=== PATIENT | male | born 1940 | race Caucasian/White ===

== ENCOUNTER 2017-08-26 15:59 | Emergency (ER) | payer MEDICARE, SELFPAY ==
[2017-08-26 16:00] VITALS: BP 156/88; PULSE 92; RESP 20; TEMP 36.9; O2SAT 96; BMI 33.7
--- NOTE | 2017-08-26 16:12 | EKG12_ITS ---
Test Reason : SOB Blood Pressure : / mmHG Vent. Rate : 085 BPM Atrial Rate : 085 BPM P-R Int : 190 ms QRS Dur : 148 ms QT Int : 416 ms P-R-T Axes : 033 -45 034 degrees QTc Int : 495 ms Normal sinus rhythm Right bundle branch block Left anterior fascicular block Bifascicular block Abnormal ECG Confirmed by KAILEY LUCERO, MICHELET ([id number]), copy editor JAYDEN EVERETT ([id number]) on 08/29/2017 1:16:16 PM Referred By: UNRULY Confirmed By:MICHELET BONNER MD
--- NOTE | 2017-08-26 16:16 | ED.DCSUM_ITS ---
- ER Visit Summary Date of Service: 08/26/17 Chief Complaint: Cough History of Present Illness: The patient is a [address] Rosenthal. He reports that he has a cough that began 2 weeks ago. It is productive of very little sputum that is yellow. No blood. States he went to [facility] clinic approximate 5 days ago and was placed on Augmentin and ProAir air and has not had any relief. He did not have a chest x-ray at that time. Reports that he has a mild constant chest pain that he describes as dull. It is 1 out of 10 severity. It is increased with coughing. This is been present for a week. Patient reports he has mild shortness of breath that is unrelieved with his MDI. He denies any other complaints. Physical Examination: Vitals: Stable. Afebrile. General: Well-nourished and well-developed. Head: Normocephalic atraumatic. Neck: Supple, no lymphadenopathy. No JVD. Nontender. Cardiovascular: Regular rate and rhythm. No murmurs. Respiratory: No respiratory distress. Minimal and expiratory wheezing with good air movement. Abdominal: Soft, nontender, nondistended, normal bowel sounds. No guarding, rebound, or peritoneal signs. Back: Nontender. Extremities: Nontender, no edema. Skin: Normal color, no rash. Neurologic: Alert and oriented ?3. Cranial nerves II through XII are intact. Normal strength and sensation. Psych: Normal affect. Test Results: EKG is sinus at 85 with a bifascicular block that is new since October 082016. Troponin was negative. Chem-7 more for creatinine 1.36 and glucose 132. CBC is marked for eosinophils of 8. Chest x-ray shows chronic changes. Emergency Department Course and Treatment: Patient had an IV placed. He was given albuterol Atrovent aerosols. He feels much improved. Treatment Plan: She will be placed on steroids as I suspect this will help the inhaler work at home. He is given a 5 day burst of prednisone. Given his age and the new bifascicular block he was discussed with Dr. Davila instructed to follow-up with him in the office for further evaluation and treatment. Follow-up his primary care physician if his cough is not improving within 3-5 days. Return to the emergency department for any worsening symptoms. Disposition: To home in improved and stable condition. Impression:. URI. 2. New bifascicular block. This note was generated with Lookmash dictation software. It may contain incorrect words, spelling, and punctuation that were not noted in review of the chart prior to signing ED Disposition - Plan for ED Patient: Disposition: Home or Assisted Living Chief Complaint: Cold Sx Instructions: ED Upper Resp Infec No Abx Tx Prescriptions: Prednisone [Deltasone] 60 mg PO DAILY #15 tablet Referrals: Sergio Monroy DO [Primary Care Provider] - 1 Week if not improving Macho Davila MD [STAFF PHYSICIAN] - 1-2 Weeks
[2017-08-26 16:25] VITALS: PULSE 87; RESP 18
[2017-08-26] MEDS: Ipratropium/Albuterol Sulfate 3 ML AMPUL.NEB INHALATION (16:30)
[2017-08-26] MEDS: 0.9% Normal Saline 1,000 ML 150 ML IV (16:31)
--- NOTE | 2017-08-26 16:35 | RAD_ITS ---
STUDY: X-RAY CHEST REASON FOR EXAM: Male, 77 years old. Cough TECHNIQUE: Frontal view of the chest COMPARISON: 09/19/2016 FINDINGS: The lungs are clear. There are no pleural effusions. There is no pneumothorax. The heart is normal in size. Again noted are old left-sided rib fractures. RAD/Chest PA and Lateral IMPRESSION: No acute thoracic pathology. Electronically Signed: Giorgi Draper, at 20:38 EST Tel , Service support ,
[2017-08-26 16:45] LABS: Absolute Lymphocyte Count 1.15 X10^3/ul (0.83-4.51); Absolute Neutrophil Count 3.3 X10^3/uL (2.0-7.7); Basophil# 0.05 X10^3/uL; Basophil% 0.9 % (0-1); Eosinophil# 0.42 X10^3/uL; Eosinophils% 7.8 % (0-5); Hematocrit 43.8 % (40-54); Hemoglobin 13.7 g/dl (13.0-16.5); Lymphocyte # 1.15 X10^3/ul (4.0); Lymphocyte % 21.3 % (19-41); Mean Corp Hgb Conc 31.3 g/gl (32-36); Mean Corpuscular Hgb 29.6 pg (27.0-32.0); Mean Corpuscular Volume 94.6 fL (80-94); Mean Platelet Vol. 9.9 fl (6.2-12.0); Monocyte# 0.49 X10^3/uL; Monocyte% 9.1 % (0-10); Neutrophil # 3.29 X10^3/uL (2.7-7.7); Neutrophil % 60.9 % (47-70); POSITIVE COUNT NO; POSITIVE DIFFERENTIAL NO; POSITIVE MORPHOLOGY NO; Platelet Count 254 K/mm3 (150-450); RBC Distribution Width SD 44.6 fl (35.1-43.9); Red Blood Count 4.63 M/mm3 (4.6-6.2); White Blood Count 5.4 K/mm3 (4.4-11.0)
[2017-08-26 16:54] LABS: Anion Gap 7 (5-15); BUN 12 mg/dL (7-18); BUN/Creat Ratio 8.8 RATIO (10-20); Chloride 107 mmol/L (98-107); Creatinine, Serum 1.36 mg/dL (0.70-1.30); EST Glomerular Filtration Rate 54 mL/min (>60); Est Glom Filt Rate - Afr Amer 66 mL/min (>60); Estimated Creatinine Clearance 52.22 ml/min; Glucose 132 mg/dL (74-106); Potassium 4.5 mmol/L (3.5-5.1); Sodium Level 141 mmol/L (136-145)
[2017-08-26 17:27] VITALS: BP 124/69; PULSE 78; RESP 18; O2SAT 96
[2017-08-26 18:32] VITALS: BP 142/75; PULSE 84; RESP 21; O2SAT 94
== END 2017-08-26 18:32 | disposition home or self-care (01) ==
LOC: ED 16:47
PROVIDERS: Emergency Provider Emergency Medicine; Family Provider Preventive Medicine Occupational Medicine; PCP Preventive Medicine Occupational Medicine
DX: J06.9 Acute upper respiratory infection, unspecified (principal); I45.2 Bifascicular block; R07.9 Chest pain, unspecified; F31.9 Bipolar disorder, unspecified; Z90.89 Acquired absence of other organs; Z90.49 Acquired absence of other specified parts of digestive tract; Z79.899 Other long term (current) drug therapy
CPT/HCPCS: 71046; 80048; 84484; 85025; 93005; 94640; 96360; 96361; 99285; J7030; A4216

== ENCOUNTER → 2017-10-24 09:17 | Outpatient (CLI) | payer MEDICARE, SELFPAY ==
[2017-10-24 11:17] LABS: ALB/GLOB Ratio 0.9 RATIO (0.9-2.4); AST(SGOT) 16 U/L (15-37); Alanine Aminotransfer ALT/SGPT 21 U/L (16-61); Albumin, Serum 3.4 g/dL (3.2-5.0); Alkaline Phosphatase 68 U/L (45-117); Anion Gap 6 (5-15); BUN 13 mg/dL (7-18); BUN/Creat Ratio 10.9 RATIO (10-20); Calcium,Total 8.5 mg/dL (8.5-10.1); Chloride 111 mmol/L (98-107); Creatinine, Serum 1.19 mg/dL (0.70-1.30); EST Glomerular Filtration Rate 63 mL/min (>60); Est Glom Filt Rate - Afr Amer 76 mL/min (>60); Globulin 3.9 g/dL (2.2-4.2); Glucose 115 mg/dL (74-106); Potassium 4.4 mmol/L (3.5-5.1); Protein, Total 7.3 g/dL (6.4-8.2); Sodium Level 144 mmol/L (136-145); Thyroid Stim Hormone (TSH) 3.37 uIU/mL (0.358-3.74)
== END ==
PROVIDERS: Family Provider Preventive Medicine Occupational Medicine; PCP Preventive Medicine Occupational Medicine; Visit Provider Psychiatry & Neurology Psychiatry
DX: Z79.899 Other long term (current) drug therapy (principal)
CPT/HCPCS: 36415; 80053; 80178; 84443

== ENCOUNTER 2018-07-12 07:17 | Emergency (ER) | payer MEDICARE, SELFPAY ==
[2018-07-12 07:17] VITALS: BP 156/90; PULSE 71; RESP 18; TEMP 36.1; O2SAT 97; BMI 33.0
[2018-07-12 07:26] VITALS: BP 156/90; PULSE 71; RESP 18; TEMP 36.1; O2SAT 97
--- NOTE | 2018-07-12 07:36 | ED.VISSUMM ---
- ER Visit Summary Date of Service: 07/12/18 Chief Complaint: Pain and increased salivation status post dental extraction approximately 4 months ago History of Present Illness: The patient is a 77 M who presents because of pain and increased salivation for 4 months. He was referred to Dr. Kareem Anders an pathology secretary who told the patient that his symptoms are related to the dental extraction. He states he followed up with a dentist with no answer resolution. He was prescribed a liquid suspension by Dr. Anders. He denies fever, chills night sweats. He denies URI symptoms. He reported 15 seconds of chest discomfort last evening with no associated symptoms or radiation. He has no risk factors for coronary disease. Patient was asked what his purpose and goal was by coming to the emergency room. He stated he wanted the secretions to decrease. Physical Examination: Vital signs noted blood pressure is elevated 157/91. Head is atraumatic normocephalic. Pupils are equal round reactive. Extraocular muscles are intact. TMs are pearly white with landmarks noted. Nares patent with no drainage. Posterior pharynx without erythema or exudate. Uvula is midline. Examination of the gums reveals no erythema, soft tissue swelling. There is no obvious increased salivation noted. There is no abnormality [place]'s or Stensen's duct. There is no evidence of malocclusion and there is no pain over the TMJ joint. There is no dysphonia or dysphasia. Trachea is midline. There is no submental, submandibular or cervical lymphadenopathy. There is no stridor with auscultation of the neck. Test Results: None Emergency Department Course and Treatment: Patient was informed that as an emergency physician I see no abnormality and recommend he follow-up with his dentist or Dr. Adners. Treatment Plan: Follow-up with dentist who extracted teeth or Dr. Anders who he has seen and reportedly told patient that the problem was related to the extraction. Disposition: Discharge to home in stable condition Impression: Pain and increase elevation status post dental extraction This note was generated with Zuppler dictation software. It may contain incorrect words, spelling, and punctuation that were not noted in review of the chart prior to signing ED Disposition - Plan for ED Patient: Disposition: Home or Assisted Living Chief Complaint: Other, Pain/Inj Instructions: ED Screening Exam Medical Nonurgent Referrals: Sergio Monroy DO [Primary Care Provider] - As Needed Additional Instructions: Recommend contacting the dentist to extract the teeth and making dentures for Dr. Kareem Anders for any further concerns or questions or treatment.
--- NOTE | 2018-07-12 07:40 | ED.DCSUM_ITS ---
- ER Visit Summary Date of Service: 07/12/18 Chief Complaint: Pain and increased salivation status post dental extraction approximately 4 months ago History of Present Illness: The patient is a 77 M who presents because of pain and increased salivation for 4 months. He was referred to Dr. Kareem Anders an o tolaryngologist who told the patient that his symptoms are related to the dental extraction. He states he followed up with a dentist with no answer resolution. He was prescribed a liquid suspension by Dr. Anders. He denies fever, chills night sweats. He denies URI symptoms. He reported 15 seconds of chest discomfort last evening with no associated symptoms or radiation. He has no risk factors for coronary disease. Patient was asked what his purpose and goal was by coming to the emergency room. He stated he wanted the secretions to decrease. Physical Examination: Vital signs noted blood pressure is elevated 157/91. Head is atraumatic normocephalic. Pupils are equal round reactive. Extraocular muscles are intact. TMs are pearly white with landmarks noted. Nares patent with no drainage. Posterior pharynx without erythema or exudate. Uvula is midline. Examination of the gums reveals no erythema, soft tissue swelling. There is no obvious increased salivation noted. There is no abnormality [place]'s or Stensen's duct. There is no evidence of malocclusion and there is no pain over the TMJ joint. There is no dysphonia or dysphasia. Trachea is mid line. There is no submental, submandibular or cervical lymphadenopathy. There is no stridor with auscultation of the neck. Test Results: None Emergency Department Course and Treatment: Patient was informed that as an emergency physician I see no abnormality and recommend he follow-up with his dentist or Dr. Anders. Treatment Plan: Follow-up with dentist who extracted teeth or Dr. Anders who he has seen and reportedly told patient that the problem was related to the extraction. Disposition: Discharge to home in stable condition Impression: Pain and increase elevation status post dental extraction This note was generated with Move[employer] dictation software. It may contain incorrect words, spelling, and punctuation that were not noted in review of the chart prior to signing ED Disposition - Plan for ED Patient: Disposition: Home or Assisted Living Chief Complaint: Other, Pain/Inj Instructions: ED Screening Exam Medical Nonurgent Referrals: Sergio Monroy DO [Primary Care Provider] - As Needed Additional Instructions: Recommend contacting the dentist to extract the teeth and making dentures for Dr. Kareem Anders for any further concerns or questions or treatment.
== END 2018-07-12 07:49 | disposition home or self-care (01) ==
LOC: ED 07:47
PROVIDERS: Emergency Provider Emergency Medicine; Family Provider Preventive Medicine Occupational Medicine; PCP Preventive Medicine Occupational Medicine
DX: K08.89 Other specified disorders of teeth and supporting structures (principal); K11.7 Disturbances of salivary secretion; R07.89 Other chest pain; R03.0 Elevated blood-pressure reading, without diagnosis of hypertension; F31.9 Bipolar disorder, unspecified; Z79.899 Other long term (current) drug therapy
CPT/HCPCS: 99282

== ENCOUNTER → 2019-01-12 13:26 | Outpatient (CLI) | payer MEDICARE, SELFPAY ==
[2019-01-12 16:03] LABS: ALB/GLOB Ratio 1.1 RATIO (0.9-2.4); AST(SGOT) 13 U/L (15-37); Alanine Aminotransfer ALT/SGPT 20 U/L (16-61); Albumin, Serum 3.7 g/dL (3.2-5.0); Alkaline Phosphatase 70 U/L (45-117); Anion Gap 8 (5-15); BUN 15 mg/dL (7-18); BUN/Creat Ratio 11.2 RATIO (10-20); Chloride 109 mmol/L (98-107); Creatinine, Serum 1.34 mg/dL (0.70-1.30); EST Glomerular Filtration Rate 55 mL/min (>60); Est Glom Filt Rate - Afr Amer 66 mL/min (>60); Globulin 3.5 g/dL (2.2-4.2); Glucose 110 mg/dL (74-106); Protein, Total 7.2 g/dL (6.4-8.2); Sodium Level 142 mmol/L (136-145)
== END ==
PROVIDERS: Family Provider Preventive Medicine Occupational Medicine; PCP Preventive Medicine Occupational Medicine; Referring Provider Registered Nurse; Visit Provider Registered Nurse
DX: F31.9 Bipolar disorder, unspecified (principal); Z79.899 Other long term (current) drug therapy
CPT/HCPCS: 36415; 80053; 80178; 84443

== ENCOUNTER → 2020-08-12 09:06 | Outpatient (CLI) | payer MEDICARE, SELFPAY ==
[2020-08-12 11:03] LABS: ALB/GLOB Ratio 0.9 RATIO (0.9-2.4); AST(SGOT) 13 U/L (15-37); Alanine Aminotransfer ALT/SGPT 21 U/L (16-61); Albumin, Serum 3.6 g/dL (3.2-5.0); Alkaline Phosphatase 76 U/L (45-117); Anion Gap 4 (5-15); BUN 16 mg/dL (7-18); BUN/Creat Ratio 12.9 RATIO (10-20); Calcium,Total 9.1 mg/dL (8.5-10.1); Chloride 106 mmol/L (98-107); Creatinine, Serum 1.24 mg/dL (0.70-1.30); EST Glomerular Filtration Rate 60 mL/min (>60); Est Glom Filt Rate - Afr Amer 72 mL/min (>60); Globulin 3.9 g/dL (2.2-4.2); Glucose 109 mg/dL (74-106); Potassium 4.1 mmol/L (3.5-5.1); Protein, Total 7.5 g/dL (6.4-8.2); Sodium Level 139 mmol/L (136-145); Thyroid Stim Hormone (TSH) 3.52 uIU/mL (0.358-3.74)
== END ==
PROVIDERS: PCP Preventive Medicine Occupational Medicine; Referring Provider Registered Nurse; Visit Provider Registered Nurse
DX: F31.9 Bipolar disorder, unspecified (principal); Z79.899 Other long term (current) drug therapy
CPT/HCPCS: 36415; 80053; 80178; 84443

== ENCOUNTER 2021-04-24 09:00 | Outpatient (RCR) | payer MEDICARE, SELFPAY ==
--- NOTE | 2021-04-10 11:13 | HP.PTEVAL_ITS ---
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 Date of Evaluation: 04/10/21 Physical Therapist: Juan Samayoa, DPT, OCS, CSCS - Visit Plan Frequency: 1x/Week Duration: 4-6 Weeks Plan: Requested HEP vs frequent therapy due to wifes schedule, this thera[ist agreeable as he is doing well with pain and funciton. weekly x 4-6 as needed for HEP progression: Given this week AP, QS, HS seated and supine, PKF, and SLR x 3 and heel raises 2-3x/day. next session: WB ex and ensure ROM coming along, HS, quad stretch. - Subjective R TKA Dr Alejo on 03/26/21. L knee has OA also. Been home since with . Uses wh walker to get around at times but not as much lately. Pain level is good. Pain meds until 3 days ago now cut down to one dose per day now. 0-2/10. A little discomfort with bending. HEP : HS, AP, QS.SLR. Had pain for 16 years prior to surgery. Sleeping is 2.5 hours at a time which is normal lately due to bathroom. 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 Goals are to get caught up on paperwork. Two steps to get into house with railing using L leg. Hobbies: none lately. Basic ADLs are getting done, needs some help with R shoe and sock. Doing shower adn bathroom, has handles. Has shower seat. - Pain R knee Pain Intensity (Out of 10): 0 Pain Intensity Range: 0, 2 - Objective Walks with wh walker mod I with good trasnfers utilizing UE and steps reciprocal up with two rails and down with discomfort in R but reciprocal with much UE WB. Bed trasnfer I. - homand. patellas moving les son R than L but fair movoement. R girth 18 adn 21.5 6 sp. R knee -5 to 85 AROM and 95 PROM. R 48# HSC and 32# ext. TUG 11 sec. Incision is clean and dry with some steristrips still in place, no signs of redness, heat or excessive swelling. CBD study dec lined. - Balance/Special Test Scores Functional Gait Assessment Score: 25 % Disability: 16.6700 Lower Extremity Functional Score: 58 TUG Test Time Seconds: 11 WOMAC Total Score: 17 WOMAC Percentatge: 82.3000 - Goals Goal 1:: 0-110 AROM without pain to facilitate steps Goal Time Frame: 4-6 Weeks Goal 2:: Walk without gait deviations and good knee flexiona dn ext community based distances Goal Time Frame: 4-6 Weeks Goal 3:: Steps reciprocal without rail Goal Time Frame: 4-6 Weeks Goal 4:: Pt feel 100% back to activities Goal Time Frame: 4-6 Weeks - Rehabilitation Potential Physical Therapy Diagnosis: R knee pain, stiffness after recent TKA Rehabilitation Potential: Good - Anticipated Interventions Patient/Client Instruction: Educate patient on: Condition, Plan of Care For the Purpose of:: To decrease pain, To increase ROM, To improve muscle performance and motor function, To improve ability of physical actions for home/community/work/leisure, To improve gait and locomotor functions Therapeutic Exercise to Include: Strength training, Flexibilty training, Gait and locomotor training, Passive ROM, Active ROM For the Purpose of:: To decrease pain, To increase ROM, To improve muscle performance and motor function, To increase tolerance to activity/condition/position, To improve ability of physical actions for home/community/work/leisure, To improve gait and locomotor functions Thank you for the opportunity to evaluate your patient. For Medicare and Medicare HMO plans, please review the plan of care and approve it. It will need to be FAXED BACK to us at [phone] for Medicare purposes. For Medicare only, by signing this I certify the plan of care. Please let me know if there are questions or concerns regarding this plan of care. Physician Signature: Date:
--- NOTE | 2021-06-26 11:59 | HP.PT.NRP ---
LACI ROMERO was seen in my office for initial evaluation on 04/10/21. The following Plan of Care was established for this patient: Initial Frequency: 1x/Week Initial Duration: 4-6 Weeks Patient/Client Instruction: Educate patient on: Condition, Plan of Care For the Purpose of:: To decrease pain, To increase ROM, To improve muscle performance and motor function, To improve ability of physical actions for home/community/work/leisure, To improve gait and locomotor functions Therapeutic Exercise to Include: Strength training, Flexibilty training, Gait and locomotor training, Passive ROM, Active ROM For the Purpose of:: To decrease pain, To increase ROM, To improve muscle performance and motor function, To increase tolerance to activity/condition/position, To improve ability of physical actions for home/community/work/leisure, To improve gait and locomotor functions This patient was last seen in our office 04/24/21. Pertinent comments regarding their Physical therapy will appear below: Pt seen two visits of POC and was doing very well. He did not attend his last f/u two weeks later. at this point, it has been over two months and I will disocntinue due to nonattendance. At this point I will be discontinuing this patient from physical therapy. I would be happy to see this patient again in the future if found appropriate by the physician. Thank you! Juan Samayoa, DPT, OCS, CSCS Balance/Gait/Functional tests - Balance/Special Test Scores Functional Gait Assessment Score: 25 % Disability: 16.6700 Lower Extremity Functional Score: 58 TUG Test Time Seconds: 11 WOMAC Total Score: 17 WOMAC Percentage: 82.3000
== END 2021-04-24 19:00 | disposition home or self-care (01) ==
LOC: PT 09:00
PROVIDERS: PCP Preventive Medicine Occupational Medicine
DX: M17.11 Unilateral primary osteoarthritis, right knee (principal); M25.561 Pain in right knee; G89.18 Other acute postprocedural pain; Z47.1 Aftercare following joint replacement surgery; Z96.651 Presence of right artificial knee joint
CPT/HCPCS: 97110; 97161

== ENCOUNTER 2021-06-09 19:37 | Emergency (ER) | payer MEDICARE, SELFPAY ==
[2021-06-09 19:38] VITALS: BP 123/77; PULSE 91; RESP 20; TEMP 35.8; O2SAT 98; BMI 37.3
[2021-06-09] MEDS: Tetracaine 0.5% Ophthalmic Bottle 1 DRP LEFT EYE (21:52)
--- NOTE | 2021-06-09 22:15 | EDS_ITS ---
HPI History of Present Illness Chief Complaint: Eye Problem Detail of Chief Complaint: Left eye irritation Informant: patient Onset/Context/Timing Location: Left Eye Onset: Yesterday Current Severity: Mild Maximum Severity: Moderate Narrative Narrative: Patient presents with left eye irritation that started last evening. He was using a assembly cleaner last night and thinks he may have had some on his hands when he wiped his eye. He noted burning sensation the left eye, especially when he first opens his eyes. He had some mild watering. He denies vision change. [facility] Medical History Bipolar disorder Chest pain Home Medications lithium carbonate 450 mg PO BID 08/01/15 [History Last Taken 09/18/16] Allergy/AdvReac Type Severity Reaction Status Date / Time No Known Allergies Allergy Verified 06/09/21 19:38 Surgical History History of cholecystectomy History of hernia repair Hx of appendectomy Social History Smoking Status: Unknown if ever smoked ROS ROS ED Constitutional Constitutional ED: Denies chills or fever(s) Eyes Eyes: Denies blurry vision or change in vision ENT ENT ED: Denies rhinorrhea or sore throat Cardiovascular Cardiovascular: Denies chest pain Respiratory/Chest Respiratory/Chest: Denies cough or dyspnea Gastrointestinal Gastrointestinal: Denies abdominal pain Integumentary Denies rash Neurologic Neurologic: Denies headache(s) or weakness Hematologic/Lymphatic Hematologic/Lymphatic: Denies easy bleeding or easy bruising Allergic/Immunologic Allergic/Immunologic ED: Denies urticaria EXAM Physical Exam Const Vital Signs: 06/09/21 19:38 Temperature 96.5 F L Temperature Source Temporal Pulse Rate 91 Respiratory Rate 20 H Blood Pressure 123/77 H Blood Pressure Mean 92 Pulse Ox 98 Oxygen Delivery Method Room Air Positive well nourished and well developed General Appearance ED: well developed Eyes General Eye ED: Yes normal light reflex Periorbital: periorbital findings normal Eyelid: eyelids normal Conjunctiva: conjunctiva abnormal left (Left conjunctival injection.) Pupil: PERRL Resp normal respiratory effort and clear to auscultation bilaterally Cardio regular rate and regular rhythm GI non-tender Palpation: soft Neuro oriented x3 Sensorium / Orientation: alert Skin Lesions: no lesions Rashes: no rashes MDM MDM MDM Narrative Medical decision making narrative: Tetracaine drops instilled into the left eye. Eye is irrigated with eyewash. He does note the burning sensation was significantly improved following instillation of tetracaine. Following this fluorescein is applied. No dye uptake noted. Discussed with patient I believe he has chemical conjunctivitis. He will be treated with gentamicin eyedrops. He is referred to [facility] if not improving. Discharge Plan Triage Chief Complaint: Eye Problem ED Provider: Iliana Justin Dx/Rx/DC Orders Clinical Impression: Chemical conjunctivitis Instructions: Conjunctivitis Caused by Irritation, ED Eye Exposure, Chemical Prescriptions: No Action lithium carbonate 450 MG Tablet.Er 450 mg PO BID RF: 0 Primary Care Provider: Sergio Monroy Referrals: Isrrael Trivedi MD [STAFF PHYSICIAN] - 3-5 Days if not improving Sergio Monroy DO [Primary Care Provider] - Activity Restrictions/Additional Instructions: Gentamicin eyedrops: 1 drop to left eye every 4-6 hours while awake. Continue drops until symptoms resolved for 24 hours Disposition Disposition: Home, Self Care Discharge Date/Time: 06/09/21 22:24
[2021-06-09] MEDS: Gentamicin Sulfate 1 OPTH.BTL 2 DRP LEFT EYE (22:23)
[2021-06-09] MEDS: Fluorescein 1 MG STRIP 1 STRIP LEFT EYE (22:23)
== END 2021-06-09 22:24 | disposition home or self-care (01) ==
PROVIDERS: Emergency Provider Emergency Medicine; PCP Preventive Medicine Occupational Medicine
DX: H10.212 Acute toxic conjunctivitis, left eye (principal); T50.995A Adverse effect of other drugs, medicaments and biological substances, initial encounter; Y92.9 Unspecified place or not applicable; F31.9 Bipolar disorder, unspecified; Z79.899 Other long term (current) drug therapy
CPT/HCPCS: 99283

== ENCOUNTER 2021-06-29 16:31 | Emergency (ER) | payer MEDICARE, SELFPAY ==
[2021-06-29 16:34] VITALS: BP 171/142; PULSE 93; RESP 18; TEMP 37.1; O2SAT 94; BMI 31.8
== END 2021-06-29 18:40 | disposition left against medical advice (07) ==
LOC: ED 19:44
PROVIDERS: PCP Preventive Medicine Occupational Medicine
DX: R07.89 Other chest pain (principal); Z53.21 Procedure and treatment not carried out due to patient leaving prior to being seen by health care provider

== ENCOUNTER 2021-08-13 07:15 | Outpatient (CLI) | payer MEDICARE, SELFPAY ==
--- NOTE | 2021-08-13 07:28 | CT_ITS ---
STUDY: CTA CHEST REASON FOR EXAM: Male, 81 years old. POST COVID. Shortness of breath. RADIATION DOSAGE (If Supplied By Facility): CTDIvol = ( 11.17 ) mGy, DLP = ( 492.90 ) mGycm TECHNIQUE: The examination was performed with the intravenous administration of IV 100mL Isovue-370. Post-processing of the angiographic images was performed, with multiplanar reformation and 3D reconstruction. Individualized dose optimization techniques were used for this CT. COMPARISON: Comparison is made with prior study dated 10/08/2016. FINDINGS: Normal enhancement of the main pulmonary artery and right and left pulmonary arteries. Normal enhancement of the bilateral peripheral pulmonary arteries. There is no demonstrated pulmonary embolism. There is atherosclerotic calcification of the aortic arch with tortuosity. There is no demonstrated aortic dissection. Normal heart and pericardium. Stable mildly enlarged mediastinal lymph nodes. The largest lymph node measures 2.2 cm and is in the pretracheal space. Mildly enlarged bilateral hilar lymph nodes. Normal hilar regions. Normal visualized trachea and bronchi. The lungs are well expanded. There now is evidence of diffuse bilateral airspace disease involving both upper and lower lobes and interferential peripheral distribution suggestive of pneumonitis associated with covert. Normal pleura. Normal chest wall structures. There are degenerative changes of thoracic spine. Normal visualized upper abdomen. CT/CTA Chest W/WO Contrast IMPRESSION: Bilateral alveolar infiltrates in the preferential peripheral distribution involving both upper and lower lobes bilaterally. This is suggestive of a pneumonitis associated with Covid. Electronically Signed: Qasim Henderson MD at 9:37 EST ,
--- NOTE | 2021-08-13 07:29 | ECHOD_ITS ---
Reason For Study: SOB Procedure This was a 2D Doppler, Color Flow transthoracic echocardiogram. Exam performed in department. Left Ventricle Normal LV size. The estimated ejection fraction is 60 %. No evidence for diastolic dysfunction. No regional wall motion abnormalities noted. Right Ventricle Normal RV size. Normal systolic function. Atria Normal left atrium. Normal right atrium. No doppler evidence for ASD. Mitral Valve There is no mitral valve stenosis. Trivial mitral valve insufficiency. Tricuspid Valve There is no tricuspid stenosis. Trivial tricuspid valve insufficiency. Unable to estimate RV systolic pressure due to insufficient tricuspid regurgitant envelope. Aortic Valve Trisinus/trileaflet aortic valve. Aortic sclerosis, no stenosis. There is no aortic stenosis. Mild (1+) aortic valve insufficiency. Pulmonic Valve There is no pulmonic valvular stenosis. Trivial pulmonic valve insufficiency. Great Vessels Mild to moderately dilated aortic root. Pericardium/Pleural No pericardial effusion. MMode/2D Measurements & Calculations LVIDd: 5.0 cm IVSd: 0.99 cm Ao root diam: 4.6 cm LVIDs: 3.4 cm LVPWd: 0.95 cm RVDd: 3.6 cm FS: 31.3 % LAV(MOD-bp): 52.6 ml LVAd ap4: 35.1 cm2 LVAd ap2: 30.4 cm2 LAV(MOD-bp) Indexed: 23.7 ml/m2 LVLd ap4: 8.7 cm LVLd ap2: 7.9 cm LAV(MOD-sp2): 54.2 ml EDV(MOD-sp4): 115.9 ml EDV(MOD-sp2): 96.3 ml LAV(MOD-sp4): 49.3 ml EDV(sp4-el): 119.6 ml EDV(sp2-el): 98.9 ml LVAs ap4: 18.0 cm2 LVAs ap2: 17.6 cm2 LVLs ap4: 7.0 cm LVLs ap2: 7.2 cm ESV(MOD-sp4): 38.9 ml ESV(MOD-sp2): 36.3 ml ESV(sp4-el): 39.6 ml ESV(sp2-el): 36.4 ml EF(MOD-sp4): 66.5 % EF(MOD-sp2): 62.3 % EF(sp4-el): 66.9 % SV(MOD-sp4): 77.1 ml SV(MOD-sp2): 60.0 ml SV(sp4-el): 80.1 ml LA dimension(2D): 4.2 cm LA A4 area: 17.9 cm2 RA A4 area: 11.4 cm2 Doppler Measurements & Calculations MV E max anant: 62.7 cm/sec Lat Peak E' Anant: 8.4 cm/sec Med Peak E' Anant: 3.7 cm/sec MV A max anant: 58.2 cm/sec E/E' lat: 7.5 E/E' med: 16.8 MV E/A: 1.1 Ao V2 max: 136.2 cm/sec AI max anant: 355.8 cm/sec LV V1 max: 100.6 cm/sec Ao max P.4 mmHg AI max P.8 mmHg LV V1 max P.1 mmHg AI dec slope: 144.5 cm/sec2 AI P1/2t: 721.2 msec PA V2 max: 86.5 cm/sec PI end-d anant: 123.5 cm/sec TR max anant: 260.4 cm/sec TR max P.1 mmHg ECHO/Echo Complete Interpretation Summary The estimated ejection fraction is 60 %. No evidence for diastolic dysfunction. Trivial mitral valve insufficiency. Mild (1+) aortic valve insufficiency. Mild to moderately dilated aortic root. Ordering Physician: Hank Bryan Referring Physician: LUKE CORBETT Performed By: Denisse Hartman, GRECIA, RVT
[2021-08-13 07:40] LABS: CREATININE FINGERSTICK 1.2 mg/dL (0.70-1.30); EGFR FINGERSTICK > 60.0000 mL/min (>60)
== END 2021-08-13 23:59 | disposition short-term general hospital (02) ==
PROVIDERS: PCP Preventive Medicine Occupational Medicine; Referring Provider Nurse Practitioner Family; Visit Provider Nurse Practitioner Family
DX: R06.09 Other forms of dyspnea (principal); U07.1 COVID-19; R05.3 Chronic cough; R79.89 Other specified abnormal findings of blood chemistry; R79.82 Elevated C-reactive protein (CRP)
CPT/HCPCS: 71275; 93306; Q9967

== ENCOUNTER → 2021-11-06 | Outpatient (CLI) | payer MEDICARE, SELFPAY ==
[2021-11-06 11:04] LABS: ALB/GLOB Ratio 0.9 RATIO (0.9-2.4); AST(SGOT) 16 U/L (15-37); Alanine Aminotransfer ALT/SGPT 17 U/L (16-61); Albumin, Serum 3.6 g/dL (3.2-5.0); Alkaline Phosphatase 69 U/L (45-117); Anion Gap 4 (5-15); BUN 18 mg/dL (7-18); BUN/Creat Ratio 13.1 RATIO (10-20); Calcium,Total 9.3 mg/dL (8.5-10.1); Chloride 108 mmol/L (98-107); Creatinine, Serum 1.37 mg/dL (0.70-1.30); EST Glomerular Filtration Rate 53 mL/min (>60); Est Glom Filt Rate - Afr Amer 64 mL/min (>60); Globulin 3.8 g/dL (2.2-4.2); Glucose 117 mg/dL (74-106); Potassium 4.2 mmol/L (3.5-5.1); Protein, Total 7.4 g/dL (6.4-8.2); Sodium Level 138 mmol/L (136-145); Thyroid Stim Hormone (TSH) 4.01 uIU/mL (0.358-3.74)
== END | disposition home or self-care (01) ==
LOC: MTLAB 09:17
PROVIDERS: PCP Preventive Medicine Occupational Medicine; Referring Provider Registered Nurse; Visit Provider Registered Nurse
DX: F31.9 Bipolar disorder, unspecified (principal); Z79.899 Other long term (current) drug therapy
CPT/HCPCS: 36415; 80053; 80178; 84443

== ENCOUNTER → 2022-10-08 | Outpatient (CLI) | payer MEDICARE, SELFPAY ==
[2022-10-08 16:04] LABS: ALB/GLOB Ratio 1.1 RATIO (0.9-2.4); AST(SGOT) 17 U/L (15-37); Alanine Aminotransfer ALT/SGPT 22 U/L (16-61); Albumin, Serum 4.1 g/dL (3.2-5.0); Alkaline Phosphatase 72 U/L (45-117); Anion Gap 5 (5-15); BUN 21 mg/dL (7-18); BUN/Creat Ratio 16.5 RATIO (10-20); Calcium,Total 9.4 mg/dL (8.5-10.1); Chloride 105 mmol/L (98-107); Creatinine, Serum 1.27 mg/dL (0.70-1.30); EST Glomerular Filtration Rate 58 mL/min (>60); Est Glom Filt Rate - Afr Amer 70 mL/min (>60); Globulin 3.8 g/dL (2.2-4.2); Glucose 119 mg/dL (74-106); Potassium 4.4 mmol/L (3.5-5.1); Protein, Total 7.9 g/dL (6.4-8.2); Sodium Level 136 mmol/L (136-145); Thyroid Stim Hormone (TSH) 2.91 uIU/mL (0.358-3.74)
== END | disposition home or self-care (01) ==
PROVIDERS: PCP Preventive Medicine Occupational Medicine; Referring Provider Registered Nurse; Visit Provider Registered Nurse
DX: F31.9 Bipolar disorder, unspecified (principal); Z79.899 Other long term (current) drug therapy
CPT/HCPCS: 36415; 80053; 80178; 84443

== ENCOUNTER 2024-11-17 11:14 | Emergency (ER) | payer MEDICARE, SELFPAY ==
[2024-11-17 11:16] VITALS: BP 132/74; PULSE 68; RESP 16; TEMP 36.4; O2SAT 96; BMI 31.1
--- NOTE | 2024-11-17 11:32 | ED.VIS.GI ---
HPI <DANE Rodriguez - Last Filed: 11/17/24 13:27> HPI - GI History of Present Illness Chief Complaint: Constipation Narrative Narrative: Patient presenting today due to constipation that has been ongoing over the past 2 weeks. He last had a bowel movement this morning but reports that it was only small amounts of hard pebble-like stool. He has been passing gas. 7 days ago he used a suppository and had several large loose stools. He reports that over the past 2 weeks he has used about 5 suppositories and started taking a stool softener 2 days ago. He denies any abdominal pain, nausea, vomiting, history of bowel obstruction, fevers, or chills. He has concerns for a fecal impaction. He is not on any opioid pain medication. He has a PMH of bipolar disorder. PFSH <DANE Rodriguez - Last Filed: 11/17/24 13:27> PFSH Medical History Chest pain Bipolar disorder Home Medications ?Medication ?Instructions ?Recorded ?Last Taken ?Type lithium carbonate 450 mg 450 mg PO BID 08/01/15 09/18/16 History tablet,extended release psyllium husk 3.4 gram/5.4 gram 1 tbsp PO DAILY #660 grams 11/17/24 Unknown Rx oral powder (Metamucil) Allergy/AdvReac Type Severity Reaction Status Date / Time No Known Allergies Allergy Verified 06/29/21 16:34 Surgical History History of hernia repair Hx of appendectomy History of cholecystectomy Social History Smoking Status: Unknown if ever smoked ROS <DANE Rodriguez - Last Filed: 11/17/24 13:27> ROS ED Constitutional Constitutional ED: Denies chills or fever(s) Cardiovascular Cardiovascular: Denies chest pain Respiratory/Chest Respiratory/Chest: Denies dyspnea Gastrointestinal Gastrointestinal: Reports constipation; Denies abdominal pain, diarrhea, nausea or vomiting Genitourinary Genitourinary ED: Denies dysuria, hematuria or urinary urgency Musculoskeletal Musculoskeletal: Denies arthralgias or myalgias Neurologic Neurologic: Denies weakness EXAM <DANE Rodriguez - Last Filed: 11/17/24 13:27> Physical Exam Const Vital Signs: 11/17/24 11:16 11/17/24 12:26 Temperature 97.5 F L 97.6 F L Temperature Source Oral Pulse Rate 68 66 Respiratory Rate 16 19 H Blood Pressure 132/74 H 130/77 H Blood Pressure Mean 93 94 Pulse Ox 96 98 Oxygen Delivery Method Room Air Positive well nourished, well developed and no apparent distress General Appearance ED: well developed HEENT Reports normocephalic and head/scalp atraumatic Mouth ED: Yes moist mucous membranes normal Eyes PERRL and EOMs intact bilaterally Neck full ROM and supple Chest Wall inspection of chest normal Resp normal respiratory effort and clear to auscultation bilaterally Cardio regular rate and regular rhythm GI soft to palpation, non-tender, non-distended and no masses GI Narrative: Rectal exam: Performed with nurse present, normal sphincter tone, impacted stool in the rectum, I was only able to manually disimpact some of this due to the location of the stool. Back/Spine normal ROM and normal to inspection Extremity normal to inspection and full ROM Neuro oriented x3, CN's II-XII intact bilaterally, moves all extremities, no focal motor deficits and no sensory deficits noted Sensorium / Orientation: awake and alert Psych mental status grossly normal and thought process normal Skin no rashes or lesions noted and no wounds <Dr. Juan Tracy, - Last Filed: 11/17/24 12:31> Physical Exam Const Vital Signs: 11/17/24 11:16 11/17/24 12:26 Temperature 97.5 F L 97.6 F L Temperature Source Oral Pulse Rate 68 66 Respiratory Rate 16 19 H Blood Pressure 132/74 H 130/77 H Blood Pressure Mean 93 94 Pulse Ox 96 98 Oxygen Delivery Method Room Air MDM <DANE Rodriguez - Last Filed: 11/17/24 13:27> [facility] Narrative Medical decision making narrative: Patient presenting today with constipation he has had over the past 2 weeks. He does have a history of constipation but usually it is relieved with suppositories. He has tried about 5 suppositories over the past 2 weeks, he last had a bowel movement this morning but it was only small amounts of hard stool. 7 days ago he had a large amount of loose stool. He has been passing gas. He has no history of bowel obstruction. He denies abdominal pain, his abdomen is soft and nontender, lower suspicion for bowel obstruction. On exam he has a fecal impaction. I was only able to disimpact a small amount of this due to the location of the stool. He will be given a soapsuds enema. On reexamination he report significant improvement of his symptoms, he had a large bowel movement here. He does admit that he eats a low fiber diet at home, I will give him a prescription for Metamucil, recommended he stay well-hydrated and increase the fiber in his diet. He can take [id number] Dulcolax and MiraLAX as needed for constipation. Recommended he follow-up with his PCP and he will be discharged home in stable condition. <Dr. Juan Tracy, DO - Last Filed: 11/17/24 12:31> [facility] Treatment and Re-Evaluation :: I have personally performed a face to face assessment of the patient and have reviewed the [facility] Note. I performed a substantive portion of the visit including all aspects of the following. My [place]cada findings include: History: Patient presents with constipation for the past 2 weeks. Patient states he has not been able to move his bowels for the past 2 weeks. Patient denies any abdominal pain. Patient denies any nausea or vomiting. Patient states he has been able to pass gas. Patient admits to some pressure over his lower abdomen and pain over the rectal area. Patient denies any fevers or chills. Patient denies any urinary complaints. Exam: Vital signs are stable. Patient is afebrile. Patient is in no acute distress. Oral mucosa is pink and moist. Neck is supple. Trachea is midline. There is no JVD. Heart was regular rate and rhythm. Lungs are clear and equal bilaterally. Abdomen is soft. Bowel sounds are normal. There is no tenderness. Cranial nerves II through XII are intact. There are no focal motor or sensory deficits noted. Medical Decision Making: Patient has a fecal impaction. Manual disimpaction was attempted by the [facility] with minimal results. Patient was given soapsuds enema. Patient had good results with this. Patient was instructed to continue with stool softeners and fiber supplements. Patient was instructed to follow-up with his primary care physician in 5 to 7 days. Patient understood and was agreeable with the plan. All questions were answered. Discharge Plan Triage Chief Complaint: Constipation ED Midlevel Provider: Destiney Bright ED Provider: Juan Tracy Dx/Rx/DC Orders Clinical Impression: Constipation, Fecal impaction in rectum Instructions: ED Constipation (Adult) Prescriptions: New Metamucil 3.4 gram/5.4 gram powder 1 tbsp PO DAILY Qty: 660 0RF Rx Instructions: mix into at least 8 oz of water or juice before administering. Can take 1-2 times daily. No Action lithium carbonate 450 MG tablet extended release 450 mg PO BID Patient Comments: bipolar Primary Care Provider: Sergio Monroy Referrals: Sergio Monroy DO [Primary Care Provider] - 5-7 Days Activity Restrictions/Additional Instructions: You can use [id number] Dulcolax or MiraLAX as needed for constipation. Begin taking the Metamucil to add fiber to your diet. Return for any other concerns and follow-up with your PCP. Print Language: Armenian Disposition Disposition: Home, Self Care Discharge Date/Time: 11/17/24 12:30
[2024-11-17 12:26] VITALS: BP 130/77; PULSE 66; RESP 19; TEMP 36.4; O2SAT 98
== END 2024-11-17 12:30 | disposition home or self-care (01) ==
PROVIDERS: Emergency Provider Emergency Medicine; PCP Preventive Medicine Occupational Medicine; Visit Provider Emergency Medicine
DX: K56.41 Fecal impaction (principal)
CPT/HCPCS: 99283

== ENCOUNTER 2025-03-09 13:21 | Inpatient (IN) | payer MEDICARE, SELFPAY ==
[2025-03-09] VITALS (9 sets, daily range): BP systolic 100–131; BP diastolic 61–78; PULSE 42–124; RESP 14–18; TEMP 36.6–36.9; O2SAT 94–99; BMI 32.7; BMI 36.8
[2025-03-09 13:57] LABS: Hematocrit 42.9 % (40-54); Hemoglobin 13.8 g/dL (13.0-16.5); Immature Granulocytes Count 0.020 X10^3/uL (0.0-0.0); Mean Corp Hgb Conc 32.2 g/dL (32-36); Mean Corpuscular Volume 94.5 fL (80-94); Mean Platelet Vol. 9.5 fl (6.2-12.0); NRBC Flagged by Analyzer 0 % (0-5); Platelet Count 259 K/mm3 (150-450); RBC Distribution Width CV 13.2 % (11.6-14.6); RBC Distribution Width SD 45.5 fl (35.1-43.9); Red Blood Count 4.54 M/mm3 (4.6-6.2); White Blood Count 7.2 K/mm3 (4.4-11.0)
--- OUTSIDE RECORDS SUMMARY | 2025-03-09 14:41 | XMS RPT_ITS | CCD ---
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 Luke Sylvester Primary Care Provider Dr. Tonei Ozuna Attending Provider [phone] Irvin [employer], [employer] Dorian Alatorre Referring Provi romi LUKE SYLVESTER DO Consulting Unavailable KIAN PENN Attending Unavailable KIAN PENN Primary Care Unavailable KIAN PENN Admitting Unavailable LUKE SYLVESTER DO Referring Unavailable PROVIDER, UNKNOWN Consulting Unavailable SHANNON SPENCER Attending LUKE Herr DO Primary Care Unavailable SHANNON SPENCER Attending LUKE Herr DO Primary Care Unavailable LUKE SYLVESTER DO Primary Care Unavailable JULIEN TAP, DEONTE Funk Consulting Unavail able MARGARET MARROQUIN-JOHNNA, TARI M Admitting Unavaila prem VICTORIA MD FACP, DEONTE Funk Attending Unavail able Luke Sylvester DO Primary Care Provider Luke Sylvester DO Primary Care Provider SMITHA VILA Attending SMITHA Carney Primary Care LUKE Devine Primary Care Unavailable RENETTA SIBLEY Referring Unavailable LUKE SYLVESTER Primary Care Unavailable RENETTA SIBLEY Attending Unavailable LUKE SYLVESTER Primary Care Unavailable LUKE SYLVESTER Primary Care Unavailable LUKE SYLVESTER Primary Care Unavailable Luke Sylvester Primary Care Unavailable Juan Tracy Attending Unavailable Medications Current Medications Medication Drug Class(es) Dates Sig (Normalized) Sig (Original) albuterol MDI (90 mcg/inh) CFC free inhalation aerosol (1 source) Start: 08-11-2021 End: 09-10-2021 take 2 puff(s) by inhalation every six hours albuterol MDI (90 mcg/inh) CFC free inhalation aerosol 2 puff(s), Inhalation, q6h, # 18 gram(s), 0 Refill(s), Pharmacy: [facility], Pneumonia due to COVID-19 virus, 178, cm, 08/11/21 10:46:00 EST, Height, kg, 08/11/21 10:46:00 EST, Dosing Weight Start Date: 08/11/21 Stop Date: 09/10/21 Status: Ordered amoxicillin 500 mg oral tablet (1 source) Penicillin-class Antibacterial Start: 06-24-2021 End: 07-04-2021 amoxicillin 500 mg oral tablet Dose : 500 mg = 1 tab(s), Oral, TID, Take with a probiotic, X 10 day(s), # 30 tab(s), 0 Refill(s), 07/04/21 13:17:00 EST Start Date: 06/24/21 Stop Date: 07/04/21 Status: Ordered amoxicillin 875 mg / clavulanate 125 mg oral tablet (1 source) Penicillin-class Antibacterial Start: 07-20-2024 End: 07-27-2024 take 1 tablet by mouth twice daily amoxicillin-clavu lanate potassium (AUGMENTIN) 875-125 mg per tablet Take 1 tablet by mouth two times a day for 7 days. 14 tablet 07/20/2024 07/27/2024 Active cefdinir 300 mg oral capsule (1 source) Cephalosporin Antibacterial Start: 01-08-2023 End: 01-12-2023 cefdinir 300 mg oral capsule Dose : 300 mg = 1 cap(s), Oral, q12h, X 4 day(s), # 8 cap(s), 0 Refill(s), 01/12/23 9:00:00 EDT, Pharmacy: [facility], 185.4, cm, 01/05/23 1:03:00 EDT, Height, 109.1 Start Date: 01/08/23 Stop Date: 01/12/23 Status: Ordered doxycycline monohydrate 100 mg oral tablet (1 source) Tetracycline-class Drug Start: 07-20-2024 End: 07-27-2024 take 1 tablet by mouth twice daily doxycycline monohydrate 100 mg tablet Take 1 tablet by mouth two times a day for 7 days. 14 tablet 07/20/2024 07/27/2024 Active finasteride 5 mg oral tablet (2 sources) 5-alpha Reductase Inhibitor Start: 01-12-2021 Proscar 5 mg oral tablet Dose : 5 mg = 1 tab(s), Oral, qDay, # 90 tab(s), 3 Refill(s), Pharmacy: [facility], BPH with obstruction/lower urinary tract symptoms, 178.5, cm, 01/12/21 15:06:00 EDT, Height, kg, 01/12/21 15:06:00 EDT, Dosing Weight Start Date: 01/12/21 Status: Ordered [place] (2 sources) Start: 04-24-2018 take 1 tablet by mouth twice daily lithium 450 mg oral tablet, extended release TAKE 1 TABLET TWICE DAILY Start Date: 04/24/18 Status: Ordered lithium carbonate 450 mg extended release oral tablet (20 sources) Start: 08-01-2015 take 1 tablet by mouth twice daily lithium carbonate ER 450 mg CR tablet Take 1 tablet by mouth two times a day. 05/23/2017 Active Start: 07-14-2015 lithium carbon ate ER 450 mg CR tablet 2 tablets once daily. 07/14/2015 Active Comment on above: 2 tablets once daily . Take 1 tablet by kyle two times a day. nirmatrelvir tablet 150 mg and ritonavir tablet 100 mg in a dose pack (PAXLOVID) (1 source) Start: 07-04-20 End: 07-09-20 nirmatrelvir tablet 150 mg and ritonavir tablet 100 mg in a dose pack (PAXLOVID) Indications: Acute COVID-19 Administer ONE pink nirmatrelvir 150 mg tablet and ONE white ritonavir 100 mg tablet for a total of two tablets twice daily. 20 tablet 0 07/04/2023 07/09/2023 Active Comment on above: Administer ONE pink nirmatrelvir 150 mg tablet and ONE white ritonavir 100 mg tablet for a total of two tablets twice daily. nystatin 525211 unt/ml oral suspension (6 sources) Polyene Antifungal Start: 03-22-20 nystatin (MYCOSTATIN) 100,000 unit/mL suspension Take 5 mL by mouth four times daily. 1tsp swish in mouth for several minutes, then swallow (or expectorate) 4 times daily until gone. 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 11/02/2024 Active Start: 01-07-2023 Flomax 0.4 mg oral capsule Dose : 0.4 mg = 1 cap(s), Oral, qDayPC, # 30 cap(s), 0 Refill(s), Pharmacy: [facility], 185.4, cm, 01/05/23 1:03:00 EDT, Height Start Date: 01/07/23 Status: Ordered Completed/Discontinued Medications Medication Drug Class(es) Dates Sig (Normalized) Sig (Original) acetaminophen 325 mg / oxyCODONE hydrochloride 5 mg oral tablet (1 source) Opioid Agonist Start: 08-05-2015 End: 08-05-2015 take 1 tablet by mouth every four hours as needed Oxycodone-Acetamino phen Discontinued 1 TABLET PO EVERY 4 HOURS NEEDED August 05, 2015 7:08am August 05, 2015 3:08pm Arthro 7 (1 source) Start: 08-01-2015 End: 08-05-2015 Arthro 7 Discontinued PO TWICE A DAY August 01, 2015 9:36pm August 05, 2015 3:45pm Problems Active Problems Problem Classification Problem Date Documented Da te Episodic/Chronic Abdominal pain (2 sources) Abdominal pain; Translations: [Unspecified abdominal pain] Onset: 11-17-2024 11-17-2024 Episodic Acute and unspecified renal failure (1 source) Acute renal failure syndrome; Translations: [Acute kidney failure, unspecified] Onset: 01-05-2023 Episodic Aortic; peripheral; and visceral artery aneurysms (3 sources) Aortic root dilatation; Translations: [Thoracic aortic ectasia] Onset: 11-17-2024 08-17-2021 Chronic Comment on above: ECHOCARDIOGRAM: 07/19 Impression: 1. Estimated ejection fraction of 60% 2. No evidence of diastolic dysfunction. 3. Trivial mitral valve insufficiency. 4. Mild 1+ aortic valve insufficiency 5. Mild to moderate dilated aortic root. Chronic kidney disease (1 source) Chronic kidney disease stage 3A ; Translations: [Stage 3a chronic kidney disease] Onset: 11-17-2024 11-17-2024 Chronic Conduction disorders (4 sources) Right bundle branch block AND left anterior fascicular block; Translations: [Bifascicular block] Onset: 11-17-2024 01-12-2021 Chronic Crushing injury or internal injury (2 sources) Injury of kidney; Translations: [Unspecified injury of unspecified kidney, initial encounter] Onset: 11-17-2024 01-05-2023 Episodic Diseases of mouth; excluding dental (3 sources) Oral lesion; Translations: [Other lesions of oral mucosa] 03-18-2024 Episodic Heart valve disorders (5 sources) Aortic valve regurgitation; Translations: [Mitral valve regurgitation] Onset: 11-17-2024 08-17-2021 Chronic Comment on above: ECHOCARDIOGRAM: 07/19 Impression: 1. Estimated ejection fraction of 60% 2. No evidence of diastolic dysfunction. 3. Trivial mitral valve insufficiency. 4. Mild 1+ aortic valve insufficiency 5. Mild to moderate dilated aortic root. Hyperplasia of prostate (5 sources) Benign prostatic hypertrophy with outflow obstruction; Translations: [Benign prostatic hyperplasia with lower urinary tract symptoms] Onset: 01-05-2023 1 Chronic Inflammation; infection of eye (except that caused by tuberculosis or sexually transmitteddisease) (1 source) Toxic conjunctivitis; Translations: [Acute toxic conjunctivitis, unspecified eye] Episodic Mood disorders (7 sources) Depressive disorder; Translations: [Bipolar disorder] Onset: 01-05-2023 04-24-2018 Chronic Nonspecific chest pain (1 source) Chest pain; Translations: [Chest pain, unspecified] Episodic Osteoarthritis (4 sources) Osteoarthritis of knee; Translations: [Osteoarthritis of knee, unspecified] Onset: 11-17-2024 01-12-2021 Chronic Other gastrointestinal disorders (1 source) Acute constipation; Translations: [Constipation, unspecified] 11-17-2024 Episodic Other gastrointestinal disorders (2 sources) Constipation, unspecified; Translations: [Acute constipation] Onset: 11-17-2024 Episodic Other infections; including parasitic (1 source) Late effects of other and unspecified infectious and parasitic diseases; 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] Onset: 11-17-2024 11-17-2024 Chronic Other inflammatory condition of skin (1 source) Itching ; Translations: [Pruritus, unspecified] 07-20-2024 Episodic Other lower respiratory disease (2 sources) Cough; Translations: [Acute cough] 07-20-2024 Episodic Other screening for suspected conditions (not mental disorders or infectious disease) (6 sources) D-dimer above reference range; Translations: [Elevated C-reactive protein] Onset: 11-17-2024 08-11-2021 Episodic Other upper respiratory infections (1 source) Viral upper respiratory tract infection; Translations: [Acute upper respiratory infection, unspecified] 07-03-2023 Episodic Pneumonia (except that caused by tuberculosis or sexually transmitted disease) (1 source) Bilateral pneumonia; Translations: [Pneumonia, unspecified organism] 07-20-2024 Episodic Pneumonia (except that caused by tuberculosis or sexually transmitted disease) (2 sources) Pneumonia (except that caused by tuberculosis or sexually transmitted disease) 07-21-2021 Unclassified (1 source) Patient encounter status 03-13-2021 Unclassified (4 sources) Post-acute COVID-19 08-11-2021 Unclassified (1 source) Acute cough; Translations: [Acute cough] Onset: 07-20-2024 Urinary tract infections (2 sources) Urinary tract infectious disease; Translations: [Urinary tract infection, site not specified] Onset: 01-05-2023 Episodic Viral infection (1 source) COVID-19; Translations: [Pneumonia due to other virus not elsewhere classified] Onset: 11-17-2024 11-17-2024 Episodic Past or Other Problems Problem Classification Problem Date Documented Date Episodic/Chronic Abdominal hernia (18 sources) Bilateral inguinal hernia; Translations: [Bilateral inguinal hernia, without obstruction or gangrene, not specified as recurrent] Onset: 08-09-2015 08-09-2015 Episodic Biliary tract disease (9 sources) Acute and chronic cholecystitis; Translations: [Acute cholecystitis with chronic cholecystitis] Onset: 08-09-2015 08-09-2015 Episodic Results Test Name Value Interpretation Reference Range Facility OV 11-17-2024 CNOV Office Visit ([facility] ) LACI ANDERSEN ([id number]) 1940 M Date Time Provider Department 11/17/24 11:15 AM RENETTA SIBLEY [facility] During your visit today, we recorded the following information about you: Renetta Sibley PA 11/17/2024 11:12 AM Signed 84-year-old male presents for concern for bowel blockage. Patient states he has been constipated for about 2 weeks. He has tried suppositories and also an oral laxative that was given to him postsurgically in the past. He states that he has only been able to pass douglas of stool. He has abdominal tightness and discomfort. No vomiting. He does have history of appendectomy and cholecystectomy in the past. At this time, discussed limited diagnostic capability through express care, patient will need workup in the emergency room. Patient agreeable. He will go to [facility]. Allergies As of Date: 11/17/2024 (No Known Allergies) Date Reviewed: 07/20/2024 Reviewed by: Tricia Ryan MA - Fully Assessed Primary Visit Diagnosis:Acute constipation [K59.00] Other Visit Diagnosis:Abdominal pain, unspecified abdominal location [R10.9] Prescriptions as of 11/17/2024 - FLOMAX 0.4 mg Take 0.4 mg by mouth once daily. - nystatin (MYCOSTATIN) 100,000 unit/mL suspension Take 5 mL by mouth four times daily. 1tsp swish in mouth for several minutes, then swallow (or expectorate) 4 times daily until gone. - lithium carbonate ER 450 mg CR tablet Take 1 tablet by mouth two times a day. - lithium carbonate ER 450 mg CR tablet 2 tablets once daily. Problem List As Of Date 11/17/2024 Noted Resolved Bilateral inguinal hernia without obstruction o*08/09/2015 Acute cholecystitis with chronic cholecystitis *08/09/2015 Umbilical hernia without obstruction or gangren*08/11/2015 Aortic root dilatation [I77.810] 11/17/2024 Mitral valve insufficiency [I34.0] 11/17/2024 Bipolar disorder (HCC) [F31.9] 11/17/2024 BPH with obstruction/lower urinary tract sympto*11/17/2024 CRP elevated [R79.82] 11/17/2024 Depression [F32.A] 11/17/2024 D-dimer, elevated [R79.89] 11/17/2024 Injury of kidney [S37.009A] 11/17/2024 Osteoarthritis of knee [M17.9] 11/17/2024 Pneumonia due to COVID-19 virus [U07.1, J12.82] 11/17/2024 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 Luke Sylvester, DO Status:DEP ER Location: ED HPI HPI - GI History of Present Illness Chief Complaint: Constipation Narrative Narrative: Patient presenting today due to constipation that has been ongoing over the past 2 weeks. He last had a bowel movement this morning but reports that it was only small amounts of hard pebble-like stool. He has been passing gas. 7 days ago he used a suppository and had several large loose stools. He reports that over the past 2 weeks he has used about 5 suppositories and started taking a stool softener 2 days ago. He denies any abdominal pain, nausea, vomiting, history of bowel obstruction, fevers, or chills. He has concerns for a fecal impaction. He is not on any opioid pain medication. He has a PMH of bipolar disorder. PFSH PFSH Medical History Chest pain Bipolar disorder Home Medications ???Medication ???Instructions ???Recorded ???Last Taken ???Type lithium carbonate 450 mg 450 mg PO BID 08/01/15 09/18/16 Hi story tablet,extended release psyllium husk 3.4 gram/5.4 gram 1 tbsp PO DAILY #660 grams 5 Unknown Rx oral powder (Metamucil) Allergy/AdvReac Type Severity Reaction Status Date / Time No Known Allergies Allergy Verified 06/29/21 16:34 Surgical History History of hernia repair Hx of appendectomy History of cholecystectomy Social History Smoking Status: Unknown if ever smoked ROS ROS ED Constitutional Constitutional ED: Denies chills or fever(s) Cardiovascular Cardiovascular: Denies chest pain Respiratory/Chest Respiratory/Chest: Denies dyspnea Gastrointestinal Gastrointestinal: Reports constipation; Denies abdominal pain, diarrhea, nausea or vomiting Genitourinary Genitourinary ED: Denies dysuria, hematuria or urinary urgency Musculoskeletal Musculoskeletal: Denies arthralgias or myalgias Neurologic Neurologic: Denies weakness EXAM Physical Exam Const Vital Signs: 11/17/24 11:16 11/17/24 12:26 Temperature 97.5 F L 97.6 F L Temperature Source Oral Pulse Rate 68 66 Respiratory Rate 16 19 H Blood Pressure 132/74 H 130/77 H Blood Pressure Mean 93 94 Pulse Ox 96 98 Oxygen Delivery Method Room Air Positive well nourished, well developed and no apparent distress General Appearance ED: well developed HEENT Reports normocephalic and head/scalp atraumatic Mouth ED: Yes moist mucous membranes normal Eyes PERRL and EOMs intact bilaterally Neck full ROM and supple Chest Wall inspection of chest normal Resp normal respiratory effort and clear to auscultation bilaterally Cardio regular rate and regular rhythm GI soft to palpation, non-tender, non-distended and no masses GI Narrative: Rectal exam: Performed with nurse present, normal sphincter tone, impacted stool in the rectum, I was only able to manually disimpact some of this due to the location of the stool. Back/Spine normal ROM and normal to inspection Extremity normal to inspection and full ROM Neuro oriented x3, CN's II-XII intact bilaterally, moves all extremities, no focal motor deficits and no sensory deficits noted Sensorium / Orientation: awake and alert Psych mental status grossly normal and thought process normal Skin no rashes or lesions noted and no wounds Physical Exam Const Vital Signs: 11/17/24 11:16 11/17/24 12:26 Temperature 97.5 F L 97.6 F L Temperature Source Oral Pulse Rate 68 66 Respiratory Rate 16 19 H Blood Pressure 132/74 H 130/77 H Blood Pressure Mean 93 94 Pulse Ox 96 98 Oxygen Delivery Method Room Air MDM MDM MDM Narrative Medical decision making narrative: Patient presenting today with constipation he has had over the past 2 weeks. He does have a history of constipation but usually it is relieved with suppositories. He has tried about 5 suppositories over the past 2 weeks, he last had a bowel movement this morning but it was only small amounts of hard stool. 7 days ago he had a large amount of loose stool. He has been passing gas. He has no history of bowel obstruction. He denies abdominal pain, his abdomen is soft and nontender, lower suspicion for bowel obstruction. On exam he has a fecal impaction. I was only able to disimpact a small amount of this due to the location of the stool. He will be given a soapsuds enema. On reexamination he report signifi (more content not included)... Normal [facility] .GFRon 11-05-2024 Estimated Glomerular Filtration Rate 46 ml/min/1.73sqm Normal [facility] Comment on above: Result Comment: Stages of Chronic Kidney Disease (CKD) Stage Description eGFR(ml/min/1.73 sq.m.) CKD 1 Normal kidney function or >=90 normal kindney function with possible kidney damage (ex. Proteinuria) CKD 2 Kidney damage with mild loss 60-89 of kidney function CKD 3a Mild to moderate loss of kidney 45-59 function CKD 3b Moderate to severe loss of 30-44 of kindey function CKD 4 Severe loss of kidney function 15-29 CKD 5 Kidney failure <15 Note: (go live 2024) the eGFR calculation was updated to the 2020 CKD-EPI creatinine equation without a race factor to calculate the eGFR results. Performed By: #### C MP, GFR, LIPID, PSA #### [address] [address] CMPon 11-05-2024 Albumin Level 3.7 G/dL Normal 3.4-4.8 [facility] Comment on above: Performed By: #### C MP, GFR, LIPID, PSA #### [address] [address] Albumin/Globulin [Mass ratio] 0.9 {ratio} Low 1.1-2.5 [facility] Comment on above: Performed By: #### C MP, GFR, LIPID, PSA #### [address] [address] ALP [Catalytic activity/Vol] 93 U/L Normal 40-135 [facility] Comment on above: Performed By: #### C MP, GFR, LIPID, PSA #### [address] [address] ALT [Catalytic activity/Vol] 12 U/L Low 16-63 [facility] Comment on above: Performed By: #### C MP, GFR, LIPID, PSA #### [address] [address] AST [Catalytic activity/Vol] 12 U/L Normal 10-40 [facility] Comment on above: Performed By: #### C MP, GFR, LIPID, PSA #### [address] [address] Bili Total 0.8 mg/dL Normal 0.2-1.0 [facility] Comment on above: Result Comment: Use of this assay is not recommended for patients undergoing treatment with eltrombopag due to the potential for falsely elevated results. Performed By: #### C MP, GFR, LIPID, PSA #### [place] [address] BUN/Creatinine Ratio 15 ratio Normal 7-27 [facility] Comment on above: Performed By: #### C MP, GFR, LIPID, PSA #### [address] [address] Calcium [Mass/Vol] 9.8 mg/dL Normal 8.4-10.2 [facility] Comment on above: Performed By: #### C MP, GFR, LIPID, PSA #### [address] [address] Chloride [Moles/Vol] 104 mmol/L Normal 98-107 [facility] Comment on above: Performed By: #### C MP, GFR, LIPID, PSA #### [address] [address] CO2 [Moles/Vol] 31 mmol/L Normal 23-31 [facility] Comment on above: Performed By: #### C MP, GFR, LIPID, PSA #### [address] [address] Creatinine [Mass/Vol] 1.49 mg/dL High 0.70-1.30 [facility] Comment on above: Result Comment: Test ing performed on Siemens Dimension EXL analyzer using a modified kinetic Velia technique. Performed By: #### C MP, GFR, LIPID, PSA #### [place] [id number] Electrolyte Balance 6.0 mEq/L Normal 4.0-15.0 [facility] Comment on above: Performed By: #### C MP, GFR, LIPID, PSA #### [address] [address] Globulin 4.0 G/dL High 1.5-3.8 [facility] Comment on above: Performed By: #### C MP, GFR, LIPID, PSA #### [address] [address] Glucose [Mass/Vol] 181 mg/dL High 83-110 [facility] Comment on above: Performed By: #### C MP, GFR, LIPID, PSA #### [address] [address] Potassium [Moles/Vol] 4.6 mmol/L Normal 3.5-5.1 [facility] Comment on above: Performed By: #### C MP, GFR, LIPID, PSA #### [address] [address] Sodium [Moles/Vol] 141 mmol/L Normal 136-145 [facility] Comment on above: Performed By: #### C MP, GFR, LIPID, PSA #### [address] [address] Total Protein 7.7 G/dL Normal 6.4-8.2 [facility] Comment on above: Performed By: #### C MP, GFR, LIPID, PSA #### [address] [address] Urea nitrogen [Mass/Vol] 23 mg/dL High 7-18 [facility] Comment on above: Performed By: #### C MP, GFR, LIPID, PSA #### [address] [address] LIPIDon 11-05-2024 Cholesterol [Mass/Vol] 176 mg/dL Normal 0-200 [facility] Comment on above: Result Comment: Chol esterol Reference Interval: Less than 200 Desirable 200-239 Borderline high risk 240 and above High risk Performed By: #### C MP, GFR, LIPID, PSA #### [place] [id number] [place], [place] [address] Cholesterol in HDL [Mass/Vol] 43 mg/dL Normal 40-60 [facility] Comment on above: Performed By: #### C MP, GFR, LIPID, PSA #### [place] [id number] [place], [place] [address] Cholesterol in LDL [Mass/Vol] 110 mg/dL Normal 0-130 [facility] Comment on above: Performed By: #### C MP, GFR, LIPID, PSA #### [place] [id number] [place], [place] [address] Triglyceride [Mass/Vol] 115 mg/dL Normal 0-150 [facility] Comment on above: Result Comment: Trig lyceride Reference Interval: Less than 150 Normal 150-199 Borderline high risk 200-499 High risk 500 or higher Very high risk Performed By: #### C MP, GFR, LIPID, PSA #### [place] [id number] [place], [place] [address] PSAon 11-05-2024 Prostate Specific Antigen 3.13 ng/mL Normal 0.00-4.00 [facility] Comment on above: Performed By: #### C MP, GFR, LIPID, PSA #### [address] [address] CNOVon 07-20-2024 CNOV Office Visit (UCWSTR ) LACI ANDERSEN ([id number]) 1940 M Date Time Provider Department 07/20/24 2:30 PM RENETTA SIBLEY [facility] During your visit today, we recorded the following information about you: Temperature Pulse Respiration Blood pressure 98.7 degrees 74/minute 16/minute 110/56 Weight 105 kg Renetta Sibley, PA 07/20/2024 2:17 PM Signed This note was created using KuponGidriter. Subjective Laci Andersen is a 83 year old male. HPI 83-year-old male presents for multiple complaints. Patient states he has had a productive cough for the past few days. He states he coughs up phlegm at night for the past 2 days. He states it is a ball of phlegm. No hemoptysis. He denies any fevers. No nasal congestion. States his nose feels dry. Patient also has some mouth pain. He was seen here back in March for this and had a yeast screen which came back positive. He was prescribed nystatin mouthwash. Patient states that he used the first bottle of this back in March and symptoms resolved. He states that he has a second bottle and has been using that for the past week and his mouth soreness has improved. He does have dentures. States mouth is not sore currently, no sores in the mouth. He has not had any fevers. Still able to eat and drink. He is also complaining of itchiness of the chest area. He states that his chest itches on his skin. No skin discoloration or rash. No itchiness anywhere else. He states if he scratches it, the sensation goes away. He has not taken anything for the symptoms. No past medical history on file. PAST SURGICAL HISTORY Procedure Laterality Date LAPAROSCOPIC APPENDECTOMY 08/04/15 normal appendix in [facility] LAPS SURG CHOLECYSTECTOMY W/CHOLANGIOGRAPHY 08/04/15 normal IOC, Acute debbie ALLERGIES Patient has no known allergies. MEDICATIONS nystatin (MYCOSTATIN) 100,000 unit/mL suspension Take 5 mL by mouth four times daily. 1tsp swish in mouth for several minutes, then swallow (or expectorate) 4 times daily until gone. lithium carbonate ER 450 mg CR tablet Take 1 tablet by mouth two times a day. lithium carbonate ER 450 mg CR tablet 2 tablets once daily. (Patient not taking: Reported on 03/22/2024) No family history on file. Social History Tobacco Use Smoking status: Never Smokeless tobacco: Never Review of Systems Constitutional: Negative for chills and fever. HENT: Negative for congestion, mouth sores and sore throat. Respiratory: Positive for cough. Negative for shortness of breath. Gastrointestinal: Negative for diarrhea and vomiting. Skin: + Itching of the skin on the chest. Objective BP 110/56 Pulse 74 Temp 37.1 ?C (98.7 ?F) (Left Tympanic) Resp 16 Wt 105 kg (231 lb 7.7 oz) SpO2 96% Physical Exam Vitals and nursing note reviewed. Constitutional: General: He is not in acute distress. Appearance: Normal appearance. He is not toxic-appearing. HENT: Right Ear: Tympanic membrane and ear canal normal. Left Ear: Tympanic membrane and ear canal normal. Nose: Nose normal. Mouth/Throat: Mouth: Mucous membranes are moist. Pharynx: Oropharynx is clear. Comments: No mouth lesions. Throat clear. Eyes: Conjunctiva/sclera: Conjunctivae normal. Cardiovascular: Rate and Rhythm: Normal rate and regular rhythm. Pulmonary: Effort: Pulmonary effort is normal. Breath sounds: Normal breath sounds. No wheezing, rhonchi or rales. Skin: General: Skin is warm and dry. Neurological: Mental Status: He is alert. Assessment and Plan ASSESSMENT/PLAN: 1. Pneumonia of both lungs due to infectious organism, unspecified part of lung - ICD9: 483.8, ICD10: J18.9 (primary diagnosis) -CXR reveals patchy airspace opacities in infrahilar regions bilaterally and within the left midlung field. Follow-up recommended -Will treat for pneumonia, has had productive cough. -Rx doxycycline, Rx Augmentin -Calculated creatinine clearance from labs in 2022. Creatinine clearance 58. 2. Acute cough - ICD9: 786.2, ICD10: R05.1 -See above - XR CHEST 2V FRONTAL/LAT 3. Mouth pain - ICD9: 528.9, ICD10: K13.79 -Mouth pain improving with nystatin mouthwash. He still has half a bottle left. Advised to continue this for another week if it is improving. Follow-up with PCP if symptoms persist 4. Itching - ICD9: 698.9, ICD10: L29.9 -No rash on exam. Unsure of cause. Advise close follow-up with PCP if symptoms persist. Diagnosis and treatment plan were discussed and questions were answered to the patient's satisfaction. Pt acknowledged understanding of concepts and follow up plan. Specific signs and symptoms that would indicate the need for higher level of care were discussed in detail warranting prompt ER evaluation. DANE Olivo Krislyn P, PA 07/20/2024 2:13 PM Signed Take antibiotics as prescribed. Continue nystatin mouthwash Follow- (more content not included)... Normal [facility] XR CHEST 2V FRONTAL/LATon XR CHEST 2V FRONTAL/LAT * * *Final Report* * * DATE OF EXAM: Jul 20 2024 1:40PM WOX [id number] - XR CHEST 2V FRONTAL/LAT / PROCEDURE REASON: Acute cough * * * * Physician Interpretation * * * * EXAMINATION: CHEST RADIOGRAPH (2 VIEW FRONTAL and LATERAL) CLINICAL HISTORY: Acute cough MQ: XC2_6 EXAM DATE/TIME: 07/20/2024 1:40 PM COMPARISON: No relevant prior studies available. RESULT: Lines, tubes, and devices: None. Lungs and pleura: Patchy airspace opacities in the infrahilar regions and left midlung field. No significant collapse or consolidation. No pleural fluid or pneumothorax Cardiomediastinal silhouette: Normal cardiomediastinal silhouette. Bones and soft tissues: Multilevel degenerative change and osteophytosis throughout the spine. IMPRESSION: Patchy airspace opacities in the infrahilar regions bilaterally, and within the left midlung field. Follow-up recommended Airplane Electrician: BROOKE Transcribe Date/Time: Jul 20 2024 2:01P Dictated by : CRYS CANTU MD This examination was interpreted and the report reviewed and electronically signed by: CRYS CANTU MD on Jul 20 2024 2:09PM EST [id number] Normal [facility] XR Chest PA and Lateralon IMPRESSION: Patchy airspace opacities in the infrahilar regions bilaterally, and within the left midlung field. Follow-up recommended Airplane Electrician: PSCB Transcribe Date/Time: Jul 20 2024 2:01P Dictated by : CRYS CANTU MD This examination was interpreted and the report reviewed and electronically signed by: CRYS CANTU MD on Jul 20 2024 2:09PM EST DIVISION OF RADIOLOGY * * *Final Report* * * DATE OF EXAM: Jul 20 2024 1:40PM WOX 5291 - XR CHEST 2V FRONTAL/LAT / PROCEDURE REASON: Acute cough * * * * Physician Interpretation * * * * EXAMINATION: CHEST RADIOGRAPH (2 VIEW FRONTAL & LATERAL) CLINICAL HISTORY: Acute cough MQ: XC2_6 EXAM DATE/TIME: 07/20/2024 1:40 PM COMPARISON: No relevant prior studies available. RESULT: Lines, tubes, and devices: None. Lungs and pleura: Patchy airspace opacities in the infrahilar regions and left midlung field. No significant collapse or consolidation. No pleural fluid or pneumothorax Cardiomediastinal silhouette: Normal cardiomediastinal silhouette. Bones and soft tissues: Multilevel degenerative change and osteophytosis throughout the spine. DIVISION OF RADIOLOGY Provider, [facility] - 07/20/2024 * * *Final Report* * * DATE OF EXAM: Jul 20 2024 1:40PM WOX 5291 - XR CHEST 2V FRONTAL/LAT / PROCEDURE REASON: Acute cough * * * * Physician Interpretation * * * * EXAMINATION: CHEST RADIOGRAPH (2 VIEW FRONTAL & LATERAL) CLINICAL HISTORY: Acute cough MQ: XC2_6 EXAM DATE/TIME: 07/20/2024 1:40 PM COMPARISON: No relevant prior studies available. RESULT: Lines, tubes, and devices: None. Lungs and pleura: Patchy airspace opacities in the infrahilar regions and left midlung field. No significant collapse or consolidation. No pleural fluid or pneumothorax Cardiomediastinal silhouette: Normal cardiomediastinal silhouette. Bones and soft tissues: Multilevel degenerative change and osteophytosis throughout the spine. IMPRESSION IMPRESSION: Patchy airspace opacities in the infrahilar regions bilaterally, and within the left midlung field. Follow-up recommended Airplane Electrician: PSCB Transcribe Date/Time: Jul 20 2024 2:01P Dictated by : CRYS CANTU MD This examination was interpreted and the report reviewed and electronically signed by: CRYS CANTU MD on Jul 20 2024 2:09PM EST [facility] Radiology Study observation (narrative) [facility] XR Chest PA and LateralOrder ed By: Cc Provider on 07-20-2024 [facility] CNPNon 03-25-2024 CNPN Telephone ([facility]) LACI ANDERSEN ([id number]) 1940 M Date Time Provider Department 03/25/24 FIONA GE [facility] During your visit today, we recorded the following information about you: Fiona Ge APRN.AEROLOGIST 03/25/2024 11:18 AM Signed Yeast as grown on culture, would recommend patient start nystatin as ordered. Follow up with PCP as needed. Fiona Ge APRN.Roxanna Sharp MA 03/25/2024 11:40 AM Signed Patient notified of results, has been using Nystatin since with improvement in symptoms. Roxanna Salas MA Allergies As of Date: 03/25/2024 (No Known Allergies) Date Reviewed: 03/22/2024 Reviewed by: Roxanna Salas MA - Fully Assessed Reason for Visit: Results [95] Prescriptions as of 03/25/2024 - nystatin (MYCOSTATIN) 100,000 unit/mL suspension Take 5 mL by mouth four times daily. 1tsp swish in mouth for several minutes, then swallow (or expectorate) 4 times daily until gone. - lithium carbonate ER 450 mg CR tablet Take 1 tablet by mouth two times a day. - lithium carbonate ER 450 mg CR tablet 2 tablets once daily. Problem List As Of Date 03/25/2024 Noted Resolved Bilateral inguinal hernia without obstruction o*08/09/2015 Acute cholecystitis with chronic cholecystitis *08/09/2015 Umbilical hernia without obstruction or gangren*08/11/2015 Encounter Status:Closed by [facility] ([facility] LACI ANDERSEN ([id number]) 1940 M Date Time Provider Department 03/23/24 ALEXA SUÁREZ During your visit today, we recorded the following information about you: Sonia Parker MA 03/23/2024 7:25 PM Signed ----- Message from Alexa Suárez APRN.AEROLOGIST sent at 03/23/2024 7:17 PM EDT ----- Please advise patient the test for yeast is negative after one day. This test will continue to process and if there is any change, he will be contacted. Alexa Suárez APRN.Sonia Murguia MA 03/23/2024 7:29 PM Signed Pt was notified of the results. Pt verbalized understanding. Sonia Parker MA Allergies As of Date: 03/23/2024 (No Known Allergies) Date Reviewed: 03/22/2024 Reviewed by: Roxanna Salas MA - Fully Assessed Reason for Visit: Results [95] Prescriptions as of 03/23/2024 - nystatin (MYCOSTATIN) 100,000 unit/mL suspension Take 5 mL by mouth four times daily. 1tsp swish in mouth for several minutes, then swallow (or expectorate) 4 times daily until gone. - lithium carbonate ER 450 mg CR tablet Take 1 tablet by mouth two times a day. - lithium carbonate ER 450 mg CR tablet 2 tablets once daily. Problem List As Of Date 03/23/2024 Noted Resolved Bilateral inguinal hernia without obstruction o*08/09/2015 Acute cholecystitis with chronic cholecystitis *08/09/2015 Umbilical hernia without obstruction or gangren*08/11/2015 Encounter Status:Closed by SONIA PARKER on 03/23/24 [facility] CNOVon 03-22-2024 CNOV Office Visit ([facility]WSTR ) LACI ANDERSEN ([id number]) 1940 M Date Time Provider Department 03/22/24 11:00 AM CARINA IRBY [facility] During your visit today, we recorded the following information about you: Temperature Pulse Respiration Blood pressure 97.1 degrees 75/minute 18/minute 107/68 Weight 104.9 kg Carina Irby APRN.AEROLOGIST 03/22/2024 11:31 AM Signed This note was created using KuponGidriter. Subjective Laci Andersen is a 83 year old male. 83 year old male with no PMH presents for mouth complaints. Acute onset 03/16 He noticed redness and pain. At that time he attempted scope mouthwash, warm salt water gargles, and hydrogen peroxide with water today. He states he had burning sensation in his mouth after using the peroxide. He denies any fevers, cough, sore throat, nasal congestion. No vomiting or diarrhea. No sick contacts that he is aware of. No recent antibiotics. No new medication changes. No other complaint. Denies inhaler usage Denies tobacco usage He was seen here 03/18/24 Was recommended to use salt water gargles Wears dentures Goes to [facility] Last cleaning was a month ago. Presents today citing that the mouth pain is not improving. The history is provided by the patient. No furniture rental consultant was used. Mouth/Lip Problem This is a new problem. The current episode started 1 to 4 weeks ago. The problem occurs constantly. The problem has been gradually worsening. Pertinent negatives include no abdominal pain, anorexia, arthralgias, change in bowel habit, chest pain, chills, congestion, coughing, diaphoresis, fatigue, fever, headaches, joint swelling, myalgias, nausea, neck pain, numbness, rash, sore throat, swollen glands, urinary symptoms, vertigo, visual change, vomiting or weakness. Nothing aggravates the symptoms. Treatments tried: see HPI. The treatment provided no relief. No past medical history on file. PAST SURGICAL HISTORY 08/04/15: LAPAROSCOPIC APPENDECTOMY Comment: normal appendix in [facility] 08/04/15: LAPS SURG CHOLECYSTECTOMY W/CHOLANGIOGRAPHY Comment: normal IOC, Acute debbie ALLERGIES Patient has no known allergies. MEDICATIONS nystatin (MYCOSTATIN) 100,000 unit/mL suspension Take 5 mL by mouth four times daily. 1tsp swish in mouth for several minutes, then swallow (or expectorate) 4 times daily until gone. lithium carbonate ER 450 mg CR tablet Take 1 tablet by mouth two times a day. lithium carbonate ER 450 mg CR tablet 2 tablets once daily. (Patient not taking: Reported on 03/22/2024) No family history on file. Social History Tobacco Use Smoking status: Never Smokeless tobacco: Never Review of Systems Constitutional: Negative for chills, diaphoresis, fatigue and fever. HENT: Negative for congestion and sore throat. +mouth problem Eyes: Negative for pain, discharge and itching. Respiratory: Negative for apnea, cough, choking and chest tightness. Cardiovascular: Negative for chest pain. Gastrointestinal: Negative for abdominal pain, anorexia, change in bowel habit, nausea and vomiting. Musculoskeletal: Negative for arthralgias, joint swelling, myalgias and neck pain. Skin: Negative for color change, pallor and rash. Allergic/Immunologic: Negative for environmental allergies, food allergies and immunocompromised state. Neurological: Negative for vertigo, weakness, numbness and headaches. Hematological: Negative for adenopathy. Does not bruise/bleed easily. Psychiatric/Behaviora l: Negative for agitation and behavioral problems. Objective BP 107/68 Pulse 75 Temp 36.2 ?C (97.1 ?F) Resp 18 Wt 104.9 kg (231 lb 4.2 oz) SpO2 96% Physical Exam Vitals and nursing note reviewed. Constitutional: General: He is not in acute distress. Appearance: Normal appearance. He is not ill-appearing, toxic-appearing or diaphoretic. Comments: Elderly appearing. Non toxic HENT: Head: Normocephalic and atraumatic. Right Ear: External ear normal. Left Ear: External ear normal. Nose: Nose normal. No congestion or rhinorrhea. Mouth/Throat: Mouth: Mucous membranes are moist. Pharynx: Oropharynx is clear. No oropharyngeal exudate or posterior oropharyngeal erythema. Comments: Upper and lower dentures noted No rashes, lesions, or ulcers Uvula midline No white patches +moist mucosa Eyes: General: Right eye: No discharge. Left eye: No discharge. Extraocular Movements: Extraocular movements intact. Conjunctiva/sclera: Conjunctivae normal. Pupils: Pupils are equal, round, and reactive to light. Cardiovascular: Rate and Rhythm: Normal rate and regular rhythm. Pulses: Normal pulses. Heart sounds: Normal heart sounds. No murmur heard. No friction rub. No gallop. Pulmonary: Effort: Pulmonary effort is normal. No respiratory distress. Breath sounds: Normal breath sounds. No stridor. No wheezing, rhonchi or rales. (more content not included)... Normal [facility] Fungus Spec Culton 4 Fungus identified Cx Nom (Unsp spec) ORGANISM ID: 1 Few Roya albicans Normal [facility] Comment on above: Performed By: #### 5 80-1 #### [facility] CLIA [id number] [address] [place] [address] [facility] CNOVon 03-18-2024 CNOV Office Visit (UCWSTR ) LACI ANDERSEN ([id number]) 1940 M Date Time Provider Department 03/18/24 10:45 AM RENETTA SIBLEY [facility] During your visit today, we recorded the following information about you: Temperature Pulse Respiration Blood pressure 98.3 degrees 84/minute 16/minute 128/80 Weight 104.2 kg Renetta Sibley PA 03/18/2024 10:55 AM Signed This note was created using KuponGidriter. Subjective Laci Andersen is a 83 year old male. HPI 83-year-old male presents for concern for mouth sores. Patient states he noticed a few red spots in his mouth a few days ago. He has used scope mouthwash, warm salt water gargles, and hydrogen peroxide with water today. He states he has burning sensation in his mouth after using the peroxide. He denies any fevers, cough, sore throat, nasal congestion. He has had intermittent headaches for a few days. No vomiting or diarrhea. No sick contacts that he is aware of. No recent antibiotics. No new medication changes. No other complaint. No past medical history on file. PAST SURGICAL HISTORY 08/04/15: LAPAROSCOPIC APPENDECTOMY Comment: normal appendix in [facility] 08/04/15: LAPS SURG CHOLECYSTECTOMY W/CHOLANGIOGRAPHY Comment: normal IOC, Acute debbie ALLERGIES Patient has no known allergies. MEDICATIONS lithium carbonate ER 450 mg CR tablet Take 1 tablet by mouth two times a day. lithium carbonate ER 450 mg CR tablet 2 tablets once daily. No family history on file. Social History Tobacco Use Smoking status: Never Smokeless tobacco: Never Review of Systems Constitutional: Negative for chills and fever. HENT: Positive for mouth sores. Negative for congestion and sore throat. Respiratory: Negative for cough and shortness of breath. Gastrointestinal: Negative for diarrhea and vomiting. Neurological: Positive for headaches. Objective BP 128/80 Pulse 84 Temp 36.8 ?C (98.3 ?F) Resp 16 Wt 104.2 kg (229 lb 11.5 oz) SpO2 95% Physical Exam Vitals and nursing note reviewed. Constitutional: General: He is not in acute distress. Appearance: Normal appearance. He is not toxic-appearing. HENT: Right Ear: Tympanic membrane and ear canal normal. Left Ear: Tympanic membrane and ear canal normal. Nose: Nose normal. Mouth/Throat: Mouth: Mucous membranes are moist. Oral lesions present. Comments: Varicosities noted under tongue, no sores seen on or under the tongue. No tongue or floor of mouth swelling. Throat clear. No erythema or exudate. Patient has 2 small red spots on the inside of his left cheek. No ulcerations. No white plaques. No vesicular lesions. No lip lesions. Eyes: Conjunctiva/sclera: Conjunctivae normal. Cardiovascular: Rate and Rhythm: Normal rate and regular rhythm. Pulmonary: Effort: Pulmonary effort is normal. Breath sounds: Normal breath sounds. Skin: General: Skin is warm and dry. Neurological: Mental Status: He is alert. Assessment and Plan ASSESSMENT/PLAN: 1. Mouth sore - ICD9: 528.9, ICD10: K13.79 -2 small red spots on inside of left cheek, appear caused by possible trauma such as biting the cheek. No ulcerations. Does not appear consistent with herpetic stomatitis. No lesions anywhere else. No signs of thrush. -Advised not to use hydrogen peroxide, mouthwash. this may be irritating the area. -Recommend Tylenol/Motrin as needed for pain. -Follow-up with PCP this week if no improvement in symptoms. Diagnosis and treatment plan were discussed and questions were answered to the patient's satisfaction. Pt acknowledged understanding of concepts and follow up plan. Specific signs and symptoms that would indicate the need for higher level of care were discussed in detail warranting prompt ER evaluation. DANE Olivo Allergies As of Date: 03/18/2024 (No Known Allergies) Date Reviewed: 03/18/2024 Reviewed by: Valerie Nguyen MA - Fully Assessed Reason for Visit: Mouth Sores [839] Cmt: mouth burning with headache x 4-5 days Primary Visit Diagnosis:Mouth sore [K13.79] Prescriptions as of 03/18/2024 - lithium carbonate ER 450 mg CR tablet Take 1 tablet by mouth two times a day. - lithium carbonate ER 450 mg CR tablet 2 tablets once daily. Problem List As Of Date 03/18/2024 Noted Resolved Bilateral inguinal hernia without obstruction o*08/09/2015 Acute cholecystitis with chronic cholecystitis *08/09/2015 Umbilical hernia without obstruction or gangren*08/11/2015 Encounter Status:Closed by RENETTA SIBLEY on 03/18/24 Normal [facility] STREP A MOLECULAR (POC)on Procedural Control Valid [facility] Strep A (POCT) Negative Negative [facility] UAon 02-21-2023 Color (U) Yellow Normal [facility] ([place]) Comment on above: Performed By: #### U A #### [facility] [address] [place] [id number] Glucose (U) [Mass/Vol] Negative Normal Negative [facility] ([place]) Comment on above: Performed By: #### U A #### [facility] [address] [place] [id number] Ketones Ql (U) Negative Normal Neg-Trace [facility] ([place]) Comment on above: Performed By: #### U A #### [place] [address] UA Appear Clear Normal Clear [facility] ([place]) Comment on above: Performed By: #### U A #### [place] [address] UA Blood Trace Normal Neg-Trace [facility] ([place] Comment on above: Performed By: #### U A #### [place] [address] UA Leuk Est Trace Normal Negative [facility] ([place] Comment on above: Performed By: #### U A #### [place] [address] UA Nitrite Negative Normal Negative [facility] ([place] Comment on above: Performed By: #### U A #### [place] [address] UA pH 6.5 Normal 5.0 - 8.0 [facility] ([place] Comment on above: Performed By: #### U A #### [place] [address] UA Protein Negative Normal Negative [facility] ([place] Comment on above: Performed By: #### U A #### [place] [address] UA Spec Grav 1.010 Normal 1.006-1.029 [facility] ([place] Comment on above: Performed By: #### U A #### [place] [address] UA Specimen Type Clean Catch Normal [facility] ([place] Comment on above: Performed By: #### U A #### [place] [address] UA Urobilinogen 1.0 E.U./dL Normal 0.2-1.0 [facility] ([place] Comment on above: Performed By: #### U A #### [place] [address] Urobilinogen (U) [Mass/Vol] Negative Normal Neg-Trace [facility] ([place] Comment on above: Performed By: #### U A #### [facility] [address] [place], [place] [address] UAMICon 02-21-2023 UA RBC 0-2 Normal 0-2 [facility] ([place] Comment on above: Performed By: #### A ESVIN, GFR, CBC, ADIFF, CMP #### [place] [id number] [place], [place] [address] UA Squam Epithelial 0-2 Normal 0-20 [facility] ([place]) Comment on above: Performed By: #### A ESVIN, GFR, CBC, ADIFF, CMP #### [place] [id number] [place], [place] [address] UA WBC 0-2 Normal 0-5 [facility] ([place]) Comment on above: Performed By: #### A ESVIN, GFR, CBC, ADIFF, CMP #### [place] [id number] [place], [place] [address] EMERGENCY REPORTon 3 EMERGENCY REPORT [facility] EMERGENCY ROOM REPORT NAME ACCOUNT SEX AGE ADMIT DISCHARGE PT MED. RECORD# NUMBER DATE DATE TYPE NICK [id number] Rosenda 82 01/22/23 01/22/23 3 [facility] [id number] ROOM: ER DATE OF : 1940 DICTATING PHYSICIAN: Kian Penn CHIEF COMPLAINT: Urinary problems. HISTORY OF PRESENT ILLNESS: The patient states that several weeks ago, almost a month ago, he had an episode where he became weak and fell, was seen at [facility] and admitted there and treated for a urinary tract infection. He was on antibiotics IV for 3 to 4 days and then discharged to home, continued antibiotics for another four to five days. And he completed those about a week ago. He has been on Flomax but states over the past few days he has noticed that he is urinating more frequently. He has had pain going and only goes a small amount. He assumed that this was from the Flomax, so he stopped taking that. Since doing that, he has noticed he is not urinating quite as frequently, and it is not quite as painful, but he is still having to go a moderate amount of times with some persistent discomfort while urinating. No fever or chills, nausea or vomiting. PAST MEDICAL HISTORY: Significant for previous UTI as mentioned. He has a long history of bipolar disorder. PAST SURGICAL HISTORY: Previous appendectomy, cholecystectomy, orthopedic surgeries. MEDICATIONS: Per medication reconciliation list. ALLERGIES: No known allergies. SOCIAL HISTORY: He lives at home with his who accompanies him here. He does not smoke or drink alcohol. REVIEW OF SYSTEMS: No recent injury or trauma. No problems with bowel movements. He has not noticed any significant weight change, states that he has been drinking a lot of water, has not noticed significant abdominal distention. PHYSICAL EXAMINATION: An 82-year-old generally pleasant male, does not appear toxic. Skin: [place], warm, and dry. Vital signs: Show a temperature of 98.3, pulse 76, respirations 16, blood pressure 106/75, oxygen saturation 97%. DIAGNOSTIC DATA: The patient had a urinalysis done here, and that returned Page 1 of 2 [facility] AND[facility]EN Emergency Room Report LACI ANDERSEN : 1940 showing large amount of wbc's, greater than 50, 4+ bacteria. We did get a bladder scan, which was not postvoid. It did show about 300 mL. CBC and CMP were obtained, and CBC shows a white count of 7900, generally unremarkable differential, normal H&H. CMP: Sodium 132, potassium 4.2, BUN and creatinine 19 and 1.48. EMERGENCY DEPARTMENT COURSE AND TREATMENT: He states they told him at [facility] that he does have some underlying kidney disease. He is scheduled to see a urologist in February in about three to four weeks. DIAGNOSES: 1. Urinary tract infection. 2. Mild kidney injury, acute and/or chronic. PLAN/DISPOSITION: I did give him a gram of Rocephin IV, and then he will be discharged with Bactrim DS. I gave him enough for at least two weeks of this, if not longer. He it to follow up with his family physician, follow up with a urologist as planned, return here if any further problems. Dictated By: Kian Penn MD 01/22/23 15:22 JOB #: [id number] Transcribed By: mercedes 01/22/23 18:56 Electronically signed by: RODRIGUEZ Penn M.D. 02/17/23 07:25 Page 2 of 2 LACI ANDERSEN Emergency Room Report Normal [facility] URINE CULTURE [CCL]on 2022 Bacteria identified Cx Nom (U) URCUL See Results Below See Below CULTURE, URINE Mixed microbiota, including predominantly: CULTURE, URINE ESCHERICHIA COLI >=100,000 CFU/ml Escherichia coli CLSI breakpoints for therapy of uncomplicated UTIs due to E. coli, K. pneumoniae ORGANISM: ESCHERICHIA COLI ANTIBIOTIC JUVENTINO DILUTN JUVENTINO INTERP Ampicillin <=2 Susceptible Cefazolin <=4 Susceptible Ceftriaxone <=1 Susceptible Cefepime <=1 Susceptible Ertapenem <=0.5 Susceptible Meropenem <=0.25 Susceptible Ampicillin/Sulbact <=2 Susceptible Piperacillin/Tazobac <=4 Susceptible Gentamicin <=1 Susceptible Tobramycin <=1 Susceptible Trimeth sulfameth <=20 Susceptible Ciprofloxacin <=0.25 Susceptible Nitrofurantoin <=16 Susceptible This test was developed and its performance characteristics determined by the [facility] [place] ([facility] It has not been cleared or approved by the FDA. [facility] is regulated under CLIA as qualified to perform high-complexity testing. This test is used for clinical purposes. It should not be regarded as investigational or for research. SOURCE: URINE [facility] [address] [place] [address] Jude Epstein III, M.D. [id number] SEND TO IC YES Normal [facility] Comment on above: Performed By: #### 2 66893 #### [facility],[address] [place] [address] 28412 CBC + DIFFon 01-22-2023 Baso # 0.10 x10EE3/UL Normal 0.00 - 0.10 [facility] Comment on above: Performed By: #### 2 43540 #### [facility],[address] [place] [address] 04012 Basophils/100 WBC (Bld) 1.2 % Normal 0.0 - 2.0 [facility] Comment on above: Performed By: #### 2 00123 #### [facility],[address] [place] [address] 95908 CBC + DIFF Normal [facility] Comment on above: Result Comment: CBC- COMPLETE BLOOD COUNT Performed By: #### 2 75709 #### [place] [address] EO # 0.30 x10EE3/UL Normal 0.00 - 0.50 [facility] Comment on above: Performed By: #### 2 78391 #### [place] [address] Eosinophils/100 WBC (Bld) 3.2 % Normal 0.0 - 7.0 [facility] Comment on above: Performed By: #### 2 00453 #### [place] [address] Erythrocyte distribution width (RBC) [Ratio] 14.2 % Normal 12.0 - 15.6 [facility] Comment on above: Performed By: #### 2 52113 #### [place] [address] Hematocrit (Bld) [Volume fraction] 41.4 % Normal 40.0 - 52.0 [facility] Comment on above: Performed By: #### 2 66651 #### [place] [address] Hemoglobin (Bld) [Mass/Vol] 13.8 g/dL Normal 13.0 - 17.5 [facility] Comment on above: Performed By: #### 2 89903 #### [place] [id number] Lymph # 0.70 x10EE3/UL Low 0.80 - 2.80 [facility] Comment on above: Performed By: #### 2 66187 #### [place] [address] Lymphocytes/100 WBC (Bld) 9.4 % Low 20.0 - 45.0 [facility] Comment on above: Performed By: #### 2 79092 #### [address] [place] [address] MANUAL DIFF N/A Normal [facility] Comment on above: Performed By: #### 2 09759 #### [facility],[address] [place] [address] MCH (RBC) [Entitic mass] 30 pg Normal 27 - 33 [facility] Comment on above: Performed By: #### 2 51278 #### [place] [address] MCHC 33 X10 3 Normal 32 - 36 [facility] Comment on above: Performed By: #### 2 34222 #### [place] [address] MCV (RBC) [Entitic vol] 89 fL Normal 81 - 98 [facility] Comment on above: Performed By: #### 2 71350 #### [place] [address] [place] # 0.80 x10EE3/UL Normal 0.20 - 1.00 [facility] Comment on above: Performed By: #### 2 36606 #### [place] [address] MONOS % 10.6 % High 0.0 - 10.0 [facility] Comment on above: Performed By: #### 2 21106 #### [place] [address] Morphology Jim (Bld) [Interp] N/A Normal [facility] Comment on above: Performed By: #### 2 13651 #### [place] [address] Neut # 6.00 x10EE3/UL Normal 1.50 - 7.10 [facility] Comment on above: Performed By: #### 2 08794 #### [place] [address] Neutrophils/100 WBC (Bld) 75.6 % Normal 46.0 - 76.0 [facility] Comment on above: Performed By: #### 2 65890 #### [facility],[address] [place] [address]2764 PLATELET 295 x10EE3/UL Normal 150 - 450 [facility] Comment on above: Performed By: #### 2 30094 #### [facility],[address] [place] [address] 26158 Platelet mean volume (Bld) [Entitic vol] 7.7 fL Normal 6.4 - 10.5 [facility] Comment on above: Result Comment: AUTO MATED DIFFERENTIAL Performed By: #### 2 88540 #### [facility],[address] [place] [address] 19928 RBC 4.66 x 10EE6/UL Normal 4.50 - 6.00 [facility] Comment on above: Performed By: #### 2 93040 #### [facility],[address] [place] [address] 90927 WBC 7.9 x 10EE3/UL Normal 4.5 - 10.8 [facility] Comment on above: Performed By: #### 2 13569 #### [facility],[address] [place] [address]60 CMP with eGFRon 01-22-2023 AGE 82 years Normal [facility] Comment on above: Performed By: #### 2 51906 #### [facility],[address] [place] [address]443 Albumin [Mass/Vol] 3.6 g/dL Normal 3.4 - 5.0 [facility] Comment on above: Performed By: #### 2 06350 #### [facility],[address] [place] [address] 17845 Albumin/Globulin [Mass ratio] 0.8 {ratio} Low 0.9 - 1.6 [facility] Comment on above: Performed By: #### 2 43162 #### [facility],[address] [place] [address] 18075 ALK PHOS 86 U/L Normal 46 - 116 [facility] Comment on above: Performed By: #### 2 67064 #### [facility],[address] [place] [address] 98902 ALT [Catalytic activity/Vol] 18 U/L Normal 16 - 63 [facility] Comment on above: Performed By: #### 2 35905 #### [facility],[address] [place] [address] 69574 Anion gap [Moles/Vol] 9 mmol/L Low 10 - 20 [facility] Comment on above: Performed By: #### 2 56838 #### [facility],[address] [place] [address] 80532 AST [Catalytic activity/Vol] 16 U/L Normal 15 - 37 [facility] Comment on above: Performed By: #### 2 53348 #### [facility],[address] [place] [address] 72635 B/C RATIO 13 ratio Normal 0 - 30 [facility] Comment on above: Performed By: #### 2 87784 #### [facility],[address] [place] [address] 50137 Bilirubin [Mass/Vol] 1.8 mg/dL High 0.2 - 1.0 [facility] Comment on above: Performed By: #### 2 25551 #### [facility],[address] [place] [address] 62334 Calcium [Mass/Vol] 9.2 mg/dL Normal 8.5 - 10.1 [facility] Comment on above: Performed By: #### 2 08685 #### [facility],[address] [place] [address] 11474 Chloride [Moles/Vol] 100 mmol/L Normal 98 - 107 [facility] Comment on above: Performed By: #### 2 81933 #### [facility],[address] [place] [address] 44861 CMP with eGFR Normal [facility] Comment on above: Result Comment: COMP REHENSIVE METABOLIC PANEL Performed By: #### 2 58773 #### [facility],[address] [place] [address] 15054 CO2 [Moles/Vol] 27.5 mmol/L Normal 21.0 - 32.0 [facility] Comment on above: Performed By: #### 2 95974 #### [facility],[address] [place] [address] 46898 Creatinine [Mass/Vol] 1.48 mg/dL High 0.70 - 1.30 [facility] Comment on above: Performed By: #### 2 18822 #### [facility],[address] [place] [address] 09109 eGFR 46 ML/MINUTE Low 60 - 999 [facility] Comment on above: Performed By: #### 2 46142 #### [facility],[address] [place] [address] 71209 eGFR(AA) 55 ML/MINUTE Low 60 - 999 [facility] Comment on above: Result Comment: ACCO RDING TO THE NATIONAL KIDNEY DISEASE EDUCATION PROGRAM(NKDE), A NORMAL eGFR IS A VALUE GREATER THAN OR EQUAL TO 60 ML/MIN/1.73 SQ METERS. CHRONIC KIDNEY DISEASE: <60mL/MIN/1.73 SQ METERS KIDNEY FAILURE: <15mL/MIN/1.73 SQ METERS THIS TEST SHOULD ONLY BE USED FOR PATIENTS 18 YEARS OF AGE AND OLDER. Performed By: #### 2 98446 #### [facility],[address] [place] [address] 64473 Globulin (S) [Mass/Vol] 4.4 g/dL High 1.5 - 3.8 [facility] Comment on above: Performed By: #### 2 66516 #### [facility],[address] [place] [address] 07095 Glucose [Mass/Vol] 91 mg/dL Normal 74 - 106 [facility] Comment on above: Performed By: #### 2 27643 #### [facility],[address] [place] [address] 83907 Potassium [Moles/Vol] 4.2 mmol/L Normal 3.5 - 5.1 [facility] Comment on above: Performed By: #### 2 19919 #### [facility],[address] [place] [address] 38911 Protein [Mass/Vol] 8.0 g/dL Normal 6.4 - 8.2 [facility] Comment on above: Performed By: #### 2 45539 #### [facility],[address] [place] [address] Sodium [Moles/Vol] 132 mmol/L Low 136 - 145 [facility] Comment on above: Performed By: #### 2 49934 #### [facility],[address] [place] [address] Urea nitrogen [Mass/Vol] 19 mg/dL High 7 - 18 [facility] Comment on above: Performed By: #### 2 25518 #### [facility],[address] [place] [address] 85328 URINALYSIS WITH MICROSCOPYon 01-22-2023 Amorphous NONE Normal [facility] Comment on above: Performed By: #### 2 42891 #### [facility],[address] [place], [place] [address] Bacteria 4+ Normal [facility] Comment on above: Performed By: #### 2 17863 #### [facility],[address] [place] [address] 36615 Bilirubin Ql (U) Negative Normal NORMAL: NEGATIVE [facility] Comment on above: Performed By: #### 2 98293 #### [facility],[address] [place] [address] 67240 Casts NONE Normal [facility] Comment on above: Performed By: #### 2 26603 #### [facility],[address] [place] [address] 45315 Clarity (U) sl.cloudy Normal NORMAL: CLEAR [facility] Comment on above: Performed By: #### 2 98579 #### [facility],[address] [place] [address] 22783 Color (U) p.yel Normal NORMAL: YELLOW [facility] Comment on above: Performed By: #### 2 60149 #### [facility],[address] [place] [address] 49802 Crystals LM Nom (Urine sed) NONE Normal [facility] Comment on above: Performed By: #### 2 89938 #### [facility],[address] [place], [place] [address] Epi Cells NONE Normal [facility] Comment on above: Performed By: #### 2 11086 #### [facility],[address] [place], [place] [address] Glucose Ql (U) NORM Normal NORMAL: NORMAL [facility] Comment on above: Performed By: #### 2 00378 #### [facility],[address] [place] [address] 87603 Hemoglobin Ql (U) 50 Abnormal NORMAL: NEGATIVE [facility] Comment on above: Performed By: #### 2 55745 #### [facility],[address] [place] [address] 75738 Ketone Negative Normal NORMAL: NEGATIVE [facility] Comment on above: Performed By: #### 2 85008 #### [facility],[address] [place] [address] 99887 Leukocytes 500 Abnormal NORMAL: NEGATIVE [facility] Comment on above: Result Comment: URIN E MICROSCOPIC Performed By: #### 2 94214 #### [facility],[address] [place] [address] 79732 Mucous NONE Normal [facility] Comment on above: Performed By: #### 2 44934 #### [facility],[address] [place] [address] Nitrite Ql (U) Negative Normal NORMAL: NEGATIVE [facility] Comment on above: Performed By: #### 2 33247 #### [facility],[address] [place] [address] pH (U) 7 [pH] Normal NORMAL: 5.0-8.0 [facility] Comment on above: Performed By: #### 2 00370 #### [facility],[address] [place] [address] Protein Ql (U) 30 Abnormal NORMAL: NEGATIVE [facility] Comment on above: Performed By: #### 2 38626 #### [facility],[address] [place] [address] Rbc 0-5 Normal 0-3 / hpf [facility] Comment on above: Performed By: #### 2 60829 #### [facility],[address] [place] [address] Sp [place] 1.005 Low NORMAL: 1.010-1.030 [facility] Comment on above: Performed By: #### 2 95592 #### [facility],[address] [place] [address] Specimen Type UNSPECIFIED Normal [facility] Comment on above: Performed By: #### 2 04231 #### [facility],[address] [place] [address] URINALYSIS WITH MICROSCOPY Normal [facility] Comment on above: Result Comment: URIN ALYSIS Performed By: #### 2 14747 #### [facility],[address] [place] [address] Urobilinog NORM Normal NORMAL: NORMAL [facility] Comment on above: Performed By: #### 2 23275 #### [facility],[address] [place] [address] WBC (U) [#/Vol] /uL Normal 0-5 / hpf [facility] Comment on above: Performed By: #### 2 46084 #### [facility],[address] [place] [address] 54979 Yeast NONE Normal [facility] Comment on above: Performed By: #### 2 65539 #### [facility],[address] [place] [address] 91878 .Auto Diffon 01-07-2023 Basophil, Absolute 0.0 10 3/mcL Normal 0.0-0.2 [facility] ([place]) Comment on above: Performed By: #### A ESVIN, GFR, CBC, ADIFF, CMP #### [address] [address] Basophils/100 WBC (Bld) 0.7 % Normal 0.0-2.5 [facility] ([place]) Comment on above: Performed By: #### A ESVIN, GFR, CBC, ADIFF, CMP #### [address] [address] Eosinophil, Absolute 0.3 10 3/mcL Normal 0.0-0.4 [facility] ([place]) Comment on above: Performed By: #### A ESVIN, GFR, CBC, ADIFF, CMP #### [address] [address] Eosinophils/100 WBC (Bld) 6.1 % Normal 0.0-7.0 [facility] ([place] Comment on above: Performed By: #### A ESVIN, GFR, CBC, ADIFF, CMP #### [address] [address] Lymphocyte, Absolute 0.4 10 3/mcL Low 0.8-3.9 [facility] ([place] Comment on above: Performed By: #### A ESVIN, GFR, CBC, ADIFF, CMP #### [address] [address] Lymphocytes/100 WBC (Bld) 8.5 % Low 10.0-50.0 [facility] ([place] Comment on above: Performed By: #### A ESVIN, GFR, CBC, ADIFF, CMP #### [address] [address] Monocyte, Absolute 0.9 10 3/mcL Normal 0.2-1.0 [facility] ([place] Comment on above: Performed By: #### A ESVIN, GFR, CBC, ADIFF, CMP #### [address] [address] Monocytes/100 WBC (Bld) 17.4 % High 1.7-13.0 [facility] ([place] Comment on above: Performed By: #### A ESVIN, GFR, CBC, ADIFF, CMP #### [address] [address] Neutrophils/100 WBC (Bld) 67.3 % Normal 37.0-80.0 [facility] ([place] Comment on above: Performed By: #### A ESVIN, GFR, CBC, ADIFF, CMP #### [address] [address] .GFRon 01-07-2023 GFR 56 ml/min/1.73sqm Normal [facility] ([place]) Comment on above: Result Comment: GFR Population mean for , Non- Americans Ages 20-29 = 116 mL/min/1.73 sq.m. Ages 30-39 = 107 mL/min/1.73 sq.m. Ages 40-49 = 99 mL/min/1.73 sq.m. Ages 50-59 = 93 mL/min/1.73 sq.m. Ages 60-69 = 85 mL/min/1.73 sq.m. Ages 70+ = 75 mL/min/1.73 sq.m. Chronic Kidney Disease: Less than 60 mL/min/1.73 square meters End Stage Renal Disease: Less than 15 mL/min/1.73 square meters Performed By: #### A ESVIN, GFR, CBC, ADIFF, CMP #### [address] [address] GFR Non- 46 ml/min/1.73sqm Normal [facility] ([place]) Comment on above: Result Comment: GFR Population mean for , Non- Americans Ages 20-29 = 116 mL/min/1.73 sq.m. Ages 30-39 = 107 mL/min/1.73 sq.m. Ages 40-49 = 99 mL/min/1.73 sq.m. Ages 50-59 = 93 mL/min/1.73 sq.m. Ages 60-69 = 85 mL/min/1.73 sq.m. Ages 70+ = 75 mL/min/1.73 sq.m. Chronic Kidney Disease: Less than 60 mL/min/1.73 square meters End Stage Renal Disease: Less than 15 mL/min/1.73 square meters Performed By: #### A ESVIN, GFR, CBC, ADIFF, CMP #### [address] [address] .NEUABSon 01-07-2023 Neutrophil, Absolute 3.5 10 3/mcL Normal 2.9-6.2 [facility] ([place]) Comment on above: Performed By: #### A ESVIN, GFR, CBC, ADIFF, CMP #### [address] [address] CBCon 01-07-2023 Erythrocyte distribution width (RBC) [Ratio] 13.8 % Normal 11.5-14.5 [facility] ([place]) Comment on above: Performed By: #### A ESVIN, GFR, CBC, ADIFF, CMP #### [address] [address] Hematocrit (Bld) [Volume fraction] 37.9 % Low 42.0-52.0 [facility] ([place]) Comment on above: Performed By: #### A ESVIN, GFR, CBC, ADIFF, CMP #### [address] [address] Hgb 12.8 G/dL Low 14.0-18.0 [facility] ([place]) Comment on above: Performed By: #### A ESVIN, GFR, CBC, ADIFF, CMP #### [address] [address] MCH (RBC) [Entitic mass] 29.9 pg Normal 27.0-31.2 [facility] ([place]) Comment on above: Performed By: #### A ESVIN, GFR, CBC, ADIFF, CMP #### [address] [address] MCHC 33.8 G/dL Normal 31.8-35.4 [facility] ([place]) Comment on above: Performed By: #### A ESVIN, GFR, CBC, ADIFF, CMP #### [address] [address] MCV (RBC) [Entitic vol] 88.4 fL Normal 80.0-94.0 [facility] ([place]) Comment on above: Performed By: #### A ESVIN, GFR, CBC, ADIFF, CMP #### [address] [address] Platelet 163 10 3/mcL Normal 130-400 [facility] ([place]) Comment on above: Performed By: #### A ESVIN, GFR, CBC, ADIFF, CMP #### [address] [address] Platelet mean volume (Bld) [Entitic vol] 8.6 fL Normal 7.4-10.4 [facility] ([place]) Comment on above: Performed By: #### A ESVIN, GFR, CBC, ADIFF, CMP #### [address] [address] RBC 4.28 10 6/mcL Normal 4.04-6.13 [facility] ([place]) Comment on above: Performed By: #### A ESVIN, GFR, CBC, ADIFF, CMP #### [address] [address] WBC 5.2 10 3/mcL Normal 4.6-10.8 [facility] ([place]) Comment on above: Performed By: #### A ESVIN, GFR, CBC, ADIFF, CMP #### [address] [address] CMPon 01-07-2023 Albumin Level 2.9 G/dL Low 3.4-4.8 [facility] ([place]) Comment on above: Performed By: #### A ESVIN, GFR, CBC, ADIFF, CMP #### [address] [address] Albumin/Globulin [Mass ratio] 0.9 {ratio} Low 1.1-2.5 [facility] ([place]) Comment on above: Performed By: #### A ESVIN, GFR, CBC, ADIFF, CMP #### [address] [address] ALP [Catalytic activity/Vol] 68 U/L Normal 40-135 [facility] ([place]) Comment on above: Performed By: #### A ESVIN, GFR, CBC, ADIFF, CMP #### [address] [address] ALT [Catalytic activity/Vol] 18 U/L Normal 16-63 [facility] ([place]) Comment on above: Performed By: #### A ESVIN, GFR, CBC, ADIFF, CMP #### [address] [address] AST [Catalytic activity/Vol] 19 U/L Normal 10-40 [facility] ([place]) Comment on above: Performed By: #### A ESVIN, GFR, CBC, ADIFF, CMP #### [address] [address] Bili Total 0.7 mg/dL Normal 0.2-1.0 [facility] ([place]) Comment on above: Result Comment: Use of this assay is not recommended for patients undergoing treatment with eltrombopag due to the potential for falsely elevated results. Performed By: #### A ESVIN, GFR, CBC, ADIFF, CMP #### [address] [address] BUN/Creatinine Ratio 14 ratio Normal 7-27 [facility] ([place]) Comment on above: Performed By: #### A ESVIN, GFR, CBC, ADIFF, CMP #### [address] [address] Calcium [Mass/Vol] 8.7 mg/dL Normal 8.4-10.2 [facility] ([place]) Comment on above: Performed By: #### A ESVIN, GFR, CBC, ADIFF, CMP #### [address] [address] Chloride [Moles/Vol] 107 mmol/L Normal 98-107 [facility] ([place]) Comment on above: Performed By: #### A ESVIN, GFR, CBC, ADIFF, CMP #### [place] [address] CO2 [Moles/Vol] 25 mmol/L Normal 23-31 [facility] ([place]) Comment on above: Performed By: #### A ESVIN, GFR, CBC, ADIFF, CMP #### [place] [address] Creatinine [Mass/Vol] 1.46 mg/dL High 0.70-1.30 [facility] ([place]) Comment on above: Performed By: #### A ESVIN, GFR, CBC, ADIFF, CMP #### [place] [id number] Electrolyte Balance 8.0 mEq/L Normal 4.0-15.0 [facility] ([place]) Comment on above: Performed By: #### A ESVIN, GFR, CBC, ADIFF, CMP #### [address] [address] Globulin 3.2 G/dL Normal [facility] ([place]) Comment on above: Performed By: #### A ESVIN, GFR, CBC, ADIFF, CMP #### [address] [address] Glucose [Mass/Vol] 123 mg/dL High 83-110 [facility] ([place]) Comment on above: Performed By: #### A ESVIN, GFR, CBC, ADIFF, CMP #### [place] [address] Potassium [Moles/Vol] 4.1 mmol/L Normal 3.5-5.1 [facility] ([place]) Comment on above: Performed By: #### A ESVIN, GFR, CBC, ADIFF, CMP #### [facility] [place] [address] [place], [place] [address] Sodium [Moles/Vol] 140 mmol/L Normal 136-145 [facility] ([place]) Comment on above: Performed By: #### A ESVIN, GFR, CBC, ADIFF, CMP #### [address] [address] Total Protein 6.1 G/dL Low 6.4-8.2 [facility] ([place]) Comment on above: Performed By: #### A ESVIN, GFR, CBC, ADIFF, CMP #### [address] [address] Urea nitrogen [Mass/Vol] 20 mg/dL High 7-18 [facility] ([place]) Comment on above: Performed By: #### A ESVIN, GFR, CBC, ADIFF, CMP #### [address] [address] LABORATORYOrdered By: SYSTEM SYSTEM on 01-07-2023 Albumin BCP dye [Mass/Vol] 2.9 G/dL Invalid Interpretation Code 3.4 - 4.8 G/dL AO ADM SS Albumin/Globulin [Mass ratio] 0.9 {ratio} Invalid Interpretation Code 1.1 - 2.5 ratio AO ADM SS ALP [Catalytic activity/Vol] 68 U/L Invalid Interpretation Code 40 - 135 U/L AO ADM SS ALT With P-5'-P [Catalytic activity/Vol] 18 U/L Invalid Interpretation Code 16 - 63 U/L AO ADM SS AST With P-5'-P [Catalytic activity/Vol] 19 U/L Invalid Interpretation Code 10 - 40 U/L AO ADM SS Bilirubin [Mass/Vol] 0.7 mg/dL Invalid Interpretation Code 0.2 - 1.0 mg/dL AO ADM SS Calcium [Mass/Vol] 8.7 mg/dL Invalid Interpretation Code 8.4 - 10.2 mg/dL AO ADM SS Chloride [Moles/Vol] 107 mmol/L Invalid Interpretation Code 98 - 107 mmol/L AO ADM SS CO2 [Moles/Vol] 25 mmol/L Invalid Interpretation Code 23 - 31 mmol/L AO ADM SS Creatinine [Mass/Vol] 1.46 mg/dL Invalid Interpretation Code 0.70 - 1.30 mg/dL AO ADM SS Electrolyte Balance 8.0 mEq/L Invalid Interpretation Code 4.0 - 15.0 mEq/L AO ADM SS GFR/1.73 sq M.predicted among blacks MDRD (S/P/Bld) [Vol rate/Area] 56 ml/min/1.73sqm Invalid Interpretation Code AO Chemistry S GFR/1.73 sq M.predicted among non-blacks MDRD (S/P/Bld) [Vol rate/Area] 46 ml/min/1.73sqm Invalid Interpretation Code AO Chemistry S Globulin 3.2 G/dL Invalid Interpretation Code AO ADM SS Glucose [Mass/Vol] 123 mg/dL Invalid Interpretation Code 83 - 110 mg/dL AO ADM SS Magnesium [Mass/Vol] 2.2 mg/dL Invalid Interpretation Code 1.8 - 2.4 mg/dL AO ADM SS Potassium [Moles/Vol] 4.1 mmol/L Invalid Interpretation Code 3.5 - 5.1 mmol/L AO ADM SS Protein [Mass/Vol] 6.1 G/dL Invalid Interpretation Code 6.4 - 8.2 G/dL AO ADM SS Sodium [Moles/Vol] 140 mmol/L Invalid Interpretation Code 136 - 145 mmol/L AO ADM SS Urea nitrogen [Mass/Vol] 20 mg/dL Invalid Interpretation Code 7 - 18 mg/dL AO ADM SS Urea nitrogen/Creatinine [Mass ratio] 14 ratio Invalid Interpretation Code 7 - 27 ratio AO ADM SS LABORATORYOrdered By: Wicho Sims on 01-07-2023 Basophil, Absolute 0.0 103/mcL Invalid Interpretation Code 0.0 - 0.2 10^3/mcL AO Workflow SS Basophils/100 WBC (Bld) 0.7 % Invalid Interpretation Code 0.0 - 2.5 % AO Workflow SS Eosinophil, Absolute 0.3 103/mcL Invalid Interpretation Code 0.0 - 0.4 10^3/mcL AO Workflow SS Eosinophils/100 WBC (Bld) 6.1 % Invalid Interpretation Code 0.0 - 7.0 % AO Workflow SS Erythrocyte distribution width (RBC) [Ratio] 13.8 % Invalid Interpretation Code 11.5 - 14.5 % AO Workflow SS Hematocrit (Bld) [Volume fraction] 37.9 % Invalid Interpretation Code 42.0 - 52.0 % AO Workflow SS Hemoglobin (Bld) [Mass/Vol] 12.8 G/dL Invalid Interpretation Code 14.0 - 18.0 G/dL AO Workflow SS Lymphocyte, Absolute 0.4 103/mcL Invalid Interpretation Code 0.8 - 3.9 10^3/mcL AO Workflow SS Lymphocytes/100 WBC (Bld) 8.5 % Invalid Interpretation Code 10.0 - 50.0 % AO Workflow SS MCH (RBC) [Entitic mass] 29.9 pg Invalid Interpretation Code 27.0 - 31.2 pg AO Workflow SS MCHC 33.8 G/dL Invalid Interpretation Code 31.8 - 35.4 G/dL AO Workflow SS MCV (RBC) [Entitic vol] 88.4 fL Invalid Interpretation Code 80.0 - 94.0 fL AO Workflow SS Monocyte, Absolute 0.9 103/mcL Invalid Interpretation Code 0.2 - 1.0 10^3/mcL AO Workflow SS Monocytes/100 WBC (Bld) 17.4 % Invalid Interpretation Code 1.7 - 13.0 % AO Workflow SS Neutrophil, Absolute 3.5 103/mcL Invalid Interpretation Code 2.9 - 6.2 10^3/mcL AO Workflow SS Neutrophils/100 WBC (Bld) 67.3 % Invalid Interpretation Code 37.0 - 80.0 % AO Workflow SS Platelet mean volume (Bld) [Entitic vol] 8.6 fL Invalid Interpretation Code 7.4 - 10.4 fL AO Workflow SS Platelets (Bld) [#/Vol] 163 103/mcL Invalid Interpretation Code 130 - 400 10^3/mcL AO Workflow SS RBC (Bld) [#/Vol] 4.28 106/mcL Invalid Interpretation Code 4.04 - 6.13 10^6/mcL AO Workflow SS WBC (Bld) [#/Vol] 5.2 103/mcL Invalid Interpretation Code 4.6 - 10.8 10^3/mcL AO Workflow SS MGon 01-07-2023 Magnesium [Mass/Vol] 2.2 mg/dL Normal 1.8-2.4 [facility] ([place]) Comment on above: Performed By: #### M G #### Tao [address] [address] .Auto Diffon 01-06-2023 Basophil, Absolute 0.0 10 3/mcL Normal 0.0-0.2 [facility] ([place]) Comment on above: Performed By: #### A ESVIN, GFR, CBC, ADIFF, CMP #### [address] [address] Basophils/100 WBC (Bld) 0.4 % Normal 0.0-2.5 [facility] ([place]) Comment on above: Performed By: #### A ESVIN, GFR, CBC, ADIFF, CMP #### [address] [address] Eosinophil, Absolute 0.2 10 3/mcL Normal 0.0-0.4 [facility] ([place]) Comment on above: Performed By: #### A ESVIN, GFR, CBC, ADIFF, CMP #### [address] [address] Eosinophils/100 WBC (Bld) 3.4 % Normal 0.0-7.0 [facility] ([place]) Comment on above: Performed By: #### A ESVIN, GFR, CBC, ADIFF, CMP #### [address] [address] Lymphocyte, Absolute 0.3 10 3/mcL Low 0.8-3.9 [facility] ([place] Comment on above: Performed By: #### A ESVIN, GFR, CBC, ADIFF, CMP #### [address] [address] Lymphocytes/100 WBC (Bld) 5.0 % Low 10.0-50.0 [facility] ([place] Comment on above: Performed By: #### A ESVIN, GFR, CBC, ADIFF, CMP #### [address] [address] Monocyte, Absolute 0.6 10 3/mcL Normal 0.2-1.0 [facility] ([place] Comment on above: Performed By: #### A ESVIN, GFR, CBC, ADIFF, CMP #### [address] [address] Monocytes/100 WBC (Bld) 9.4 % Normal 1.7-13.0 [facility] ([place]) Comment on above: Performed By: #### A ESVIN, GFR, CBC, ADIFF, CMP #### [address] [address] Neutrophils/100 WBC (Bld) 81.8 % High 37.0-80.0 [facility] ([place]) Comment on above: Performed By: #### A ESVIN, GFR, CBC, ADIFF, CMP #### [address] [address] .GFRon 01-06-2023 GFR 51 ml/min/1.73sqm Normal [facility] ([place]) Comment on above: Result Comment: GFR Population mean for , Non- Americans Ages 20-29 = 116 mL/min/1.73 sq.m. Ages 30-39 = 107 mL/min/1.73 sq.m. Ages 40-49 = 99 mL/min/1.73 sq.m. Ages 50-59 = 93 mL/min/1.73 sq.m. Ages 60-69 = 85 mL/min/1.73 sq.m. Ages 70+ = 75 mL/min/1.73 sq.m. Chronic Kidney Disease: Less than 60 mL/min/1.73 square meters End Stage Renal Disease: Less than 15 mL/min/1.73 square meters Performed By: #### A ESVIN, GFR, CBC, ADIFF, CMP #### [address] [address] GFR Non- 42 ml/min/1.73sqm Normal [facility] ([place]) Comment on above: Result Comment: GFR Population mean for , Non- Americans Ages 20-29 = 116 mL/min/1.73 sq.m. Ages 30-39 = 107 mL/min/1.73 sq.m. Ages 40-49 = 99 mL/min/1.73 sq.m. Ages 50-59 = 93 mL/min/1.73 sq.m. Ages 60-69 = 85 mL/min/1.73 sq.m. Ages 70+ = 75 mL/min/1.73 sq.m. Chronic Kidney Disease: Less than 60 mL/min/1.73 square meters End Stage Renal Disease: Less than 15 mL/min/1.73 square meters Performed By: #### A ESVIN, GFR, CBC, ADIFF, CMP #### [address] [address] .NEUABSon 01-06-2023 Neutrophil, Absolute 5.2 10 3/mcL Normal 2.9-6.2 [facility] ([place] Comment on above: Performed By: #### A ESVIN, GFR, CBC, ADIFF, CMP #### [address] [address] CBCon 01-06-2023 Erythrocyte distribution width (RBC) [Ratio] 14.0 % Normal 11.5-14.5 [facility] ([place]) Comment on above: Performed By: #### A ESVIN, GFR, CBC, ADIFF, CMP #### [place] [address] Hematocrit (Bld) [Volume fraction] 38.9 % Low 42.0-52.0 [facility] ([place]) Comment on above: Performed By: #### A ESVIN, GFR, CBC, ADIFF, CMP #### [place] [address] Hgb 13.0 G/dL Low 14.0-18.0 [facility] ([place]) Comment on above: Performed By: #### A ESVIN, GFR, CBC, ADIFF, CMP #### [place] [id number] MCH (RBC) [Entitic mass] 29.8 pg Normal 27.0-31.2 [facility] ([place] Comment on above: Performed By: #### A ESVIN, GFR, CBC, ADIFF, CMP #### [place] [address] MCHC 33.3 G/dL Normal 31.8-35.4 [facility] ([place] Comment on above: Performed By: #### A ESVIN, GFR, CBC, ADIFF, CMP #### [place] [address] MCV (RBC) [Entitic vol] 89.4 fL Normal 80.0-94.0 [facility] ([place] Comment on above: Performed By: #### A ESVIN, GFR, CBC, ADIFF, CMP #### [address] [address] Platelet 134 10 3/mcL Normal 130-400 [facility] ([place] Comment on above: Performed By: #### A ESVIN, GFR, CBC, ADIFF, CMP #### [address] [address] Platelet mean volume (Bld) [Entitic vol] 8.6 fL Normal 7.4-10.4 [facility] ([place] Comment on above: Performed By: #### A ESVIN, GFR, CBC, ADIFF, CMP #### [address] [address] RBC 4.35 10 6/mcL Normal 4.04-6.13 [facility] ([place] Comment on above: Performed By: #### A ESVIN, GFR, CBC, ADIFF, CMP #### [address] [address] WBC 6.4 10 3/mcL Normal 4.6-10.8 [facility] ([place] Comment on above: Performed By: #### A ESVIN, GFR, CBC, ADIFF, CMP #### [address] [address] CMPon 01-06-2023 Albumin Level 3.0 G/dL Low 3.4-4.8 [facility] ([place] Comment on above: Performed By: #### A ESVIN, GFR, CBC, ADIFF, CMP #### [address] [address] Albumin/Globulin [Mass ratio] 1.0 {ratio} Low 1.1-2.5 [facility] ([place] Comment on above: Performed By: #### A ESVIN, GFR, CBC, ADIFF, CMP #### [address] [address] ALP [Catalytic activity/Vol] 68 U/L Normal 40-135 [facility] ([place] Comment on above: Performed By: #### A ESVIN, GFR, CBC, ADIFF, CMP #### [address] [address] ALT [Catalytic activity/Vol] 16 U/L Normal 16-63 [facility] ([place] Comment on above: Performed By: #### A ESVIN, GFR, CBC, ADIFF, CMP #### [address] [address] AST [Catalytic activity/Vol] 15 U/L Normal 10-40 [facility] ([place] Comment on above: Performed By: #### A ESVIN, GFR, CBC, ADIFF, CMP #### [address] [address] Bili Total 1.5 mg/dL High 0.2-1.0 [facility] ([place]) Comment on above: Result Comment: Use of this assay is not recommended for patients undergoing treatment with eltrombopag due to the potential for falsely elevated results. Performed By: #### A ESVIN, GFR, CBC, ADIFF, CMP #### [address] [address] BUN/Creatinine Ratio 14 ratio Normal 7-27 [facility] ([place]) Comment on above: Performed By: #### A ESVIN, GFR, CBC, ADIFF, CMP #### [address] [address] Calcium [Mass/Vol] 8.7 mg/dL Normal 8.4-10.2 [facility] ([place]) Comment on above: Performed By: #### A ESVIN, GFR, CBC, ADIFF, CMP #### [address] [address] Chloride [Moles/Vol] 107 mmol/L Normal 98-107 [facility] ([place] Comment on above: Performed By: #### A ESVIN, GFR, CBC, ADIFF, CMP #### [address] [address] CO2 [Moles/Vol] 24 mmol/L Normal 23-31 [facility] ([place] Comment on above: Performed By: #### A ESVIN, GFR, CBC, ADIFF, CMP #### [address] [address] Creatinine [Mass/Vol] 1.60 mg/dL High 0.70-1.30 [facility] ([place]) Comment on above: Performed By: #### A ESVIN, GFR, CBC, ADIFF, CMP #### [address] [address] Electrolyte Balance 7.0 mEq/L Normal 4.0-15.0 [facility] ([place] Comment on above: Performed By: #### A ESVIN, GFR, CBC, ADIFF, CMP #### [address] [address] Globulin 2.9 G/dL Normal [facility] ([place] Comment on above: Performed By: #### A ESVIN, GFR, CBC, ADIFF, CMP #### [address] [address] Glucose [Mass/Vol] 106 mg/dL Normal 83-110 [facility] ([place] Comment on above: Performed By: #### A ESVIN, GFR, CBC, ADIFF, CMP #### [address] [address] Potassium [Moles/Vol] 4.3 mmol/L Normal 3.5-5.1 [facility] ([place] Comment on above: Performed By: #### A ESVIN, GFR, CBC, ADIFF, CMP #### [address] [address] Sodium [Moles/Vol] 138 mmol/L Normal 136-145 [facility] ([place] Comment on above: Performed By: #### A ESVIN, GFR, CBC, ADIFF, CMP #### [address] [address] Total Protein 5.9 G/dL Low 6.4-8.2 [facility] ([place] Comment on above: Performed By: #### A ESVIN, GFR, CBC, ADIFF, CMP #### [address] [address] Urea nitrogen [Mass/Vol] 22 mg/dL High 7-18 [facility] ([place] Comment on above: Performed By: #### A ESVIN, GFR, CBC, ADIFF, CMP #### [place] [id number] [place], [place] [address] LABORATORYOrdered By: SYSTEM SYSTEM on 01-06-2023 Albumin BCP dye [Mass/Vol] 3.0 G/dL Invalid Interpretation Code 3.4 - 4.8 G/dL AO ADM SS Albumin/Globulin [Mass ratio] 1.0 {ratio} Invalid Interpretation Code 1.1 - 2.5 ratio AO ADM SS ALP [Catalytic activity/Vol] 68 U/L Invalid Interpretation Code 40 - 135 U/L AO ADM SS ALT With P-5'-P [Catalytic activity/Vol] 16 U/L Invalid Interpretation Code 16 - 63 U/L AO ADM SS AST With P-5'-P [Catalytic activity/Vol] 15 U/L Invalid Interpretation Code 10 - 40 U/L AO ADM SS Bilirubin [Mass/Vol] 1.5 mg/dL Invalid Interpretation Code 0.2 - 1.0 mg/dL AO ADM SS Calcium [Mass/Vol] 8.7 mg/dL Invalid Interpretation Code 8.4 - 10.2 mg/dL AO ADM SS Chloride [Moles/Vol] 107 mmol/L Invalid Interpretation Code 98 - 107 mmol/L AO ADM SS CO2 [Moles/Vol] 24 mmol/L Invalid Interpretation Code 23 - 31 mmol/L AO ADM SS Creatinine [Mass/Vol] 1.60 mg/dL Invalid Interpretation Code 0.70 - 1.30 mg/dL AO ADM SS Electrolyte Balance 7.0 mEq/L Invalid Interpretation Code 4.0 - 15.0 mEq/L AO ADM SS GFR/1.73 sq M.predicted among blacks MDRD (S/P/Bld) [Vol rate/Area] 51 ml/min/1.73sqm Invalid Interpretation Code AO Chemistry S GFR/1.73 sq M.predicted among non-blacks MDRD (S/P/Bld) [Vol rate/Area] 42 ml/min/1.73sqm Invalid Interpretation Code AO Chemistry S Globulin 2.9 G/dL Invalid Interpretation Code AO ADM SS Glucose [Mass/Vol] 106 mg/dL Invalid Interpretation Code 83 - 110 mg/dL AO ADM SS Magnesium [Mass/Vol] 2.2 mg/dL Invalid Interpretation Code 1.8 - 2.4 mg/dL AO ADM SS Potassium [Moles/Vol] 4.3 mmol/L Invalid Interpretation Code 3.5 - 5.1 mmol/L AO ADM SS Protein [Mass/Vol] 5.9 G/dL Invalid Interpretation Code 6.4 - 8.2 G/dL AO ADM SS Sodium [Moles/Vol] 138 mmol/L Invalid Interpretation Code 136 - 145 mmol/L AO ADM SS Urea nitrogen [Mass/Vol] 22 mg/dL Invalid Interpretation Code 7 - 18 mg/dL AO ADM SS Urea nitrogen/Creatinine [Mass ratio] 14 ratio Invalid Interpretation Code 7 - 27 ratio AO ADM SS LABORATORYOrdered By: Saray Sanchez on 01-06-2023 Basophil, Absolute 0.0 103/mcL Invalid Interpretation Code 0.0 - 0.2 10^3/mcL AO Workflow SS Basophils/100 WBC (Bld) 0.4 % Invalid Interpretation Code 0.0 - 2.5 % AO Workflow SS Eosinophil, Absolute 0.2 103/mcL Invalid Interpretation Code 0.0 - 0.4 10^3/mcL AO Workflow SS Eosinophils/100 WBC (Bld) 3.4 % Invalid Interpretation Code 0.0 - 7.0 % AO Workflow SS Erythrocyte distribution width (RBC) [Ratio] 14.0 % Invalid Interpretation Code 11.5 - 14.5 % AO Workflow SS Hematocrit (Bld) [Volume fraction] 38.9 % Invalid Interpretation Code 42.0 - 52.0 % AO Workflow SS Hemoglobin (Bld) [Mass/Vol] 13.0 G/dL Invalid Interpretation Code 14.0 - 18.0 G/dL AO Workflow SS Lymphocyte, Absolute 0.3 103/mcL Invalid Interpretation Code 0.8 - 3.9 10^3/mcL AO Workflow SS Lymphocytes/100 WBC (Bld) 5.0 % Invalid Interpretation Code 10.0 - 50.0 % AO Workflow SS MCH (RBC) [Entitic mass] 29.8 pg Invalid Interpretation Code 27.0 - 31.2 pg AO Workflow SS MCHC 33.3 G/dL Invalid Interpretation Code 31.8 - 35.4 G/dL AO Workflow SS MCV (RBC) [Entitic vol] 89.4 fL Invalid Interpretation Code 80.0 - 94.0 fL AO Workflow SS Monocyte, Absolute 0.6 103/mcL Invalid Interpretation Code 0.2 - 1.0 10^3/mcL AO Workflow SS Monocytes/100 WBC (Bld) 9.4 % Invalid Interpretation Code 1.7 - 13.0 % AO Workflow SS Neutrophil, Absolute 5.2 103/mcL Invalid Interpretation Code 2.9 - 6.2 10^3/mcL AO Workflow SS Neutrophils/100 WBC (Bld) 81.8 % Invalid Interpretation Code 37.0 - 80.0 % AO Workflow SS Platelet mean volume (Bld) [Entitic vol] 8.6 fL Invalid Interpretation Code 7.4 - 10.4 fL AO Workflow SS Platelets (Bld) [#/Vol] 134 103/mcL Invalid Interpretation Code 130 - 400 10^3/mcL AO Workflow SS RBC (Bld) [#/Vol] 4.35 106/mcL Invalid Interpretation Code 4.04 - 6.13 10^6/mcL AO Workflow SS WBC (Bld) [#/Vol] 6.4 103/mcL Invalid Interpretation Code 4.6 - 10.8 10^3/mcL AO Workflow SS LITHon 01-06-2023 [place] Level See comment Normal 0.40-1.30 [facility] ([place]) Comment on above: Order Comment: Vahid gayle called & faxed [place]=0.9 (kenna) Result called to MSurg by ESF Result Comment: Comp lete reference lab report scanned to EMR. Performed By: #### A ESVIN, GFR, CBC, ADIFF, CMP #### [address] [address] MGon 01-06-2023 Magnesium [Mass/Vol] 2.2 mg/dL Normal 1.8-2.4 [facility] ([place]) Comment on above: Performed By: #### A ESVIN, GFR, CBC, ADIFF, CMP #### [address] [address] MRI BRAIN W/O CONTRASTon MRI BRAIN W/O CONTRAST ORIGINAL EXAMINATION: MRI OF THE BRAIN WITHOUT CONTRAST 01/06/2023 12:37 pm TECHNIQUE: Multiplanar multisequence MRI of the brain was performed without the administration of intravenous contrast. COMPARISON: Head CT 01/04/2023 HISTORY: ORDERING SYSTEM PROVIDED HISTORY: Reason for Exam: confusion Dizziness. Unable to walk. FINDINGS: INTRACRANIAL STRUCTURES/VENTRICLES : There is no acute infarct. There is a small focus of T2 shine through in the right frontal lobe corresponding to a small remote infarct which demonstrates associated susceptibility artifact consistent with prior hemorrhage. 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 No mass effect or midline shift. No evidence of an acute intracranial hemorrhage. The ventricles are mildly enlarged with commensurate enlargement of the sulci most consistent with mild age-related volume loss. The sellar/suprasellar regions appear unremarkable. The normal signal voids within the major intracranial vessels appear maintained. ORBITS: The visualized portion of the orbits demonstrate no acute abnormality. SINUSES: Areas of mild mucosal thickening seen in the paranasal sinuses. Trace nonspecific right mastoid fluid. Left mastoids appear clear. BONES/SOFT TISSUES: The bone marrow signal intensity appears normal. The soft tissues demonstrate no acute abnormality. IMPRESSION: 1. No acute intracranial abnormality. 2. 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 3. 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 Interpreted by: Danuta Riddle MD Preliminary Report By: Danuta Riddle MD Electronically signed By Danuta Riddle MD Dictated Date: 01/06/2023 12:55:05 PM Prelim Date: 01/06/2023 1:01:07 PM Sign Date: 01/06/2023 1:01:07 PM Ordering Provider: TARI [facility] ([place]) No Panel Informationon 01-06 Culture Urine >100,000 cfu/ml Enterococcus faecalis JUVENTINO to follow [facility] Enterococcus faecalis Enterococcus faecalis [facility] XR CHEST 2 VIEWSon 3 XR CHEST 2 VIEWS ORIGINAL EXAMINATION: TWO XRAY VIEWS OF THE CHEST01/06/2023 12:02 pm COMPARISON: January 04, 2023 HISTORY: ORDERING SYSTEM PROVIDED HISTORY: Reason for Exam: low oxygen saturations, fever FINDINGS: Cardiac silhouette is unchanged. Coarse interstitial airspace opacities are similar. Bibasilar airspace opacities are more pronounced than prior study. No pleural effusion or pneumothorax. Vascular congestion. No acute osseous abnormality. IMPRESSION: Progression lower lobe airspace opacities, may reflect developing. Continued follow-up suggested. Interpreted by: Michele Weaver DO Preliminary Report By: Michele Weaver DO Electronically signed By Michele Weaver DO Dictated Date: 01/06/2023 12:58:05 PM Prelim Date: 01/06/2023 1:00:21 PM Sign Date: 01/06/2023 1:00:21 PM Ordering Provider: TARI [facility]) .Auto Diffon 01-05-2023 Basophil, Absolute 0.0 10 3/mcL Normal 0.0-0.2 [facility]) Comment on above: Performed By: #### A ESVIN, CMP, ADIFF, MG, LAC, CBC, GFR #### [address] [address] Basophils/100 WBC (Bld) 0.3 % Normal 0.0-2.5 [facility]) Comment on above: Performed By: #### A ESVIN, CMP, ADIFF, MG, LAC, CBC, GFR #### [address] [address] Eosinophil, Absolute 0.0 10 3/mcL Normal 0.0-0.4 [facility] ([place] Comment on above: Performed By: #### A ESVIN, CMP, ADIFF, MG, LAC, CBC, GFR #### [address] [address] Eosinophils/100 WBC (Bld) 0.1 % Normal 0.0-7.0 [facility] ([place]) Comment on above: Performed By: #### A ESVIN, CMP, ADIFF, MG, LAC, CBC, GFR #### [address] [address] Lymphocyte, Absolute 0.5 10 3/mcL Low 0.8-3.9 [facility]) Comment on above: Performed By: #### A ESVIN, CMP, ADIFF, MG, LAC, CBC, GFR #### [address] [address] Lymphocytes/100 WBC (Bld) 5.0 % Low 10.0-50.0 [facility] ([place] Comment on above: Performed By: #### A ESVIN, CMP, ADIFF, MG, LAC, CBC, GFR #### [address] [address] Monocyte, Absolute 1.0 10 3/mcL Normal 0.2-1.0 [facility] ([place]) Comment on above: Performed By: #### A ESVIN, CMP, ADIFF, MG, LAC, CBC, GFR #### [address] [address] Monocytes/100 WBC (Bld) 9.9 % Normal 1.7-13.0 [facility] ([place]) Comment on above: Performed By: #### A ESVIN, CMP, ADIFF, MG, LAC, CBC, GFR #### [address] [address] Neutrophils/100 WBC (Bld) 84.7 % High 37.0-80.0 [facility] ([place]) Comment on above: Performed By: #### A ESVIN, CMP, ADIFF, MG, LAC, CBC, GFR #### [address] [address] .GFRon 01-05-2023 GFR 44 ml/min/1.73sqm Normal [facility] ([place]) Comment on above: Result Comment: GFR Population mean for , Non- Americans Ages 20-29 = 116 mL/min/1.73 sq.m. Ages 30-39 = 107 mL/min/1.73 sq.m. Ages 40-49 = 99 mL/min/1.73 sq.m. Ages 50-59 = 93 mL/min/1.73 sq.m. Ages 60-69 = 85 mL/min/1.73 sq.m. Ages 70+ = 75 mL/min/1.73 sq.m. Chronic Kidney Disease: Less than 60 mL/min/1.73 square meters End Stage Renal Disease: Less than 15 mL/min/1.73 square meters Performed By: #### A ESVIN, GFR, CBC, ADIFF, CMP #### [address] [address] GFR Non- 36 ml/min/1.73sqm Normal [facility] ([place]) Comment on above: Result Comment: GFR Population mean for , Non- Americans Ages 20-29 = 116 mL/min/1.73 sq.m. Ages 30-39 = 107 mL/min/1.73 sq.m. Ages 40-49 = 99 mL/min/1.73 sq.m. Ages 50-59 = 93 mL/min/1.73 sq.m. Ages 60-69 = 85 mL/min/1.73 sq.m. Ages 70+ = 75 mL/min/1.73 sq.m. Chronic Kidney Disease: Less than 60 mL/min/1.73 square meters End Stage Renal Disease: Less than 15 mL/min/1.73 square meters Performed By: #### A ESVIN, GFR, CBC, ADIFF, CMP #### [address] [address] .NEUABSon 01-05-2023 Neutrophil, Absolute 8.8 10 3/mcL High 2.9-6.2 [facility] ([place]) Comment on above: Performed By: #### A ESVIN, CMP, ADIFF, MG, LAC, CBC, GFR #### [address] [address] CBCon 01-05-2023 Erythrocyte distribution width (RBC) [Ratio] 14.0 % Normal 11.5-14.5 [facility] ([place]) Comment on above: Performed By: #### A ESVIN, CMP, ADIFF, MG, LAC, CBC, GFR #### [address] [address] Hematocrit (Bld) [Volume fraction] 36.9 % Low 42.0-52.0 [facility] ([place]) Comment on above: Performed By: #### A ESVIN, CMP, ADIFF, MG, LAC, CBC, GFR #### [address] [address] Hgb 12.5 G/dL Low 14.0-18.0 [facility] ([place]) Comment on above: Performed By: #### A EVSIN, CMP, ADIFF, MG, LAC, CBC, GFR #### [address] [address] MCH (RBC) [Entitic mass] 30.2 pg Normal 27.0-31.2 [facility] ([place]) Comment on above: Performed By: #### A ESVIN, CMP, ADIFF, MG, LAC, CBC, GFR #### [place] [id number] MCHC 33.9 G/dL Normal 31.8-35.4 [facility] ([place]) Comment on above: Performed By: #### A ESVIN, CMP, ADIFF, MG, LAC, CBC, GFR #### [place] [id number] MCV (RBC) [Entitic vol] 89.0 fL Normal 80.0-94.0 [facility] ([place]) Comment on above: Performed By: #### A ESVIN, CMP, ADIFF, MG, LAC, CBC, GFR #### [place] [address] Platelet 174 10 3/mcL Normal 130-400 [facility] ([place]) Comment on above: Performed By: #### A ESVIN, CMP, ADIFF, MG, LAC, CBC, GFR #### [place] [address] Platelet mean volume (Bld) [Entitic vol] 7.8 fL Normal 7.4-10.4 [facility] ([place]) Comment on above: Performed By: #### A ESVIN, CMP, ADIFF, MG, LAC, CBC, GFR #### [place] [address] RBC 4.14 10 6/mcL Normal 4.04-6.13 [facility] ([place]) Comment on above: Performed By: #### A ESVIN, CMP, ADIFF, MG, LAC, CBC, GFR #### [place] [address] WBC 10.4 10 3/mcL Normal 4.6-10.8 [facility] ([place]) Comment on above: Performed By: #### A ESVIN, CMP, ADIFF, MG, LAC, CBC, GFR #### [place] [address] CMPon 01-05-2023 Albumin Level 3.2 G/dL Low 3.4-4.8 [facility] ([place]) Comment on above: Performed By: #### A ESVIN, GFR, CBC, ADIFF, CMP #### [address] [address] Albumin/Globulin [Mass ratio] 1.2 {ratio} Normal 1.1-2.5 [facility] ([place]) Comment on above: Performed By: #### A ESVIN, GFR, CBC, ADIFF, CMP #### [address] [address] ALP [Catalytic activity/Vol] 63 U/L Normal 40-135 [facility] ([place] Comment on above: Performed By: #### A ESVIN, GFR, CBC, ADIFF, CMP #### [address] [address] ALT [Catalytic activity/Vol] 17 U/L Normal 16-63 [facility] ([place] Comment on above: Performed By: #### A ESVIN, GFR, CBC, ADIFF, CMP #### [address] [address] AST [Catalytic activity/Vol] 16 U/L Normal 10-40 [facility] ([place] Comment on above: Performed By: #### A ESVIN, GFR, CBC, ADIFF, CMP #### [address] [address] Bili Total 2.5 mg/dL High 0.2-1.0 [facility] ([place]) Comment on above: Result Comment: Use of this assay is not recommended for patients undergoing treatment with eltrombopag due to the potential for falsely elevated results. Performed By: #### A ESVIN, GFR, CBC, ADIFF, CMP #### [address] [address] BUN/Creatinine Ratio 14 ratio Normal 7-27 [facility] ([place]) Comment on above: Performed By: #### A ESVIN, GFR, CBC, ADIFF, CMP #### [address] [address] Calcium [Mass/Vol] 8.6 mg/dL Normal 8.4-10.2 [facility] ([place]) Comment on above: Performed By: #### A ESVIN, GFR, CBC, ADIFF, CMP #### [address] [address] Chloride [Moles/Vol] 104 mmol/L Normal 98-107 [facility] ([place]) Comment on above: Performed By: #### A ESVIN, GFR, CBC, ADIFF, CMP #### [address] [address] CO2 [Moles/Vol] 25 mmol/L Normal 23-31 [facility] ([place]) Comment on above: Performed By: #### A ESVIN, GFR, CBC, ADIFF, CMP #### [address] [address] Creatinine [Mass/Vol] 1.80 mg/dL High 0.70-1.30 [facility] ([place]) Comment on above: Performed By: #### A ESVIN, GFR, CBC, ADIFF, CMP #### [address] [address] Electrolyte Balance 6.0 mEq/L Normal 4.0-15.0 [facility] ([place]) Comment on above: Performed By: #### A ESVIN, GFR, CBC, ADIFF, CMP #### [address] [address] Globulin 2.6 G/dL Normal [facility] ([place]) Comment on above: Performed By: #### A ESVIN, GFR, CBC, ADIFF, CMP #### [address] [address] Glucose [Mass/Vol] 131 mg/dL High 83-110 [facility] ([place] Comment on above: Performed By: #### A ESVIN, GFR, CBC, ADIFF, CMP #### [address] [address] Potassium [Moles/Vol] 3.9 mmol/L Normal 3.5-5.1 [facility] ([place] Comment on above: Performed By: #### A ESVIN, GFR, CBC, ADIFF, CMP #### [address] [address] Sodium [Moles/Vol] 135 mmol/L Low 136-145 [facility] ([place] Comment on above: Performed By: #### A ESVIN, GFR, CBC, ADIFF, CMP #### [address] [address] Total Protein 5.8 G/dL Low 6.4-8.2 [facility] ([place]) Comment on above: Performed By: #### A ESVIN, GFR, CBC, ADIFF, CMP #### [address] [address] Urea nitrogen [Mass/Vol] 26 mg/dL High 7-18 [facility] ([place] Comment on above: Performed By: #### A ESVIN, GFR, CBC, ADIFF, CMP #### [address] [address] LABORATORYOrdered By: SYSTEM SYSTEM on 01-05-2023 Albumin BCP dye [Mass/Vol] 3.2 G/dL Invalid Interpretation Code 3.4 - 4.8 G/dL AO ADM SS Albumin/Globulin [Mass ratio] 1.2 {ratio} Invalid Interpretation Code 1.1 - 2.5 ratio AO ADM SS ALP [Catalytic activity/Vol] 63 U/L Invalid Interpretation Code 40 - 135 U/L AO ADM SS ALT With P-5'-P [Catalytic activity/Vol] 17 U/L Invalid Interpretation Code 16 - 63 U/L AO ADM SS AST With P-5'-P [Catalytic activity/Vol] 16 U/L Invalid Interpretation Code 10 - 40 U/L AO ADM SS Bilirubin [Mass/Vol] 2.5 mg/dL Invalid Interpretation Code 0.2 - 1.0 mg/dL AO ADM SS Calcium [Mass/Vol] 8.6 mg/dL Invalid Interpretation Code 8.4 - 10.2 mg/dL AO ADM SS Chloride [Moles/Vol] 104 mmol/L Invalid Interpretation Code 98 - 107 mmol/L AO ADM SS CO2 [Moles/Vol] 25 mmol/L Invalid Interpretation Code 23 - 31 mmol/L AO ADM SS Creatinine [Mass/Vol] 1.80 mg/dL Invalid Interpretation Code 0.70 - 1.30 mg/dL AO ADM SS Electrolyte Balance 6.0 mEq/L Invalid Interpretation Code 4.0 - 15.0 mEq/L AO ADM SS GFR/1.73 sq M.predicted among blacks MDRD (S/P/Bld) [Vol rate/Area] 44 ml/min/1.73sqm Invalid Interpretation Code AO Chemistry S GFR/1.73 sq M.predicted among non-blacks MDRD (S/P/Bld) [Vol rate/Area] 36 ml/min/1.73sqm Invalid Interpretation Code AO Chemistry S Globulin 2.6 G/dL Invalid Interpretation Code AO ADM SS Glucose [Mass/Vol] 131 mg/dL Invalid Interpretation Code 83 - 110 mg/dL AO ADM SS Lactate [Moles/Vol] 1.4 mmol/L Invalid Interpretation Code 0.4 - 2.0 mmol/L AO ADM SS Magnesium [Mass/Vol] 1.6 mg/dL Invalid Interpretation Code 1.8 - 2.4 mg/dL AO ADM SS Potassium [Moles/Vol] 3.9 mmol/L Invalid Interpretation Code 3.5 - 5.1 mmol/L AO ADM SS Protein [Mass/Vol] 5.8 G/dL Invalid Interpretation Code 6.4 - 8.2 G/dL AO ADM SS Sodium [Moles/Vol] 135 mmol/L Invalid Interpretation Code 136 - 145 mmol/L AO ADM SS Urea nitrogen [Mass/Vol] 26 mg/dL Invalid Interpretation Code 7 - 18 mg/dL AO ADM SS Urea nitrogen/Creatinine [Mass ratio] 14 ratio Invalid Interpretation Code 7 - 27 ratio AO ADM SS LABORATORYOrdered By: Becki Hensley on 01-05-2023 Basophil, Absolute 0.0 103/mcL Invalid Interpretation Code 0.0 - 0.2 10^3/mcL AO Workflow SS Basophils/100 WBC (Bld) 0.3 % Invalid Interpretation Code 0.0 - 2.5 % AO Workflow SS Eosinophil, Absolute 0.0 103/mcL Invalid Interpretation Code 0.0 - 0.4 10^3/mcL AO Workflow SS Eosinophils/100 WBC (Bld) 0.1 % Invalid Interpretation Code 0.0 - 7.0 % AO Workflow SS Erythrocyte distribution width (RBC) [Ratio] 14.0 % Invalid Interpretation Code 11.5 - 14.5 % AO Workflow SS Hematocrit (Bld) [Volume fraction] 36.9 % Invalid Interpretation Code 42.0 - 52.0 % AO Workflow SS Hemoglobin (Bld) [Mass/Vol] 12.5 G/dL Invalid Interpretation Code 14.0 - 18.0 G/dL AO Workflow SS Lymphocyte, Absolute 0.5 103/mcL Invalid Interpretation Code 0.8 - 3.9 10^3/mcL AO Workflow SS Lymphocytes/100 WBC (Bld) 5.0 % Invalid Interpretation Code 10.0 - 50.0 % AO Workflow SS MCH (RBC) [Entitic mass] 30.2 pg Invalid Interpretation Code 27.0 - 31.2 pg AO Workflow SS MCHC 33.9 G/dL Invalid Interpretation Code 31.8 - 35.4 G/dL AO Workflow SS MCV (RBC) [Entitic vol] 89.0 fL Invalid Interpretation Code 80.0 - 94.0 fL AO Workflow SS Monocyte, Absolute 1.0 103/mcL Invalid Interpretation Code 0.2 - 1.0 10^3/mcL AO Workflow SS Monocytes/100 WBC (Bld) 9.9 % Invalid Interpretation Code 1.7 - 13.0 % AO Workflow SS Neutrophil, Absolute 8.8 103/mcL Invalid Interpretation Code 2.9 - 6.2 10^3/mcL AO Workflow SS Neutrophils/100 WBC (Bld) 84.7 % Invalid Interpretation Code 37.0 - 80.0 % AO Workflow SS Platelet mean volume (Bld) [Entitic vol] 7.8 fL Invalid Interpretation Code 7.4 - 10.4 fL AO Workflow SS Platelets (Bld) [#/Vol] 174 103/mcL Invalid Interpretation Code 130 - 400 10^3/mcL AO Workflow SS RBC (Bld) [#/Vol] 4.14 106/mcL Invalid Interpretation Code 4.04 - 6.13 10^6/mcL AO Workflow SS WBC (Bld) [#/Vol] 10.4 103/mcL Invalid Interpretation Code 4.6 - 10.8 10^3/mcL AO Workflow SS LACon 01-05-2023 Lactic Acid Lvl 1.4 mmol/L Normal 0.4-2.0 [facility] ([place]) Comment on above: Performed By: #### A ESVIN, GFR, CBC, ADIFF, CMP #### [address] [address] MGon 01-05-2023 Magnesium [Mass/Vol] 1.6 mg/dL Low 1.8-2.4 [facility] ([place]) Comment on above: Performed By: #### A ESVIN, GFR, CBC, ADIFF, CMP #### [address] [address] US RENALon 01-05-2023 US RENAL ORIGINAL HISTORY: Obstructive uropathy COMPARISON: No FINDINGS: The right kidney measures 12.4 cm in length. There is no hydronephrosis. There is a septated 19 mm right parapelvic cyst. The proximal ureter measures about 13 mm in diameter. Left kidney measures 12.1 cm in length. There is no hydronephrosis. The cortex is within normal limits for thickness and echogenicity. The there is significant postvoid residual in the bladder, about 300 mL. The prostate gland is enlarged at 5.1 cm in maximum diameter. IMPRESSION: Prominent proximal right ureter, but no definite right hydronephrosis. There is a right parapelvic cyst. Enlarged prostate gland. Postvoid residual. Interpreted by: Luz Nava MD Preliminary Report By: Luz Nava MD Electronically signed By Luz Nava MD Dictated Date: 01/05/2023 9:53:50 AM Prelim Date: 01/05/2023 9:56:16 AM Sign Date: 01/05/2023 9:56:16 AM Ordering Provider: TARI [facility] ([place]) .Auto Diffon 01-04-2023 Basophil, Absolute 0.1 10 3/mcL Normal 0.0-0.2 [facility] ([place]) Comment on above: Performed By: #### A ESVIN, GFR, CBC, ADIFF, CMP #### [address] [address] Basophils/100 WBC (Bld) 0.7 % Normal 0.0-2.5 [facility] ([place]) Comment on above: Performed By: #### A ESVIN, GFR, CBC, ADIFF, CMP #### [place] [id number] [place], [place] [address] Eosinophil, Absolute 0.1 10 3/mcL Normal 0.0-0.4 [facility] ([place]) Comment on above: Performed By: #### A ESVIN, GFR, CBC, ADIFF, CMP #### [address] [address] Eosinophils/100 WBC (Bld) 0.7 % Normal 0.0-7.0 [facility] ([place]) Comment on above: Performed By: #### A ESVIN, GFR, CBC, ADIFF, CMP #### [address] [address] Lymphocyte, Absolute 0.2 10 3/mcL Low 0.8-3.9 [facility] ([place]) Comment on above: Performed By: #### A ESVIN, GFR, CBC, ADIFF, CMP #### [address] [address] Lymphocytes/100 WBC (Bld) 2.1 % Low 10.0-50.0 [facility] ([place]) Comment on above: Performed By: #### A ESVIN, GFR, CBC, ADIFF, CMP #### [address] [address] Monocyte, Absolute 0.9 10 3/mcL Normal 0.2-1.0 [facility] ([place]) Comment on above: Performed By: #### A ESVIN, GFR, CBC, ADIFF, CMP #### [address] [address] Monocytes/100 WBC (Bld) 8.7 % Normal 1.7-13.0 [facility] ([place]) Comment on above: Performed By: #### A ESVIN, GFR, CBC, ADIFF, CMP #### [address] [address] Neutrophils/100 WBC (Bld) 87.8 % High 37.0-80.0 [facility] ([place]) Comment on above: Performed By: #### A ESVIN, GFR, CBC, ADIFF, CMP #### [address] [address] .GFRon 01-04-2023 GFR 47 ml/min/1.73sqm Normal [facility] ([place]) Comment on above: Result Comment: GFR Population mean for , Non- Americans Ages 20-29 = 116 mL/min/1.73 sq.m. Ages 30-39 = 107 mL/min/1.73 sq.m. Ages 40-49 = 99 mL/min/1.73 sq.m. Ages 50-59 = 93 mL/min/1.73 sq.m. Ages 60-69 = 85 mL/min/1.73 sq.m. Ages 70+ = 75 mL/min/1.73 sq.m. Chronic Kidney Disease: Less than 60 mL/min/1.73 square meters End Stage Renal Disease: Less than 15 mL/min/1.73 square meters Performed By: #### A ESVIN, GFR, CBC, ADIFF, CMP #### [address] [address] GFR Non- 39 ml/min/1.73sqm Normal [facility] ([place]) Comment on above: Result Comment: GFR Population mean for , Non- Americans Ages 20-29 = 116 mL/min/1.73 sq.m. Ages 30-39 = 107 mL/min/1.73 sq.m. Ages 40-49 = 99 mL/min/1.73 sq.m. Ages 50-59 = 93 mL/min/1.73 sq.m. Ages 60-69 = 85 mL/min/1.73 sq.m. Ages 70+ = 75 mL/min/1.73 sq.m. Chronic Kidney Disease: Less than 60 mL/min/1.73 square meters End Stage Renal Disease: Less than 15 mL/min/1.73 square meters Performed By: #### A ESVIN, GFR, CBC, ADIFF, CMP #### [address] [address] .MDWon 01-04-2023 Monocyte Distribution Width 26.97 High 0.00-20.00 [facility] ([place]) Comment on above: Result Comment: For adults in ED, MDW>20.0 may be associated with a higher risk of sepsis during the first 12hrs of hospital admission Performed By: #### A ESVIN, GFR, CBC, ADIFF, CMP #### [address] [address] .NEUABSon 01-04-2023 Neutrophil, Absolute 9.1 10 3/mcL High 2.9-6.2 [facility] ([place]) Comment on above: Performed By: #### A ESVIN, GFR, CBC, ADIFF, CMP #### [address] [address] .Urinalysis Microscopic (AO) on 01-04-2023 UA Bacteria 4+ /hpf Abnormal [facility] ([place]) Comment on above: Performed By: #### A ESVIN, GFR, CBC, ADIFF, CMP #### [place] [id number] UA RBC 5-10 Abnormal None Seen [facility] ([place]) Comment on above: Performed By: #### A ESVIN, GFR, CBC, ADIFF, CMP #### [address] [address] UA Squam Epithelial LOADED Abnormal None Seen [facility] ([place] Comment on above: Performed By: #### A ESVIN, GFR, CBC, ADIFF, CMP #### [address] [address] UA WBC LOADED Abnormal None Seen [facility] ([place] Comment on above: Performed By: #### A ESVIN, GFR, CBC, ADIFF, CMP #### [address] [address] BMPon 01-04-2023 BUN/Creatinine Ratio 15 ratio Normal 7-27 [facility] ([place]) Comment on above: Performed By: #### A ESVIN, GFR, CBC, ADIFF, CMP #### [address] [address] Calcium [Mass/Vol] 8.7 mg/dL Normal 8.4-10.2 [facility] ([place]) Comment on above: Performed By: #### A ESVIN, GFR, CBC, ADIFF, CMP #### [address] [address] Chloride [Moles/Vol] 102 mmol/L Normal 98-107 [facility] ([place] Comment on above: Performed By: #### A ESVIN, GFR, CBC, ADIFF, CMP #### [address] [address] CO2 [Moles/Vol] 26 mmol/L Normal 23-31 [facility] ([place]) Comment on above: Performed By: #### A ESVIN, GFR, CBC, ADIFF, CMP #### [address] [address] Creatinine [Mass/Vol] 1.69 mg/dL High 0.70-1.30 [facility] ([place]) Comment on above: Performed By: #### A ESVIN, GFR, CBC, ADIFF, CMP #### [address] [address] Electrolyte Balance 9.0 mEq/L Normal 4.0-15.0 [facility] ([place] Comment on above: Performed By: #### A ESVIN, GFR, CBC, ADIFF, CMP #### [address] [address] Glucose [Mass/Vol] 166 mg/dL High 83-110 [facility] ([place] Comment on above: Performed By: #### A ESVIN, GFR, CBC, ADIFF, CMP #### [address] [address] Potassium [Moles/Vol] 4.0 mmol/L Normal 3.5-5.1 [facility] ([place] Comment on above: Performed By: #### A ESVIN, GFR, CBC, ADIFF, CMP #### [address] [address] Sodium [Moles/Vol] 137 mmol/L Normal 136-145 [facility] ([place] Comment on above: Performed By: #### A ESVIN, GFR, CBC, ADIFF, CMP #### [address] [address] Urea nitrogen [Mass/Vol] 25 mg/dL High 7-18 [facility] ([place] Comment on above: Performed By: #### A ESVIN, GFR, CBC, ADIFF, CMP #### [address] [address] CBCon 01-04-2023 Erythrocyte distribution width (RBC) [Ratio] 14.1 % Normal 11.5-14.5 [facility] ([place]) Comment on above: Performed By: #### A ESVIN, GFR, CBC, ADIFF, CMP #### [place] [address] Hematocrit (Bld) [Volume fraction] 38.0 % Low 42.0-52.0 [facility] ([place] Comment on above: Performed By: #### A ESVIN, GFR, CBC, ADIFF, CMP #### [place] [address] Hgb 12.7 G/dL Low 14.0-18.0 [facility] ([place] Comment on above: Performed By: #### A ESVIN, GFR, CBC, ADIFF, CMP #### [address] [address] MCH (RBC) [Entitic mass] 29.4 pg Normal 27.0-31.2 [facility] ([place] Comment on above: Performed By: #### A ESVIN, GFR, CBC, ADIFF, CMP #### [address] [address] MCHC 33.3 G/dL Normal 31.8-35.4 [facility] ([place] Comment on above: Performed By: #### A ESVIN, GFR, CBC, ADIFF, CMP #### [address] [address] MCV (RBC) [Entitic vol] 88.2 fL Normal 80.0-94.0 [facility] ([place] Comment on above: Performed By: #### A ESVIN, GFR, CBC, ADIFF, CMP #### [address] [address] Platelet 182 10 3/mcL Normal 130-400 [facility] ([place]) Comment on above: Performed By: #### A ESVIN, GFR, CBC, ADIFF, CMP #### [address] [address] Platelet mean volume (Bld) [Entitic vol] 7.8 fL Normal 7.4-10.4 [facility] ([place]) Comment on above: Performed By: #### A ESVIN, GFR, CBC, ADIFF, CMP #### [address] [address] RBC 4.30 10 6/mcL Normal 4.04-6.13 [facility] ([place]) Comment on above: Performed By: #### A ESVIN, GFR, CBC, ADIFF, CMP #### [address] [address] WBC 10.4 10 3/mcL Normal 4.6-10.8 [facility] ([place] Comment on above: Performed By: #### A ESVIN, GFR, CBC, ADIFF, CMP #### [address] [address] [address] HEAD OR BRAIN W/O CONTRAS Ton 01-04-2023 CT HEAD OR BRAIN W/O CONTRAST ORIGINAL EXAMINATION: CT OF THE HEAD WITHOUT CONTRAST 01/04/2023 9:21 pm TECHNIQUE: CT of the head was performed without the administration of intravenous contrast. Automated exposure control, iterative reconstruction, and/or weight based adjustment of the mA/kV was utilized to reduce the radiation dose to as low as reasonably achievable. COMPARISON: CT head July 02, 2021. HISTORY: ORDERING SYSTEM PROVIDED HISTORY: Reason for Exam: AMS FINDINGS: BRAIN/VENTRICLES: There is no acute intracranial hemorrhage, mass effect or midline shift. No abnormal extra-axial fluid collection. Age indeterminate small hypodensity in the right frontal lobe superiorly, new from July 02, 2021.. There is no evidence of hydrocephalus. Global parenchymal volume loss. ORBITS: The visualized portion of the orbits demonstrate no acute abnormality. SINUSES: The visualized paranasal sinuses and mastoid air cells demonstrate no acute abnormality. SOFT TISSUES/SKULL: No acute abnormality of the visualized skull or soft tissues. IMPRESSION: Age indeterminate small hypodensity in the right frontal lobe superiorly, new from July 02, 2021. No acute intracranial hemorrhage. RECOMMENDATIONS: Unavailable Interpreted by: Titus Castro Preliminary Report By: Titus Castro Electronically signed By Titus Castro Dictated Date: 01/04/2023 9:24:03 PM Prelim Date: 01/04/2023 9:27:31 PM Sign Date: 01/04/2023 9:27:31 PM Ordering Provider: DOUGLAS St [facility] ([place]) LABORATORYOrdered By: Bernadette Ordonez on 01-04-2023 Appearance (U) Slightly Cloudy *ABN* (01/04/23 7:54 PM) Invalid Interpretation Code Clear AO Auto Urine SS Bacteria LM.HPF (Urine sed) [#/Area] 4 /[HPF] Invalid Interpretation Code AO Auto Urine SS Bilirubin Ql (U) Negative (01/04/23 7:54 PM) Invalid Interpretation Code Negative AO Auto Urine SS Color (U) Yellow (01/04/23 7:54 PM) Invalid Interpretation Code AO Auto Urine SS Glucose Test strip (U) [Mass/Vol] Negative Invalid Interpretation Code Negativemg/d L AO Auto Urine SS Hemoglobin Auto test strip (U) [Mass/Vol] Moderate *ABN* (01/04/23 7:54 PM) Invalid Interpretation Code Negative AO Auto Urine SS Ketones Ql (U) Negative Invalid Interpretation Code Negativemg/d L AO Auto Urine SS Monocyte distribution width Auto (Bld) [Entitic vol] 26.97 Invalid Interpretation Code 0.00 - 20.00 AO Workflow SS Comment on above: Result Comment: For adults in ED, MDW>20.0 may be associated with a higher risk of sepsis during the first 12hrs of hospital admission UA Leuk Est Large *ABN* (01/04/23 7:54 PM) Invalid Interpretation Code Negative AO Auto Urine SS UA Nitrite Positive *ABN* (01/04/23 7:54 PM) Invalid Interpretation Code Negative AO Auto Urine SS UA pH 6.0 (01/04/23 7:54 PM) Invalid Interpretation Code 5.0 - 8.0 AO Auto Urine SS UA Protein 100 mg/dL Invalid Interpretation Code Negativemg/d L AO Auto Urine SS UA RBC 5-10 /HPF Invalid Interpretation Code None Seen/HPF AO Auto Urine SS UA Spec Grav 1.020 (01/04/23 7:54 PM) Invalid Interpretation Code 1.015-1.025 AO Auto Urine SS UA Specimen Type Clean Catch (01/04/23 7:54 PM) Invalid Interpretation Code AO Auto Urine SS UA Squam Epithelial LOADED /HPF Invalid Interpretation Code None Seen/HPF AO Auto Urine SS UA Urobilinogen 1.0 E.U./dL Invalid Interpretation Code 0.2-1.0E.U./ dL AO Auto Urine SS WBC LM.HPF (Urine sed) [#/Area] LOADED /HPF Invalid Interpretation Code None Seen/HPF AO Auto Urine SS LABORATORYOrdered By: Bia Alejandro on 01-04-2023 [place] [Moles/Vol] See comment Invalid Interpretation Code 0.40 - 1.30 Chemistry S Comment on above: Result Comment: Comp lete reference lab report scanned to EMR. LABORATORYOrdered By: SYSTEM SYSTEM on 01-04-2023 Troponin I.cardiac DL <= 0.01 ng/mL [Mass/Vol] 12.1 ng/L Invalid Interpretation Code 0.0 - 76.2 ng/L AO ADM SS No Panel Informationon 01-04 Culture Urine >100,000 cfu/ml Multiple bacterial morphotypes present. Probable Contamination. Suggest recollection if clinically indicated. [facility] 01-04-2023 Troponin I High Sensitivity 12.1 ng/L Normal 0.0-76.2 [facility] ([place] Comment on above: Performed By: #### A ESVIN, GFR, CBC, ADIFF, CMP #### [address] [address] UAon 01-04-2023 Color (U) Yellow Normal [facility] ([place] Comment on above: Performed By: #### A ESVIN, GFR, CBC, ADIFF, CMP #### [address] [address] Glucose (U) [Mass/Vol] Negative Normal Negative [facility] ([place] Comment on above: Performed By: #### A ESVIN, GFR, CBC, ADIFF, CMP #### [address] [address] Ketones Ql (U) Negative Normal Negative [facility] ([place] Comment on above: Performed By: #### A ESVIN, GFR, CBC, ADIFF, CMP #### [address] [address] UA Appear Slightly Cloudy Abnormal Clear [facility] ([place] Comment on above: Performed By: #### A ESVIN, GFR, CBC, ADIFF, CMP #### [address] [address] UA Blood Moderate Abnormal Negative [facility] ([place] Comment on above: Performed By: #### A ESVIN, GFR, CBC, ADIFF, CMP #### [address] [address] UA Leuk Est Large Abnormal Negative [facility] ([place] Comment on above: Performed By: #### A ESVIN, GFR, CBC, ADIFF, CMP #### [address] [address] UA Nitrite Positive Abnormal Negative [facility] ([place] Comment on above: Performed By: #### A ESVIN, GFR, CBC, ADIFF, CMP #### [address] [address] UA pH 6.0 Normal 5.0 - 8.0 [facility] ([place] Comment on above: Performed By: #### A ESVIN, GFR, CBC, ADIFF, CMP #### [address] [address] UA Protein 100 mg/dL Abnormal Negative [facility] ([place] Comment on above: Performed By: #### A ESVIN, GFR, CBC, ADIFF, CMP #### [address] [address] UA Spec Grav 1.020 Normal 1.015-1.025 [facility] ([place] Comment on above: Performed By: #### A ESVIN, GFR, CBC, ADIFF, CMP #### [address] [address] UA Specimen Type Clean Catch Normal [facility] ([place] Comment on above: Performed By: #### A ESVIN, GFR, CBC, ADIFF, CMP #### [place] [address] UA Urobilinogen 1.0 E.U./dL Normal 0.2-1.0 [facility] ([place] Comment on above: Performed By: #### A ESVIN, GFR, CBC, ADIFF, CMP #### [id number] [place], [place] [address] Urobilinogen (U) [Mass/Vol] Negative Normal Negative [facility] ([place] Comment on above: Performed By: #### A ESVIN, GFR, CBC, ADIFF, CMP #### [id number] [place], [place] [address] XR CHEST 1 VIEWon 01-04-2023 XR CHEST 1 VIEW ORIGINAL EXAMINATION: ONE XRAY VIEW OF THE CHEST 01/04/2023 9:19 pm COMPARISON: Radiograph of the chest September 01, 2021 HISTORY: ORDERING SYSTEM PROVIDED HISTORY: Reason for Exam: AMS FINDINGS: Cardiomediastinal silhouette is likely unchanged in size given differences in inspiratory effort. Costophrenic angles are sharp. No pneumothorax. Low lung volumes. Diffuse reticular interstitial markings. No definite focal consolidation although a device overlies the left lung inferiorly. Degenerative changes of the spine. IMPRESSION: Low lung volumes. Diffuse reticular interstitial markings which appears similar to prior exam and may be accentuated by low lung volumes although difficult to exclude underlying infiltrate. Interpreted by: Titus Castro Preliminary Report By: Titus Castro Electronically signed By Titus Castro Dictated Date: 01/04/2023 9:22:10 PM Prelim Date: 01/04/2023 9:23:07 PM Sign Date: 01/04/2023 9:23:07 PM Ordering Provider: DOUGLAS BERMUDEZ Normal [facility] ([place]) Basophil percentageon 2021 Bilirubin [Mass/Vol] 1.10 mg/dL 0.20-1.00 [facility] Work Phone: Comment on above: For patients on eltr ombopag therapy, use of Dimension [place] TBIL is not recommended. Chloride [Moles/Vol] 108 mmol/L 98-107 [facility] Work Phone: Glucose [Mass/Vol] 117 mg/dL 74-[address] [facility] Work Phone: Comment on above: Fasting Glucose resu lt from 100 to 125 mg/dL suggests IMPAIRED HOMEOSTASIS per A.D.A. criteria. Potassium [Moles/Vol] 4.2 mmol/L 3.5-5.1 [facility] Work Phone: Protein [Mass/Vol] 7.4 g/dL 6.4-8.[address] [facility] Work Phone: Sodium [Moles/Vol] 138 mmol/L 136-[address] [facility] Work Phone: Laboratory - Chemistry and C hemistry - challengeon 11-06-2021 ALP [Catalytic activity/Vol] 69 U/L 45-[address] [facility] Work Phone: ALT [Catalytic activity/Vol] 17 U/L 16-[address] [facility] Work Phone: CO2 [Moles/Vol] 26.0 mmol/L 21.0-32.[address] [facility] Work Phone: Globulin (S) [Mass/Vol] 3.8 g/dL 2.2-4.[address] [facility] Work Phone: Urea nitrogen/Creatinine [Mass ratio] 13.1 mg/mg 10-[address] [facility] Work Phone: No Panel Informationon 11-06 Estimated GFR (MDRD) Amer 64 mL/min >[address] [facility] Work Phone: Comment on above: GFR Calc Estimated GFR (MDRD) Non-Af Amer 53 mL/min >[address] [facility] Work Phone: Comment on above: Non- GFR Calc [place] Level 0.80 mmol/L 0.60-1.[address] [facility] Work Phone: Thyroid Stimulating Hormone (TSH) 4.01 uIU/mL 0.358-3.[address] [facility] Work Phone: Serum or plasma albumin phillip urement (mass/volume)on 11-06-2021 Albumin [Mass/Vol] 3.6 g/dL 3.2-5.[address] [facility] Work Phone: Serum or plasma albumin/glob ulin mass ratioon 11-06-2021 Albumin/Globulin [Mass ratio] 0.9 {ratio} 0.9-2.[address] [facility] Work Phone: Serum or plasma calcium phillip urement (mass/volume)on 11-06-2021 Calcium [Mass/Vol] 9.3 mg/dL 8.5-10.[address] [facility] Work Phone: Serum or plasma creatinine m easurement (mass/volume)on 11-06-2021 Creatinine [Mass/Vol] 1.37 mg/dL 0.70-1.30 [facility] Work Phone: Comment on above: The validity of the calculated GFR & GFRAA in patients over 70 years has not been determined. Clinical correlation is essential. Serum or plasma urea nitroge n measurement (mass/volume)on 11-06-2021 Urea nitrogen [Mass/Vol] 18 mg/dL 7-[address] [facility] Work Phone: Thin prep Papanicolaou smear with manual screeningon 11-06-2021 Thin prep Papanicolaou smear with manual screening 16 U/L 15-[address] [facility] Work Phone: Thin prep Papanicolaou smear with manual screening 4 5-[address] [facility] Work Phone: Basophil percentageon 2021 Creatinine [Mass/Vol] 1.2 mg/dL 0.70-1.30 [facility] Work Phone: No Panel Informationon 08-13 Bedside Estimated GFR (eGFR) > 60.0000 mL/min >[address] [facility] Work Phone: BMPon 03-27-2021 Anion gap [Moles/Vol] 5 mmol/L Normal 5-16 [facility] Comment on above: Order Comment: Brittany s: M Minimal Draw: Y : Minimal draw Performed By: #### L 500.91007, L500.69266, L500.20411, L500.72190 #### [facility] [place] [address] Calcium [Mass/Vol] 8.9 mg/dL Normal 8.5-10.5 [facility] Comment on above: Order Comment: Brittany albrecht: M Minimal Draw: Y : Minimal draw Result Comment: NOTE NEW NORMAL RANGE DUE TO REAGENT CHANGE Performed By: #### L 500.24368, L500.96659, L500.60490, L500.44510 #### [facility] [address] [place] [address] Chloride [Moles/Vol] 106 mmol/L Normal 98-107 [facility] Comment on above: Order Comment: Brittany albrecht: Rosenda Minimal Draw: Y : Minimal draw Performed By: #### L 500.10630, L500.52743, L500.90061, L500.51623 #### [facility] [address] [place] [address] CO2 [Moles/Vol] 28.0 mmol/L Normal 21-32 [facility] Comment on above: Order Comment: Brittany albrecht: Rosenda Minimal Draw: Y : Minimal draw Performed By: #### L 500.46624, L500.78714, L500.97453, L500.30981 #### [facility] [address] [place] [address] Creatinine [Mass/Vol] 1.36 mg/dL Normal 0.5-1.4 [facility] Comment on above: Order Comment: Brittany albrecht: Rosenda Minimal Draw: Y : Minimal draw Result Comment: NOTE NEW NORMAL RANGE DUE TO REAGENT CHANGE Patients receiving either N-Acetylcysteine (NAC) or Metamizole prior to venipuncture, may have falsely depressed results. Performed By: #### L 500.22308, L500.60714, L500.77597, L500.70556 #### [facility] [address] [place] [address] Glucose [Mass/Vol] 122 mg/dL High 70-100 [facility] Comment on above: Order Comment: Brittany Herzog Minimal Draw: Y : Minimal draw Result Comment: 70-1 00- Normal Fasting; 100-125 Impaired Fasting; greater than 126 on more than one result- Diabetes. ADA guidelines. Results may be falsely elevated after the administration of Sulfapyridine. Results may be falsely depressed after the administration of Sulfasalazine. Performed By: #### L 500.67420, L500.57318, L500.99858, L500.45165 #### [facility] [address] [place] [address] Potassium [Moles/Vol] 4.4 mmol/L Normal 3.5-5.1 [facility] Comment on above: Order Comment: Brittany albrecht: Rosenda Minimal Draw: Y : Minimal draw Performed By: #### L 500.62073, L500.25759, L500.74372, L500.36275 #### [facility] [address] [place], [place] [address] Sodium [Moles/Vol] 139 mmol/L Normal 136-145 [facility] Comment on above: Order Comment: Brittany Herzog Minimal Draw: Y : Minimal draw Performed By: #### L 500.26853, L500.96015, L500.84925, L500.54555 #### [facility] [address] [place], [place] [address] Urea nitrogen [Mass/Vol] 25 mg/dL Normal 7-26 [facility] Comment on above: Order Comment: Brittany albrecht: Rosenda Minimal Draw: Y : Minimal draw Performed By: #### L 500.32780, L500.67747, L500.02790, L500.41796 #### [facility] [address] [place] [address] Urea nitrogen/Creatinine [Mass ratio] 18 mg/mg Normal 15-24 [facility] Comment on above: Order Comment: Campu s: M Minimal Draw: Y : Minimal draw Performed By: #### L 500.62479, L500.11957, L500.40666, L500.38454 #### [facility] [address] [place], [place] [address] CBCon 03-27-2021 Erythrocyte distribution width (RBC) [Ratio] 13.3 % Normal 11-14.5 [facility] Comment on above: Order Comment: Brittany s: M Minimal Draw: Y Performed By: #### L 200.73234 #### [facility] [address] [place] [address] Hematocrit (Bld) [Volume fraction] 34.5 % Low 41.0-53.0 [facility] Comment on above: Order Comment: Brittany s: M Minimal Draw: Y Performed By: #### L 200.83083 #### [facility] [address] [place] [address] Hemoglobin (Bld) [Mass/Vol] 11.2 g/dL Low 13.5-17.5 [facility] Comment on above: Order Comment: Brittany albrecht: M Minimal Draw: Y Performed By: #### L 200.06965 #### [facility] [address] [place] [address] MCHC (RBC) [Mass/Vol] 32.5 g/dL Normal 32.0-36.0 [facility] Comment on above: Order Comment: Brittany s: M Minimal Draw: Y Performed By: #### L 200.55698 #### [facility] [address] [place], [place] [address] MCV (RBC) [Entitic vol] 91.8 fL Normal 80.0-99.0 [facility] Comment on above: Order Comment: Brittany s: M Minimal Draw: Y Performed By: #### L 200.85376 #### [facility] [address] [place], [place] [address] Nucleated RBC/100 WBC (Bld) [Ratio] 0.0 % Normal Less than 1 [facility] Comment on above: Order Comment: Cristoferu s: M Minimal Draw: Y Performed By: #### L 200.95164 #### [facility] [place] [address] Platelet mean volume (Bld) [Entitic vol] 9.7 fL Normal 9.4-12.4 [facility] Comment on above: Order Comment: Campu s: M Minimal Draw: Y Performed By: #### L 200.07392 #### [facility] [address] [place] [address] PLT 203 K/CU MM Normal 150-450 [facility] Comment on above: Order Comment: Campu s: M Minimal Draw: Y Performed By: #### L 200.38588 #### [facility] [address] [place] [address] RBC 3.76 M/CU MM Low 4.50-6.00 [facility] Comment on above: Order Comment: Cristoferu s: M Minimal Draw: Y Performed By: #### L 200.76933 #### [facility] [address] [place], [place] [address] WBC 9.5 K/CUMM Normal 4.5-11.0 [facility] Comment on above: Order Comment: Cristoferu s: M Minimal Draw: Y Performed By: #### L 200.43416 #### [facility] [address] [place], [place] [address] Maricel 03-27-2021 FERR 112.1 NG/ML Normal 24.0-388.0 [facility] Comment on above: Order Comment: Cristoferu s: M Minimal Draw: Y Performed By: #### L 200.69658 #### [facility] [address] [place], [place] [address] GFR ESTon 03-27-2021 IF AMER Greater than 60 Normal [facility] Comment on above: Order Comment: Brittany Herzog Minimal Draw: Y : Minimal draw Performed By: #### L 500.79930, L500.90056, L500.94900, L500.72810 #### [facility] [place] [address] IF non-AFR AMER [address] [facility] Comment on above: Order Comment: Brittany Herzog Minimal Draw: Y : Minimal draw Performed By: #### L 500.94377, L500.86280, L500.86423, L500.95308 #### [facility] [address] [place] [address] IRON PANELon 03-27-2021 Iron [Mass/Vol] 40 ug/dL Low 65-[address] [facility] Comment on above: Order Comment: Brittany Herzog Minimal Draw: Y : Minimal draw Result Comment: Daly ents treated with metal-binding drugs (e.g.deferoxamine) may have depressed iron values, as chelated iron may not properly react in the Siemens iron assay. Performed By: #### L 500.72590, L500.51557, L500.54886, L500.82383 #### [facility] [address] [place] [address] IRON SAT 15 % Low 30-44 [facility] Comment on above: Order Comment: Brittany Herzog Minimal Draw: Y : Minimal draw Performed By: #### L 500.39611, L500.26379, L500.94239, L500.25305 #### [facility] [place] [address] TIBC 276 UG/DL Normal 221-481 [facility] Comment on above: Order Comment: Brittany Herzog Minimal Draw: Y : Minimal draw Performed By: #### L 500.76969, L500.89893, L500.26572, L500.36160 #### [facility] [address] [place], [place] [address] # [phone] OTARon 03-27-2021 OT Assessment Report Normal [facility] PROG IMSon 03-27-2021 PROG [facility] Date of : [address] [address] Unit Number: [id number] Progress Note-Hospitalist Patient Status: DEP [facility] Attending Doctor: Keron Alejo DO Service Date: 03/27/21 1214 Disclaimer This dictation was created using voice recognition software. Phonetic and/or minor grammatical errors may exist. eSign Date and Time Sharad Blackburn DO Normal [facility] Progress Note-Hospitalist Normal [facility] PROG.ORTHOon 03-27-2021 PROG.ORTHO [facility] Patient [facility]: [facility] Date of : [address] [address] Unit Number: [id number] Progress Note-Ortho Patient Status: REG [facility] Attending Doctor: Keron Alejo DO Service Date: 03/27/21 0717 Progress Note - Ortho Subjective S: (2 ROS minimum) Patient is postop day 1 status post removal internal fixation right proximal tibia and computer-assisted total knee arthroplasty, Right knee. Patient is doing very well at this time. Patient is sitting up resting comfortably in bed. Patient denies any chest pain or shortness of breath. patient denies any calf pain or tenderness. Patient denies any numbness or tingling. Patient denies nausea or vomiting Objective Nursing Vitals Vital Signs (Last) Result Date Time Pulse Ox 95 03/27 033 B/P 100/50 03/27 330 Temp 97.5 03/27 330 Pulse 62 03/27 0330 Resp 18 03/27 330 Physical Exam Focused physical exam of the right lower extremity reveals that the bandage is clean dry and intact with no excessive erythema edema or drainage noted. Calf is supple and nontender. Distal pulses are intact. Capillary refill is brisk and under 2 seconds. Dorsiflexion as well as plantar flexion are 5 out of 5 respectively Diagnostic Data Lab 24hr (CBC/BMP [place]) 03/27/21 0549: [Embedded Image Not Available] Anion Gap 5, Est GFR ( Amer) Greater than 60, Est GFR (Non-Af Amer) 51, BUN/ Creatinine Ratio 18, Glucose 122 H, Total Calcium 8.9, Iron 40 L, TIBC 276, Iron Saturation 15 L, Ferritin 112.1, RBC 3.76 L, MCV 91.8, MCHC 32.5, RDW 13.3, MPV 9.7, Nucleated RBCs 0.0 Assessment/Plan Conclusion 1. Osteoarthritis of right knee Postop day 1 status post removal of hardware right knee and subsequent right total knee arthroplasty. Plan will be to discharge home today pending the evaluation of occupational physical therapy. Weightbearing as tolerated. Pain control as needed. Patient will continue with aspirin 325 mg twice daily for DVT prophylaxis. Patient will continue with outpatient physical therapy upon discharge. Patient will follow up in the office in approximately 10 to 12 days for suture removal. Collaborating Physician Keron Alejo DO Disclaimer This dictation was created using voice recognition software. Phonetic and/or minor grammatical errors may exist. eSign Date and Time Benton Alvarez Verified/Reviewed by 03/27/21 0741 Keron Alejo DO Verified/Reviewed by 03/27/21 0741 [facility] Progress Note-Ortho [facility] PTDSon 03-27-2021 PTDS Physical Therapy Inpatient Last Visit Note The inpatient Physical Therapy services are discontinued at this time for the following reasons: Goals Met. GRIPS has assisted with documenting discharge plan and recommendations under the direction of supervising therapist. Therapist's co-signature denotes agreement with planned discharge from acute physical therapy. AM-PAC Basic Mobility: Turning Over in Bed: No difficulty Sitting/Standing Chair with Arms: A little difficulty Lying on Back to Sitting on Side of Bed: A little difficulty Moving To/From Bed to Chair: A little help needed Walking in Hospital Room: A little help needed Climbing 3-5 Steps with Railing: A little help needed Raw Score = 19 , AM-PAC t-Scale Score = 45.44 and G-Code Modifier = CK Interventions: Gait Training: Patient performed bed mobility supine to/from sit and scooting to edge of bed (EOB) following precautions w/ supervision, patient transferred x multiple trials throughout treatment session w/ supervision, patient amb 130 feet x 1 and 290 feet x 1 w/ WW and supervision, patient verbalized good understanding of provided HEP and parameters indep, patient negotiated up/down 5 steps w/ bilat HR and supervision, patient negotiated up/down curb step w/ WW and SBA for safety. Education: precautions, car transfer w/ patient simulation on mat table, safety awareness, home safety, WW use/safety, POC, d/c planning, supervision needs upon d/c, importance of mobility, pain management, ice usage. Education: Education Provided: Precautions. Pain management. Plan of care. Bed mobility. Functional transfers. Car transfers. Safety. Equipment. Gait. Home exercise/activity plan. Home management activities. Stair/curb/environmen hiren barrier negotiation. Audience: Patient. Mode: Explanation. Demonstration. Printed material provided. Response: Verbalized understanding. Demonstrated skill. Recommendations: Upon acute care discharge, the following is currently recommended: Outpatient Physical Therapy. Activity/Participatio n Problem List and Goals: No updates at this time. Treatment Goals: TREATMENT GOAL REVIEW: 1. Perform bed mobility with supervision - Met 2. Perform transfers with supervision - Met [facility] PATIENT NAME: LACI ANDERSEN[address] [facility] [address] MEDICAL REC #: [id number] [place] [address] ADMIT DATE: SERVICE DATE: 03/27/21 Physical Therapy Discharge Summary ATTENDING JONY: Keron Alejo DO 3. Ambulate 80ft with FWW and supervision - Met 4. Negotiate 2 steps with (B) rail and supervision - Met Time frame to achieve treatment goal(s): 2 weeks Discharge Plan: The patient's status and plan was discussed with patient and agreed upon. If there are any questions regarding this service, please contact the Acute Therapy Department at extension [phone] Services: Total Billed: 39 minutes (Timed: 39, Untimed: 0) 39.00 Timed: [99561] GAIT TRAIN EA 15 MIN 0.00 Untimed: [] PT Treatment- General ORDER Signed by: Anna San, GRIPS 03/27/2021 13:28:28 - CoSigned By: Luz Tavarez PT, DPT 03/27/2021 3:10:59 PM [facility] PATIENT NAME: LACI ANDERSEN [facility] MEDICAL REC #: [id number] [place] [address] ADMIT DATE: SERVICE DATE: 03/27/21 Physical Therapy Discharge Summary ATTENDING PHY: Keron Alejo DO [facility] ACP.NOTE.[facility] 03-26-2021 ACP.NOTE.U [facility] Patient Name: LACI ANDERSEN [place] Date of : [address] [address] Unit Number: [id number] Advance Care Planning Note Patient Status: [facility] Attending Doctor: Keron Alejo DO Service Date: 03/26/21 1200 Disclaimer This dictation was created using voice recognition software. Phonetic and/or minor grammatical errors may exist. eSign Date and Time Sharad Blackburn DO [facility] 03-26-2021 CONSULTATION-H&P [facility] Patient Name: LACI ANDERSEN [place] Date of : [address] [address] Unit Number: [id number] CONSULTATION-HandP Patient Status: [facility] Attending Doctor: Keron Alejo DO Service Date: 03/26/21 143 NETTA RIVAS 03/26/21 1436: History of Present Illness Referring Physician Keron Alejo DO Consulted Provider Sharad Blackburn DO Reason for Consult MED MGT. HX OF BIPOLAR History of Present Illness This is a pleasant 80-year-old male patient of Dr. Luke Rosenthal from [place], who presented to [facility] for right knee replacement Dr. Alejo. We have been asked to see postoperatively for medical management. Patient has history of bipolar, hepatitis as a child. He is seen postoperatively and states he feels great. He denies any shortness of breath, nausea, recent fever chills or cough. He denies any chest pain. Patient states he has had right knee pain not improved with conservative management. Past Medical/Surgical Hx Past Medical History Bipolar, hepatitis, inflammation of the lungs Past Surgical History He had cholecystectomy, appendectomy, back surgery, hernia Family/Social History Family Hx Other/Comment Mother at 56 of a stroke, father had heart disease and at 51 Social Hx Patient is , does not smoke, drink or use any illicit drugs. Advance Directives Advance Directives Full Code Allergies/Home Medications Allergies Coded Allergies: NO KNOWN DRUG ALLERGIES (03/25/21) Review of Systems ROS: Other Constitutional - Denies any fever, chills, fatigue. Eyes - Denies any blurred vision, double vision. HEENT -Denies any difficulty hearing, difficulty swallowing, headaches, or sore throat. Cardiovascular - Denies any chest pain, chest pressure, palpitations or dizziness. Respiratory - Denies any cough, hemoptysis, shortness of breath. Gastrointestinal - Denies any abdominal pain, diarrhea, nausea, or vomiting. Genitourinary - Denies any dysuria, hematuria. Skin -Denies any jaundice, rash. Neurologic - Denies any blurred vision, double vision, slurred speech, headaches, or numbness and tingling. Psychiatric - Denies any anxiety, depression. Physical Exam Vital Signs Vitals in PACU: 138/69, 61 heart rate, 16 respirations, 96% on room air Preop labs reviewed. HandP reviewed on chart. Constitutional - Patient appears appropriate, alert lying in bed in no distress Eyes - Anicteric, normal conjunctiva. ENT - Head normocephalic,atrauma tic. Oral mucosa pink and moist. Neck supple, trachea midline. Cardiovascular - Heart is regular rate and rhythm. No gallops, rubs, murmurs noted. No carotid bruit noted. Respiratory-nonlabore d, regular, even. Clear to auscultation. Skin - Appears warm, dry, intact. Gastrointestinal - Abdomen soft, bowel sounds present, nontender. No guarding or rebounding noted. Genitourinary - Not examined Lymph - No gross lymphadenopathy noted. Musculoskeletal - Grasps appear moderate in strength and equal. Pulses are +2. Right knee is Darshan wrapped, toes warm and mobile Neurologic - Patient is alert and oriented and appropriate 3. Speech is clear. No facial droop noted. Psychiatric - Patient appears calm, no anxiety or depression noted. Conclusion / Plan Conclusion 1. Bipolar 1 disorder [place] resume from home 2. Osteoarthritis of right knee Status post right knee replacement, surgery managing. DVT and GI prophylaxis per surgeon. Encourage incentive spirometry. Collaborating Physician Sharad Blackburn JONATHAN D 04/18/21 1237: Allergies/Home Medications Home Medications Acetaminophen* (Tylenol 500MG Tab*) 500 MG TABLET 1,000 MG PO Q6HPRN PRN POST OP PAIN 30 Days, Ref 0 (Reported) Entered as Reported by ZA KNOWLES on 03/27/21 1211 Last Action: No Recorded Action Aspirin EC* (Ecotrin 325MG Tab*) 325 MG TABLET.DR 325 MG PO BIDWM, Ref 0 (Reported) TAKE FOR THE NEXT 6 WEEKS Entered as Reported by ZA KNOWLES on 03/27/21 1212 Last Action: No Recorded Action Docusate Sodium* (Colace 100MG Cap*) 100 MG CAPSULE 100 MG PO BID 30 Days, Ref 0 ( Reported) Entered as Reported by ZA KNOWLES on 03/27/21 1212 Last Action: No Recorded Action [place] Carbonate* (Eskalith Cr 450MG Tab.sa*) 450 MG TABLET.ER 450 MG PO BIDWM, Ref 0 (Reported) Entered as Reported by BERTHA CACERES on 03/02/21 1351 Last Action: No Recorded Action OxyCODONE* (Oxyir 5MG Tab*) 5 MG TABLET 5 MG PO Q6HPRN PRN BREAKTHROUGH PAIN 7 Days #28, Ref 0 (Reported) Entered as Reported by ZA KNOWLES on 03/27/21 1213 Last Action: No Recorded Action Tramadol HCl* (Ultram 50MG Tab*) 50 MG TABLET 50 MG PO Q6HPRN PRN PAIN #28, Ref 0 ( Reported) Entered as Reported by ZA KNOWLES on 03/27/21 1213 Last Action: No Recorded Action Physician Attestation Statement of Attestation I confirm that I have evaluated (more content not included)... Normal [facility] HP.IMS.CON [facility] Patient Name: LACI ANDERSEN [address] Date of : [address] [address] Unit Number: [id number] CONSULTATION-HandP Patient Status: [facility] Attending Doctor: Keron Alejo DO Service Date: 03/26/21 1200 Allergies/Home Medications Allergies Coded Allergies: NO KNOWN DRUG ALLERGIES (03/25/21) Home Medications Acetaminophen* (Tylenol 500MG Tab*) 500 MG TABLET 1,000 MG PO Q6HPRN PRN POST OP PAIN 30 Days, Ref 0 (Reported) Entered as Reported by ZA KNOWLES on 03/27/21 1211 Last Action: No Recorded Action Aspirin EC* (Ecotrin 325MG Tab*) 325 MG TABLET.DR 325 MG PO BIDWM, Ref 0 (Reported) TAKE FOR THE NEXT 6 WEEKS Entered as Reported by ZA KNOWLES on 03/27/21 1212 Last Action: No Recorded Action Docusate Sodium* (Colace 100MG Cap*) 100 MG CAPSULE 100 MG PO BID 30 Days, Ref 0 ( Reported) Entered as Reported by ZA KNOWLES on 03/27/21 1212 Last Action: No Recorded Action [place] Carbonate* (Eskalith Cr 450MG Tab.sa*) 450 MG TABLET.ER 450 MG PO BIDWM, Ref 0 (Reported) Entered as Reported by BERTHA CACERES on 03/02/21 1351 Last Action: No Recorded Action OxyCODONE* (Oxyir 5MG Tab*) 5 MG TABLET 5 MG PO Q6HPRN PRN BREAKTHROUGH PAIN 7 Days #28, Ref 0 (Reported) Entered as Reported by ZA KNOWLES on 03/27/211212 Last Action: No Recorded Action Tramadol HCl* (Ultram 50MG Tab*) 50 MG TABLET 50 MG PO Q6HPRN PRN PAIN #28, Ref 0 ( Reported) Entered as Reported by ZA KNOWLES on 03/27/213 Last Action: No Recorded Action Disclaimer This dictation was created using voice recognition software. Phonetic and/or minor grammatical errors may exist. eSign Date and Time Sharad Blackburn DO Normal [facility] OR.OPRPTon 03-26-2021 Operative Report Normal [facility] OR.OPRPT [facility] Patient Name: LACI ANDERSEN [address] [employer] [address] Date of : [address] [place], [place] [address] Unit Number: [id number] Operative Report Patient Status: REG [facility] Attending Doctor: Keron Alejo DO Service Date: 03/26/21 111 Operative Report - ORTHO Procedure Date: 03/26/21 Procedure: PREOPERATIVE DIAGNOSES: 1. Severe posttraumatic osteoarthritis, Right knee. 2. Status post open reduction internal fixation right tibial plateau fracture many years ago. POSTOPERATIVE DIAGNOSES: Severe tricompartmental osteoarthritis right knee OPERATION: Removal internal fixation right proximal tibia Computer-assisted total knee arthroplasty, Right knee. SURGEON: Keron Alejo DO SALES RELATIONSHIP MANAGER: Sachin Acosta PGY 5, DANE Treviño ANESTHESIA: Spinal with preoperative adductor canal block done for anticipated postoperative pain. DRAINS: None. COMPLICATIONS: None. SPONGE AND NEEDLE COUNT: Correct on 2 occasions. ESTIMATED BLOOD LOSS: 100 mL. IMPLANTS: Cyril size 9 persona cruciate-retaining, standard width, left femoral prosthesis. Size G persona natural tibia. A 38-mm Persona all-polyethylene patella with methylmethacrylate bonding, all components. An 10-mm medial congruent Persona Vivacit-E highly crosslinked polyethylene articular insert. Removed internal fixation: 3 proximal screws from the previous plate for open reduction internal fixation right proximal tibia HISTORY: Mr. Rob beavers is a 80 -year-old Male seen in outpatient consultation and diagnosed with severe posttraumatic osteoarthritis of the right knee. He had previously undergone open reduction internal fixation of a right tibial plateau fracture many years ago. Over time he developed tricompartmental osteoarthritis of the right knee. This patient has undergone a trial of conservative management which has failed. Conservative management included anti-inflammatories as tolerated, pain medicine, activity modification , injections, assistive devices, all without result. Having failed all conservative measures, I offered surgical intervention in the form of total knee replacement arthroplasty. I explained to him that I would need to remove at least several of the screws in the proximal tibia to place the tibial component. Her goal was not to do violate the entire anterior compartment of his tibia if not needed. I have reviewed with this patient the risks, benefits, complications and rehab associated with total knee replacement arthroplasty, his risk include but are not limited to bleeding infection nerve, (specifically foot drop with internal fixation removal), vessel damage, loosening, instability, stiffness of knee, continued pain, need for revision surgery, DVT, pulmonary embolism, Covid infection, . Subsequent informed consent has been obtained. We had a long discussion because of removal of the plate we have to go into the anterior compartment and puts him at risk for foot drop. If he develops a foot drop just secondary to retraction I can take 6 months to a year to resolve. He may need to wear an AFO postop. PROCEDURE: This patient was identified and the surgical site was verified by my initials with an indelible marker. A preoperative dose of antibiotic was given. A preoperative adductor canal block was provided by the anesthesia department for anticipated postoperative pain. The patient was taken to the operating suite, and spinal anesthesia was performed in the operating room. One gram of tranexamic acid was given IV to help decrease perioperative blood loss. A pretested well-padded pneumatic tourniquet was placed high on the operative thigh, and the operative leg was prepped with ChloraPrep and draped in a sterile fashion. All other bony prominences were well padded. A timeout was performed; and we verified the patient, the planned procedure and the operative limb. An Esmarch bandage was utilized to exsanguinate the limb, and the tourniquet was elevated to 280 mmHg pressure. A longitudinal incision was then planned and carried out, centering over the operative knee. Skin margins were incised, and hemostasis was perfected with electrocautery. Sharp dissection was taken down to the extensor mechanism, and full-thickness medial and lateral subcutaneous flaps were obtained. I extended the approach distally and developed the subcutaneous layer laterally. The plate was palpable underneath the anterior compartment. I incised the fascia and bluntly dissected down to the tissue anteriorly and retracted the muscle flap posteriorly. I was able to remove the 2 proximal screws in their entirety. I bluntly dissected further down remove the next proximal screw. I felt that this would be enough to placement of the tibial component. We then proceeded with preparation of the knee. A standard medial parapatellar approach was provided and the patella was everted. The knee (more content not included)... [facility] PTARon 03-26-2021 PT Assessment Report [facility] SURGon 03-26-2021 SURG - -------- Patient: NICKLACI LOVELL -------- SPECIMEN: [id number] Collection Date: 03/26/21 Received: 03/26/21 Status: MUNIRA Quintero Dr.: Keron Alejo DO Ph# Othr. : Luke Sylvester DO Material for Examination: A RETAINED HARDWARE, RIGHT KNEE PRE-OP DIAGNOSIS: PAIN IN RIGHT KNEE, UNILATERAL PRIMARY OSTEOARTHRITIS, RIGHT KNEE POST-OP DIAGNOSIS: SAME SURGICAL PROCEDURE: RIGHT TOTAL KNEE ARTHROPLASTY DIAGNOSIS A. Retained hardware: - Medical hardware, Gross examination only. GROSS DESCRIPTION The specimen is received fresh, and labeled with the patient's name, ID and designated retained hardware right knee, are 3 shiny silver colored metal like screws ranging from 5.2 x 0.7 cm to 8.3 x 0.7 cm. No tissue is identified and no sections are submitted. Gross examination only. BA/pm 03/26/21 MICROSCOPIC DESCRIPTION Gross examination only. COPIES TO: Keron Alejo Robert F DO Signed Verified/Reviewed by MORE SMITH M.D. 03/26/21 This dictation was created using voice recognition software. Phonetic and/or minor grammatical errors may exist. -------- [facility] NAME: NICKLACI Rosenda Pathology [facility] UNIT#: [id number] LOC: [facility] Coder: More Smith M.D. ROOM/BED: [employer] : 42 AGE/SEX: 80/M ORD.Keron Erazo DO END OF REPORT [facility] [id number] 03-24-2021 SARS-CoV-2 (COVID-19) RNA TRUPTI+probe Ql (Unsp spec) Negative Invalid Interpretation Code Negative [facility] Comment on above: Result Comment: Nega tive results do not preclude SARS-CoV-2 infection and should not be used as the sole basis for treatment or other patient management decisions. Negative results must be combined with clinical observation, patient history, and epidemiological information. This test was performed by PCR. Performed By: #### L [id number] #### [facility] [address] [place] [address] URINE CULTUREon 03-05-2021 Bacteria identified Cx Nom (U) URINE RESULT 40-50,000 COL/ML MIXED ALIRIO-PLEASE REPEAT-POSSIBLE CONTAMIN Normal [facility] Comment on above: Order Comment: Brittany s: Rosenda Minimal Draw: Y Performed By: #### L [id number] #### [facility] [address] [place] [address] BMPon 03-04-2021 Anion gap [Moles/Vol] 7 mmol/L Normal 5-16 [facility] Comment on above: Order Comment: Campu s: M Minimal Draw: Y Performed By: #### L [id number] #### [facility] [address] [place] [address] Calcium [Mass/Vol] 9.7 mg/dL Normal 8.5-10.5 [facility] Comment on above: Order Comment: Campu s: M Minimal Draw: Y Result Comment: NOTE NEW NORMAL RANGE DUE TO REAGENT CHANGE Performed By: #### L [id number] #### [facility] [place] [address] Chloride [Moles/Vol] 108 mmol/L High 98-107 [facility] Comment on above: Order Comment: Campu s: M Minimal Draw: Y Performed By: #### L [id number] #### [facility] [address] [place] [address] CO2 [Moles/Vol] 25.0 mmol/L Normal 21-32 [facility] Comment on above: Order Comment: Campu s: M Minimal Draw: Y Performed By: #### L [id number] #### [facility] [address] [place], [place] [id number] Creatinine [Mass/Vol] 1.20 mg/dL Normal 0.5-1.4 [facility] Comment on above: Order Comment: Campu s: M Minimal Draw: Y Result Comment: NOTE NEW NORMAL RANGE DUE TO REAGENT CHANGE Patients receiving either N-Acetylcysteine (NAC) or Metamizole prior to venipuncture, may have falsely depressed results. Performed By: #### L [id number] #### [facility] [address] [place] [address] Glucose [Mass/Vol] 206 mg/dL High 70-100 [facility] Comment on above: Order Comment: Campu s: M Minimal Draw: Y Result Comment: 70-1 00- Normal Fasting; 100-125 Impaired Fasting; greater than 126 on more than one result- Diabetes. ADA guidelines. Results may be falsely elevated after the administration of Sulfapyridine. Results may be falsely depressed after the administration of Sulfasalazine. Performed By: #### L [id number] #### [facility] [address] [place] [address] Potassium [Moles/Vol] 4.3 mmol/L Normal 3.5-5.1 [facility] Comment on above: Order Comment: Campu s: M Minimal Draw: Y Result Comment: Slig ht Hemolysis, Result may be affected. Performed By: #### L 200.16917 #### [facility] [address] [place] [address] Sodium [Moles/Vol] 140 mmol/L Normal 136-145 [facility] Comment on above: Order Comment: Campu s: M Minimal Draw: Y Performed By: #### L 200.12120 #### [facility] [address] [place] [address] Urea nitrogen [Mass/Vol] 22 mg/dL Normal 7-26 [facility] Comment on above: Order Comment: Campu s: M Minimal Draw: Y Performed By: #### L 200.49123 #### [facility] [address] [place] [address] Urea nitrogen/Creatinine [Mass ratio] 18 mg/mg Normal 15-24 [facility] Comment on above: Order Comment: Campu s: M Minimal Draw: Y Performed By: #### L 200.60577 #### [facility] [address] [place] [address] CBC W/DIFFon 03-04-2021 BASO ABS 0.10 K/CU MM Normal 0-0.2 [facility] Comment on above: Order Comment: Campu s: M Performed By: #### L [id number] #### [facility] [address] [place] [address] Basophils/100 WBC (Bld) 1.6 % Normal 0-2 [facility] Comment on above: Order Comment: Campu s: M Performed By: #### L [id number] #### [facility] [address] [place] [address] EOS ABS 0.40 K/CU MM Normal 0-0.5 [facility] Comment on above: Order Comment: Campu s: M Performed By: #### L 200.73657 #### [facility] [address] [place] [address] Eosinophils/100 WBC (Bld) 8.3 % High 0-5 [facility] Comment on above: Order Comment: Campu s: M Performed By: #### L 200.82587 #### [facility] [address] [place] [address] Erythrocyte distribution width (RBC) [Ratio] 13.3 % Normal 11-14.5 [facility] Comment on above: Order Comment: Campu s: M Performed By: #### L 200.46417 #### [facility] [address] [place] [address] Hematocrit (Bld) [Volume fraction] 44.3 % Normal 41.0-53.0 [facility] Comment on above: Order Comment: Campu s: M Performed By: #### L 200.72803 #### [facility] [address] [place] [address] Hemoglobin (Bld) [Mass/Vol] 14.3 g/dL Normal 13.5-17.5 [facility] Comment on above: Order Comment: Campu s: M Performed By: #### L 200.33205 #### [facility] [address] [place] [address] IMMATR GRAN ABS 0.00 K/CU MM Normal Less than 2 [facility] Comment on above: Order Comment: Campu s: M Performed By: #### L 200.55611 #### [facility] [address] [place] [address] IMMATURE GRAN % 0.2 % Normal Less than 2 [facility] Comment on above: Order Comment: Campu s: M Performed By: #### L 200.79977 #### [facility] [address] [place] [address] LYMPH ABS 0.90 K/CU MM Normal 0.9-4.4 [facility] Comment on above: Order Comment: Campu s: M Performed By: #### L 200.56765 #### [facility] [address] [place] [address] Lymphocytes/100 WBC (Bld) 17.4 % Low 20-40 [facility] Comment on above: Order Comment: Campu s: M Performed By: #### L 200.07121 #### [facility] [address] [place] [address] MCHC (RBC) [Mass/Vol] 32.3 g/dL Normal 32.0-36.0 [facility] Comment on above: Order Comment: Campu s: M Performed By: #### L 200.40800 #### [facility] [address] [place] [address] MCV (RBC) [Entitic vol] 93.3 fL Normal 80.0-99.0 [facility] Comment on above: Order Comment: Campu s: M Performed By: #### L 200.71049 #### [facility] [address] [place] [address] MONO ABS 0.50 K/CU MM Normal 0.1-1.1 [facility] Comment on above: Order Comment: Campu s: M Performed By: #### L 200.84575 #### [facility] [address] [place] [address] Monocytes/100 WBC (Bld) 9.7 % Normal 2-10 [facility] Comment on above: Order Comment: Campu s: M Performed By: #### L 200.85555 #### [facility] [address] [place] [address] NEUTROPHIL ABS 3.20 K/CU MM Normal 2.0-8.3 [facility] Comment on above: Order Comment: Campu s: M Performed By: #### L [id number] #### [facility] [address] [place] [address] Neutrophils/100 WBC (Bld) 62.8 % Normal 45-75 [facility] Comment on above: Order Comment: Campu s: M Performed By: #### L 200.83116 #### [facility] [address] [place] [address] Nucleated RBC/100 WBC (Bld) [Ratio] 0.0 % Normal Less than 1 [facility] Comment on above: Order Comment: Campu s: M Performed By: #### L 200.55104 #### [facility] [address] [place] [address] Platelet mean volume (Bld) [Entitic vol] 10.0 fL Normal 9.4-12.4 [facility] Comment on above: Order Comment: Campu s: M Performed By: #### L 200.35261 #### [facility] [address] [place], [place] [id number] PLT 212 K/CU MM Normal 150-450 [facility] Comment on above: Order Comment: Campu s: M Performed By: #### L 200.74614 #### [facility] [address] [place] [address] RBC 4.75 M/CU MM Normal 4.50-6.00 [facility] Comment on above: Order Comment: Campu s: M Performed By: #### L 200.54957 #### [facility] [address] [place] [address] WBC 5.1 K/CUMM Normal 4.5-11.0 [facility] Comment on above: Order Comment: Campu s: M Performed By: #### L 200.57901 #### [facility] [address] [place] [address] GFR ESTon 03-04-2021 IF AMER Greater than 60 Normal [facility] Comment on above: Order Comment: Campu s: M Minimal Draw: Y Performed By: #### L 200.37181 #### [facility] [address] [place] [address] IF non-AFR AMER [address] [facility] Comment on above: Order Comment: Campu s: M Minimal Draw: Y Performed By: #### L [id number] #### [facility] [address] [place] [address] HGB A1C GLYCOHBon 03-04-2021 HbA1c (Bld) [Mass fraction] 6.0 % Normal 4.3-6.0 [facility] Comment on above: Order Comment: Campu s: M Performed By: #### L 550.98995 #### [facility] [address] [place] [address] MRSA PCRon 03-04-2021 MRSA PCR Negative Normal NEGATIVE [facility] Comment on above: Order Comment: Campu s: M Minimal Draw: Y Result Comment: PRADEEP GANDARA NOTE: TESTING DONE BY PCR TECHNOLOGY. Performed By: #### L [id number] #### [facility] [address] [place] [address] SA PCR Positive High NEGATIVE [facility] Comment on above: Order Comment: Brittany albrecht: Rosenda Minimal Draw: Y Result Comment: PRADEEP GANDARA NOTE: TESTING DONE BY PCR TECHNOLOGY. Performed By: #### L [id number] #### [facility] [address] [place] [address] PTon 03-04-2021 INR Coag (PPP) [Relative time] 0.96 {INR} Normal 0.9-1.1 [facility] Comment on above: Order Comment: Brittany albrecht: Rosenda Result Comment: Emigdio mmended PT INR therapeutic range for termite treater and prophylactic therapy is 2.0 - 3.0. For heart valve and shunt patients the range is 2.5 - 3.5. Performed By: #### L 300.56370, L300.20546 #### [facility] [address] [place] [address] PTS 10.3 SECONDS Normal 9.5-12.0 [facility] Comment on above: Order Comment: Brittany Herzog Performed By: #### L 300.64905, L300.61198 #### [facility] [address] [place] [address] PTTon 03-04-2021 aPTT Coag (Bld) [Time] 24.9 s Normal 22.0-31.5 [facility] Comment on above: Order Comment: Brittany albrecht: Rosenda Result Comment: Ther apeutic Heparin Reference Range: High Dose: 46-75 seconds (DVT/PE) Low Dose: 39-60 seconds (Acute Coronary Syndrome) For low molecular weight heparin or danaparoid, monitoring is often NOT necessary, but the heparin assay, Xa inhibition assay (send-out) may be used in certain circumstances, as the PTT is generally insensitive to the effect of these agents. Direct thrombin inhibitors are becoming more widely utilized and these drugs are often monitored using the PTT. Performed By: #### L 300.26012, L300.18284 #### [facility] [address] [place], [place] [id number] Vital Signs Date Time Vital Sign Value Performing Clinician Facility 07-20-2024 13:24-0500 Body temperature 98.71 [degF] Krislyn Aberegg PA Work Phone: [facility] 07-20-2024 13:24-0500 Body weight 105 kg Krislyn Aberegg PA Work Phone: [facility] 07-20-2024 13:24-0500 Diastolic blood pressure 56 mm[Hg] Krislyn Aberegg PA Work Phone: [facility] 07-20-2024 13:24-0500 Heart rate 74 /min Krislyn Aberegg PA Work Phone: [facility] 07-20-2024 13:24-0500 Respiratory rate 16 /min Krislyn Aberegg PA Work Phone: [facility] 07-20-2024 13:24-0500 SaO2% (BldA) [Mass fraction] 96 % Krislyn Aberegg PA Work Phone: [facility] 07-20-2024 13:24-0500 Systolic blood pressure 110 mm[Hg] Krislyn Aberegg PA Work Phone: [facility] 03-22-2024 10:21-0400 Body temperature 97.11 [degF] Carina Irby [employer] WORKER.AEROLOGIST Work Phone: [facility] 03-22-2024 10:21-0400 Body weight 104.9 kg Carina Irby [employer] WORKER.AEROLOGIST Work Phone: [facility] 03-22-2024 10:21-0400 Diastolic blood pressure 68 mm[Hg] Carina Irby [employer] WORKER.AEROLOGIST Work Phone: [facility] 03-22-2024 10:21-0400 Heart rate 75 /min Carina Irby [employer] WORKER.AEROLOGIST Work Phone: [facility] 03-22-2024 10:21-0400 Respiratory rate 18 /min Carina Irby [employer] WORKER.AEROLOGIST Work Phone: [facility] 03-22-2024 10:21-0400 SaO2% (BldA) [Mass fraction] 96 % Carina Irby [employer] WORKER.AEROLOGIST Work Phone: [facility] 03-22-2024 10:21-0400 Systolic blood pressure 107 mm[Hg] Carina Irby [employer] WORKER.AEROLOGIST Work Phone: [facility] 03-18-2024 10:39-0400 Body temperature 98.29 [degF] Krislyn Aberegg PA Work Phone: [facility] 03-18-2024 10:39-0400 Body weight 104.2 kg Krislyn Aberegg PA Work Phone: [facility] 03-18-2024 10:39-0400 Diastolic blood pressure 80 mm[Hg] Krislyn Aberegg PA Work Phone: [facility] 03-18-2024 10:39-0400 Heart rate 84 /min Krislyn Aberegg PA Work Phone: [facility] 03-18-2024 10:39-0400 Respiratory rate 16 /min Krislyn Aberegg PA Work Phone: [facility] 03-18-2024 10:39-0400 SaO2% (BldA) [Mass fraction] 95 % Krislyn Aberegg PA Work Phone: [facility] 03-18-2024 10:39-0400 Systolic blood pressure 128 mm[Hg] Krislyn Aberegg PA Work Phone: [facility] 07-03-2023 14:44-0500 Body temperature 99.9 [degF] Josefina Athy PA-C Work Phone: [facility] 07-03-2023 14:44-0500 Body weight 107.5 kg Josefina Athy PA-C Work Phone: [facility] 07-03-2023 14:44-0500 Diastolic blood pressure 73 mm[Hg] Josefina Athy PA-C Work Phone: [facility] 07-03-2023 14:44-0500 Heart rate 79 /min Josefina Watersy PA-C Work Phone: [facility] 07-03-2023 14:44-0500 Respiratory rate 22 /min Josefina Watersy PA-C Work Phone: [facility] 07-03-2023 14:44-0500 SaO2% (BldA) [Mass fraction] 95 % Josefina Watersy PA-C Work Phone: [facility] 07-03-2023 14:44-0500 Systolic blood pressure 108 mm[Hg] Josefina Watersy PA-C Work Phone: [facility] 01-07-2023 11:56-0400 Body temperature 98.06 [degF] TARI KAPPER [employer] WORKER-AEROLOGIST [facility] 01-07-2023 11:56-0400 Diastolic Blood Pressure Non-Invasive 72 1 TARI AMANER [employer] WORKER-AEROLOGIST [facility] 01-07-2023 11:56-0400 Heart rate 70 /min TARI AMANER [employer] WORKER-AEROLOGIST [facility] 01-07-2023 11:56-0400 Reason For Taking VItal Signs TARI ROBLES [employer] WORKER-AEROLOGIST [facility] 01-07-2023 11:56-0400 Respiratory rate 18 /min TARI NEWTONER [employer] WORKER-AEROLOGIST [facility] 01-07-2023 11:56-0400 Systolic Blood Pressure Non-Invasive 101 1 TARI AMANER [employer] WORKER-AEROLOGIST [facility] 01-07-2023 03:20-0400 Body temperature 98.24 [degF] TARI AMANER [employer] WORKER-AEROLOGIST [facility] 01-07-2023 03:20-0400 Diastolic Blood Pressure Non-Invasive 70 1 TARI AMANER [employer] WORKER-AEROLOGIST [facility] 01-07-2023 03:20-0400 Heart rate 64 /min TARI AMANER [employer] WORKER-AEROLOGIST [facility] 01-07-2023 03:20-0400 Reason For Taking VItal Signs TARI AMANER [employer] WORKER-AEROLOGIST [facility] 01-07-2023 03:20-0400 Respiratory rate 18 /min TARI AMANER [employer] WORKER-AEROLOGIST [facility] 01-07-2023 03:20-0400 Systolic Blood Pressure Non-Invasive 112 1 TARI AMANER [employer] WORKER-AEROLOGIST [facility] 01-07-2023 00:00-0400 Body temperature 98.6 [degF] TARI NEWTONER [employer] WORKER-AEROLOGIST [facility] 01-07-2023 00:00-0400 Diastolic Blood Pressure Non-Invasive 53 1 TARI AMANER [employer] WORKER-AEROLOGIST [facility] 01-07-2023 00:00-0400 Heart rate 70 /min TARI AMANER [employer] WORKER-AEROLOGIST [facility] 01-07-2023 00:00-0400 Reason For Taking VItal Signs TARI AMANER [employer] F[employer] WORKER-AEROLOGIST [facility] 01-07-2023 00:00-0400 Respiratory rate 20 /min TARI AMANER [employer] WORKER-AEROLOGIST [facility] 01-07-2023 00:00-0400 Systolic Blood Pressure Non-Invasive 92 1 TARI AMANER [employer] F[employer] WORKER-AEROLOGIST [facility] 01-06-2023 15:50-0400 Heart rate 75 /min TARI KAPPER [employer] WORKER-AEROLOGIST [facility] 01-06-2023 11:25-0400 Heart rate 74 /min TARI KAPPER [employer] FARM WORKER-AEROLOGIST [facility] 01-06-2023 10:58-0400 Heart rate 86 /min TARI KAPPER [employer] F[employer] WORKER-AEROLOGIST [facility] 01-06-2023 06:10-0400 Heart rate 73 /min TARI KAPPER [employer] FARM WORKER-AEROLOGIST [facility] 01-05-2023 10:43-0400 Heart rate 73 /min TARI KAPPER [employer] FARM WORKER-AEROLOGIST [facility] 01-05-2023 07:29-0400 Heart rate 77 /min TARI KAPPER [employer] F[employer] WORKER-AEROLOGIST [facility] 01-05-2023 01:03-0400 Body height 185.4 cm TARI KAPPER [employer] WORKER-AEROLOGIST [facility] 01-05-2023 01:03-0400 Body weight 109.1 kg TARI KAPPER [employer] FARM WORKER-AEROLOGIST [facility] 01-05-2023 01:03-0400 Body weight 31.74 kg/m2 TARI KAPPER [employer] FARM WORKER-AEROLOGIST [facility] 01-04-2023 19:10-0400 Blood Pressure Cuff Size TARI KAPPER [employer] WORKER-AEROLOGIST [facility] 01-04-2023 19:10-0400 Blood Pressure Location TARI KAPPER [employer] WORKER-AEROLOGIST [facility] 06-20-2023 19:10-0400 Blood Pressure Method TARI ROBLES [employer] F[employer] WORKER-AEROLOGIST [facility] 01-04-2023 19:10-0400 Body height 185.4 cm TARI ROBLES [employer] F[employer] WORKER-AEROLOGIST [facility] 01-04-2023 19:10-0400 Body weight 109.1 kg TARI ROBLES [employer] FARM WORKER-AEROLOGIST [facility] 06-24-2021 13:07-0500 Body temperature 98.24 [degF] DR FERN GREEN DO [facility] 06-24-2021 13:07-0500 Body weight [address] FERN GREEN DO [facility] 06-24-2021 13:07-0500 Diastolic blood pressure 68 mm[Hg] DR FERN GREEN DO [facility] 06-24-2021 13:07-0500 Heart rate 83 /min DR FERN GREEN DO [facility] 06-24-2021 13:07-0500 Respiratory rate 16 /min DR FERN GREEN DO [facility] 06-24-2021 13:07-0500 Systolic blood pressure 135 mm[Hg] DR FERN GREEN DO [facility] Encounters Encounter Date Encounter Type Care Provider Facility Start: 11-17-2024 End: 11-17-2024 Patient encounter procedure Renetta VELA Work Phone: [facility] Comment on above: Acute constipation ( Primary Dx); Abdominal pain, unspecified abdominal location Start: 11-17-2024 End: 11-17-2024 Emergency department patient visit [facility] Facility:[facility] Start: 11-17-2024 End: 11-17-2024 ambulatory RENETTA SIBLEY Facility:[facility] Start: 11-05-2024 End: 11-05-2024 ambulatory SMITHA BURRELL APRN-JOHNNA Facility:[facility] Start: 07-20-2024 End: 07-20-2024 Patient encounter procedure Renetta VELA Work Phone: [facility] Comment on above: Pneumonia of both billy ngs due to infectious organism, unspecified part of lung (Primary Dx); Acute cough; Mouth pain; Itching Start: 07-20-2024 End: 07-20-2024 ambulatory [facility] Facility:[facility] Start: 07-20-2024 End: 07-20-2024 Subsequent hospital visit by physician Xr [facility] Work Phone: Radiology Comment on above: Acute cough [R05.1] Start: 03-25-2024 End: 03-25-2024 Telephone encounter Fiona Ge APRN.CNP Work Phone: [facility] Comment on above: Results Start: 03-23-2024 End: 03-23-2024 Telephone encounter Alexa Suárez APRN.CNP Work Phone: [facility] Comment on above: Results Start: 03-22-2024 End: 03-22-2024 ambulatory [facility] Facility:[facility] Start: 03-22-2024 End: 03-22-2024 Patient encounter procedure Carina Irby APRN.AEROLOGIST Work Phone: [facility] Comment on above: Mouth pain (Primary Dx) Start: 03-18-2024 End: 03-18-2024 ambulatory [facility] Facility:[facility] Start: 03-18-2024 End: 03-18-2024 Patient encounter procedure Renetta VELA Work Phone: [facility] Comment on above: Mouth sore (Primary Dx) Start: 07-04-2023 Telephone encounter Merlin Watt MD Work Phone: [facility] Comment on above: Results Start: 07-03-2023 End: 07-03-2023 Patient encounter procedure Josefina Page PA-C Work Phone: [facility] Comment on above: Viral URI (Primary D x) Start: 02-21-2023 End: 02-22-2023 ambulatory [facility] [employer] F[employer] WORKER-AEROLOGIST Facility:A Start: 01-22-2023 End: 01-22-2023 Emergency department patient visit LUKE GUERIN [place] Start: 01-04-2023 End: 01-07-2023 Evaluation and management of inpatient LUKE SYLVESTER DO Facility:B Start: 01-04-2023 End: 01-07-2023 Evaluation and management of inpatient TARI Rosenda ROBLES [employer] F[employer] WORKER-AEROLOGIST [facility] Start: 11-06-2021 End: 11-06-[address] Luke Sylvester Work Phone: [facility] Start: 09-01-2021 End: 09-01-2021 Patient encounter procedure DORIAN AQUINO [employer] FARM WORKER - AEROLOGIST [facility] Start: 2021 End: [address] Luke Sylvester Work Phone: [facility] Start: 2021 Non-patient / Non-visit Dr. Shonna Sylvester Work Phone: [facility] Start: 06-24-2021 End: 06-24-2021 Emergency department patient visit DR FERN GREEN DO [facility] Procedures Date Procedure Procedure Detail Performing Clinician Start: 07-20-2024 Radiologic exam ches t 2 views Renetta VELA Work Phone: Start: 07-03-2023 STREP A MOLECULAR (POC) Josefina Page PA-C Work Phone: Start: 2021 CT angiography of ch est with contrast Dr. Luke Sylvester Work Phone: Start: 03-18-2021 Arthroplasty of knee RI JENIFER AQUINO [employer] FARM WORKER - AEROLOGIST Appendectomy DR FERN Lanier O Cholecystectomy DR FERN Fitzpatrick DO Extraction of wisdom tooth Yannick GREEN DO Tonsillectomy DR FERN GREEN DO Plan of Treatment Date Care Activity Detail Author Start: 07-04-2026 Diabetes Screening Diabetes Screenin [facility] Start: 03-18-2025 Influenza vaccination Influenz a Vaccine (Season Ended) [facility] Start: 07-18-2024 Advance Directive Discussion Advance Directive Discussion [facility] Start: 03-27-2024 Diabetes Screening Diabetes Screenfay [facility] Start: 03-22-2024 End: 06-21-2024 Fungus identified in Unspecified specimen by Culture [facility] Work Phone: Comment on above: Expected: 03/22/2024 , Expires: 06/21/2024 Start: 03-18-2024 Covid-19 Vaccine ( season) Covid-19 Vaccine ( season) [facility] Start: 03-18-2024 Covid-19 Vaccine ( season) Covid-19 Vaccine ( season) [facility] Start: 03-18-2024 Influenza vaccination Influenza Vacc ine (#1) [facility] Start: 07-18-2023 Advance Directive Discussion Advance Directive Discussion [facility] Start: 03-18-2023 Covid-19 Vaccine ( season) Covid-19 Vaccine ( season) [facility] Start: 03-18-2023 Influenza vaccination Influenza Vacc ine (#1) [facility] Start: 07-18-2022 Advance Directive Discussion Advance Directive Discussion [facility] Start: 07-18-2022 Depression Assessment Depression Ass essment [facility] Start: 2016 RSV Vaccine (1 - 1-d ose 75+ series) RSV Vaccine (1 - 1-dose 75+ series) [facility] Start: 10-19-2011 Urine microalbumin profile DTaP,Tdap,Td Vaccine (1 - Tdap) [facility] Start: 2006 Pneumococcal Vaccine : 65+ (1 of 1 - PCV) Pneumococcal Vaccine: 65+ (1 of 1 - PCV) [facility] Start: 2001 RSV Vaccine (1 - 1-d ose 60+ series) RSV Vaccine (1 - 1-dose 60+ series) [facility] Start: 1991 Pneumococcal Vaccine : 50+ (1 of 1 - PCV) Pneumococcal Vaccine: 50+ (1 of 1 - PCV) [facility] Start: 1991 Shingrix Vaccine (1 of 2) Shingrix Vaccine (1 of 2) [facility] Start: 1959 Anxiety Screening Anxiety Screening [facility] Start: 1959 Depression Screening Depression Scre ening [facility] COVID & INFLUENZA A/ B & RSV NAAT, ROUTINE COVID & INFLUENZA A/B & RSV NAAT, ROUTINE Microbiology Routine Viral URI 07/03/2023 3:38 PM EST [facility] Work Phone: Immunizations Immunization Date Immunization Notes Care Provider García orlando 02-22-2021 SARS-CoV-2 mRNA (tozinameran) vaccine DORIAN AQUINO [employer] F[employer] WORKER - AEROLOGIST [facility] Comment on above: Result Comment: 2020: [id number] 10-18-2011 TD(adult) unspecifie d formulation Renetta VELA Work Phone: [facility] Payers Date Payer Category Payer Self-pay [id number] 2023 Medicare [id number] 2022 Medicare [employer] [place] [id number] 2022-Present [phone] [address] [place] [address] [facility] [place] [id number] 2022 Medicare (Managed Care) [place] [id number] 2016 Medicare [id number] 1941 Unknown [id number] 1941 Unknown [id number] 1941 Unknown [id number] 1941 Unknown [id number] 1941 Unknown [id number] Unknown [id number] Social History Date Type Detail Facility Start: 01-12-2021 End: 06-14-2023 Never smoked tobacco (finding) [facility] Start: 1940 Sex Assigned At Male A [facility] Start: 06-09-2021 Tobacco smoking stat [facility] Unknown [facility] Work Phone: Start: 08-17-2015 None [facility] Work Phone: Start: 08-17-2015 [facility] Work Phone: Start: 06-14-2023 Tobacco use and exposure Smokeless tobacco non-user [facility] Start: 07-03-2023 End: 07-20-2024 History of Social function [facility] Start: 07-03-2023 End: 07-20-2024 Tobacco use panel [facility] Start: 1940 Sex Assigned At Not on file [facility] Functional Status Date Assessment Result Facility 01-07-2023 Functional Status Room check performed [facility] 01-07-2023 Functional Status [facility] 01-07-2023 Functional Status bilateral knee high [facility] 01-07-2023 Functional Status Independent [facility] 01-07-2023 Functional Status [facility] 01-06-2023 Functional Status [facility] 01-06-2023 Functional Status [facility] 01-06-2023 Functional Status Supervised [facility] 01-05-2023 Functional Status Dinner Percent 10 [facility] 01-05-2023 Functional Status Lunch Percent 50 [facility] 01-05-2023 Functional Status [facility] 01-05-2023 Functional Status Single level home [facility] 01-05-2023 Functional Status [facility] 01-05-2023 Functional Status Sensory Defici ts Hearing deficit, left ear, Hearing deficit, right ear [facility] 01-04-2023 Functional Status Assistive Device None [facility] Mental Status Date Assessment Result Facility 01-07-2023 Mental Status Oriented x 4 [facility] 01-07-2023 Mental Status [facility] 01-06-2023 Mental Status [facility] Clinical Notes 03-26-2021 to 11-17-2024 Renetta Sibley PA - 11/17/2024 11:09 AM EDTPatient InstructionsDaMarina emery, RT(R) - 07/20/2024 1:40 PM Renetta Ramirez PA - 07/20/2024 1:32 PM EST Note Date & Type Note Facility 11-17-2024 Note HNO ID: [id number] Author: RENETTA SIBLEY PA Service: ? Author Type: Physician Electrician [employer] Type: Progress Notes Filed: 11/17/2024 11:12 Note Text: 84-year-old male presents for concern for bowel blockage. Patient states he has been constipated for about 2 weeks. He has tried suppositories and also an oral laxative that was given to him postsurgically in the past. He states that he has only been able to pass douglas of stool. He has abdominal tightness and discomfort. No vomiting. He does have history of appendectomy and cholecystectomy in the past. At this time, discussed limited diagnostic capability through [facility], patient will need workup in the emergency room. Patient agreeable. He will go to [facility] 11-17-2024 History of Present illness Narrative 84-year-old male presents for concern for bowel blockage. Patient states he has been constipated for about 2 weeks. He has tried suppositories and also an oral laxative that was given to him postsurgically in the past. He states that he has only been able to pass douglas of stool. He has abdominal tightness and discomfort. No vomiting. He does have history of appendectomy and cholecystectomy in the past. At this time, discussed limited diagnostic capability [facility], patient will need workup in the emergency room. Patient agreeable. He will go to [facility]. documented in this encounter [facility] 07-20-2024 Instructions Renetta Sibley PA - 07/20/2024 2:13 PM EST Take antibiotics as prescribed. Continue nystatin mouthwash Follow-up closely with PCP in 4 weeks to ensure resolution of pneumonia. documented in this encounter [facility] 07-20-2024 History of Present illness Narrative Radiology Service Progress Note PATIENT NAME: Laci Andersen DATE OF SERVICE: July 20, 2024 TIME: 1:33 PM PATIENT IDENTITY VERIFICATION COMPLETED USING TWO (2) IDENTIFIERS: Name and Date of confirmed by patient verbally. FALL SCREENING: Has the patient had 2 falls in the last year or 1 fall with injury or currently using an Ambulatory Assistive Device (Walker, Cane, Wheelchair, Crutches, etc.)? No PATIENT GENDER DATA: Male PATIENT RELEVANT IMPLANT DATA REVIEWED: Not Applicable PATIENT PRESENTS WITH AN IMPLANTABLE OR ATTACHED CATTLE BROKER: No RADIOLOGY DEPARTMENT: General X-ray: Exam(s) Completed: Chest X-Ray PERIPHERAL IV DATA: Not applicable SIGNED BY: RT Estevan(R) July 20, 2024 1:33 PM documented in this encounter [facility] 07-20-2024 Note HNO ID: [id number] Author: MARINA YOUNG RT(Amari) Service: Radiology Author Type: Technologist Type: Progress Notes Filed: 07/20/2024 13:40 Note Text: Radiology Service Progress Note PATIENT NAME: Laci Andersen DATE OF SERVICE: July 20, 2024 TIME: 1:33 PM PATIENT IDENTITY VERIFICATION COMPLETED USING TWO (2) IDENTIFIERS: Name and Date of confirmed by patient verbally. FALL SCREENING: Has the patient had 2 falls in the last year or 1 fall with injury or currently using an Ambulatory Assistive Device (Walker, Cane, Wheelchair, Crutches, etc.)? No PATIENT GENDER DATA: Male PATIENT RELEVANT IMPLANT DATA REVIEWED: Not Applicable PATIENT PRESENTS WITH AN IMPLANTABLE OR ATTACHED CATTLE BROKER: No RADIOLOGY DEPARTMENT: General X-ray: Exam(s) Completed: Chest X-Ray PERIPHERAL IV DATA: Not applicable SIGNED BY: Marina Young, RT(R) July 20, 2024 1:33 PM [facility] 07-20-2024 Note HNO ID: [id number] Author: RENETTA SIBLEY PA Service: ? 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 Subjective Laci Andersen is a 83 year old male. HPI 83-year-old male presents for multiple complaints. Patient states he has had a productive cough for the past few days. He states he coughs up phlegm at night for the past 2 days. He states it is a ball of phlegm. No hemoptysis. He denies any fevers. No nasal congestion. States his nose feels dry. Patient also has some mouth pain. He was seen here back in March for this and had a yeast screen which came back positive. He was prescribed nystatin mouthwash. Patient states that he used the first bottle of this back in March and symptoms resolved. He states that he has a second bottle and has been using that for the past week and his mouth soreness has improved. He does have dentures. States mouth is not sore currently, no sores in the mouth. He has not had any fevers. Still able to eat and drink. He is also complaining of itchiness of the chest area. He states that his chest itches on his skin. No skin discoloration or rash. No itchiness anywhere else. He states if he scratches it, the sensation goes away. He has not taken anything for the symptoms. No past medical history on file. PAST SURGICAL HISTORY Procedure Laterality Date LAPAROSCOPIC APPENDECTOMY 08/04/15 normal appendix in [facility] LAPS SURG CHOLECYSTECTOMY W/CHOLANGIOGRAPHY 08/04/15 normal IOC, Acute debbie ALLERGIES Patient has no known allergies. MEDICATIONS nystatin (MYCOSTATIN) 100,000 unit/mL suspension Take 5 mL by mouth four times daily. 1tsp swish in mouth for several minutes, then swallow (or expectorate) 4 times daily until gone. lithium carbonate ER 450 mg CR tablet Take 1 tablet by mouth two times a day. lithium carbonate ER 450 mg CR tablet 2 tablets once daily. (Patient not taking: Reported on 03/22/2024) No family history on file. Social History Tobacco Use Smoking status: Never Smokeless tobacco: Never Review of Systems Constitutional: Negative for chills and fever. HENT: Negative for congestion, mouth sores and sore throat. Respiratory: Positive for cough. Negative for shortness of breath. Gastrointestinal: Negative for diarrhea and vomiting. Skin: + Itching of the skin on the chest. Objective BP 110/56 Pulse 74 Temp 37.1 ?C (98.7 ?F) (Left Tympanic) Resp 16 Wt 105 kg (231 lb 7.7 oz) SpO2 96% Physical Exam Vitals and nursing note reviewed. Constitutional: General: He is not in acute distress. Appearance: Normal appearance. He is not toxic-appearing. HENT: Right Ear: Tympanic membrane and ear canal normal. Left Ear: Tympanic membrane and ear canal normal. Nose: Nose normal. Mouth/Throat: Mouth: Mucous membranes are moist. Pharynx: Oropharynx is clear. Comments: No mouth lesions. Throat clear. Eyes: Conjunctiva/sclera: Conjunctivae normal. Cardiovascular: Rate and Rhythm: Normal rate and regular rhythm. Pulmonary: Effort: Pulmonary effort is normal. Breath sounds: Normal breath sounds. No wheezing, rhonchi or rales. Skin: General: Skin is warm and dry. Neurological: Mental Status: He is alert. Assessment and Plan ASSESSMENT/PLAN: 1. Pneumonia of both lungs due to infectious organism, unspecified part of lung - ICD9: 483.8, ICD10: J18.9 (primary diagnosis) -CXR reveals patchy airspace opacities in infrahilar regions bilaterally and within the left midlung field. Follow-up recommended -Will treat for pneumonia, has had productive cough. -Rx doxycycline, Rx Augmentin -Calculated creatinine clearance from labs in 2022. Creatinine clearance 58. 2. Acute cough - ICD9: 786.2, ICD10: R05.1 -See above - XR CHEST 2V FRONTAL/LAT 3. Mouth pain - ICD9: 528.9, ICD10: K13.79 -Mouth pain improving with nystatin mouthwash. He still has half a bottle left. Advised to continue this for another week if it is improving. Follow-up with PCP if symptoms persist 4. Itching - ICD9: 698.9, ICD10: L29.9 -No rash on exam. Unsure of cause. Advise close follow-up with PCP if symptoms persist. Diagnosis and treatment plan were discussed and questions were answered to the patient's satisfaction. Pt acknowledged understanding of concepts and follow up plan. Specific signs and symptoms that would indicate the need for higher level of care were discussed in detail warranting prompt ER evaluation. DANE Olivo [facility] 07-20-2024 History of Present illness Narrative This note was created using KuponGidriter. Subjective Laci Andersen is a 83 year old male. HPI 83-year-old male presents for multiple complaints. Patient states he has had a productive cough for the past few days. He states he coughs up phlegm at night for the past 2 days. He states it is a ball of phlegm. No hemoptysis. He denies any fevers. No nasal congestion. States his nose feels dry. Patient also has some mouth pain. He was seen here back in March for this and had a yeast screen which came back positive. He was prescribed nystatin mouthwash. Patient states that he used the first bottle of this back in March and symptoms resolved. He states that he has a second bottle and has been using that for the past week and his mouth soreness has improved. He does have dentures. States mouth is not sore currently, no sores in the mouth. He has not had any fevers. Still able to eat and drink. He is also complaining of itchiness of the chest area. He states that his chest itches on his skin. No skin discoloration or rash. No itchiness anywhere else. He states if he scratches it, the sensation goes away. He has not taken anything for the symptoms. No past medical history on file. PAST SURGICAL HISTORY Procedure Laterality Date LAPAROSCOPIC APPENDECTOMY 08/04/15 normal appendix in [facility] LAPS SURG CHOLECYSTECTOMY W/CHOLANGIOGRAPHY 08/04/15 normal IOC, Acute debbie ALLERGIES Patient has no known allergies. MEDICATIONS nystatin (MYCOSTATIN) 100,000 unit/mL suspension Take 5 mL by mouth four times daily. 1tsp swish in mouth for several minutes, then swallow (or expectorate) 4 times daily until gone. lithium carbonate ER 450 mg CR tablet Take 1 tablet by mouth two times a day. lithium carbonate ER 450 mg CR tablet 2 tablets once daily. (Patient not taking: Reported on 03/22/2024) No family history on file. Social History Tobacco Use Smoking status: Never Smokeless tobacco: Never Review of Systems Constitutional: Negative for chills and fever. HENT: Negative for congestion, mouth sores and sore throat. Respiratory: Positive for cough. Negative for shortness of breath. Gastrointestinal: Negative for diarrhea and vomiting. Skin: + Itching of the skin on the chest. Objective BP 110/56 Pulse 74 Temp 37.1 C (98.7 F) (Left Tympanic) Resp 16 Wt 105 kg (231 lb 7.7 oz) SpO2 96% Physical Exam Vitals and nursing note reviewed. Constitutional: General: He is not in acute distress. Appearance: Normal appearance. He is not toxic-appearing. HENT: Right Ear: Tympanic membrane and ear canal normal. Left Ear: Tympanic membrane and ear canal normal. Nose: Nose normal. Mouth/Throat: Mouth: Mucous membranes are moist. Pharynx: Oropharynx is clear. Comments: No mouth lesions. Throat clear. Eyes: Conjunctiva/sclera: Conjunctivae normal. Cardiovascular: Rate and Rhythm: Normal rate and regular rhythm. Pulmonary: Effort: Pulmonary effort is normal. Breath sounds: Normal breath sounds. No wheezing, rhonchi or rales. Skin: General: Skin is warm and dry. Neurological: Mental Status: He is alert. Assessment and Plan ASSESSMENT/PLAN: 1. Pneumonia of both lungs due to infectious organism, unspecified part of lung - ICD9: 483.8, ICD10: J18.9 (primary diagnosis) -CXR reveals patchy airspace opacities in infrahilar regions bilaterally and within the left midlung field. Follow-up recommended -Will treat for pneumonia, has had productive cough. -Rx doxycycline, Rx Augmentin -Calculated creatinine clearance from labs in 2022. Creatinine clearance 58. 2. Acute cough - ICD9: 786.2, ICD10: R05.1 -See above - XR CHEST 2V FRONTAL/LAT 3. Mouth pain - ICD9: 528.9, ICD10: K13.79 -Mouth pain improving with nystatin mouthwash. He still has half a bottle left. Advised to continue this for another week if it is improving. Follow-up with PCP if symptoms persist 4. Itching - ICD9: 698.9, ICD10: L29.9 -No rash on exam. Unsure of cause. Advise close follow-up with PCP if symptoms persist. Diagnosis and treatment plan were discussed and questions were answered to the patient's satisfaction. Pt acknowledged understanding of concepts and follow up plan. Specific signs and symptoms that would indicate the need for higher level of care were discussed in detail warranting prompt ER evaluation. DANE Olivo documented in this encounter [facility] 03-25-2024 Telephone encounter Note Patient notified of results, has been using Nystatin since with improvement in symptoms. Roxanna Salas MA [facility] 03-25-2024 Miscellaneous Notes Patient notified of results, has been using Nystatin since with improvement in symptoms. Roxanna Salas MA Yeast as grown on culture, would recommend patient start nystatin as ordered. Follow up with PCP as needed. Fiona Ge APRN.JOHNNA documented in this encounter [facility] 03-25-2024 Telephone encounter Note Yeast as grown on culture, would recommend patient start nystatin as ordered. Follow up with PCP as needed. Fiona Ge APRN.JOHNNA [facility] Work Phone: 03-23-2024 Telephone encounter Note Pt was notified of the results. Pt verbalized understanding. Sonia Parker MA [facility] 03-23-2024 Miscellaneous Notes Pt was notified of the results. Pt verbalized understanding. Sonia Parker MA ----- Message from Alexa Suárez APRN.CNP sent at 03/23/2024 7:17 PM EDT ----- Please advise patient the test for yeast is negative after one day. This test will continue to process and if there is any change, he will be contacted. Alexa Suárez APRN.CNP documented in this encounter [facility] 03-23-2024 Telephone encounter Note ----- Message from Alexa Sáurez APRN.CNP sent at 03/23/2024 7:17 PM EDT ----- Please advise patient the test for yeast is negative after one day. This test will continue to process and if there is any change, he will be contacted. Alexa Suárez APRN.CNP [facility] 03-22-2024 Note HNO ID: [id number] Author: CARINA IRBY APRN.[facility] Service: ? Author Type: Nurse Practitioner Type: Progress Notes Filed: 03/22/2024 11:31 Note Text: This note was created using NoteWriter. Subjective Laci Andersen is a 83 year old male. 83 year old male with no PMH presents for mouth complaints. Acute onset 03/16 He noticed redness and pain. At that time he attempted scope mouthwash, warm salt water gargles, and hydrogen peroxide with water today. He states he had burning sensation in his mouth after using the peroxide. He denies any fevers, cough, sore throat, nasal congestion. No vomiting or diarrhea. No sick contacts that he is aware of. No recent antibiotics. No new medication changes. No other complaint. Denies inhaler usage Denies tobacco usage He was seen here 03/18/24 Was recommended to use salt water gargles Wears dentures Goes to [facility] Last cleaning was a month ago. Presents today citing that the mouth pain is not improving. The history is provided by the patient. No furniture rental consultant was used. Mouth/Lip Problem This is a new problem. The current episode started 1 to 4 weeks ago. The problem occurs constantly. The problem has been gradually worsening. Pertinent negatives include no abdominal pain, anorexia, arthralgias, change in bowel habit, chest pain, chills, congestion, coughing, diaphoresis, fatigue, fever, headaches, joint swelling, myalgias, nausea, neck pain, numbness, rash, sore throat, swollen glands, urinary symptoms, vertigo, visual change, vomiting or weakness. Nothing aggravates the symptoms. Treatments tried: see HPI. The treatment provided no relief. No past medical history on file. PAST SURGICAL HISTORY 08/04/15: LAPAROSCOPIC APPENDECTOMY Comment: normal appendix in [facility] 08/04/15: LAPS SURG CHOLECYSTECTOMY W/CHOLANGIOGRAPHY Comment: normal IOC, Acute debbie ALLERGIES Patient has no known allergies. MEDICATIONS nystatin (MYCOSTATIN) 100,000 unit/mL suspension Take 5 mL by mouth four times daily. 1tsp swish in mouth for several minutes, then swallow (or expectorate) 4 times daily until gone. lithium carbonate ER 450 mg CR tablet Take 1 tablet by mouth two times a day. lithium carbonate ER 450 mg CR tablet 2 tablets once daily. (Patient not taking: Reported on 03/22/2024) No family history on file. Social History Tobacco Use Smoking status: Never Smokeless tobacco: Never Review of Systems Constitutional: Negative for chills, diaphoresis, fatigue and fever. HENT: Negative for congestion and sore throat. +mouth problem Eyes: Negative for pain, discharge and itching. Respiratory: Negative for apnea, cough, choking and chest tightness. Cardiovascular: Negative for chest pain. Gastrointestinal: Negative for abdominal pain, anorexia, change in bowel habit, nausea and vomiting. Musculoskeletal: Negative for arthralgias, joint swelling, myalgias and neck pain. Skin: Negative for color change, pallor and rash. Allergic/Immunologic: Negative for environmental allergies, food allergies and immunocompromised state. Neurological: Negative for vertigo, weakness, numbness and headaches. Hematological: Negative for adenopathy. Does not bruise/bleed easily. Psychiatric/Behavioral: Negative for agitation and behavioral problems. Objective BP 107/68 Pulse 75 Temp 36.2 ?C (97.1 ?F) Resp 18 Wt 104.9 kg (231 lb 4.2 oz) SpO2 96% Physical Exam Vitals and nursing note reviewed. Constitutional: General: He is not in acute distress. Appearance: Normal appearance. He is not ill-appearing, toxic-appearing or diaphoretic. Comments: Elderly appearing. Non toxic HENT: Head: Normocephalic and atraumatic. Right Ear: External ear normal. Left Ear: External ear normal. Nose: Nose normal. No congestion or rhinorrhea. Mouth/Throat: Mouth: Mucous membranes are moist. Pharynx: Oropharynx is clear. No oropharyngeal exudate or posterior oropharyngeal erythema. Comments: Upper and lower dentures noted No rashes, lesions, or ulcers Uvula midline No white patches +moist mucosa Eyes: General: Right eye: No discharge. Left eye: No discharge. Extraocular Movements: Extraocular movements intact. Conjunctiva/sclera: Conjunctivae normal. Pupils: Pupils are equal, round, and reactive to light. Cardiovascular: Rate and Rhythm: Normal rate and regular rhythm. Pulses: Normal pulses. Heart sounds: Normal heart sounds. No murmur heard. No friction rub. No gallop. Pulmonary: Effort: Pulmonary effort is normal. No respiratory distress. Breath sounds: Normal breath sounds. No stridor. No wheezing, rhonchi or rales. Chest: Chest wall: No tenderness. Abdominal: General: Abdomen is flat. There is no distension. Palpations: Abdomen is soft. There is no mass. Tenderness: There is no abdominal tenderness. There is no guarding or rebound. Hernia: No hernia is present. Musculoskeletal: Gen (more content not included)... [facility] 03-22-2024 History of Present illness Narrative This note was created using KuponGidriter. Subjective Laci Andersen is a 83 year old male. 83 year old male with no PMH presents for mouth complaints. Acute onset 03/16 He noticed redness and pain. At that time he attempted scope mouthwash, warm salt water gargles, and hydrogen peroxide with water today. He states he had burning sensation in his mouth after using the peroxide. He denies any fevers, cough, sore throat, nasal congestion. No vomiting or diarrhea. No sick contacts that he is aware of. No recent antibiotics. No new medication changes. No other complaint. Denies inhaler usage Denies tobacco usage He was seen here 03/18/24 Was recommended to use salt water gargles Wears dentures Goes to [facility] Last cleaning was a month ago. Presents today citing that the mouth pain is not improving. The history is provided by the patient. No furniture rental consultant was used. Mouth/Lip Problem This is a new problem. The current episode started 1 to 4 weeks ago. The problem occurs constantly. The problem has been gradually worsening. Pertinent negatives include no abdominal pain, anorexia, arthralgias, change in bowel habit, chest pain, chills, congestion, coughing, diaphoresis, fatigue, fever, headaches, joint swelling, myalgias, nausea, neck pain, numbness, rash, sore throat, swollen glands, urinary symptoms, vertigo, visual change, vomiting or weakness. Nothing aggravates the symptoms. Treatments tried: see HPI. The treatment provided no relief. No past medical history on file. PAST SURGICAL HISTORY 08/04/15: LAPAROSCOPIC APPENDECTOMY Comment: normal appendix in [facility] 08/04/15: LAPS SURG CHOLECYSTECTOMY W/CHOLANGIOGRAPHY Comment: normal IOC, Acute debbie ALLERGIES Patient has no known allergies. MEDICATIONS nystatin (MYCOSTATIN) 100,000 unit/mL suspension Take 5 mL by mouth four times daily. 1tsp swish in mouth for several minutes, then swallow (or expectorate) 4 times daily until gone. lithium carbonate ER 450 mg CR tablet Take 1 tablet by mouth two times a day. lithium carbonate ER 450 mg CR tablet 2 tablets once daily. (Patient not taking: Reported on 03/22/2024) No family history on file. Social History Tobacco Use Smoking status: Never Smokeless tobacco: Never Review of Systems Constitutional: Negative for chills, diaphoresis, fatigue and fever. HENT: Negative for congestion and sore throat. +mouth problem Eyes: Negative for pain, discharge and itching. Respiratory: Negative for apnea, cough, choking and chest tightness. Cardiovascular: Negative for chest pain. Gastrointestinal: Negative for abdominal pain, anorexia, change in bowel habit, nausea and vomiting. Musculoskeletal: Negative for arthralgias, joint swelling, myalgias and neck pain. Skin: Negative for color change, pallor and rash. Allergic/Immunologic: Negative for environmental allergies, food allergies and immunocompromised state. Neurological: Negative for vertigo, weakness, numbness and headaches. Hematological: Negative for adenopathy. Does not bruise/bleed easily. Psychiatric/Behavioral: Negative for agitation and behavioral problems. Objective BP 107/68 Pulse 75 Temp 36.2 C (97.1 F) Resp 18 Wt 104.9 kg (231 lb 4.2 oz) SpO2 96% Physical Exam Vitals and nursing note reviewed. Constitutional: General: He is not in acute distress. Appearance: Normal appearance. He is not ill-appearing, toxic-appearing or diaphoretic. Comments: Elderly appearing. Non toxic HENT: Head: Normocephalic and atraumatic. Right Ear: External ear normal. Left Ear: External ear normal. Nose: Nose normal. No congestion or rhinorrhea. Mouth/Throat: Mouth: Mucous membranes are moist. Pharynx: Oropharynx is clear. No oropharyngeal exudate or posterior oropharyngeal erythema. Comments: Upper and lower dentures noted No rashes, lesions, or ulcers Uvula midline No white patches +moist mucosa Eyes: General: Right eye: No discharge. Left eye: No discharge. Extraocular Movements: Extraocular movements intact. Conjunctiva/sclera: Conjunctivae normal. Pupils: Pupils are equal, round, and reactive to light. Cardiovascular: Rate and Rhythm: Normal rate and regular rhythm. Pulses: Normal pulses. Heart sounds: Normal heart sounds. No murmur heard. No friction rub. No gallop. Pulmonary: Effort: Pulmonary effort is normal. No respiratory distress. Breath sounds: Normal breath sounds. No stridor. No wheezing, rhonchi or rales. Chest: Chest wall: No tenderness. Abdominal: General: Abdomen is flat. There is no distension. Palpations: Abdomen is soft. There is no mass. Tenderness: There is no abdominal tenderness. There is no guarding or rebound. Hernia: No hernia is present. Musculoskeletal: General: No swelling, tenderness, deformity or signs of injury. Normal range of motion. Cervical back: Normal range of motion and neck supple. No rigidity or tenderness. Right lower leg: No edema. Left lower leg: No edema. Lymphadenopathy: Cervical: Cervical adenopathy present. Skin: General: Skin is warm and dry. Capillary Refill: Capillary refill takes less than 2 seconds. Coloration: Skin is not jaundiced or pale. Findings: No bruising, lesion or rash. Neurological: General: No focal deficit present. Mental Status: He is alert and oriented to person, place, and time. Cranial Nerves: No cranial nerve deficit. Sensory: No sensory deficit. Motor: No weakness. Coordination: Coordination normal. Gait: Gait normal. Deep Tendon Reflexes: Reflexes normal. Psychiatric: Mood and Affect: Mood normal. Behavior: Behavior normal. Thought Content: Thought content normal. Assessment and Plan ASSESSMENT/PLAN: 1. Mouth pain - ICD9: 528.9, ICD10: K13.79 Acute onset 03/16/24 No trauma or injury Seen here 03/18/24 Recommended salt water gargles Denies relief Denies additional sx or URI ?? Roya with history of dentures - YEAST SCREEN-obtained Nystatin solution called in. Patient to start today If screening negative and sx persist patient instructed to follow up with dentist Carina Irby APRN.AEROLOGIST documented in this encounter [facility] 03-18-2024 Note HNO ID: [id number] Author: RENETTA SIBLEY PA Service: ? Author Type: Physician [employer] Type: Progress Notes Filed: 03/18/2024 10:55 Note Text: This note was created using NoteWriter. Subjective Laci Andersen is a 83 year old male. HPI 83-year-old male presents for concern for mouth sores. Patient states he noticed a few red spots in his mouth a few days ago. He has used scope mouthwash, warm salt water gargles, and hydrogen peroxide with water today. He states he has burning sensation in his mouth after using the peroxide. He denies any fevers, cough, sore throat, nasal congestion. He has had intermittent headaches for a few days. No vomiting or diarrhea. No sick contacts that he is aware of. No recent antibiotics. No new medication changes. No other complaint. No past medical history on file. PAST SURGICAL HISTORY 08/04/15: LAPAROSCOPIC APPENDECTOMY Comment: normal appendix in [facility] 08/04/15: LAPS SURG CHOLECYSTECTOMY W/CHOLANGIOGRAPHY Comment: normal IOC, Acute debbie ALLERGIES Patient has no known allergies. MEDICATIONS lithium carbonate ER 450 mg CR tablet Take 1 tablet by mouth two times a day. lithium carbonate ER 450 mg CR tablet 2 tablets once daily. No family history on file. Social History Tobacco Use Smoking status: Never Smokeless tobacco: Never Review of Systems Constitutional: Negative for chills and fever. HENT: Positive for mouth sores. Negative for congestion and sore throat. Respiratory: Negative for cough and shortness of breath. Gastrointestinal: Negative for diarrhea and vomiting. Neurological: Positive for headaches. Objective BP 128/80 Pulse 84 Temp 36.8 ?C (98.3 ?F) Resp 16 Wt 104.2 kg (229 lb 11.5 oz) SpO2 95% Physical Exam Vitals and nursing note reviewed. Constitutional: General: He is not in acute distress. Appearance: Normal appearance. He is not toxic-appearing. HENT: Right Ear: Tympanic membrane and ear canal normal. Left Ear: Tympanic membrane and ear canal normal. Nose: Nose normal. Mouth/Throat: Mouth: Mucous membranes are moist. Oral lesions present. Comments: Varicosities noted under tongue, no sores seen on or under the tongue. No tongue or floor of mouth swelling. Throat clear. No erythema or exudate. Patient has 2 small red spots on the inside of his left cheek. No ulcerations. No white plaques. No vesicular lesions. No lip lesions. Eyes: Conjunctiva/sclera: Conjunctivae normal. Cardiovascular: Rate and Rhythm: Normal rate and regular rhythm. Pulmonary: Effort: Pulmonary effort is normal. Breath sounds: Normal breath sounds. Skin: General: Skin is warm and dry. Neurological: Mental Status: He is alert. Assessment and Plan ASSESSMENT/PLAN: 1. Mouth sore - ICD9: 528.9, ICD10: K13.79 -2 small red spots on inside of left cheek, appear caused by possible trauma such as biting the cheek. No ulcerations. Does not appear consistent with herpetic stomatitis. No lesions anywhere else. No signs of thrush. -Advised not to use hydrogen peroxide, mouthwash. this may be irritating the area. -Recommend Tylenol/Motrin as needed for pain. -Follow-up with PCP this week if no improvement in symptoms. Diagnosis and treatment plan were discussed and questions were answered to the patient's satisfaction. Pt acknowledged understanding of concepts and follow up plan. Specific signs and symptoms that would indicate the need for higher level of care were discussed in detail warranting prompt ER evaluation. DANE Olivo [facility] 03-18-2024 History of Present illness Narrative This note was created using KuponGidriter. Subjective Laci Andersen is a 83 year old male. HPI 83-year-old male presents for concern for mouth sores. Patient states he noticed a few red spots in his mouth a few days ago. He has used scope mouthwash, warm salt water gargles, and hydrogen peroxide with water today. He states he has burning sensation in his mouth after using the peroxide. He denies any fevers, cough, sore throat, nasal congestion. He has had intermittent headaches for a few days. No vomiting or diarrhea. No sick contacts that he is aware of. No recent antibiotics. No new medication changes. No other complaint. No past medical history on file. PAST SURGICAL HISTORY 08/04/15: LAPAROSCOPIC APPENDECTOMY Comment: normal appendix in [facility] 08/04/15: LAPS SURG CHOLECYSTECTOMY W/CHOLANGIOGRAPHY Comment: normal IOC, Acute debbie ALLERGIES Patient has no known allergies. MEDICATIONS lithium carbonate ER 450 mg CR tablet Take 1 tablet by mouth two times a day. lithium carbonate ER 450 mg CR tablet 2 tablets once daily. No family history on file. Social History Tobacco Use Smoking status: Never Smokeless tobacco: Never Review of Systems Constitutional: Negative for chills and fever. HENT: Positive for mouth sores. Negative for congestion and sore throat. Respiratory: Negative for cough and shortness of breath. Gastrointestinal: Negative for diarrhea and vomiting. Neurological: Positive for headaches. Objective BP 128/80 Pulse 84 Temp 36.8 C (98.3 F) Resp 16 Wt 104.2 kg (229 lb 11.5 oz) SpO2 95% Physical Exam Vitals and nursing note reviewed. Constitutional: General: He is not in acute distress. Appearance: Normal appearance. He is not toxic-appearing. HENT: Right Ear: Tympanic membrane and ear canal normal. Left Ear: Tympanic membrane and ear canal normal. Nose: Nose normal. Mouth/Throat: Mouth: Mucous membranes are moist. Oral lesions present. Comments: Varicosities noted under tongue, no sores seen on or under the tongue. No tongue or floor of mouth swelling. Throat clear. No erythema or exudate. Patient has 2 small red spots on the inside of his left cheek. No ulcerations. No white plaques. No vesicular lesions. No lip lesions. Eyes: Conjunctiva/sclera: Conjunctivae normal. Cardiovascular: Rate and Rhythm: Normal rate and regular rhythm. Pulmonary: Effort: Pulmonary effort is normal. Breath sounds: Normal breath sounds. Skin: General: Skin is warm and dry. Neurological: Mental Status: He is alert. Assessment and Plan ASSESSMENT/PLAN: 1. Mouth sore - ICD9: 528.9, ICD10: K13.79 -2 small red spots on inside of left cheek, appear caused by possible trauma such as biting the cheek. No ulcerations. Does not appear consistent with herpetic stomatitis. No lesions anywhere else. No signs of thrush. -Advised not to use hydrogen peroxide, mouthwash. this may be irritating the area. -Recommend Tylenol/Motrin as needed for pain. -Follow-up with PCP this week if no improvement in symptoms. Diagnosis and treatment plan were discussed and questions were answered to the patient's satisfaction. Pt acknowledged understanding of concepts and follow up plan. Specific signs and symptoms that would indicate the need for higher level of care were discussed in detail warranting prompt ER evaluation. DANE Olivo documented in this encounter [facility] 07-04-2023 Miscellaneous Notes Patient calling to check on lab results, went over results, notes below from express care provider with understanding. ----- Message from Merlin Barbosa MD sent at 07/04/2023 10:30 AM EST ----- Kidney function is adequate to take Paxlovid as prescribed. documented in this encounter [facility] 07-03-2023 History of Present illness Narrative This note was created using KuponGidriter. Subjective Laci Andersen is a 82 year old male. HPI Presents with a chief complaint of cough, congestion, sore throat over the past 2 days. No fever at home, temp here 99.9. He denies vomiting or diarrhea. No chest pain or shortness of breath. Minimal cough. Feels like his throat is burning. He states he has been in and out of the hospital with his who was in a severe car accident a few months ago. No home COVID test done. Review of Systems Constitutional: Positive for fatigue and fever. HENT: Positive for congestion and sore throat. Negative for ear pain. Respiratory: Positive for cough. Negative for shortness of breath. Cardiovascular: Negative. Gastrointestinal: Negative. Genitourinary: Negative. Musculoskeletal: Negative. All other systems reviewed and are negative. No past medical history on file. Current Outpatient Medications Medication Sig Dispense Refill lithium carbonate ER 450 mg CR tablet Take 1 tablet by mouth two times a day. lithium carbonate ER 450 mg CR tablet 2 tablets once daily. No current facility-administered medications for this visit. PAST SURGICAL HISTORY Procedure Laterality Date LAPAROSCOPIC APPENDECTOMY 08/04/15 normal appendix in [facility] LAPS SURG CHOLECYSTECTOMY W/CHOLANGIOGRAPHY 08/04/15 normal IOC, Acute debbie No family history on file. Social History Tobacco Use Smoking status: Never Smokeless tobacco: Never Objective BP 108/73 Pulse 79 Temp 37.7 C (99.9 F) Resp 22 Wt 107.5 kg (237 lb) SpO2 95% Physical Exam Vitals reviewed. Constitutional: Appearance: Normal appearance. HENT: Head: Normocephalic and atraumatic. Right Ear: Tympanic membrane, ear canal and external ear normal. Left Ear: Tympanic membrane, ear canal and external ear normal. Nose: Congestion present. Mouth/Throat: Mouth: Mucous membranes are moist. Pharynx: Posterior oropharyngeal erythema present. Cardiovascular: Rate and Rhythm: Normal rate and regular rhythm. Heart sounds: Normal heart sounds. Pulmonary: Effort: Pulmonary effort is normal. Breath sounds: Normal breath sounds. Musculoskeletal: Cervical back: Neck supple. Skin: General: Skin is warm and dry. Findings: No rash. Neurological: Mental Status: He is alert. Assessment and Plan ASSESSMENT/PLAN: 1. Viral URI - ICD9: 465.9, ICD10: J06.9 - Discussed viral etiology and rationale for treatment. - Group A strep molecular testing negative - Symptomatic treatment with prn analgesia - Supportive care with fluids and rest - Follow up in 3-5 days if symptoms persist or sooner if worsening of symptoms -If Positive for COVID patient states he had severe COVID 2 years ago and was hospitalized for it. Would recommend oral antiviral treatment. - STREP A MOLECULAR (POC) Josefina Page PA-C documented in this encounter [facility] 02-22-2023 Note . MICRO - Microbiology PROCEDURE: Urine Culture [*1] SOURCE: Urine, Clean Catch BODY SITE: COLLECTED DATE/TIME: 02/21/2023 19:45 EDT RECEIVED DATE/TIME: 02/21/2023 19:46 EDT START DATE/TIME: 02/21/2023 19:46 EDT FREE TEXT SOURCE: FINAL REPORTS Final Report [] Verified Date/Time/Personnel: 02/22/2023 14:40 EDT 10,000 - 50,000 cfu/ml Multiple bacterial morphotypes present. Probable Contamination. Suggest recollection if clinically indicated. Performing Locations *1: This test was performed at: [facility], [address] [place] [address], [id number] , [facility]) 01-08-2023 Note . MICRO - Microbiology PROCEDURE: Urine Culture [*1] SOURCE: Urine, Clean Catch BODY SITE: COLLECTED DATE/TIME: 01/06/2023 12:34 EDT RECEIVED DATE/TIME: 01/06/2023 19:17 EDT START DATE/TIME: 01/06/2023 19:17 EDT FREE TEXT SOURCE: FINAL REPORTS Final Report [] Verified Date/Time/Personnel: 01/08/2023 07:31 EDT >100,000 cfu/ml Enterococcus faecalis PRELIMINARY REPORTS Preliminary Report [] Verified Date/Time/Personnel: 01/07/2023 11:50 EDT >100,000 cfu/ml Enterococcus faecalis JUVENTINO to follow SUSCEPTIBILITY RESULTS Enterococcus faecalis Antibiotic JUVENTINO Dilut JUVENTINO Inter Ampicillin <=2 Susceptible Ciprofloxacin <=1 Susceptible Gentamicin <=500 Susceptible synergy Levofloxacin <=1 Susceptible Nitrofurantoin <=32 Susceptible Vancomycin 2 Susceptible Performing Locations *1: This test was performed at: [facility], [address] [place] [address], [id number]- , [facility] ([place]) 01-07-2023 Hospital Discharge instructions Patient Education 01/07/2023 12:12:40 Acute Urinary Retention, Male, Khwm-ts-Kcjj Acute Urinary Retention, Male Acute urinary retention means that you cannot pee (urinate) at all, or that you pee too little and your bladder is not emptied completely. If it is not treated, it can lead to kidney damage or other serious problems. Follow these instructions at home: Take szbs-jms-jzsyzvm and prescription medicines only as told by your doctor. Ask your doctor what medicines you should stay away from. Do not take any medicine unless your doctor says it is okay to do so. If you were sent home with a tube that drains the bladder (catheter), take care of it as told by your doctor. Drink enough fluid to keep your pee clear or pale yellow. If you were given an antibiotic, take it as told by your doctor. Do not stop taking the antibiotic even if you start to feel better. Do not use any products that contain nicotine or tobacco, such as cigarettes and e-cigarettes. If you need help quitting, ask your doctor. Watch for changes in your symptoms. Tell your doctor about them. If told, track changes in your blood pressure at home. Tell your doctor about them. Keep all follow-up visits as told by your doctor. This is important. Contact a doctor if: You have spasms or you leak pee when you have spasms. Get help right away if: You have chills or a fever. You have a tube that drains the bladder and: ?The tube stops draining pee. ?The tube falls out. You have blood in your pee. Summary Acute urinary retention means that you have problems peeing. It may mean that you cannot pee at all, or that you pee too little. If this condition is not treated, it can lead to kidney damage or other serious problems. If you were sent home with a tube that drains the bladder, take care of it as told by your doctor. Monitor any changes in your symptoms. Tell your doctor about any changes. This information is not intended to replace advice given to you by your health care provider. Make sure you discuss any questions you have with your health care provider. Document Released: 12/20/2008 Document Revised: 09/20/2019 Document Reviewed: 08/05/2017 [email or web address] Patient Education 2020 [employer]. 01/07/2023 11:53:30 Acute Kidney Injury, Adult Acute Kidney Injury, Adult Acute kidney injury is a sudden worsening of kidney function. The kidneys are organs that have several jobs. They filter the blood to remove waste products and extra fluid. They also maintain a healthy balance of minerals and hormones in the body, which helps control blood pressure and keep bones strong. With this condition, your kidneys do not do their jobs as well as they should. This condition ranges from mild to severe. Over time it may develop into long-lasting (chronic) kidney disease. Early detection and treatment may prevent acute kidney injury from developing into a chronic condition. What are the causes? Common causes of this condition include: A problem with blood flow to the kidneys. This may be caused by: ?Low blood pressure (hypotension) or shock. ?Blood loss. ?Heart and blood vessel (cardiovascular) disease. ?Severe oreilly. ?Liver disease. Direct damage to the kidneys. This may be caused by: ?Certain medicines. ?A kidney infection. ?Poisoning. ?Being around or in contact with toxic substances. ?A surgical wound. ?A hard, direct hit to the kidney area. A sudden blockage of urine flow. This may be caused by: ?Cancer. ?Kidney stones. ?An enlarged prostate in males. What are the signs or symptoms? Symptoms of this condition may not be obvious until the condition becomes severe. Symptoms of this condition can include: Tiredness (lethargy), or difficulty staying awake. Nausea or vomiting. Swelling (edema) of the face, legs, ankles, or feet. Problems with urination, such as: ?Abdominal pain, or pain along the side of your stomach (flank). ?Decreased urine production. ?Decrease in the force of urine flow. Muscle twitches and cramps, especially in the legs. Confusion or trouble concentrating. Loss of appetite. Fever. How is this diagnosed? This condition may be diagnosed with tests, including: Blood tests. Urine tests. Imaging tests. A test in which a sample of tissue is removed from the kidneys to be examined under a microscope (kidney biopsy). How is this treated? Treatment for this condition depends on the cause and how severe the condition is. In mild cases, treatment may not be needed. The kidneys may heal on their own. In more severe cases, treatment will involve: Treating the cause of the kidney injury. This may involve changing any medicines you are taking or adjusting your dosage. Fluids. You may need specialized IV fluids to balance your body's needs. Having a catheter placed to drain urine and prevent blockages. Preventing problems from occurring. This may mean avoiding certain medicines or procedures that can cause further injury to the kidneys. In some cases treatment may also require: A procedure to remove toxic wastes from the body (dialysis or continuous renal replacement therapy - CRRT). Surgery. This may be done to repair a torn kidney, or to remove the blockage from the urinary system. Follow these instructions at home: Medicines Take udto-yxq-bptrnsp and prescription medicines only as told by your health care provider. Do not take any new medicines without your health care provider's approval. Many medicines can worsen your kidney damage. Do not take any vitamin and mineral supplements without your health care provider's approval. Many nutritional supplements can worsen your kidney damage. Lifestyle If your health care provider prescribed changes to your diet, follow them. You may need to decrease the amount of protein you eat. Achieve and maintain a healthy weight. If you need help with this, ask your health care provider. Start or continue an exercise plan. Try to exercise at least 30 minutes a day, 5 days a week. Do not use any tobacco products, such as cigarettes, chewing tobacco, and e-cigarettes. If you need help quitting, ask your health care provider. General instructions Keep track of your blood pressure. Report changes in your blood pressure as told by your health care provider. Stay up to date with immunizations. Ask your health care provider which immunizations you need. Keep all follow-up visits as told by your health care provider. This is important. Where to find more information [place] [employer]: www.aakp.org National Kidney Foundation: www.kidney.org [employer]: www.akfinc.org Life Options Rehabilitation Program: ?www.lifeoptions.org ?www.kidneyschool.org Contact a health care provider if: Your symptoms get worse. You develop new symptoms. Get help right away if: You develop symptoms of worsening kidney disease, which include: ?Headaches. ?Abnormally dark or light skin. ?Easy bruising. ?Frequent hiccups. ?Chest pain. ?Shortness of breath. ?End of menstruation in women. ?Seizures. ?Confusion or altered mental status. ?Abdominal or back pain. ?Itchiness. You have a fever. Your body is producing less urine. You have pain or bleeding when you urinate. Summary Acute kidney injury is a sudden worsening of kidney function. Acute kidney injury can be caused by problems with blood flow to the kidneys, direct damage to the kidneys, and sudden blockage of urine flow. Symptoms of this condition may not be obvious until it becomes severe. Symptoms may include edema, lethargy, confusion, nausea or vomiting, and problems passing urine. This condition can usually be diagnosed with blood tests, urine tests, and imaging tests. Sometimes a kidney biopsy is done to diagnose this condition. Treatment for this condition often involves treating the underlying cause. It is treated with fluids, medicines, dialysis, diet changes, or surgery. This information is not intended to replace advice given to you by your health care provider. Make sure you discuss any questions you have with your health care provider. Document Released: 01/17/2012 Document Revised: 06/16/2018 Document Reviewed: 06/24/2017 [email or web address] Patient Education 2020 [employer]. 01/07/2023 11:53:26 Urinary Tract Infection, Adult, Lexc-zc-Crzf Urinary Tract Infection, Adult A urinary tract infection (UTI) is an infection of any part of the urinary tract. The urinary tract includes: The kidneys. The ureters. The bladder. The urethra. These organs make, store, and get rid of pee (urine) in the body. What are the causes? This is caused by germs (bacteria) in your genital area. These germs grow and cause swelling (inflammation) of your urinary tract. What increases the risk? You are more likely to develop this condition if: You have a small, thin tube (catheter) to drain pee. You cannot control when you pee or poop (incontinence). You are female, and: ?You use these methods to prevent : ?A medicine that kills sperm (spermicide). ?A device that blocks sperm (diaphragm). ?You have low levels of a female hormone (estrogen). ?You are . You have genes that add to your risk. You are sexually active. You take antibiotic medicines. You have trouble peeing because of: ?A prostate that is bigger than normal, if you are male. ?A blockage in the part of your body that drains pee from the bladder (urethra). ?A kidney stone. ?A nerve condition that affects your bladder (neurogenic bladder). ?Not getting enough to drink. ?Not peeing often enough. You have other conditions, such as: ?Diabetes. ?A weak disease-fighting system (immune system). ?Sickle cell disease. ?Gout. ?Injury of the spine. What are the signs or symptoms? Symptoms of this condition include: Needing to pee right away (urgently). Peeing often. Peeing small amounts often. Pain or burning when peeing. Blood in the pee. Pee that smells bad or not like normal. Trouble peeing. Pee that is cloudy. Fluid coming from the vagina, if you are female. Pain in the belly or lower back. Other symptoms include: Throwing up (vomiting). No urge to eat. Feeling mixed up (confused). Being tired and grouchy (irritable). A fever. Watery poop (diarrhea). How is this treated? This condition may be treated with: Antibiotic medicine. Other medicines. Drinking enough water. Follow these instructions at home: Medicines Take phvy-ahx-ptrravi and prescription medicines only as told by your doctor. If you were prescribed an antibiotic medicine, take it as told by your doctor. Do not stop taking it even if you start to feel better. General instructions Make sure you: ?Pee until your bladder is empty. ?Do not hold pee for a long time. ?Empty your bladder after sex. ?Wipe from front to back after pooping if you are a female. Use each tissue one time when you wipe. Drink enough fluid to keep your pee pale yellow. Keep all follow-up visits as told by your doctor. This is important. Contact a doctor if: You do not get better after 1 2 days. Your symptoms go away and then come back. Get help right away if: You have very bad back pain. You have very bad pain in your lower belly. You have a fever. You are sick to your stomach (nauseous). You are throwing up. Summary A urinary tract infection (UTI) is an infection of any part of the urinary tract. This condition is caused by germs in your genital area. There are many risk factors for a UTI. These include having a small, thin tube to drain pee and not being able to control when you pee or poop. Treatment includes antibiotic medicines for germs. Drink enough fluid to keep your pee pale yellow. This information is not intended to replace advice given to you by your health care provider. Make sure you discuss any questions you have with your health care provider. Document Released: 12/20/2008 Document Revised: 06/21/2019 Document Reviewed: 01/11/2019 [email or web address] Patient Education 2020 [employer]. Follow Up Care 01/04/2023 19:05:48 With:LUKE SYLVESTER DO Address: [address] [place] [address] [place] [address]- [phone] When: Unknown [facility] 01-07-2023 Note Discharge Instructions Thank you for allowing [facility] to assist you with your healthcare needs. The following is important discharge information regarding your hospital visit. 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 We have been treating you with an antibiotic, Ceftriaxone IV, since you were admitted with improvement in your mental status. The first urine culture appeared to be contaminated so we were unable to identify a specific bacteria causing the infection. We sent another culture yesterday but the results will not be back until tomorrow afternoon. We will follow that culture and let you know if you need a different antibiotic than the one you will be discharged on. We will send in a prescription for Cefdinir 300 mg oral twice daily for 4 more days. You were also noted to have an elevation in your creatinine over baseline levels. We did a renal ultrasound to make sure you did not have a kidney stone obstructing urine flow. This was negative, however, did show that you have an enlarged prostate. While this is not new, it is possible that it is more enlarged now and that you are not emptying your bladder fully when you urinate. This is a problem because it can cause urinary tract infections as well as urine backing up in your urinary system. This can lead to harm to your kidneys. We recommend that you follow-up with urology for recommendation on a different medication or a procedure on your prostate so it is not obstructing urine flow. I sent in a prescription for Flomax 0.4 mg oral daily to help improve urine flow while you wait to see the urologist. We left the phone numbers on your table for Dr. Balaji Matthews in [place] and for [facility] in [place]. You have an appointment next week with your PCP so please keep that appointment for post-hospital follow-up. We checked an MRI yesterday to rule out stroke as a cause of your confusion and weakness. 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 We also repeated a chest x-ray which is showing lower lobe opacities which could reflect developing pneumonia. Your oxygen has been stable through your admission and you have had no increased white blood cell count. We are not convinced this is pneumonia but the antibiotic you are on for UTI should cover a pneumonia. Please return to the ED with any new or concerning symptoms. Scheduled Follow-Up Appointments Appointment Type When With Where Contact InformationPC ED Follow Up 01/13/2023 08:30 AM EDT REBECCA VERMA DO [facility] [address] [place] [address] Follow Up Appointments Follow Up with LUKE SYLVESTER DO When Where: [address] [place] [address]- [phone] The Following Activity and Diet Have Been Ordered for You Discharge Activity - Ordered -- Resume your pre-hospitalization activity, 01/07/23 12:09:00 EDT Discharge Diet - Ordered -- No changes were made to your diet during your hospital stay. Please resume your pre hospitalization diet on discharge., 01/07/23 12:09:00 EDT Medications Please ask your primary doctor or pharmacist before taking any other medication not listed, including over the counter drugs, herbal medications, vitamins and or supplements as they may interact with your home medications. What How Much When Instructions Last Dose New cefdinir (cefdinir 300 mg oral capsule) 1 cap by mouth Every 12 hours Duration: 4 Days Pickup at [facility] 01/07/23 @ 0845 New tamsulosin (Flomax 0.4 mg oral capsule) 1 cap by mouth Once a day after a meal Pickup at [facility] 01/07/23 @ 0845 Unchanged lithium (lithium 450 mg oral tablet, extended release) TAKE 1 TABLET TWICE DAILY 01/07/23 @0845 Pharmacy Information [facility]: [address] [place] [phone] What How Much When Why Comments Stop Taking albuterol (albuterol MDI (90 mcg/ inh) CFC free inhalation aerosol) 2 puff(s) by inhalation Every 6 hours Pneumonia due to COVID-19 virus Duration: 30 Days Stop Taking finasteride (Proscar 5 mg oral tablet) 1 tab(s) by mouth Once a day BPH with obstruction/lower urinary tract symptoms BPH with obstruction/lower urinary tract symptoms Stop Taking tiotropium (Spiriva Respimat 60 ACT 2.5 mcg/ inh inhalation aerosol) 2 puff(s) by inhalation Once a day 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 Bring all medications you take, including over the counter medications, herbals and other supplements with you to your doctor s visit. Patients and families are reminded to discard old lists and to update any records with all medication providers or retail pharmacies. Medication Leaflets cefdinir (SEChris stefan cardenas) Omnicef, Omnicef Omni-Pac What is the most important information I should know about cefdinir? Do not take this medicine if you are allergic to cefdinir, or to similar antibiotics, such as Ceftin, Cefzil, Keflex, and others. What is cefdinir? Cefdinir is a cephalosporin (SEF a low spor in) antibiotic that is used to treat many different types of infections caused by bacteria. Cefdinir may also be used for purposes not listed in this medication guide. What should I discuss with my healthcare provider before taking cefdinir? You should not take this medicine if you are allergic to cefdinir or any other cephalosporin antibiotic (cefadroxil, cefprozil, cefazolin, cefalexin, Keflex, and others). Tell your doctor if you have ever had: kidney disease (or if you are on dialysis); intestinal problems, such as colitis; or an allergy to any drugs (especially penicillins). Cefdinir liquid contains sucrose. Talk to your doctor before using this form of cefdinir if you have diabetes. Tell your doctor if you are or . How should I take cefdinir? Follow all directions on your prescription label and read all medicine guides or instruction sheets. Use the medicine exactly as directed. Shake the oral suspension (liquid) before you measure a dose. Use the dosing syringe provided, or use a medicine dose-measuring device (not a kitchen spoon). You may take cefdinir with or without food. Use this medicine for the full prescribed length of time, even if your symptoms quickly improve. Skipping doses can increase your risk of infection that is resistant to medication. Cefdinir will not treat a viral infection such as the flu or a common cold. Cefdinir can affect the results of certain medical tests. Tell any doctor who treats you that you are using cefdinir. Store at room temperature away from moisture and heat. Throw away any unused cefdinir liquid that is older than 10 days. What happens if I miss a dose? Take the medicine as soon as you can, but skip the missed dose if it is almost time for your next dose. Do not take two doses at one time. What happens if I overdose? Seek emergency medical attention or call the Poison Help line at . Overdose symptoms may include nausea, vomiting, stomach pain, diarrhea, or a seizure. What should I avoid while taking cefdinir? Avoid using antacids or mineral supplements that contain aluminum, magnesium, or iron within 2 hours before or after taking cefdinir. Antacids or iron can make it harder for your body to absorb cefdinir. This does not include baby formula fortified with iron. Antibiotic medicines can cause diarrhea, which may be a sign of a new infection. If you have diarrhea that is watery or bloody, call your doctor before using anti-diarrhea medicine. What are the possible side effects of cefdinir? Get emergency medical help if you have signs of an allergic reaction (hives, difficult breathing, swelling in your face or throat) or a severe skin reaction (fever, sore throat, burning eyes, skin pain, red or purple skin rash with blistering and peeling). Call your doctor at once if you have: severe stomach pain, diarrhea that is watery or bloody (even if it occurs months after your last dose); fever, chills, body aches, flu symptoms; pale skin, easy bruising, unusual bleeding; seizure (convulsions); fever, weakness, confusion; dark colored urine, jaundice (yellowing of the skin or eyes); or kidney problems--little or no urination, swelling in your feet or ankles, feeling tired or short of breath. Common side effects may include: nausea, vomiting, stomach pain, diarrhea; vaginal itching or discharge; headache; or rash (including diaper rash in an taking liquid cefdinir. This is not a complete list of side effects and others may occur. Call your doctor for medical advice about side effects. You may report side effects to FDA at 7-304-VRN-9597. What other drugs will affect cefdinir? Tell your doctor about all your other medicines, especially: probenecid; or vitamin or mineral supplements that contain iron. This list is not complete. Other drugs may affect cefdinir, including prescription and wwml-orm-mcvjjjw medicines, vitamins, and herbal products. Not all possible drug interactions are listed here. Where can I get more information? Your pharmacist can provide more information about cefdinir. Remember, keep this and all other medicines out of the reach of children, never share your medicines with others, and use this medication only for the indication prescribed. Every effort has been made to ensure that the information provided by [employer]. [employer]') is accurate, up-to-date, and complete, but no guarantee is made to that effect. Drug information contained herein may be time sensitive. [employer] information has been compiled for use by healthcare practitioners and consumers in the [place] and therefore [employer] does not warrant that uses outside of the [place] are appropriate, unless specifically indicated otherwise. [employer] drug information does not endorse drugs, diagnose patients or recommend therapy. [employer] drug information is an informational resource designed to assist licensed healthcare practitioners in caring for their patients and/or to serve consumers viewing this service as a supplement to, and not a substitute for, the expertise, skill, knowledge and judgment of healthcare practitioners. The absence of a warning for a given drug or drug combination in no way should be construed to indicate that the drug or drug combination is safe, effective or appropriate for any given patient. [employer] does not assume any responsibility for any aspect of healthcare administered with the aid of information [employer] provides. The information contained herein is not intended to cover all possible uses, directions, precautions, warnings, drug interactions, allergic reactions, or adverse effects. If you have questions about the drugs you are taking, check with your doctor, nurse or pharmacist. Copyright 6427-4761 [employer]. Version: 7.03. Revision Date: 07/21/2020. tamsulosin (rojas neo BRICE sin) Flomax What is the most important information I should know about tamsulosin? Use only as directed. Tell your doctor if you use other medicines or have other medical conditions or allergies. What is tamsulosin? Tamsulosin is used to treat symptoms of benign prostatic hyperplasia (enlarged prostate). Tamsulosin is not approved for use in women or children. Tamsulosin may also be used for purposes not listed in this medication guide. What should I discuss with my healthcare provider before taking tamsulosin? You should not use tamsulosin if you are allergic to it. Tell your doctor if you have ever had: prostate cancer; low blood pressure; an allergy to sulfa drugs; or liver or kidney disease. Tamsulosin can affect your pupils. If you have cataract surgery, tell the surgeon you use this medicine. Ask your doctor about prostate cancer screening before and while taking tamsulosin. Tamsulosin is not approved for use in women. How should I take tamsulosin? Follow all directions on your prescription label and read all medication guides or instruction sheets. Use the medicine exactly as directed. Tamsulosin is usually taken once a day, within 30 minutes after the same meal each day. Swallow the capsule whole and do not crush, chew, break, or open it. Your blood pressure will need to be checked often. If you stop using this medicine, do not start it again without your doctor's advice. Store tightly closed at room temperature, away from moisture and heat. What happens if I miss a dose? Take the medicine as soon as you can, but skip the missed dose if it is almost time for your next dose. Do not take two doses at one time. If you stop using this medicine for several days in a row, do not start it again without your doctor's advice. What happens if I overdose? Seek emergency medical attention or call the Poison Help line at . What should I avoid while taking tamsulosin? Avoid driving or hazardous activity until you know how this medicine will affect you. Your reactions could be impaired. Avoid getting up too fast from a sitting or lying position, or you may feel dizzy. What are the possible side effects of tamsulosin? Get emergency medical help if you have signs of an allergic reaction (hives, difficult breathing, swelling in your face or throat) or a severe skin reaction (fever, sore throat, burning eyes, skin pain, red or purple skin rash with blistering and peeling). Tamsulosin may lower your blood pressure and may cause dizziness or fainting, especially when you first start taking it or your dose changes. Stop using tamsulosin and call your doctor at once if you have: a light-headed feeling, like you might pass out; or a painful erection that lasts 4 hours or longer. Common side effects may include: abnormal ejaculation, decreased amount of semen; dizziness, drowsiness, weakness; runny or stuffy nose, sore throat, cough; back pain, chest pain, headache; nausea, diarrhea; tooth problems; blurred vision; sleep problems (insomnia); or decreased interest in sex. This is not a complete list of side effects and others may occur. Call your doctor for medical advice about side effects. You may report side effects to FDA at 3-773-AEG-6009. What other drugs will affect tamsulosin? Sometimes it is not safe to use certain medicines at the same time. Some drugs can affect your blood levels of other drugs you use, which may increase side effects or make the medicines less effective. Tell your doctor about all your current medicines. Many drugs can affect tamsulosin, especially: cimetidine; medicine to treat impotence or pulmonary arterial hypertension--avanafil (Stendra), sildenafil (Viagra, Revatio), tadalafil (Adcirca, Cialis), or vardenafil (Levitra, Staxyn); or drugs to treat high blood pressure or a prostate disorder--alfuzosin, doxazosin, prazosin, terazosin, silodosin. This list is not complete and many other drugs may affect tamsulosin. This includes prescription and qmmn-omv-yajcjju medicines, vitamins, and herbal products. Not all possible drug interactions are listed here. Where can I get more information? Your doctor or pharmacist can provide more information about tamsulosin. Remember, keep this and all other medicines out of the reach of children, never share your medicines with others, and use this medication only for the indication prescribed. Every effort has been made to ensure that the information provided by [employer]. ('[employer]') is accurate, up-to-date, and complete, but no guarantee is made to that effect. Drug information contained herein may be time sensitive. [employer] information has been compiled for use by healthcare practitioners and consumers in the [place] and therefore [employer] does not warrant that uses outside of the [place] are appropriate, unless specifically indicated otherwise. [employer]'s drug information does not endorse drugs, diagnose patients or recommend therapy. [employer] drug information is an informational resource designed to assist licensed healthcare practitioners in caring for their patients and/or to serve consumers viewing this service as a supplement to, and not a substitute for, the expertise, skill, knowledge and judgment of healthcare practitioners. The absence of a warning for a given drug or drug combination in no way should be construed to indicate that the drug or drug combination is safe, effective or appropriate for any given patient. [facility] does not assume any responsibility for any aspect of healthcare administered with the aid of information [facility] provides. The information contained herein is not intended to cover all possible uses, directions, precautions, warnings, drug interactions, allergic reactions, or adverse effects. If you have questions about the drugs you are taking, check with your doctor, nurse or pharmacist. Copyright [id number] [employer]. Version: 05.18. Revision Date: 10/08/2022. Education Materials Acute Urinary Retention, Male Acute urinary retention means that you cannot pee (urinate) at all, or that you pee too little and your bladder is not emptied completely. If it is not treated, it can lead to kidney damage or other serious problems. Follow these instructions at home: Take lziv-ghu-bvncmro and prescription medicines only as told by your doctor. Ask your doctor what medicines you should stay away from. Do not take any medicine unless your doctor says it is okay to do so. If you were sent home with a tube that drains the bladder (catheter), take care of it as told by your doctor. Drink enough fluid to keep your pee clear or pale yellow. If you were given an antibiotic, take it as told by your doctor. Do not stop taking the antibiotic even if you start to feel better. Do not use any products that contain nicotine or tobacco, such as cigarettes and e-cigarettes. If you need help quitting, ask your doctor. Watch for changes in your symptoms. Tell your doctor about them. If told, track changes in your blood pressure at home. Tell your doctor about them. Keep all follow-up visits as told by your doctor. This is important. Contact a doctor if: You have spasms or you leak pee when you have spasms. Get help right away if: You have chills or a fever. You have a tube that drains the bladder and: ? The tube stops draining pee. ? The tube falls out. You have blood in your pee. Summary Acute urinary retention means that you have problems peeing. It may mean that you cannot pee at all, or that you pee too little. If this condition is not treated, it can lead to kidney damage or other serious problems. If you were sent home with a tube that drains the bladder, take care of it as told by your doctor. Monitor any changes in your symptoms. Tell your doctor about any changes. This information is not intended to replace advice given to you by your health care provider. Make sure you discuss any questions you have with your health care provider. Document Released: 12/20/2008 Document Revised: 09/20/2019 Document Reviewed: 08/05/2017 [email or web address] Patient Education 2020 [employer]. Acute Kidney Injury, Adult Acute kidney injury is a sudden worsening of kidney function. The kidneys are organs that have several jobs. They filter the blood to remove waste products and extra fluid. They also maintain a healthy balance of minerals and hormones in the body, which helps control blood pressure and keep bones strong. With this condition, your kidneys do not do their jobs as well as they should. This condition ranges from mild to severe. Over time it may develop into long-lasting (chronic) kidney disease. Early detection and treatment may prevent acute kidney injury from developing into a chronic condition. What are the causes? Common causes of this condition include: A problem with blood flow to the kidneys. This may be caused by: ? Low blood pressure (hypotension) or shock. ? Blood loss. ? Heart and blood vessel (cardiovascular) disease. ? Severe oreilly. ? Liver disease. Direct damage to the kidneys. This may be caused by: ? Certain medicines. ? A kidney infection. ? Poisoning. ? Being around or in contact with toxic substances. ? A surgical wound. ? A hard, direct hit to the kidney area. A sudden blockage of urine flow. This may be caused by: ? Cancer. ? Kidney stones. ? An enlarged prostate in males. What are the signs or symptoms? Symptoms of this condition may not be obvious until the condition becomes severe. Symptoms of this condition can include: Tiredness (lethargy), or difficulty staying awake. Nausea or vomiting. Swelling (edema) of the face, legs, ankles, or feet. Problems with urination, such as: ? Abdominal pain, or pain along the side of your stomach (flank). ? Decreased urine production. ? Decrease in the force of urine flow. Muscle twitches and cramps, especially in the legs. Confusion or trouble concentrating. Loss of appetite. Fever. How is this diagnosed? This condition may be diagnosed with tests, including: Blood tests. Urine tests. Imaging tests. A test in which a sample of tissue is removed from the kidneys to be examined under a microscope (kidney biopsy). How is this treated? Treatment for this condition depends on the cause and how severe the condition is. In mild cases, treatment may not be needed. The kidneys may heal on their own. In more severe cases, treatment will involve: Treating the cause of the kidney injury. This may involve changing any medicines you are taking or adjusting your dosage. Fluids. You may need specialized IV fluids to balance your body's needs. Having a catheter placed to drain urine and prevent blockages. Preventing problems from occurring. This may mean avoiding certain medicines or procedures that can cause further injury to the kidneys. In some cases treatment may also require: A procedure to remove toxic wastes from the body (dialysis or continuous renal replacement therapy - CRRT). Surgery. This may be done to repair a torn kidney, or to remove the blockage from the urinary system. Follow these instructions at home: Medicines Take tqex-vvb-ahnweiz and prescription medicines only as told by your health care provider. Do not take any new medicines without your health care provider's approval. Many medicines can worsen your kidney damage. Do not take any vitamin and mineral supplements without your health care provider's approval. Many nutritional supplements can worsen your kidney damage. Lifestyle If your health care provider prescribed changes to your diet, follow them. You may need to decrease the amount of protein you eat. Achieve and maintain a healthy weight. If you need help with this, ask your health care provider. Start or continue an exercise plan. Try to exercise at least 30 minutes a day, 5 days a week. Do not use any tobacco products, such as cigarettes, chewing tobacco, and e-cigarettes. If you need help quitting, ask your health care provider. General instructions Keep track of your blood pressure. Report changes in your blood pressure as told by your health care provider. Stay up to date with immunizations. Ask your health care provider which immunizations you need. Keep all follow-up visits as told by your health care provider. This is important. Where to find more information [place] [employer]: www.aakp.org National Kidney Foundation: www.kidney.org [employer]: www.akfinc.org Life Options Rehabilitation Program: ? www.lifeoptions.org ? www.kidneyschool.org Contact a health care provider if: Your symptoms get worse. You develop new symptoms. Get help right away if: You develop symptoms of worsening kidney disease, which include: ? Headaches. ? Abnormally dark or light skin. ? Easy bruising. ? Frequent hiccups. ? Chest pain. ? Shortness of breath. ? End of menstruation in women. ? Seizures. ? Confusion or altered mental status. ? Abdominal or back pain. ? Itchiness. You have a fever. Your body is producing less urine. You have pain or bleeding when you urinate. Summary Acute kidney injury is a sudden worsening of kidney function. Acute kidney injury can be caused by problems with blood flow to the kidneys, direct damage to the kidneys, and sudden blockage of urine flow. Symptoms of this condition may not be obvious until it becomes severe. Symptoms may include edema, lethargy, confusion, nausea or vomiting, and problems passing urine. This condition can usually be diagnosed with blood tests, urine tests, and imaging tests. Sometimes a kidney biopsy is done to diagnose this condition. Treatment for this condition often involves treating the underlying cause. It is treated with fluids, medicines, dialysis, diet changes, or surgery. This information is not intended to replace advice given to you by your health care provider. Make sure you discuss any questions you have with your health care provider. Document Released: 01/17/2012 Document Revised: 06/16/2018 Document Reviewed: 06/24/2017 [email or web address] Patient Education 2020 [employer]. Urinary Tract Infection, Adult A urinary tract infection (UTI) is an infection of any part of the urinary tract. The urinary tract includes: The kidneys. The ureters. The bladder. The urethra. These organs make, store, and get rid of pee (urine) in the body. What are the causes? This is caused by germs (bacteria) in your genital area. These germs grow and cause swelling (inflammation) of your urinary tract. What increases the risk? You are more likely to develop this condition if: You have a small, thin tube (catheter) to drain pee. You cannot control when you pee or poop (incontinence). You are female, and: ? You use these methods to prevent : ? A medicine that kills sperm (spermicide). ? A device that blocks sperm (diaphragm). ? You have low levels of a female hormone (estrogen). ? You are . You have genes that add to your risk. You are sexually active. You take antibiotic medicines. You have trouble peeing because of: ? A prostate that is bigger than normal, if you are male. ? A blockage in the part of your body that drains pee from the bladder (urethra). ? A kidney stone. ? A nerve condition that affects your bladder (neurogenic bladder). ? Not getting enough to drink. ? Not peeing often enough. You have other conditions, such as: ? Diabetes. ? A weak disease-fighting system (immune system). ? Sickle cell disease. ? Gout. ? Injury of the spine. What are the signs or symptoms? Symptoms of this condition include: Needing to pee right away (urgently). Peeing often. Peeing small amounts often. Pain or burning when peeing. Blood in the pee. Pee that smells bad or not like normal. Trouble peeing. Pee that is cloudy. Fluid coming from the vagina, if you are female. Pain in the belly or lower back. Other symptoms include: Throwing up (vomiting). No urge to eat. Feeling mixed up (confused). Being tired and grouchy (irritable). A fever. Watery poop (diarrhea). How is this treated? This condition may be treated with: Antibiotic medicine. Other medicines. Drinking enough water. Follow these instructions at home: Medicines Take ncqr-qhu-ovlhtvj and prescription medicines only as told by your doctor. If you were prescribed an antibiotic medicine, take it as told by your doctor. Do not stop taking it even if you start to feel better. General instructions Make sure you: ? Pee until your bladder is empty. ? Do not hold pee for a long time. ? Empty your bladder after sex. ? Wipe from front to back after pooping if you are a female. Use each tissue one time when you wipe. Drink enough fluid to keep your pee pale yellow. Keep all follow-up visits as told by your doctor. This is important. Contact a doctor if: You do not get better after 1 2 days. Your symptoms go away and then come back. Get help right away if: You have very bad back pain. You have very bad pain in your lower belly. You have a fever. You are sick to your stomach (nauseous). You are throwing up. Summary A urinary tract infection (UTI) is an infection of any part of the urinary tract. This condition is caused by germs in your genital area. There are many risk factors for a UTI. These include having a small, thin tube to drain pee and not being able to control when you pee or poop. Treatment includes antibiotic medicines for germs. Drink enough fluid to keep your pee pale yellow. This information is not intended to replace advice given to you by your health care provider. Make sure you discuss any questions you have with your health care provider. Document Released: 12/20/2008 Document Revised: 06/21/2019 Document Reviewed: 01/11/2019 [email or web address] Patient Education 2020 [employer]. Additional Information VACCINATE! IT SAVES LIVES! Members of the community who have not yet received the COVID-19 vaccine and would like to receive it can visit one of [facility] vaccine clinics. There are many vaccine clinic locations within the [facility]. For locations and available times, please visit https://gettheshot.coronavirus.o nho.gov/. It is important to note that some COVID mobile vaccine clinics are held outdoors and may be canceled in rainy or stormy conditions. To learn more about pediatric vaccinations (ages 5-11), we invite you to visit the [facility] webpage. [email or web address] [email or web address]-Myydx-Odfdguommxi-[email or web address] To learn more about the COVID-19 vaccine, we invite you to visit the CDC website for a list of frequently asked questions.https://www.cdc.gov/co ronavirus/2019-ncov/vaccines/faq .html [employer] Patient Portal Access Instructions: Stay connected with your healthcare team and access your personal medical information anytime with the [employer] Patient Portal. Please follow the directions below to create your [employer] account: 1.Access the email account you provided upon registration to the hospital/physician office.2.Look for an invitation email from [facility].3.Open the email and access the invitation link: Accept Invitation to [employer].4.Fill in the required montalvo to create your account. To access your account, visit [email or web address]. Click the blue button labeled Access Patient Portal and then log in with the username and password that you created in the steps above. You will be able to view your test results, lab results, a summary of your visits, upcoming appointments and more. There is also a convenient messaging option where you can send secure messages to your provider. In addition, you will have the ability to download any documents or summaries to your computer and/or send the information securely to a physician. Remember that your healthcare information is confidential, so carefully consider who you will allow to register on the [facility] Patient Portal for access to your information. You can also access the [facility] Patient Portal on the [email or web address]. Simply click on Patient Portal and then log into your account. If you would like to receive a full copy of your medical records, please contact the [facility] Medical Records Department by calling [phone], Tuesday through Tuesday between 8 a.m. and 4:30 p.m. HOW TO SAFELY DISPOSE OF PRESCRIPTION MEDICATIONS Please use one of the following methods to safely dispose of your unused medications. 1.Use a drug disposal kit: the drug disposal pouch allows you to safely discard your old and unused drugs. Ask your nurse to give you one when you are discharged.2.Visit a local take-back location: Many local pharmacies and police departments have programs that collect old and unwanted prescription drugs. Call your local pharmacy or go to http://Uploadcare.eFans/7A4Kp8z to find one close to you.3.Make use of household items: Use cat litter or old coffee grounds to dispose medications if other options are not available. Mix your drugs with these household products, seal them in an airtight container and throw it into the garbage. Call [facility]: [phone] to be sure your drugs can be disposed of in this way. Some medicines may require a different approach.4.Never flush your medications down the toilet. IF YOU HAVE BEEN PRESCRIBED AN OPIOID FOR PAIN If you have been prescribed an opioid (such as hydrocodone, oxycodone or morphine), it is critical to understand the possible side effects and risks of opioid pain medications. Even when taken as directed, opioids can have several side effects including: Tolerance, meaning you might need to take more of a medication for the same pain relief. Nausea, vomiting and/or constipation. Sleepiness, dizziness, dry mouth, confusion, depression or itching. Physical dependence, meaning you have withdrawal symptoms when a medication is stopped, can develop within a few days. KNOW YOUR RESPONSIBILITIES It is important to know exactly how much and how often to take the opioid pain medications you are prescribed. Never take opioids in higher amounts or more often than prescribed. Do not combine opioids with alcohol or other drugs that cause drowsiness, such as benzodiazepines, also known as benzos, including diazepam and alprazolam, muscle relaxants or sleep aids. Never sell or share prescription opioids. This is illegal. Store opioids in a secure place and out of reach of others (including children, family, friends and visitors). The last page of this document has been signed and retained as a CHART COPY. Signatures Patient Education Materials Acute Urinary Retention, Male, Yxnt-vd-Twlj Acute Kidney Injury, Adult Urinary Tract Infection, Adult, Turq-eq-Qmnt Medication Leaflets cefdinir, tamsulosin My discharge plan and instructions have been reviewed and explained to me and I,LACI ANDERSEN M understand my current condition and have read and understand these discharge instructions. I have received a written copy of the plan/instructions. If I have questions, I am aware that I should contact my doctor. Patient/911 Telecommunicator Signature: Date/Time: Relationship to Patient: Witness Name/Signature: Date/Time: [facility] 01-06-2023 Note ORIGINAL EXAMINATION: MRI OF THE BRAIN WITHOUT CONTRAST 01/06/2023 12:37 pm TECHNIQUE: Multiplanar multisequence MRI of the brain was performed without the administration of intravenous contrast. COMPARISON: Head CT 01/04/2023 HISTORY: ORDERING SYSTEM PROVIDED HISTORY: Reason for Exam: confusion Dizziness. Unable to walk. FINDINGS: INTRACRANIAL STRUCTURES/VENTRICLES: There is no acute infarct. There is a small focus of T2 shine through in the right frontal lobe corresponding to a small remote infarct which demonstrates associated susceptibility artifact consistent with prior hemorrhage. 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 No mass effect or midline shift. No evidence of an acute intracranial hemorrhage. The ventricles are mildly enlarged with commensurate enlargement of the sulci most consistent with mild age-related volume loss. The sellar/suprasellar regions appear unremarkable. The normal signal voids within the major intracranial vessels appear maintained. ORBITS: The visualized portion of the orbits demonstrate no acute abnormality. SINUSES: Areas of mild mucosal thickening seen in the paranasal sinuses. Trace nonspecific right mastoid fluid. Left mastoids appear clear. BONES/SOFT TISSUES: The bone marrow signal intensity appears normal. The soft tissues demonstrate no acute abnormality. IMPRESSION: 1. No acute intracranial abnormality. 2. 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 3. 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 Interpreted by: Danuta Riddle MD Preliminary Report By: Danuta Riddle MD Electronically signed By Danuta Riddle MD Dictated Date: 01/06/2023 12:55:05 PM Prelim Date: 01/06/2023 1:01:07 PM Sign Date: 01/06/2023 1:01:07 PM Ordering Provider: TARI ROBLES [facility] 01-06-2023 Note ORIGINAL EXAMINATION: TWO XRAY VIEWS OF THE CHEST01/06/2023 12:02 pm COMPARISON: January 04, 2023 HISTORY: ORDERING SYSTEM PROVIDED HISTORY: Reason for Exam: low oxygen saturations, fever FINDINGS: Cardiac silhouette is unchanged. Coarse interstitial airspace opacities are similar. Bibasilar airspace opacities are more pronounced than prior study. No pleural effusion or pneumothorax. Vascular congestion. No acute osseous abnormality. IMPRESSION: Progression lower lobe airspace opacities, may reflect developing. Continued follow-up suggested. Interpreted by: Michele Weaver DO Preliminary Report By: Michele Weaver DO Electronically signed By Michele Weaver DO Dictated Date: 01/06/2023 12:58:05 PM Prelim Date: 01/06/2023 1:00:21 PM Sign Date: 01/06/2023 1:00:21 PM [facility]ing [facility] Note Date of Service 01/06/2023 Subjective Patient seen and evaluated this morning while resting in bed. He states he still had some mild dizziness when up yesterday but has not been up yet today. He adds that he feels better today. Patient is alert and oriented x 3 but remains slow to answer questions. His urine culture came back as possibly being contaminated. We will collect another and send again for culture. Patient reported to nursing that he felt like he was slurring words. His CT of the brain revealed an age-determinate small hypodensity in the right frontal lobe. We will send him for MRI of the brain today to rule out CVA. Therapy saw patient and stated he was doing better today but they recommend home with a walker and home health PT. Patient denies any fever, chills, cough, shortness of breath, chest pain, abdominal pain, nausea or dysuria. All questions answered. Daughter later updated at the bedside. Objective Vitals and Measurements T: 37.3 C (Oral) TMIN: 36.6 C (Oral) TMAX: 38.3 C (Oral) HR: 74(Apical) RR: 24 BP: 112/64 SpO2: 92% WT: 110.5 kg Intake and Output 7AM Yesterday to 7AM Today Intake and Output (Last 24 hours) Intake Oral Intake 1600.00 Output Urine Voided 1425.00 Diaper Count 4.00 Total Summary Total Intake 1600.00 Total Output 1425.00 Fluid Balance 175.00 Physical Exam General: No acute distress. Patient is alert and appropriate, remains slow to answer questions. Skin: No rash. Skin is warm, dry and intact. HEENT: Head is normocephalic, atraumatic. Pupils are equal, round and reactive. Neck: Supple. No lymphadenopathy, thyromegaly. Lungs: Bilaterally clear but diminished without crepitation or wheeze. Unlabored. Heart: Heart is regular rhythm, S1, S2. No murmurs, gallops or rubs. Abdomen: Abdomen is soft, nontender. Bowels sounds present in all quadrants. Extremities: No clubbing, cyanosis, or edema. Peripheral pulses palpable. No calf tenderness. Neurological: Patient is awake and alert to person, place and time. Following simple commands, moving all extremities. Weight Current Weight Dosing Weight: 109.1 kg (01/05/23) Current Weight: 110.5 kg (01/06/23) Dosing Weight: 109.1 kg (01/04/23) Medications Medications (11) Active Scheduled: (3) cefTRIAXone 1 gram(s), IV Piggyback, qDay lithium 450 mg ER tablet 450 mg 1 tab(s), Oral, BID pantoprazole 20 mg EC tablet 40 mg 2 tab(s), Oral, BIDAC Continuous: (0) PRN: (8) acetaminophen 325 mg Tablet 650 mg 2 tab(s), Oral, q4h acetaminophen 325 mg Tablet 650 mg 2 tab(s), Oral, q4h Al hydrox/Mg hydrox/simethicone 200-200-20 mg/5 mL Susp UD 15 mL, Oral, q4h albuterol - ipratropium 2.5 mg-0.5 mg/3 mL Inhal Josephine UD 3 mL, Inhalation, q4hRT calcium carbonate 500 mg Chewable 500 mg 1 tab(s), Chewed, TID docusate sodium 100 mg Capsule 100 mg 1 cap(s), Oral, BID melatonin 3 mg tablet 6 mg 2 tab(s), Oral, qHS ondansetron 2 mg/ 1 mL 2 mL INJ 4 mg 2 mL, IV Push, q4h Lab Results 01/06 05:04 WBC: 6.4 Hgb: 13.0 L Hct: 38.9 L Platelet: 134 Neutrophil %: 81.8 H Glucose Level: 106 Sodium Level: 138 Potassium Level: 4.3 BUN: 22 H Creatinine Lvl (s): 1.60 H 01/05 05:51 WBC: 10.4 Hgb: 12.5 L Hct: 36.9 L Platelet: 174 Neutrophil %: 84.7 H Glucose Level: 131 H Sodium Level: 135 L Potassium Level: 3.9 BUN: 26 H Creatinine Lvl (s): 1.80 H Imaging Results and Diagnostics US Renal Result Date: January 05, 2023 Verified By: LUZ NAVA MD CLINICAL STATEMENT: IMPRESSION: Prominent proximal right ureter, but no definite right hydronephrosis. There is a right parapelvic cyst. Enlarged prostate gland. Postvoid residual. CT Head or Brain w/o Contrast Result Date: January 04, 2023 Verified By: TITUS CASTRO MD CLINICAL STATEMENT: IMPRESSION: Age indeterminate small hypodensity in the right frontal lobe superiorly, new from July 02, 2021. No acute intracranial hemorrhage. RECOMMENDATIONS:Unavailable XR Chest 1 View Result Date: January 04, 2023 Verified By: TITUS CASTRO MD CLINICAL STATEMENT: IMPRESSION: Low lung volumes. Diffuse reticular interstitial markings which appears similar to prior exam and may be accentuated by low lung volumes although difficult to exclude underlying infiltrate. EKG EKG [AO] - Completed -- 01/05/23 1:44:00 EDT Assessment/Plan 1. Urinary tract infection Acute, new onset, accompanied by confusion and lightheadedness *Urinalysis positive for nitrites and large leukocyte esterace. *Continue Rocephin 1 gram IV daily. *Urine culture obtained but showing possible contamination. *Obtain clean catch urine for repeat culture. *Repeat CBC and BMP in the am. 2. Acute kidney injury Acute, new onset, unknown etiology *Baseline creatinine/GFR on 07/23/2021 was 1.21/58. *Creatinine/GFR today 1.60/42. *Stop IV fluids. *Renal ultrasound revealed an enlarged prostate, postvoid residual. *Monitor urine output. *Repeat BMP in the am. 3. Dizziness Resolved. 4. Fall Acute, new onset, likely secondary to UTI and/or dehydration, resolved *Consult placed to PT and OT to evaluate and treat - recommend home health PT and walker use at all times. 5. Depression Chronic *Continue [place] at current dose. 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 DVT prophylaxis with SCDs. Code status: Full Code. Labs, diagnostic test and progress notes reviewed as noted in HPI. Plan of care discussed with patient. All questions answered. Patient verbalizes understanding and is agreeable with plan of care. This case was discussed with collaborating physician, Dr. Deonte Victoria. Time Spent 35 minutes Digitally Signed by TARI ROBLES on 01/06/2023 12:54 PM [facility] 01-06-2023 Note ORIGINAL EXAMINATION: MRI OF THE BRAIN WITHOUT CONTRAST 01/06/2023 12:37 pm TECHNIQUE: Multiplanar multisequence MRI of the brain was performed without the administration of intravenous contrast. COMPARISON: Head CT 01/04/2023 HISTORY: ORDERING SYSTEM PROVIDED HISTORY: Reason for Exam: confusion Dizziness. Unable to walk. FINDINGS: INTRACRANIAL STRUCTURES/VENTRICLES: There is no acute infarct. There is a small focus of T2 shine through in the right frontal lobe corresponding to a small remote infarct which demonstrates associated susceptibility artifact consistent with prior hemorrhage. 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 No mass effect or midline shift. No evidence of an acute intracranial hemorrhage. The ventricles are mildly enlarged with commensurate enlargement of the sulci most consistent with mild age-related volume loss. The sellar/suprasellar regions appear unremarkable. The normal signal voids within the major intracranial vessels appear maintained. ORBITS: The visualized portion of the orbits demonstrate no acute abnormality. SINUSES: Areas of mild mucosal thickening seen in the paranasal sinuses. Trace nonspecific right mastoid fluid. Left mastoids appear clear. BONES/SOFT TISSUES: The bone marrow signal intensity appears normal. The soft tissues demonstrate no acute abnormality. IMPRESSION: 1. No acute intracranial abnormality. 2. 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 3. 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 Interpreted by: Danuta Riddle MD Preliminary Report By: Danuta Riddle MD Electronically signed By Danuta Riddle MD Dictated Date: 01/06/2023 12:55:05 PM Prelim Date: 01/06/2023 1:01:07 PM Sign Date: 01/06/2023 1:01:07 PM Ordering Provider: TARI ROBLES [facility] 01-06-2023 Note ORIGINAL EXAMINATION: TWO XRAY VIEWS OF THE CHEST01/06/2023 12:02 pm COMPARISON: January 04, 2023 HISTORY: ORDERING SYSTEM PROVIDED HISTORY: Reason for Exam: low oxygen saturations, fever FINDINGS: Cardiac silhouette is unchanged. Coarse interstitial airspace opacities are similar. Bibasilar airspace opacities are more pronounced than prior study. No pleural effusion or pneumothorax. Vascular congestion. No acute osseous abnormality. IMPRESSION: Progression lower lobe airspace opacities, may reflect developing. Continued follow-up suggested. Interpreted by: Michele Weaver DO Preliminary Report By: Michele Weaver DO Electronically signed By Michele Weaver DO Dictated Date: 01/06/2023 12:58:05 PM Prelim Date: 01/06/2023 1:00:21 PM Sign Date: 01/06/2023 1:00:21 PM Ordering Provider: TARI ROBLES [facility] 01-06-2023 Note . MICRO - Microbiology PROCEDURE: Urine Culture [*1] SOURCE: Urine BODY SITE: COLLECTED DATE/TIME: 01/04/2023 19:54 EDT RECEIVED DATE/TIME: 01/05/2023 15:02 EDT START DATE/TIME: 01/05/2023 15:02 EDT FREE TEXT SOURCE: FINAL REPORTS Final Report [] Verified Date/Time/Personnel: 01/06/2023 09:16 EDT >100,000 cfu/ml Multiple bacterial morphotypes present. Probable Contamination. Suggest recollection if clinically indicated. Performing Locations *1: This test was performed at: [facility], [address] [place] [address], [phone] , [facility] ([place]) 01-05-2023 Evaluation + Plan note Extrac bull from: Title:History and Physical Author:TARI ROBLES [employer]-AEROLOGIST Date:01/05/23 1. Urinary tract infection Acute, new onset, accompanied by confusion and lightheadedness *Urinalysis positive for nitrites and large leukocyte esterace. *Continue Rocephin 1 gram IV daily. *Urine culture obtained and pending. *Repeat CBC and BMP in the am. 2. Acute kidney injury Acute, new onset, unknown etiology *Baseline creatinine/GFR on 07/23/2021 was 1.21/58. *Creatinine/GFR today 1.80/36. *Start NS @ 75cc/hr x 1 liter. *Obtain renal ultrasound to rule out obstructive uropathy. *Monitor urine output. *Repeat BMP in the am. 3. Dizziness Acute, new onset, likely secondary to UTI and/or dehydration *Start NS @ 75cc/hr x 1 liter. *Monitor vital signs per protocol. 4. Fall Acute, new onset, likely secondary to UTI and/or dehydration *Consult placed to PT and OT to evaluate and treat. 5. Depression Chronic *Continue current home medication after lithium level back. 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 DVT prophylaxis with SCDs. Code status: Full Code. Labs, diagnostic test and progress notes reviewed as noted in HPI. Plan of care discussed with patient. All questions answered. Patient verbalizes understanding and is agreeable with plan of care. This case was discussed with collaborating physician, Dr. Deonte Victoria. Future Appointments Appointment Date:01/13/2023 08:30:00 AM Scheduled Provider:REBECCA VERMA DO Location:[facility] Appointment Type:PC OV ED Follow Up [facility] 06-21-2023 Note ORIGINAL HISTORY: Obstructive uropathy COMPARISON: No FINDINGS: The right kidney measures 12.4 cm in length. There is no hydronephrosis. There is a septated 19 mm right parapelvic cyst. The proximal ureter measures about 13 mm in diameter. Left kidney measures 12.1 cm in length. There is no hydronephrosis. The cortex is within normal limits for thickness and echogenicity. The there is significant postvoid residual in the bladder, about 300 mL. The prostate gland is enlarged at 5.1 cm in maximum diameter. IMPRESSION: Prominent proximal right ureter, but no definite right hydronephrosis. There is a right parapelvic cyst. Enlarged prostate gland. Postvoid residual. Interpreted by: Luz Nava MD Preliminary Report By: Luz Nava MD Electronically signed By Luz Nava MD Dictated Date: 01/05/2023 9:53:50 AM Prelim Date: 01/05/2023 9:56:16 AM Sign Date: 01/05/2023 9:56:16 AM Ordering Provider: TARI ROBLES [facility]06-21-2023 Note ORIGINAL HISTORY: Obstructive uropathy COMPARISON: No FINDINGS: The right kidney measures 12.4 cm in length. There is no hydronephrosis. There is a septated 19 mm right parapelvic cyst. The proximal ureter measures about 13 mm in diameter. Left kidney measures 12.1 cm in length. There is no hydronephrosis. The cortex is within normal limits for thickness and echogenicity. The there is significant postvoid residual in the bladder, about 300 mL. The prostate gland is enlarged at 5.1 cm in maximum diameter. IMPRESSION: Prominent proximal right ureter, but no definite right hydronephrosis. There is a right parapelvic cyst. Enlarged prostate gland. Postvoid residual. Interpreted by: Luz Nava MD Preliminary Report By: Luz Nava MD Electronically signed By Luz Nava MD Dictated Date: 01/05/2023 9:53:50 AM Prelim Date: 01/05/2023 9:56:16 AM Sign Date: 01/05/2023 9:56:16 AM Ordering Provider: [facility]06-21-2023 Note Date of Service 01/05/2023 Chief Complaint C/o dizziness/lightheadedness, fall today off commode and confusion at home. Family states he was working outside with spray paint today, when she got home he was dizzy/lightheaded and was slightly confused. Patient a&o x4 on arrival, acting appropriately History of Present Illness Patient is an 82-year-old male, who follows with Dr. Luke Sylvester with a past medical history significant for BPH, depression and COPD, presented to [facility] emergency department with the chief complaint of dizziness and confusion at home. Per the ED physician note, patient's stated that patient was outside working with spray paint on Tuesday afternoon. When she returned home, he was very confused and was not answering questions appropriately. states that patient attempted to sleep off his confusion and appeared to be at his baseline mental status yesterday morning, however, he was still slow to answer questions. Yesterday, he was using the bathroom and attempted to get off the toilet, became lightheaded and fell to the floor. He landed on his buttocks and did not hit his head or lose consciousness. Patient reports some urinary frequency. He denies any fever, chills, cough, shortness of breath, chest pain, abdominal pain, nausea or dysuria. In the emergency department, CT of the head revealed age indeterminate small hypodensity in the right frontal lobe superiorly, new from July 02, 2021. No acute intracranial hemorrhage. Chest x-ray Low lung volumes. Diffuse reticular interstitial markings which appears similar to prior exam and may be accentuated by low lung volumes although difficult to exclude underlying infiltrate. CBC remarkable for hemoglobin 12.7 and hematocrit 38.0. BMP significant for glucose 166, BUN 25 and creatinine 1.69. Troponin negative. Lactic acid 1.4. Urinalysis significant for moderate blood, 100 protein,positive nitrite, large leukocyte esterace, urine RBC 0-5, urine WBC loaded, and 4+ bacteria. Urineculture obtained and pending. Patient was administered 1 liter of NS and 1 gram Rocephin IV in the ED. Patient was transferred to medical surgical unit for observation. We will continue Rocephin 1 gram IV daily pending results of urine culture. We will start NS @ 75cc/hr x 1 liter today. We will consult PT and OT to evaluate and treat. Repeat CBC and BMP in the am. Review of Systems Review of Systems: Reviewed in detail, including general health, HEENT, cardiovascular, respiratory, gastrointestinal, genitourinary, endocrine, musculoskeletal, neurologic, vascular, skin, and psychiatric. All are negative except for those listed in the History of Present Illness. Physical Exam Vitals and Measurements T: 38.7 C (Oral) TMIN: 37.7 C (Oral) TMAX: 38.7 C (Oral) HR: 77(Apical) RR: 16 BP: 110/58 SpO2: 97%HT: 185.4 cm WT: 109.1 kg BMI: 31.74 Weight Dosing Weight: 109.1 kg (01/05/23) Dosing Weight: 109.1 kg (01/04/23) General: No acute distress. Patient is alert and appropriate. Skin: No rash. Skin is warm, dry and intact. HEENT: Head is normocephalic, atraumatic. Pupils are equal, round and reactive. Neck: Supple. No lymphadenopathy, thyromegaly. Lungs: Bilaterally clear but diminished without crepitation or wheeze. Unlabored. Heart: Heart is regular rhythm, S1, S2. No murmurs, gallops or rubs. Abdomen: Abdomen is soft, nontender. Bowels sounds present in all quadrants. Extremities: No clubbing, cyanosis, or edema. Peripheral pulses palpable. No calf tenderness. Neurological: Patient is awake and alert to person, place and time. Following simple commands, moving all extremities. Continues to be slow to answer questions. Lab Results 01/05 05:51 WBC: 10.4 Hgb: 12.5 L Hct: 36.9 L Platelet: 174 Neutrophil %: 84.7 H Glucose Level: 131 H Sodium Level: 135 L Potassium Level: 3.9 BUN: 26 H Creatinine Lvl (s): 1.80 H 01/04 19:54 WBC: 10.4 Hgb: 12.7 L Hct: 38.0 L Platelet: 182 Neutrophil %: 87.8 H Glucose Level: 166 H Sodium Level: 137 Potassium Level: 4.0 BUN: 25 H Creatinine Lvl (s): 1.69 H Imaging Results and Diagnostics CT Head or Brain w/o Contrast Result Date: January 04, 2023 Verified By: TITUS CASTRO MD CLINICAL STATEMENT: IMPRESSION: Age indeterminate small hypodensity in the right frontal lobe superiorly, new from July 02, 2021. No acute intracranial hemorrhage. RECOMMENDATIONS:Unavailable XR Chest 1 View Result Date: January 04, 2023 Verified By: TITUS CASTRO MD CLINICAL STATEMENT: IMPRESSION: Low lung volumes. Diffuse reticular interstitial markings which appears similar to prior exam and may be accentuated by low lung volumes although difficult to exclude underlying infiltrate. Assessment/Plan 1. Urinary tract infection Acute, new onset, accompanied by confusion and lightheadedness *Urinalysis positive for nitrites and large leukocyte esterace. *Continue Rocephin 1 gram IV daily. *Urine culture obtained and pending. *Repeat CBC and BMP in the am. 2. Acute kidney injury Acute, new onset, unknown etiology *Baseline creatinine/GFR on 07/23/2021 was 1.21/58. *Creatinine/GFR today 1.80/36. *Start NS @ 75cc/hr x 1 liter. *Obtain renal ultrasound to rule out obstructive uropathy. *Monitor urine output. *Repeat BMP in the am. 3. Dizziness Acute, new onset, likely secondary to UTI and/or dehydration *Start NS @ 75cc/hr x 1 liter. *Monitor vital signs per protocol. 4. Fall Acute, new onset, likely secondary to UTI and/or dehydration *Consult placed to PT and OT to evaluate and treat. 5. Depression Chronic *Continue current home medication after lithium level back. 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 DVT prophylaxis with SCDs. Code status: Full Code. Labs, diagnostic test and progress notes reviewed as noted in HPI. Plan of care discussed with patient. All questions answered. Patient verbalizes understanding and is agreeable with plan of care. This case was discussed with collaborating physician, Dr. Deonte Victoria. 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 Pre-op evaluation Procedure/Surgical History Right Knee replacement: 03/2021 Appendectomy Extraction of wisdom tooth Tonsillectomy Cholecystectomy Medications Home Medications (4) Active albuterol MDI (90 mcg/inh) CFC free inhalation aerosol 2 puff(s), Inhalation, q6h lithium 450 mg oral tablet, extended release Proscar 5 mg oral tablet 5 mg = 1 tab(s), Oral, qDay Spiriva Respimat 60 ACT 2.5 mcg/inh inhalation aerosol 2 puff(s), Inhalation, qDay Allergies NKA Social History Smoking Status - 04/24/2018 Never smoker Alcohol - No Risk, 04/24/2018 Use: Never., 12/09/2020 Employment/School Status: Retired., 12/09/2020 Home/Environment Domestic Concerns: None. Living situation: Home/Independent. 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 Appetite Good. Eating Difficulties None. Caffeine intake amount: coffee x 1 serving/day., 01/12/2021 Substance Abuse - No Risk, 04/24/2018 Use: Never., 12/09/2020 Tobacco Nicotine Use: Never (less than 100 in lifetime). Exposure to Tobacco Smoke Lives in non-smoking home., 01/12/2021 Family History Family history is unknown Immunizations SARS-CoV-2 mRNA (tozinameran) vaccine: 0.3 unknown unit (02/22/21) Code Status Code Status - Ordered -- 01/04/23 23:09:00 EDT, Full Code, Constant Order Digitally Signed by TARI ROBLES on 01/05/2023 11:39 AM [facility]06-20-2023 Note ORIGINAL EXAMINATION: CT OF THE HEAD WITHOUT CONTRAST 01/04/2023 9:21 pm TECHNIQUE: CT of the head was performed without the administration of intravenous contrast. Automated exposure control, iterative reconstruction, and/or weight based adjustment of the mA/kV was utilized to reduce the radiation dose to as low as reasonably achievable. COMPARISON: CT head July 02, 2021. HISTORY: ORDERING SYSTEM PROVIDED HISTORY: Reason for Exam: AMS FINDINGS: BRAIN/VENTRICLES: There is no acute intracranial hemorrhage, mass effect or midline shift. No abnormal extra-axial fluid collection. Age indeterminate small hypodensity in the right frontal lobe superiorly, new from July 02, 2021.. There is no evidence of hydrocephalus. Global parenchymal volume loss. ORBITS: The visualized portion of the orbits demonstrate no acute abnormality. SINUSES: The visualized paranasal sinuses and mastoid air cells demonstrate no acute abnormality. SOFT TISSUES/SKULL: No acute abnormality of the visualized skull or soft tissues. IMPRESSION: Age indeterminate small hypodensity in the right frontal lobe superiorly, new from July 02, 2021. No acute intracranial hemorrhage. RECOMMENDATIONS: Unavailable Interpreted by: Titus Castro Preliminary Report By: Titus Castro Electronically signed By Titus Castro Dictated Date: 01/04/2023 9:24:03 PM Prelim Date: 01/04/2023 9:27:31 PM Sign Date: 01/04/2023 9:27:31 PM Ordering Provider: [facility]06-20-2023 Note ORIGINAL EXAMINATION: ONE XRAY VIEW OF THE CHEST 01/04/2023 9:19 pm COMPARISON: Radiograph of the chest September 01, 2021 HISTORY: ORDERING SYSTEM PROVIDED HISTORY: Reason for Exam: AMS FINDINGS: Cardiomediastinal silhouette is likely unchanged in size given differences in inspiratory effort. Costophrenic angles are sharp. No pneumothorax. Low lung volumes. Diffuse reticular interstitial markings. No definite focal consolidation although a device overlies the left lung inferiorly. Degenerative changes of the spine. IMPRESSION: Low lung volumes. Diffuse reticular interstitial markings which appears similar to prior exam and may be accentuated by low lung volumes although difficult to exclude underlying infiltrate. Interpreted by: Titus Castro Preliminary Report By: Titus Castro Electronically signed By Titus Castro Dictated Date: 01/04/2023 9:22:10 PM Prelim Date: 01/04/2023 9:23:07 PM Sign Date: 01/04/2023 9:23:07 PM Ordering Provider: [facility]06-20-2023 Note ORIGINAL EXAMINATION: CT OF THE HEAD WITHOUT CONTRAST 01/04/2023 9:21 pm TECHNIQUE: CT of the head was performed without the administration of intravenous contrast. Automated exposure control, iterative reconstruction, and/or weight based adjustment of the mA/kV was utilized to reduce the radiation dose to as low as reasonably achievable. COMPARISON: CT head July 02, 2021. HISTORY: ORDERING SYSTEM PROVIDED HISTORY: Reason for Exam: AMS FINDINGS: BRAIN/VENTRICLES: There is no acute intracranial hemorrhage, mass effect or midline shift. No abnormal extra-axial fluid collection. Age indeterminate small hypodensity in the right frontal lobe superiorly, new from July 02, 2021.. There is no evidence of hydrocephalus. Global parenchymal volume loss. ORBITS: The visualized portion of the orbits demonstrate no acute abnormality. SINUSES: The visualized paranasal sinuses and mastoid air cells demonstrate no acute abnormality. SOFT TISSUES/SKULL: No acute abnormality of the visualized skull or soft tissues. IMPRESSION: Age indeterminate small hypodensity in the right frontal lobe superiorly, new from July 02, 2021. No acute intracranial hemorrhage. RECOMMENDATIONS: Unavailable Interpreted by: Titus Castro Preliminary Report By: Titus Castro Electronically signed By Titus Castro Dictated Date: 01/04/2023 9:24:03 PM Prelim Date: 01/04/2023 9:27:31 PM Sign Date: 01/04/2023 9:27:31 PM Ordering Provider: [facility]06-20-2023 Note ORIGINAL EXAMINATION: ONE XRAY VIEW OF THE CHEST 01/04/2023 9:19 pm COMPARISON: Radiograph of the chest September 01, 2021 HISTORY: ORDERING SYSTEM PROVIDED HISTORY: Reason for Exam: AMS FINDINGS: Cardiomediastinal silhouette is likely unchanged in size given differences in inspiratory effort. Costophrenic angles are sharp. No pneumothorax. Low lung volumes. Diffuse reticular interstitial markings. No definite focal consolidation although a device overlies the left lung inferiorly. Degenerative changes of the spine. IMPRESSION: Low lung volumes. Diffuse reticular interstitial markings which appears similar to prior exam and may be accentuated by low lung volumes although difficult to exclude underlying infiltrate. Interpreted by: Titus Castro Preliminary Report By: Titus Castro Electronically signed By Titus Castro Dictated Date: 01/04/2023 9:22:10 PM Prelim Date: 01/04/2023 9:23:07 PM Sign Date: 01/04/2023 9:23:07 PM Ordering Provider: [facility]12-08-2021 Hospital Discharge instructions Patient Education 06/24/2021 13:17:21 Acute Bronchitis Acute Bronchitis Your healthcare provider has told you that you have acute bronchitis. Bronchitis is infection or inflammation of the bronchial tubes (airways in the lungs). Normally, air moves easily in and out of the airways. Bronchitis narrows the airways, making it harder for air to flow in and out of the lungs. This causes symptoms such as shortness of breath, coughing up yellow or green mucus, and wheezing.Bronchitis can be acute or chronic. Acute means the condition comes on quickly and goes away in a short time, usually within 3 to 10 days. Chronic means a condition lasts a long time and often comes back. What causes acute bronchitis? Acute bronchitis almost always starts as a viral respiratory infection, such as a cold or the flu. Certain factors make it more likely for a cold or flu to turn into bronchitis. These include being very young, being elderly, having a heart or lung problem, or having a weak immune system. Cigarette smoking also makes bronchitis more likely. When bronchitis develops, the airways become swollen. The airways may also become infected with bacteria. This is known as a secondary infection. Diagnosing acute bronchitis Your healthcare provider will examine you and ask about your symptoms and health history. You may also have a sputum culture to test the fluid in your lungs. Chest X-rays may be done to look for infection in the lungs. Treating acute bronchitis Bronchitis usually clears up as the cold or flu goes away. You can help feel better faster by doingthe following: Take medicine as directed. You may be told to take ibuprofen or other [id number] medicines. These help relieve inflammation in your bronchial tubes. Your healthcare provider may prescribe an inhaler to help open up the bronchial tubes. Most of the time, acute bronchitis is caused by a viral in fection. Antibiotics are usually not prescribed for viral infections. Drink plenty of fluids, such as water, juice, or warm soup. Fluids loosen mucus so that you can cough it up. This helps you breathe more easily. Fluids also prevent dehydration. Make sure you get plenty of rest. Do not smoke. Do not allow anyone else to smoke in your home. Recovery and follow-up Follow up with your doctor as you are told. You will likely feel better in a week or two. But a drycough can linger beyond that time. Let your doctor know if you still have symptoms (other than a dry cough) after 2 weeks, or if you re prone to getting bronchial infections. Take steps to protect yourself from future infections. These steps include stopping smoking and avoiding tobacco smoke, washing your hands often, and getting a yearly flu shot. When to call your healthcare provider Call the healthcare provider if you have any of the following: Fever of 100.4 F (38.0 C) or higher, or as advised Symptoms that get worse, or new symptoms Trouble breathing Symptoms that don t start to improve within a week, or within 3 days of taking antibiotics 4470-1940 [employer]. [address] [place] [address]. All rights reserved. This information is not intended as a substitute for professional medical care. Always follow yourhealthcare professional's instructions. Follow Up Care 06/24/2021 12:55:16 With:LUKE SYLVESTER DO Address: [address] [place] [phone] When:2-4 days [facility] 09-10-2021 [facility]09-10-2021 NoteOccupational Therapy Inpatient Evaluation Medical Diagnosis: (R) knee OA s/p (R) TKA performed by Dr Alejo on 03/26/21 OCCUPATIONAL PROFILE AND HISTORY Therapy Diagnosis: Rank Code Description 1 Z74.1 Need for assistance with personal care Demographics: Age: 80Y Gender: Male Primary Language: Nauruan Preferred Language: Nauruan Referring Service/Team: Orthopedics Past Medical History: Bipolar, hepatitis, inflammation of the lungs Past Surgical History He had cholecystectomy, appendectomy, back surgery, hernia History of Present Illness: Date of Surgery: 03/26/2021 Additional Information: Elective surgery Date of Admission: 03/26/2021 6:54:00 AM Rehabilitation Precautions/Restrictions: knee precautions, WBAT (R) LE Imaging/Testing Results from Chart: NA Prior Level of Functioning: Self Care: Patient completed the activities by him/herself, with or without an assistive device, with no assistance from a helper. Functional Cognition: Patient completed the activities by him/herself, with or without an assistive device, with no assistance from a helper. Pt reports independence with all activity prior to admission. He reports ambulating wihtout an AD Patient/Caregiver Goals: Patient's functional goals: go home Pain: Patient currently has pain. Location: R knee Type: Acute Quality: Aching. Pain Scale: Visual Analog (VAS). Patient reports a pain level of 6 out of 10. Patient's acceptable level of pain 0 out of 10. Pain does not interfere with any activity at this time. Pain is alleviated by: pain meds Pain is exacerbated by: movement [facility] PATIENT NAME: LACI ANDERSEN [address] MEDICAL REC #: [id number] [place] [address] ADMIT DATE: SERVICE DATE: 03/27/21 Occupational Therapy Assessment ATTENDING JONY: Keron Alejo DO Interventions: Repositioned patient. Home Environment: Patient lives with , who is able to assist patient at discharge. Patient lives in a single family home. Home is single level. Patient is not required to manage stairs within the home. First floor full bathroom setup available. There are 2 steps to enter the home, with bilateral handrails. There is no ramp available to enter home. 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 Activities of Daily Living Current Status Previous Status ADLs Feeding Independent - Grooming Modified independent - Bathing-UE Independent - Bathing-LE Modified independent - Dressing-UE Independent - Dressing-LE Modified independent - Toileting Modified independent - AM-PAC Daily Activities: Putting On/Taking Off Lower Body Clothing: No help needed Bathing:: No help needed Toileting: No help needed Putting On/Taking Off Upper Body Clothing: No help needed Grooming: No help needed Eating a Meal: No help needed Raw Score = 24 , AM-PAC t-Scale Score = 57.54 and G-Code Modifier = CH Functional Mobility: Bed Mobility: NT pt in chair pre and post session Transfers: Patient transferred sit to/from stand requiring supervision. Patient used the following equipment: Arms of chair. multiple reps Patient transferred to/from the toilet requiring supervision. Patient used the following equipment: Grab bars. Raised toilet seat. Locomotion/Gait/Ambulation: Patient was supervision with gait/ambulation for 125 ft . Patient requires the following assistive device(s): Rolling walker. slowed pacing, no LOB, denied dizziness [facility] PATIENT NAME: LACI ANDERSEN [address] MEDICAL REC #: [id number] [place] [address] ADMIT DATE: SERVICE DATE: 03/27/21 Occupational Therapy Assessment ATTENDING JONY: Keron Alejo DO Range of Motion Upper Extremity: Grossly within functional limits Strength Upper Extremity: Grossly within functional limits Balance: Dynamic balance in a seated position is good. Dynamic balance in a standing position is good. w/FWW Tone/Spasticity: No relevant impairments. Sensation: pt denies numbness/tingling Fine Motor Coordination: Bilateral Hands: Fine motor coordination is not impaired. Gross Motor Coordination: Upper extremity gross motor coordination is intact. Edema: Edema is present. Location: Right lower extremity edema- Minimal. Location: Lower Extremity Function: R knee dressing dry and intact Vision: Within functional limits. Cognition: AandOx4, pt able to follow multistep commands Perceptual Skills: Within functional limits. Psychosocial: Within normal limits Interventions: Evaluation LOW Complexity (more content not included)...[facility]09-09-2021 NotePhysical Therapy Inpatient Evaluation Medical Diagnosis: (R) knee OA s/p (R) TKA performed by Dr Alejo on 03/26/21 Therapy Diagnosis: Rank Code Description 1 R26.2 Difficulty in walking, not elsewhere classified 2 R26.81 Unsteadiness on feet Demographics: Age: 80Y Gender: Male Primary Language: Nauruan Preferred Language: Nauruan Referring Service/Team: Orthopedics Past Medical History: Bipolar, hepatitis, inflammation of the lungs Past Surgical History He had cholecystectomy, appendectomy, back surgery, hernia History of Present Illness: Date of Surgery: 03/26/21 Additional Information: Elective surgery Date of Admission: 03/26/2021 6:54:00 AM Rehabilitation Precautions/Restrictions: knee precautions, WBAT (R) LE Imaging/Testing Results from Chart: NA SUBJECTIVE Prior Level of Functioning: Indoor Mobility: Patient completed the activities by him/herself, with or without an assistive device, with no assistance from a helper. Stairs: Patient completed the activities by him/herself, with or without an assistive device, with no assistance from a helper. Pt reports independence with all activity prior to admission. He reports ambulating wihtout an AD Prior Device Use: Performance GG110. Prior Device Walker Yes Patient/Caregiver Goals: Patient's functional goals: go home Pain: Patient currently without complaints of pain. Home Environment: Patient lives with , who is able to assist patient at discharge. Patient lives in a single family home. Home is single level. Patient is not required to manage stairs within the home. First floor full bathroom [facility] PATIENT NAME: LACI ANDERSEN [address] MEDICAL REC #: [id number] [place] [address] ADMIT DATE: SERVICE DATE: 03/26/21 Physical Therapy Assessment Report ATTENDING PHY: Keron Alejo DO setup available. There are 2 steps to enter the home, with bilateral handrails. There is no ramp available to enter home. Equipment Owned: Grab bars in tub/shower., Shower chair., Rolling walker. 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 Orientation: Oriented to person, place, time, and situation. Following Commands: Patient is able to follow 3-step commands. Range of Motion Upper Extremity: Grossly within functional limits Lower Extremity: Grossly within functional limits Strength Upper Extremity: Grossly within functional limits Lower Extremity: Grossly within functional limits Tone/Spasticity: No relevant impairments. Sensation: Grossly intact. Balance: Static balance in a seated position is good. Dynamic balance in a seated position is good. Static balance in a standing position is good. Dynamic balance in a standing position is fair. Therapeutic/Functional Activities: Bed Mobility: Patient moves from supine to/from sit requiring stand by assistance. Cuing for hand placement and safety Transfers: Patient transferred sit to/from stand requiring stand by assistance. Cuing for hand placement and safety Locomotion/Gait/Ambulation: Patient was stand by assist with gait/ambulation for 300ft . Patient requires the following assistive device(s): Rolling walker. Pt demonstrated slow but steady gait. He was able to maintain his balance. Gait qulaity increased as the session progressed Ambulation completed at:1455 Gait Deviations: No gait deviations. Stairs: Not assessed. AM-PAC Basic Mobility: Turning Over in Bed: A little difficulty [facility] PATIENT NAME: LACI ANDERSEN[address] MEDICAL REC #: [id number] [place] [address] ADMIT DATE: SERVICE DATE: 03/26/21 Physical Therapy Assessment Report ATTENDING PHY: Keron Alejo DO Sitting/Standing Chair with Arms: A little difficulty Lying on Back to Sitting on Side of Bed: A little difficulty Moving To/From Bed to Chair: A little help needed Walking in Hospital Room: A little help needed Climbing 3-5 Steps with Railing: A little help needed Raw Score = 18 , AM-PAC t-Scale Score = 43.63 and G-Code Modifier = CK Vital Signs: Vitals: SPO2 93% on room air Interventions: Evaluation MOD Complexity Therapeutic Activities: Pt was educated on knee precautions, weight bearing status, and knee HEP. Pt was also educated on proper pain management strategies including rest, ice, and elevation Pain Reassessment: No significant change in pain during session. Education: The patient's preferred learning method is: Explanation Barriers to Learning: No barriers Learning Needs: Plan of care. Education Provided: Precautions. Plan of care. Bed mo (more content not included)...[facility] Future Appointments Appointment Date:07/14/2021 09:00:00 AM Scheduled Provider:LUKE SYLVESTER DO Location:[facility] Appointment Type:PC OV Follow Up [facility] Evaluation + Plan note Future Appointments Appointment Date:09/15/2021 11:00:00 AM Scheduled Provider:LUKE SYLVESTER DO Location:[facility] Appointment Type:PC OV Future Scheduled Tests Laboratory* C-Reactive Protein 08/11/21 * D-Dimer 08/11/21 * Complete Blood Count 08/11/21 * Complete Metabolic Panel 08/11/21 Radiology* XR Chest 2 Views (PA & Lateral) 08/18/21 * XR Chest 2 Views (PA & Lateral) 09/01/21 [facility] Evaluation noteNo assessment information available [facility] Work Phone: Evaluation note* Diagnosis Viral URI- Primary Acute upper respiratory infections of unspecified site [facility] Mouth sore- Primary Other and unspecified diseases of the oral soft tissues [facility] Mouth pain- Primary Other and unspecified diseases of the oral soft tissues [facility] Diagnosis Pneumonia of both lungs due to infectious organism, unspecified part of lung- Primary Acute cough Mouth pain Other and unspecified diseases of the oral soft tissues Itching Unspecified pruritic disorder Acute cough [facility] Diagnosis Acute cough documented in this encounter [facility] note* Diagnosis Acute constipation- Primary Unspecified constipation Abdominal pain, unspecified abdominal location [facility] Narrative No data available for this section [facility] Hospital Discharge instructions No data available for this section [facility] Summary Purpose Family History No Family History Records Found Relationship Condition Age at Onset Recorded Date/T rebecca Unknown Family History?- Unknown July 10:30pm Family History?- Unknown July 10:30pm Advance Directives No Advanced Directives Records Found Advance Directive Response Recorded Date/ Time Advance Directives No August 02, 2015 1:34am Living Will No June 09 10:51pm Power of Personal Care Worker No June 09, 2021 10:51pm Chief Complaint and Reason for Visit Chief Complaint POST COVID POST COVID Health Concerns Infection Onset Date Last Indicated Resolved Time COVID-19 Confirmed 07/03/2023 07/03/2023 Additional Source Comments (unrecognized sect ion and content) No Status Records FoundNo Status Records FoundNo Status Records FoundNo Status Records FoundNo Status Records FoundNo Status Records Found INFORMATION SOURCE (unrecogn ized section and content) DATE CREATED AUTHOR 09/07/2021 [facility] Lashae bacon Bailey DATE CREATED AUTHOR AUTHOR'S ORGANIZ ATION 02/17/2023 [facility] DATE CREATED AUTHOR AUTHOR'S ORGANIZ ATION 02/23/2023 [facility] ([place]) DATE CREATED AUTHOR AUTHOR'S ORGANIZ ATION 11/06/2024 [facility] DATE CREATED AUTHOR AUTHOR'S ORGANIZ ATION 11/22/2024 [facility] DATE CREATED AUTHOR AUTHOR'S ORGANIZ ATION 11/22/2024 [facility] Goals (unrecognized section and content) Goals may be documented in a n alternate section Patient Care team informatio n (unrecognized section and content) Reciprocating Drill 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 Relationship Specialty Start Date End Date Luke Sylvester DO PCP - General Family Medicine 08/04/15 Reciprocating Drill Operator Relationship Specialty Start Date End Date Luke Sylvester DO PCP - General Family Medicine 08/04/15 Reciprocating Drill Operator Relationship Specialty Start Date End Date Luke Sylvester DO PCP - General Family Medicine 08/04/15 Reciprocating Drill Operator Relationship Specialty Start Date End Date Luke Sylvester DO PCP - General Family Medicine 08/04/15 Reciprocating Drill Operator Relationship Specialty Start Date End Date Luke Sylvester DO PCP - General Family Medicine 08/04/15 Reciprocating Drill Operator Relationship Specialty Start Date End Date Luke Sylvester DO PCP - General Family Medicine 08/04/15 Source Comments (unrecognize d section and content) In the event this informatio n is protected by the Federal Confidentiality of Alcohol and Drug Abuse Patient Records regulations: The Federal rules restrict any use of the information to criminally investigate or prosecute any alcohol or drug abuse patient.[facility] the event this information is protected by the Federal Confidentiality of Alcohol and Drug Abuse Patient Records regulations: The Federal rules restrict any use of the information to criminally investigate or prosecute any alcohol or drug abuse patient.[facility] the event this information is protected by the Federal Confidentiality of Alcohol and Drug Abuse Patient Records regulations: The Federal rules restrict any use of the information to criminally investigate or prosecute any alcohol or drug abuse patient.[facility] Center[facility] the event this information is protected by the Federal Confidentiality of Alcohol and Drug Abuse Patient Records regulations: The Federal rules restrict any use of the information to criminally investigate or prosecute any alcohol or drug abuse patient.[facility] Center[facility] the event this information is protected by the Federal Confidentiality of Alcohol and Drug Abuse Patient Records regulations: The Federal rules restrict any use of the information to criminally investigate or prosecute any alcohol or drug abuse patient.[facility] Center[facility] the event this information is protected by the Federal Confidentiality of Alcohol and Drug Abuse Patient Records regulations: The Federal rules restrict any use of the information to criminally investigate or prosecute any alcohol or drug abuse patient.[facility] Center[facility] the event this information is protected by the Federal Confidentiality of Alcohol and Drug Abuse Patient Records regulations: The Federal rules restrict any use of the information to criminally investigate or prosecute any alcohol or drug abuse patient.[facility] Center[facility] the event this information is protected by the Federal Confidentiality of Alcohol and Drug Abuse Patient Records regulations: The Federal rules restrict any use of the information to criminally investigate or prosecute any alcohol or drug abuse patient.[facility] Center[facility] the event this information is protected by the Federal Confidentiality of Alcohol and Drug Abuse Patient Records regulations: The Federal rules restrict any use of the information to criminally investigate or prosecute any alcohol or drug abuse patient.[facility] Reason for Visit (unrecogniz ed section and content) Reason Comments Fatigue Congestion, cough, s ore throat, x 3 days Reason Comments Mouth Sores mouth burning with h eadache x 4-5 days Reason Comments Mouth/Lip Problem Sores in mouth and t hroat x1 week, seen 03/18 for same Reason Comments Results Reason Comments Mouth pain Persistent with extr a phlegm x 3 months & itchiness in chest area externally FOR RECORDS PERTAINING TO PATIENTS WHO ARE OR HAVE BEEN ENROLLED IN A CHEMICAL DEPENDENCY/SUBSTANCEABUSE PROGRAM, SOME INFORMATION MAY BE OMITTED. This clinical summary was aggregated from multiple sources. Caution should be exercised in using it in the provision of clinical care. This summary normalizes information from multiple sources, and as a consequence, information in this document may materially change the coding, format and clinical context of patient data. In addition, data may be omitted in some cases. CLINICAL DECISIONS SHOULD BE BASED ON THE PRIMARY CLINICAL RECORDS. [facility] [employer] [facility]. provides no warranty or guarantee of the accuracy or completeness of information in this document.
[2025-03-09 14:45] LABS: Anion Gap 11 (5-15); BUN 22 mg/dL (4-19); BUN/Creat Ratio 15.7 RATIO (10-20); Calcium,Total 9.5 mg/dL (7.6-11.0); Carbon Dioxide 24.0 mmol/L (21.0-32.0); Chloride 104 mmol/L (98-108); Estimated Creatinine Clearance 52.17 ml/min (50-250); Glucose 100 mg/dL (70-99); Potassium 4.0 mmol/L (3.3-5.1)
--- NOTE | 2025-03-09 14:46 | RAD_ITS ---
PROCEDURE: CHEST 1 VIEW (PORTABLE) 03/09/2025 REASON FOR EXAM: Shortness of breath TECHNIQUE: Frontal view of the chest. COMPARISON: CT chest of August 13, 2021 FINDINGS: Hardware: EKG lead wires project over the chest Heart: Normal size Lungs: Patchy scattered airspace opacities are present suggesting pneumonia or chronic ground-glass process as shown on the prior CT exam from 2021 Bones: Old healed right rib fractures Other: RAD/Chest 1 View (Portable) IMPRESSION: Ground-glass airspace disease, scattered, also similar to prior CT exam of Natalio tompkins 02/10/2022 Reading [facility] [place]
--- NOTE | 2025-03-09 14:46 | ED.VIS.DYS ---
HPI History of Present Illness Chief Complaint: Shortness of Breath Informant: patient and family Narrative Narrative: 84-year-old presenting with 2 to 3 days of dyspnea on exertion, occasional chest tightness, minor nonproductive cough, generalized weakness, and today felt like when he would move his head he would have vertigo symptoms that felt like things were spinning or swooshing [id number] in his head, to the point of make him feel off balance and he almost fell. Denies any tinnitus, earache, acute hearing loss. No vision changes. No focal neurologic symptoms or weakness, but he feels weak all over. No fevers or chills that he knows of. No known sick contacts. Some of the symptoms remind him of episodes of COVID that he has had a couple times in the past. He denies any known history of heart or lung problems that he can think of. He states has had a 12 pound weight gain recently. He is not sure if he has had any swelling in his legs or not. [facility] Medical History Macular degeneration Chest pain Bipolar disorder Medical History no medical history Home Medications ?Medication ?Instructions ?Recorded ?Last Taken ?Type lithium carbonate 450 mg 450 mg PO BID 08/01/15 09/18/16 History tablet,extended release psyllium husk 3.4 gram/5.4 gram 1 tbsp PO DAILY #660 grams 11/17/24 Unknown Rx oral powder (Metamucil) Allergy/AdvReac Type Severity Reaction Status Date / Time No Known Allergies Allergy Verified 03/09/25 13:26 Family History no significant family his Surgical History History of hernia repair Hx of appendectomy History of cholecystectomy Surgical History no surgical history Social History Smoking Status: Unknown if ever smoked ROS ROS ED Constitutional Constitutional ED: Reports body ache(s), chills, fatigue, fever(s), malaise, weakness, weight gain and other Details: body aches are chronic, unchanged ; Denies headache(s) Eyes Eyes: Denies change in vision or diplopia ENT ENT ED: Reports vertigo; Denies rhinorrhea or sore throat Cardiovascular Cardiovascular: Reports chest pain; Denies orthopnea, palpitations or radiating jaw, neck or arm pain Respiratory/Chest Respiratory/Chest: Reports chest tightness, cough, dyspnea and dyspnea on exertion; Denies orthopnea or sputum Gastrointestinal Gastrointestinal: Denies abdominal pain, diarrhea, nausea or vomiting Genitourinary Genitourinary ED: Denies dysuria or hematuria Musculoskeletal Musculoskeletal: Denies back pain or neck pain Integumentary Denies abscess or rash Neurologic Neurologic: Denies headache(s), paresthesias or weakness Psychiatric Psychiatric: Denies anxiety or suicidal thoughts EXAM Physical Exam Const Vital Signs: 03/09/25 13:24 03/09/25 13:26 03/09/25 13:47 Temperature 97.8 F 97.8 F Temperature Source Oral Oral Pulse Rate 63 51 L Respiratory Rate 18 15 Respiratory Effort Respiratory Depth Respiratory Pattern Blood Pressure 131/71 H 114/75 Blood Pressure Mean 91 88 Pulse Ox 97 95 97 Oxygen Delivery Method Room Air Room Air Room Air 03/09/25 13:47 03/09/25 14:19 03/09/25 15:23 Temperature Temperature Source Pulse Rate 54 L Respiratory Rate 14 Respiratory Effort Normal Respiratory Depth Normal Respiratory Pattern Normal Blood Pressure 100/66 Blood Pressure Mean 77 Pulse Ox 97 94 Oxygen Delivery Method Room Air Room Air 03/09/25 16:04 Temperature Temperature Source Pulse Rate Respiratory Rate Respiratory Effort Respiratory Depth Respiratory Pattern Blood Pressure 113/66 Blood Pressure Mean 81 Pulse Ox Oxygen Delivery Method Positive well nourished and well developed Constitutional Narrative: well-appearing, no distress, lying recumbent and conversive in full sentences General Appearance ED: well developed and NAD HEENT Reports TM's clear and moist mucous membranes normocephalic and atraumatic Tympanic Membrane ED: Yes TM's clear right (Not able to see left TM due to cerumen) Eyes PERRL and EOMs intact bilaterally Neck full ROM, no lymphadenopathy and supple Resp normal respiratory effort Resp Narrative: Few high-pitched bibasilar rhonchi otherwise clear and equal Cardio regular rate and regular rhythm Rate: Negative for tachycardic GI non-tender and non-distended Auscultation: normoactive bowel sounds Palpation: soft Back/Spine no CVA tenderness General Back: other FROM Extremity normal to inspection and no calf tenderness General Extremety ED: Yes edema; Negative for pulses abnormal or tenderness General Extremity: edema bilateral lower extremity Details: mild; Negative for pulses abnormal Neuro oriented x3, CN's II-XII intact bilaterally and no sensory deficits noted Sensorium / Orientation: awake and alert Motor Exam: general weakness Psych mental status grossly normal Skin no rashes or lesions noted and no wounds MDM MDM MDM Narrative Medical decision making narrative: EKG shows A-fib actually with a slow conduction rate, he is in the high 50s. Looking back at his old EKGs this appears to be new for him. I discussed with him and family, and he has never been told he is in A-fib before. His 1 view chest x-ray on my interpretation appears to show some mild pulmonary edema. Clinically this is consistent, and his significantly elevated proBNP at 3000 is also consistent. Patient is stable his vital signs look good, he is able to stand, but given all of this I think he would benefit from inpatient workup and treatment I am giving him a dose of Lasix now and discussing with hospitalist. History & Record Review Additional record(s) reviewed:: Prior labs (Echo 2021 showing EF of 60%, mild aortic valve insufficiency and mild to moderately dilated aortic root no diastolic dysfunction) Lab Data Attestation: I reviewed the patient's lab results. Labs: Laboratory Results - last 24 hr 03/09/25 03/09/25 13:45 15:20 WBC 7.2 RBC 4.54 L Hgb 13.8 Hct 42.9 MCV 94.5 H MCH 30.4 MCHC 32.2 RDW Std Deviation 45.5 H RDW Coeff of Inder 13.2 Plt Count 259 MPV 9.5 Immature Gran % (Auto) 0.300 Neut % (Auto) 65.7 Lymph % (Auto) 17.2 L Whitley % (Auto) 10.2 H Eos % (Auto) 5.6 H Baso % (Auto) 1.0 Absolute Neuts (auto) 4.7 Absolute Lymphs (auto) 1.23 Nucleated RBC % 0 Sodium 138 Potassium 4.0 Chloride 104 Carbon Dioxide 24.0 Anion Gap 11 BUN 22 H Creatinine 1.41 H Estim Creat Clear Calc 52.17 Est GFR (MDRD) Non-Af 49 L BUN/Creatinine Ratio 15.7 Glucose 100 H Calcium 9.5 Troponin T High Sens 21 NT pro BNP II 3066 H [place] 1.16 Radiography Diagnostic Testing: Clinical Impression(s) from Imaging Studies Chest X-Ray 03/09/25 14:46 IMPRESSION: Ground-glass airspace disease, scattered, also similar to prior CT exam of 02/10/2022 Reading Location: [facility] Rhythm Strip Rhythm Strip: A-fib Rate: 57 Ectopy: None EKG Initial EKG: Attestation: I personally reviewed and interpreted this EKG as follows: Interpretation: No Acute Injury Pattern, Atrial Fibrillation, RBBB and LAFB Prior EKG tracings: available for review Prior: Changed (Sinus rhythm in the past, same morphology; none of prior EKGs show afib) Management Discussion w/another healthcare provider: Hospitalist Discharge Plan Triage Chief Complaint: Shortness of Breath ED Provider: Walter Darby Dx/Rx/DC Orders Clinical Impression: Acute CHF (congestive heart failure), New onset a-fib, Debility, Intermittent chest pain Prescriptions: No Action lithium carbonate 450 MG tablet extended release 450 mg PO BID Patient Comments: bipolar Metamucil 3.4 gram/5.4 gram powder 1 tbsp PO DAILY Qty: 660 0RF Rx Instructions: mix into at least 8 oz of water or juice before administering. Can take 1-2 times daily. Primary Care Provider: SMITHA BURRELL Referrals: SMITHA BURRELL NP-C [Primary Care Provider] - Print Language: Yakut Disposition Disposition: [facility]
[2025-03-09 15:01] LABS: Troponin T High Sensitivity 21 ng/L (<=22)
[2025-03-09 15:43] LABS: Pro- Brain NATRIURETIC PEPTIDE 3066 pg/mL (<=1800)
[2025-03-09 16:05] LABS: Lithium 1.16 mmol/L (0.60-1.20)
--- NOTE | 2025-03-09 16:17 | PCM.HP.STD ---
[facility] - General General Date of Admission: 03/09/25 Date of Service: 03/09/25 Chief Complaint: Shortness of breath, weight gain and lightheadedness/dizziness HPI Narrative LACI ROMERO, is a 84 M who presented to [facility] ED on 03/09/2025 with shortness of breath, weight gain and lightheadedness/dizziness. Medical history is significant for only bipolar disorder on lithium and mild chronic debility. Patient lives at home with his , daughter lives nearby. Patient reports an approximate 12 pound weight gain over the past week or so, and over the past 2 to 3 days especially he has had worsening dyspnea on exertion with occasional chest tightness and lightheadedness/dizziness with difficulty keeping his balance with walking. No prior history of these issues. In the ED he was found to be in new onset A-fib with slow ventricular response in the 50s. BP was low normal in the 100s over 60s. He otherwise was stable on room air at rest. CBC and BMP were benign. [place] level normal at 1.16. BNP elevated at 3066. Chest x-ray showed ground glass airspace disease, similar to prior chest imaging in 2021. Given his new onset A-fib with slow ventricular response and suspected new onset CHF, hospitalist was contacted for admission. I saw the patient at bedside in the ED, and daughter were present. Patient was sitting back comfortably in bed, conversing normally, in no acute distress. Patient was hard of hearing but otherwise was alert and oriented x 3 and answering questions appropriately for me. He was given 1 dose of IV Lasix 40 mg in the ED and had urinated twice since then. He denied any palpitations. Denied any acute pain or discomfort at this time. Will be admitted for further management. [facility] Medical History Macular degeneration Chest pain Bipolar disorder Medical History no medical history Home Medications ?Medication ?Instructions ?Recorded ?Last Taken ?Type lithium carbonate 450 mg 450 mg PO BID 08/01/15 09/18/16 History tablet,extended release psyllium husk 3.4 gram/5.4 gram 1 tbsp PO DAILY #660 grams 11/17/24 Unknown Rx oral powder (Metamucil) Allergy/AdvReac Type Severity Reaction Status Date / Time No Known Allergies Allergy Verified 03/09/25 13:26 Family History no significant family his Surgical History History of hernia repair Hx of appendectomy History of cholecystectomy Surgical History no surgical history Social History Smoking Status: Unknown if ever smoked ROS Constitutional Constitutional: Reports fatigue; Denies chills, fever(s) or weakness Eyes Eyes: Denies change in vision Cardiovascular Cardiovascular: Reports dyspnea on exertion, edema and lightheadedness; Denies chest pain or palpitations Respiratory/Chest Respiratory/Chest: Denies cough, shortness of breath at rest or wheezing Gastrointestinal Gastrointestinal: Denies abdominal pain Musculoskeletal Musculoskeletal: Denies arthralgias or myalgias Neurologic Neurologic: Reports dizziness; Denies focal weakness, headache(s), numbness or tingling Vital Signs Vital Signs Vital Signs: 03/09/25 13:24 03/09/25 13:26 03/09/25 13:47 Temperature 97.8 F 97.8 F Temperature Source Oral Oral Pulse Rate 63 51 L Respiratory Rate 18 15 Respiratory Effort Respiratory Depth Respiratory Pattern Blood Pressure 131/71 H 114/75 Blood Pressure Mean 91 88 Pulse Ox 97 95 97 Oxygen Delivery Method Room Air Room Air Room Air 03/09/25 13:47 03/09/25 14:19 03/09/25 15:23 Temperature Temperature Source Pulse Rate 54 L Respiratory Rate 14 Respiratory Effort Normal Respiratory Depth Normal Respiratory Pattern Normal Blood Pressure 100/66 Blood Pressure Mean 77 Pulse Ox 97 94 Oxygen Delivery Method Room Air Room Air 03/09/25 16:04 Temperature Temperature Source Pulse Rate Respiratory Rate Respiratory Effort Respiratory Depth Respiratory Pattern Blood Pressure 113/66 Blood Pressure Mean 81 Pulse Ox Oxygen Delivery Method Weight Weight: 112.446 kg Body Mass Index (BMI) 32.7 Physical Exam Const alert, oriented x3 and no apparent distress Constitutional Narrative: Elderly male, class II obesity, hard of hearing, mildly fatigued appearing but otherwise alert and oriented x 3, sitting back comfortably in bed, answering questions appropriately, in no acute distress. General Appearance: cooperative and comfortable HEENT normocephalic, head/scalp atraumatic, hearing grossly normal bilaterally, nasal mucous membranes and turbinates normal and moist oral mucous membranes Eyes PERRL, EOMs intact bilaterally and conjunctivae normal Neck full ROM Chest inspection of chest normal Resp normal respiratory effort, normal air movement, no use of accessory muscles and clear to auscultation bilaterally Cardio no murmurs and peripheral pulses 2+ throughout Cardio Narrative: Bradycardic, irregular rhythm. GI normal to inspection, nondistended, normoactive bowel sounds, soft to palpation, non-tender and non-distended Back/Spine normal ROM Extremity Extremity Narrative: +1-2 lower extremity pitting edema noted up to the knees. Skin no rashes or lesions noted Psych mental status grossly normal Results Lab / Micro Data 03/09/25 13:45 03/09/25 13:45 Labs: Laboratory Results - last 24 hr 03/09/25 13:45: WBC 7.2, RBC 4.54 L, Hgb 13.8, Hct 42.9, MCV 94.5 H, MCH 30.4, MCHC 32.2, RDW Std Deviation 45.5 H, RDW Coeff of Inder 13.2, Plt Count 259, MPV 9.5, Immature Gran % (Auto) 0.300, Neut % (Auto) 65.7, Lymph % (Auto) 17.2 L, Carter % (Auto) 10.2 H, Eos % (Auto) 5.6 H, Baso % (Auto) 1.0, Absolute Neuts (auto) 4.7, Absolute Lymphs (auto) 1.23, Nucleated RBC % 0, Sodium 138, Potassium 4.0, Chloride 104, Carbon Dioxide 24.0, Anion Gap 11, BUN 22 H, Creatinine 1.41 H, Estim Creat Clear Calc 52.17, Est GFR (MDRD) Non-Af 49 L, BUN/Creatinine Ratio 15.7, Glucose 100 H, Calcium 9.5, Troponin T High Sens 21, NT pro BNP II 3066 H 03/09/25 15:20: [place] 1.16 Rhythm Strip Rhythm Strip: A-fib Rate: 57 Ectopy: None Imaging Radiology Impression Chest X-Ray 03/09/25 14:46 IMPRESSION: Ground-glass airspace disease, scattered, also similar to prior CT exam of 02/10/2022 Reading Location: [facility] Assessment & Plan Assessment/Plan (1) New onset a-fib: (2) Acute CHF (congestive heart failure): PLAN: Plan Patient is an 84-year-old male who presented to [facility] ED on 03/09/2025 with worsening shortness of breath, lightheadedness/dizziness and weight gain. 1. New onset A-fib with slow ventricular response and new onset CHF exacerbation ? Admit under inpatient status to PCU. Cardiology consulted. Presented with shortness of breath, weight gain and lightheadedness/dizziness especially with exertion. EKG showed new onset A-fib with slow ventricular response with rate in the 50s. Patient reports roughly 12 pound weight gain over the past week. BNP elevated at 3066. Chest x-ray with ground glass airspace disease noted concerning for pulmonary edema. Highest concern is for A-fib with slow response leading to new onset CHF. [place] level on admit normal so unclear if possible mild lithium toxicity could be contributing to SA node dysfunction versus possible sick sinus syndrome with no underlying cause. Appreciate cardiology recommendations. Will initiate heparin drip at this time for anticoagulation. Will start IV Lasix 40 mg 3 times daily, monitor daily BMP and urine output. Echo ordered. 2. Bipolar disorder ? Per history. Has been on lithium for many years. [place] level 1.16 on admit, near upper limit of normal. As above, unclear if possible mild degree of lithium toxicity could be contributing to SA node dysfunction as above. Will hold home lithium until cardiology sees the patient but recommend restarting as soon as able. 3. CKD stage IIIa ? Creatinine 1.41 on admit, baseline appears to be around 1.2-1.4. Treating with IV Lasix as above, monitor daily BMP and urine output. 4. Class II obesity ? BMI 36 on admit. Complicates hospital course and care. 5. Acute on chronic debility ? PT/OT/case management consulted. Patient lives at home with . Daughter lives close by and is heavily involved in patient's care. Patient with lightheadedness/dizziness with exertion as above and some difficulty with ambulation due to balance issues. Appreciate therapy recommendations. DVT prophylaxis: Not indicated, on heparin drip CODE STATUS: Full code, verified Expected disposition: TBD *Of note, daughter is the primary point of contact and would like to be kept up-to-date to assist with medical decision making. Total clinical time spent by myself addressing the patient's medical issues, reviewing all the data, and collaborating with patient's care team: 75 minutes. Charges/Coding Visit Charges Inpatient E&M: 88200 Init Hosp L3
--- NOTE | 2025-03-09 16:21 | ECHOD_ITS ---
Reason For Study Reason For Study: CHF Procedure This was a 2D Doppler, Color Flow transthoracic echocardiogram. Exam performed portable in patient room. Left Ventricle Normal left ventricle. The estimated ejection fraction is 50-55 %. Right Ventricle Normal right ventricle. Normal systolic function. Atria The left atrium is mildly enlarged. Normal right atrium. Mitral Valve There is mild mitral annular calcification. Mild (1+) mitral valve insufficiency. Tricuspid Valve Normal tricuspid valve. Aortic Valve Aortic sclerosis, no stenosis. Mild (1+) aortic valve insufficiency. Pulmonic Valve The pulmonic valve is not well visualized. Pericardium/Pleural No pericardial effusion. MMode/2D Measurements & Calculations LVIDd: 5.0 cm IVSd: 1.4 cm Ao root diam: 4.6 cm LVIDs: 2.7 cm LVPWd: 1.0 cm FS: 46.3 % LAV(MOD-bp): 41.4 ml LVAd ap4: 28.6 cm2 SV(MOD-sp4): 47.3 ml LAV(MOD-bp) Indexed: 18.0 ml/m2 LVLd ap4: 7.8 cm SI(MOD-sp4): 20.6 ml/m2 LAV(MOD-sp2): 40.4 ml EDV(MOD-sp4): 89.5 ml LAV(MOD-sp4): 42.8 ml EDV(sp4-el): 89.5 ml LVAs ap4: 17.5 cm2 LVLs ap4: 6.4 cm ESV(MOD-sp4): 42.2 ml ESV(sp4-el): 40.7 ml EF(MOD-sp4): 52.9 % EF(sp4-el): 54.6 % SV(sp4-el): 48.9 ml LA dimension(2D): 3.8 cm LA A4 area: 16.7 cm2 RA A4 area: 11.9 cm2 Doppler Measurements & Calculations MV E max teresa: 69.7 cm/sec MV V2 max: 91.3 cm/sec Ao V2 max: 116.7 cm/sec MV max P.4 mmHg Ao max P.5 mmHg MV V2 mean: 45.1 cm/sec Ao V2 mean: 76.0 cm/sec MV mean P.1 mmHg Ao mean P.7 mmHg MV V2 VTI: 21.0 cm Ao V2 VTI: 19.6 cm AV (velocity ratio): 0.72 LV V1 max: 82.3 cm/sec LV V1 max P.8 mmHg LV V1 mean P.4 mmHg LV V1 mean: 55.8 cm/sec LV V1 VTI: 14.2 cm ECHO/Echo Complete Interpretation Summary The estimated ejection fraction is 50-55 %. Dilated aortic root measuring 4.6 cm. No significant difference noted from previous echocardiogram. Ordering Physician: Soren Vasquez Performed By: Min James RCS
[2025-03-09 16:28] LABS: Troponin T High Sens 2 HR 21 ng/L (<=22)
--- OUTSIDE RECORDS SUMMARY | 2025-03-09 16:47 | XMS RPT_ITS | CCD ---
Author Organization [facility] Inform ion [facility] Care Team Providers Care Imaging Manager Name Role Phone LUKE SYLVESTER DO Primary Care Physician [phone] Dr. Luke Sylvester Primary Care Provider Dr. Tonie Ozuna Attending Provider [phone] Irvin PROGRAM ANALYST, PROGRAM ANALYST-C Dorian Alatorre Referring Provi romi LUKE SYLVESTER [...] able Luke Sylvester DO Primary Care Provider [phone] Luke Sylvester DO Primary Care Provider SMITHA [...] q6h, # 18 gram(s), 0 Refill(s), Pharmacy: [facility], Pneumonia due to COVID-19 virus, 178, [...] cap(s), 0 Refill(s), 01/12/23 9:00:00 EDT, Pharmacy: [facility], 185.4, cm, 01/05/23 1:03:00 EDT, Height, [...] qDay, # 90 tab(s), 3 Refill(s), Pharmacy: [facility], BPH with obstruction/lower urinary tract symptoms, 178.5, cm, 01/12/21 15:06:00 EDT, Height, kg, 01/12/21 15:06:00 EDT, Dosing Weight Start Date: 01/12/21 Status: Ordered B[place]all (2 sources) Start: 04-24-2018 take 1 tablet [...] total of two tablets twice daily. 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 Patient agreeable. He will go to [facility]. Allergies As of Date: 11/17/2024 (No [...] Status:Closed by RENETTA SIBLEY on 11/17/24 Normal [facility] Emergency Department Summary on 11-17-2024 Emergency Department Summary [facility] Medical Records Department [address] [place] [address] Emergency Department Summary 11/17/24 MR#: [id number] Acct: [id number] Name: LACI ANDERSEN Rep #: [id number] : 1940 84 From: [place] VELA PCP: [...] report signifi (more content not included)... Normal [facility] .GFRon 11-05-2024 Estimated Glomerular Filtration Rate 46 ml/min/1.73sqm Normal [facility] Comment on above: Result Comment: Stages [...] #### C MP, GFR, LIPID, PSA #### [address] [address] CMPon 11-05-2024 Albumin Level 3.7 G/dL Normal 3.4-4.8 [facility] Comment on above: Performed By: #### C MP, GFR, LIPID, PSA #### [address] [address] Albumin/Globulin [Mass ratio] 0.9 {ratio} Low 1.1-2.5 [facility] Comment on above: Performed By: #### C MP, GFR, LIPID, PSA #### [address] [address] ALP [Catalytic activity/Vol] 93 U/L Normal 40-135 [facility] Comment on above: Performed By: #### C MP, GFR, LIPID, PSA #### [address] [address] ALT [Catalytic activity/Vol] 12 U/L Low 16-63 [facility] Comment on above: Performed By: #### C MP, GFR, LIPID, PSA #### [address] [address] AST [Catalytic activity/Vol] 12 U/L Normal 10-40 [facility] Comment on above: Performed By: #### C MP, GFR, LIPID, PSA #### [address] [address] Bili Total 0.8 mg/dL Normal 0.2-1.0 [facility] Comment on above: Result Comment: Use of this assay is not recommended for patients undergoing treatment with eltrombopag due to the potential for falsely elevated results. Performed By: #### C MP, GFR, LIPID, PSA #### [place] [address] BUN/Creatinine Ratio 15 ratio Normal 7-27 [facility] Comment on above: Performed By: #### C MP, GFR, LIPID, PSA #### [address] [address] Calcium [Mass/Vol] 9.8 mg/dL Normal 8.4-10.2 [facility] Comment on above: Performed By: #### C MP, GFR, LIPID, PSA #### [address] [address] Chloride [Moles/Vol] 104 mmol/L Normal 98-107 [facility] Comment on above: Performed By: #### C MP, GFR, LIPID, PSA #### [address] [address] CO2 [Moles/Vol] 31 mmol/L Normal 23-31 [facility] Comment on above: Performed By: #### C MP, GFR, LIPID, PSA #### [address] [address] Creatinine [Mass/Vol] 1.49 mg/dL High 0.70-1.30 [facility] Comment on above: Result Comment: Test ing performed on Siemens Dimension EXL analyzer using a modified kinetic Velia technique. Performed By: #### C MP, GFR, LIPID, PSA #### [place] [id number] Electrolyte Balance 6.0 mEq/L Normal 4.0-15.0 [facility] Comment on above: Performed By: #### C MP, GFR, LIPID, PSA #### [address] [address] Globulin 4.0 G/dL High 1.5-3.8 [facility] Comment on above: Performed By: #### C MP, GFR, LIPID, PSA #### [address] [address] Glucose [Mass/Vol] 181 mg/dL High 83-110 [facility] Comment on above: Performed By: #### C MP, GFR, LIPID, PSA #### [address] [address] Potassium [Moles/Vol] 4.6 mmol/L Normal 3.5-5.1 [facility] Comment on above: Performed By: #### C MP, GFR, LIPID, PSA #### [address] [address] Sodium [Moles/Vol] 141 mmol/L Normal 136-145 [facility] Comment on above: Performed By: #### C MP, GFR, LIPID, PSA #### [address] [address] Total Protein 7.7 G/dL Normal 6.4-8.2 [facility] Comment on above: Performed By: #### C MP, GFR, LIPID, PSA #### [address] [address] Urea nitrogen [Mass/Vol] 23 mg/dL High 7-18 [facility] Comment on above: Performed By: #### C MP, GFR, LIPID, PSA #### [address] [address] LIPIDon 11-05-2024 Cholesterol [Mass/Vol] 176 mg/dL Normal 0-200 [facility] Comment on above: Result Comment: Chol esterol Reference Interval: Less than 200 Desirable 200-239 Borderline high risk 240 and above High risk Performed By: #### C MP, GFR, LIPID, PSA #### [place] [address] [place], [place] [address] Cholesterol in HDL [Mass/Vol] 43 mg/dL Normal 40-60 [facility] Comment on above: Performed By: #### C MP, GFR, LIPID, PSA #### [place] [address] [place], [place] [address] Cholesterol in LDL [Mass/Vol] 110 mg/dL Normal 0-130 [facility] Comment on above: Performed By: #### C MP, GFR, LIPID, PSA #### [place] [address] [place], [place] [address] Triglyceride [Mass/Vol] 115 mg/dL Normal 0-150 [facility] Comment on above: Result Comment: Trig lyceride Reference Interval: Less than 150 Normal 150-199 Borderline high risk 200-499 High risk 500 or higher Very high risk Performed By: #### C MP, GFR, LIPID, PSA #### [place] [address] [place], [place] [address] PSAon 11-05-2024 Prostate Specific Antigen 3.13 ng/mL Normal 0.00-4.00 [facility] Comment on above: Performed By: #### C MP, GFR, LIPID, PSA #### [address] [address] CNOVon 07-20-2024 CNOV Office Visit (UCWSTR ) LACI ANDERSEN ([id number]) 1940 M Date Time Provider Department 07/20/24 2:30 PM RENETTA SIBLEY [facility] During your visit today, we recorded the following information about you: Temperature Pulse Respiration Blood pressure 98.7 degrees 74/minute 16/minute 110/56 Weight 105 kg Renetta Sibley, PA 07/20/2024 2:17 PM Signed This note was created using Friendseeriter. Subjective Laci Andersen is a 83 year [...] Date LAPAROSCOPIC APPENDECTOMY 08/04/15 normal appendix in [facility] LAPS SURG CHOLECYSTECTOMY W/CHOLANGIOGRAPHY 08/04/15 normal IOC, [...] mouthwash Follow- (more content not included)... Normal [facility] XR CHEST 2V FRONTAL/LATon XR CHEST 2V [...] within the left midlung field. Follow-up recommended Comb Fixer: BROOKE Transcribe Date/Time: Jul 20 2024 2:01P Dictated by : CRYS CANTU MD This examination was interpreted and the report reviewed and electronically signed by: CRYS CANTU MD on Jul 20 2024 2:09PM EST [id number] Normal [facility] XR Chest PA and Lateralon IMPRESSION: Patchy airspace opacities in the infrahilar regions bilaterally, and within the left midlung field. Follow-up recommended Comb Fixer: PSCB Transcribe Date/Time: Jul 20 2024 2:01P [...] throughout the spine. DIVISION OF RADIOLOGY Provider, [facility] - 07/20/2024 * * *Final Report* * [...] within the left midlung field. Follow-up recommended Comb Fixer: PSCB Transcribe Date/Time: Jul 20 2024 2:01P Dictated by : CRYS CANTU MD This examination was interpreted and the report reviewed and electronically signed by: CRYS CANTU MD on Jul 20 2024 2:09PM EST [facility] Radiology Study observation (narrative) [facility] XR Chest PA and LateralOrder ed By: Cc Provider on 07-20-2024 [facility] CNPNon 03-25-2024 CNPN Telephone (UCWSTR) LACI ANDERSEN ([id number]) 1940 M Date Time Provider Department 03/25/24 FIONA GE [facility] During your visit today, we recorded the following information about you: Fiona Ge APRN.ROCKET ENGINE MECHANIC 03/25/2024 11:18 AM Signed Yeast as grown [...] Encounter Status:Closed by [facility] LACI ANDERSEN ([id number]) 1940 M Date Time Provider Department 03/23/24 ALEXA SUÁREZ During your visit today, we recorded the following information about you: Sonia Parker MA 03/23/2024 7:25 PM Signed ----- Message from Alexa Suárez APRN.ROCKET ENGINE MECHANIC sent at 03/23/2024 7:17 PM EDT ----- [...] Encounter Status:Closed by SONIA PARKER on 03/23/24 [facility] CNOVon 03-22-2024 CNOV Office Visit (UCWSTR ) LACI ANDERSEN ([id number]) 1940 M Date Time Provider Department 03/22/24 11:00 AM CARINA IRBY [facility] During your visit today, we recorded the following information about you: Temperature Pulse Respiration Blood pressure 97.1 degrees 75/minute 18/minute 107/68 Weight 104.9 kg Carina Irby APRN.ROCKET ENGINE MECHANIC 03/22/2024 11:31 AM Signed This note was created using Friendseeriter. Subjective Laci Andersen is a 83 year [...] salt water gargles Wears dentures Goes to [facility] Last cleaning was a month ago. Presents today citing that the mouth pain is not improving. The history is provided by the patient. No high school foreign language tutor was used. Mouth/Lip Problem This is a [...] or rales. (more content not included)... Normal [facility] Fungus Spec Culton 4 Fungus identified Cx Nom (Unsp spec) ORGANISM ID: 1 Few Roya albicans Normal [facility] Comment on above: Performed By: #### 5 80-1 #### [facility] CLIA [id number] [address] [place] [address] [facility] CNOVon 03-18-2024 CNOV Office Visit (UCWSTR ) LACI ANDERSEN ([id number]) 1940 M Date Time Provider Department 03/18/24 10:45 AM RENETTA SIBLEY [facility] During your visit today, we recorded the following information about you: Temperature Pulse Respiration Blood pressure 98.3 degrees 84/minute 16/minute 128/80 Weight 104.2 kg Renetta Sibley PA 03/18/2024 10:55 AM Signed This note was created using Friendseeriter. Subjective Laci Andersen is a 83 year [...] 08/04/15: LAPAROSCOPIC APPENDECTOMY Comment: normal appendix in [facility] 08/04/15: LAPS SURG CHOLECYSTECTOMY W/CHOLANGIOGRAPHY Comment: normal [...] Status:Closed by RENETTA SIBLEY on 03/18/24 Normal [facility] STREP A MOLECULAR (POC)on Procedural Control Valid [facility] Strep A (POCT) Negative Negative [facility] UAon 02-21-2023 Color (U) Yellow Normal [facility] ([place] Comment on above: Performed By: #### U A #### [facility] [address] [place] [address] Glucose (U) [Mass/Vol] Negative Normal Negative [facility] Comment on above: Performed By: #### U A #### [facility] [address] [place] [address] Ketones Ql (U) Negative Normal Neg-Trace [facility] Comment on above: Performed By: #### U A #### [place] [address] UA Appear Clear Normal Clear [facility] ([place]) Comment on above: Performed By: #### U A #### [place] [address] UA Blood Trace Normal Neg-Trace [facility] [place] Comment on above: Performed By: #### U A #### [place] [address] UA Leuk Est Trace Normal Negative [facility] [place] Comment on above: Performed By: #### U A #### [place] [address] UA Nitrite Negative Normal Negative [facility] [place] Comment on above: Performed By: #### U A #### [place] [address] UA pH 6.5 Normal 5.0 - 8.0 [facility] [place] Comment on above: Performed By: #### U A #### [place] [address] UA Protein Negative Normal Negative [facility] [place] Comment on above: Performed By: #### U A #### [place] [address] UA Spec Grav 1.010 Normal 1.006-1.029 [facility] [place] Comment on above: Performed By: #### U A #### [place] [address] UA Specimen Type Clean Catch Normal [facility] [place] Comment on above: Performed By: #### U A #### [place] [address] UA Urobilinogen 1.0 E.U./dL Normal 0.2-1.0 [facility] [place] Comment on above: Performed By: #### U A #### [place] [address] Urobilinogen (U) [Mass/Vol] Negative Normal Neg-Trace [facility] [place] Comment on above: Performed By: #### U A #### [facility] [address] [place], [place] [address] UAMICon 02-21-2023 UA RBC 0-2 Normal 0-2 [facility] [place] Comment on above: Performed By: #### A ESVIN, GFR, CBC, ADIFF, CMP #### [place] [address] [place], [place] [address] UA Squam Epithelial 0-2 Normal 0-20 [facility] ([place] Comment on above: Performed By: #### A ESVIN, GFR, CBC, ADIFF, CMP #### [place] [address] [place], [place] [address] UA WBC 0-2 Normal 0-5 [facility] ([place] Comment on above: Performed By: #### A ESVIN, GFR, CBC, ADIFF, CMP #### [place] [address] [place], [place] [address] EMERGENCY REPORTon 3 EMERGENCY REPORT [facility] EMERGENCY ROOM REPORT NAME ACCOUNT SEX AGE ADMIT DISCHARGE PT MED. RECORD# NUMBER DATE DATE TYPE NICK [id number] Rosenda 82 01/22/23 01/22/23 3 [facility] [id number] ROOM: ER DATE OF : 1940 DICTATING PHYSICIAN: Kian Penn CHIEF COMPLAINT: Urinary problems. HISTORY OF PRESENT ILLNESS: The patient states that several weeks ago, almost a month ago, he had an episode where he became weak and fell, was seen at [place] [facility] and admitted there and treated for [...] pleasant male, does not appear toxic. Skin: [place], warm, and dry. Vital signs: Show a [...] TREATMENT: He states they told him at [place] that he does have some underlying kidney [...] Kian Penn MD 01/22/23 15:22 JOB #: [id number] Transcribed By: mercedes 01/22/23 18:56 Electronically signed by: RODRIGUEZ Penn M.D. 02/17/23 07:25 Page 2 of 2 LACI ANDERSEN Emergency Room Report Normal [facility] URINE CULTURE [CCL]on 2022 Bacteria identified [...] and its performance characteristics determined by the [facility]'s [facility] Path[facility] and Laboratory Medicine [place] ([facility]). It has not been cleared or approved by the FDA. [facility] is regulated under CLIA as qualified to perform high-complexity testing. This test is used for clinical purposes. It should not be regarded as investigational or for research. SOURCE: URINE [facility] [address] [place] [address] Jude Epstein III, M.D. [id number] SEND TO IC YES Normal [facility] Comment on above: Performed By: #### 2 03639 #### [facility],[address] [place] [address] CBC + DIFFon 01-22-2023 Baso # 0.10 x10EE3/UL Normal 0.00 - 0.10 [facility] Comment on above: Performed By: #### 2 76014 #### [facility],[address] [place] [address] Basophils/100 WBC (Bld) 1.2 % Normal 0.0 - 2.0 [facility] Comment on above: Performed By: #### 2 57950 #### [facility],[address] [place] [address] CBC + DIFF Normal [facility] Comment on above: Result Comment: CBC- COMPLETE BLOOD COUNT Performed By: #### 2 65373 #### [place] [address] EO # 0.30 x10EE3/UL Normal 0.00 - 0.50 [facility] Comment on above: Performed By: #### 2 60931 #### [place] [address] Eosinophils/100 WBC (Bld) 3.2 % Normal 0.0 - 7.0 [facility] Comment on above: Performed By: #### 2 70203 #### [place] [address] Erythrocyte distribution width (RBC) [Ratio] 14.2 % Normal 12.0 - 15.6 [facility] Comment on above: Performed By: #### 2 77759 #### [place] [address] Hematocrit (Bld) [Volume fraction] 41.4 % Normal 40.0 - 52.0 [facility] Comment on above: Performed By: #### 2 00022 #### [place] [address] Hemoglobin (Bld) [Mass/Vol] 13.8 g/dL Normal 13.0 - 17.5 [facility] Comment on above: Performed By: #### 2 [address]6070 #### [place] [id number] Lymph # 0.70 x10EE3/UL Low 0.80 - 2.80 [facility] Comment on above: Performed By: #### 2 81579 #### [place] [address] Lymphocytes/100 WBC (Bld) 9.4 % Low 20.0 - 45.0 [facility] Comment on above: Performed By: #### 2 13352 #### [address] [place] [address] MANUAL DIFF N/A Normal [facility] Comment on above: Performed By: #### 2 03255 #### [facility],[address] [place] [address] MCH (RBC) [Entitic mass] 30 pg Normal 27 - 33 [facility] Comment on above: Performed By: #### 2 63945 #### [place] [address] MCHC 33 X10 3 Normal 32 - 36 [facility] Comment on above: Performed By: #### 2 46323 #### [place] [address] MCV (RBC) [Entitic vol] 89 fL Normal 81 - 98 [facility] Comment on above: Performed By: #### 2 19561 #### [place] [address] [place] # 0.80 x10EE3/UL Normal 0.20 - 1.00 [facility] Comment on above: Performed By: #### 2 98521 #### [place] [address] MONOS % 10.6 % High 0.0 - 10.0 [facility] Comment on above: Performed By: #### 2 08878 #### [place] [address] Morphology Jim (Bld) [Interp] N/A Normal [facility] Comment on above: Performed By: #### 2 84454 #### [place] [address] Neut # 6.00 x10EE3/UL Normal 1.50 - 7.10 [facility] Comment on above: Performed By: #### 2 16003 #### [place] [address] Neutrophils/100 WBC (Bld) 75.6 % Normal 46.0 - 76.0 [facility] Comment on above: Performed By: #### 2 38854 #### [facility],[address] [place] [address] PLATELET 295 x10EE3/UL Normal 150 - 450 [facility] Comment on above: Performed By: #### 2 04571 #### [facility],[address] [place] [address] Platelet mean volume (Bld) [Entitic vol] 7.7 fL Normal 6.4 - 10.5 [facility] Comment on above: Result Comment: AUTO MATED DIFFERENTIAL Performed By: #### 2 55668 #### [facility],[address] [place] [address] RBC 4.66 x 10EE6/UL Normal 4.50 - 6.00 [facility] Comment on above: Performed By: #### 2 72024 #### [facility],[address] [place] [address] WBC 7.9 x 10EE3/UL Normal 4.5 - 10.8 [facility] Comment on above: Performed By: #### 2 70433 #### [facility],[address] [place] [address] CMP with eGFRon 01-22-2023 AGE 82 years Normal [facility] Comment on above: Performed By: #### 2 39067 #### [facility],[address] [place] [address] Albumin [Mass/Vol] 3.6 g/dL Normal 3.4 - 5.0 [facility] Comment on above: Performed By: #### 2 41564 #### [facility],[address] [place] [address] Albumin/Globulin [Mass ratio] 0.8 {ratio} Low 0.9 - 1.6 [facility] Comment on above: Performed By: #### 2 66025 #### [facility],[address] [place] [address] ALK PHOS 86 U/L Normal 46 - 116 [facility] Comment on above: Performed By: #### 2 58875 #### [facility],[address] [place] [address] ALT [Catalytic activity/Vol] 18 U/L Normal 16 - 63 [facility] Comment on above: Performed By: #### 2 32389 #### [facility],[address] [place] [address] Anion gap [Moles/Vol] 9 mmol/L Low 10 - 20 [facility] Comment on above: Performed By: #### 2 53429 #### [facility],[address] [place] [address] AST [Catalytic activity/Vol] 16 U/L Normal 15 - 37 [facility] Comment on above: Performed By: #### 2 60623 #### [facility],[address] [place] [address] B/C RATIO 13 ratio Normal 0 - 30 [facility] Comment on above: Performed By: #### 2 31389 #### [facility],[address] [place] [address] Bilirubin [Mass/Vol] 1.8 mg/dL High 0.2 - 1.0 [facility] Comment on above: Performed By: #### 2 66535 #### [facility],[address] [place] [address] Calcium [Mass/Vol] 9.2 mg/dL Normal 8.5 - 10.1 [facility] Comment on above: Performed By: #### 2 02043 #### [facility],[address] [place] [address] Chloride [Moles/Vol] 100 mmol/L Normal 98 - 107 [facility] Comment on above: Performed By: #### 2 59320 #### [facility],[address] [place] [address] CMP with eGFR Normal [facility] Comment on above: Result Comment: COMP REHENSIVE METABOLIC PANEL Performed By: #### 2 42552 #### [facility],[address] [place] [address] CO2 [Moles/Vol] 27.5 mmol/L Normal 21.0 - 32.0 [facility] Comment on above: Performed By: #### 2 68626 #### [facility],[address] [place] [address] Creatinine [Mass/Vol] 1.48 mg/dL High 0.70 - 1.30 [facility] Comment on above: Performed By: #### 2 60101 #### [facility],[address] [place] [address] eGFR 46 ML/MINUTE Low 60 - 999 [facility] Comment on above: Performed By: #### 2 33599 #### [facility],[address] [place] [address] eGFR(AA) 55 ML/MINUTE Low 60 - 999 [facility] Comment on above: Result Comment: ACCO RDING TO THE NATIONAL KIDNEY DISEASE EDUCATION PROGRAM(NKDE), A NORMAL eGFR IS A VALUE GREATER THAN OR EQUAL TO 60 ML/MIN/1.73 SQ METERS. CHRONIC KIDNEY DISEASE: <60mL/MIN/1.73 SQ METERS KIDNEY FAILURE: <15mL/MIN/1.73 SQ METERS THIS TEST SHOULD ONLY BE USED FOR PATIENTS 18 YEARS OF AGE AND OLDER. Performed By: #### 2 77468 #### [facility],[address] [place] [address] Globulin (S) [Mass/Vol] 4.4 g/dL High 1.5 - 3.8 [facility] Comment on above: Performed By: #### 2 33815 #### [facility],[address] [place] [address] Glucose [Mass/Vol] 91 mg/dL Normal 74 - 106 [facility] Comment on above: Performed By: #### 2 35713 #### [facility],[address] [place] [address] Potassium [Moles/Vol] 4.2 mmol/L Normal 3.5 - 5.1 [facility] Comment on above: Performed By: #### 2 96627 #### [facility],[address] [place] [address] Protein [Mass/Vol] 8.0 g/dL Normal 6.4 - 8.2 [facility] Comment on above: Performed By: #### 2 60425 #### [facility],[address] [place] [address] Sodium [Moles/Vol] 132 mmol/L Low 136 - 145 [facility] Comment on above: Performed By: #### 2 88810 #### [facility],[address] [place] [address] Urea nitrogen [Mass/Vol] 19 mg/dL High 7 - 18 [facility] Comment on above: Performed By: #### 2 02489 #### [facility],[address] [place] [address] URINALYSIS WITH MICROSCOPYon 01-22-2023 Amorphous NONE Normal [facility] Comment on above: Performed By: #### 2 29215 #### [facility],[address] [place], [place] [id number] Bacteria 4+ Normal [facility] Comment on above: Performed By: #### 2 78416 #### [facility],[address] [place] [address] 21048 Bilirubin Ql (U) Negative Normal NORMAL: NEGATIVE [facility] Comment on above: Performed By: #### 2 51389 #### [facility],[address] [place] [address]846 Casts NONE Normal [facility] Comment on above: Performed By: #### 2 67456 #### [facility],[address] [place] [address] 17539 Clarity (U) sl.cloudy Normal NORMAL: CLEAR [facility] Comment on above: Performed By: #### 2 14425 #### [facility],[address] [place] [address] 45503 Color (U) p.yel Normal NORMAL: YELLOW [facility] Comment on above: Performed By: #### 2 27890 #### [facility],[address] [place] [address] 14012 Crystals LM Nom (Urine sed) NONE Normal [facility] Comment on above: Performed By: #### 2 24508 #### [facility],[address] [place], [place] [id number] Epi Cells NONE Normal [facility] Comment on above: Performed By: #### 2 42188 #### [facility],[address] [place], [place] [id number] Glucose Ql (U) NORM Normal NORMAL: NORMAL [facility] Comment on above: Performed By: #### 2 34008 #### [facility],[address] [place] [address] 15777 Hemoglobin Ql (U) 50 Abnormal NORMAL: NEGATIVE [facility] Comment on above: Performed By: #### 2 94951 #### [facility],[address] [place] [address] 44175 Ketone Negative Normal NORMAL: NEGATIVE [facility] Comment on above: Performed By: #### 2 18347 #### [facility],[address] [place] [address]22 Leukocytes 500 Abnormal NORMAL: NEGATIVE [facility] Comment on above: Result Comment: URIN E MICROSCOPIC Performed By: #### 2 14389 #### [facility],[address] [place] [address] Mucous NONE Normal [facility] Comment on above: Performed By: #### 2 10155 #### [facility],[address] [place] [address] Nitrite Ql (U) Negative Normal NORMAL: NEGATIVE [facility] Comment on above: Performed By: #### 2 91383 #### [facility],[address] [place] [address] pH (U) 7 [pH] Normal NORMAL: 5.0-8.0 [facility] Comment on above: Performed By: #### 2 06884 #### [facility],[address] [place] [address] Protein Ql (U) 30 Abnormal NORMAL: NEGATIVE [facility] Comment on above: Performed By: #### 2 88844 #### [facility],[address] [place] [address] Rbc 0-5 Normal 0-3 / hpf [facility] Comment on above: Performed By: #### 2 94268 #### [facility],[address] [place] [address] Sp [place] 1.005 Low NORMAL: 1.010-1.030 [facility] Comment on above: Performed By: #### 2 95278 #### [facility],[address] [place] [address] Specimen Type UNSPECIFIED Normal [facility] Comment on above: Performed By: #### 2 86261 #### [facility],[address] [place] [address] URINALYSIS WITH MICROSCOPY Normal [facility] Comment on above: Result Comment: URIN ALYSIS Performed By: #### 2 35110 #### [facility],[address] [place] [address] Urobilinog NORM Normal NORMAL: NORMAL [facility] Comment on above: Performed By: #### 2 87050 #### [facility],[address] [place] [address] WBC (U) [#/Vol] /uL Normal 0-5 / hpf [facility] Comment on above: Performed By: #### 2 08339 #### [facility],[address] [place] [address]9097 Yeast NONE Normal [facility] Comment on above: Performed By: #### 2 02063 #### [facility],[address] [place] [address] .Auto Diffon 01-07-2023 Basophil, Absolute 0.0 10 3/mcL Normal 0.0-0.2 [facility] ([place] Comment on above: Performed By: #### A ESVIN, GFR, CBC, ADIFF, CMP #### [address] [address] Basophils/100 WBC (Bld) 0.7 % Normal 0.0-2.5 [facility] ([place]) Comment on above: Performed By: #### A ESVIN, GFR, CBC, ADIFF, CMP #### [address] [address] Eosinophil, Absolute 0.3 10 3/mcL Normal 0.0-0.4 [facility] ([place] Comment on above: Performed By: #### A ESVIN, GFR, CBC, ADIFF, CMP #### [address] [address] Eosinophils/100 WBC (Bld) 6.1 % Normal 0.0-7.0 [facility] ([place] Comment on above: Performed By: #### A ESVIN, GFR, CBC, ADIFF, CMP #### [address] [address] Lymphocyte, Absolute 0.4 10 3/mcL Low 0.8-3.9 [facility] ([place] Comment on above: Performed By: #### A ESVIN, GFR, CBC, ADIFF, CMP #### [address] [address] Lymphocytes/100 WBC (Bld) 8.5 % Low 10.0-50.0 [facility] ([place] Comment on above: Performed By: #### A ESVIN, GFR, CBC, ADIFF, CMP #### [address] [address] Monocyte, Absolute 0.9 10 3/mcL Normal 0.2-1.0 [facility] ([place] Comment on above: Performed By: #### A ESVIN, GFR, CBC, ADIFF, CMP #### [address] [address] Monocytes/100 WBC (Bld) 17.4 % High 1.7-13.0 [facility] ([place] Comment on above: Performed By: #### A ESVIN, GFR, CBC, ADIFF, CMP #### [address] [address] Neutrophils/100 WBC (Bld) 67.3 % Normal 37.0-80.0 [facility] ([place] Comment on above: Performed By: #### A ESVIN, GFR, CBC, ADIFF, CMP #### [address] [address] .GFRon 01-07-2023 GFR 56 ml/min/1.73sqm Normal [facility] ([place] Comment on above: Result Comment: GFR Population [...] A ESVIN, GFR, CBC, ADIFF, CMP #### [address] [address] GFR Non- 46 ml/min/1.73sqm Normal [facility] ([place] Comment on above: Result Comment: GFR Population [...] A ESVIN, GFR, CBC, ADIFF, CMP #### [address] [address] .NEUABSon 01-07-2023 Neutrophil, Absolute 3.5 10 3/mcL Normal 2.9-6.2 [facility] ([place]) Comment on above: Performed By: #### A ESVIN, GFR, CBC, ADIFF, CMP #### [address] [address] CBCon 01-07-2023 Erythrocyte distribution width (RBC) [Ratio] 13.8 % Normal 11.5-14.5 [facility] ([place] Comment on above: Performed By: #### A ESVIN, GFR, CBC, ADIFF, CMP #### [address] [address] Hematocrit (Bld) [Volume fraction] 37.9 % Low 42.0-52.0 [facility] ([place] Comment on above: Performed By: #### A ESVIN, GFR, CBC, ADIFF, CMP #### [address] [address] Hgb 12.8 G/dL Low 14.0-18.0 [facility] ([place] Comment on above: Performed By: #### A ESVIN, GFR, CBC, ADIFF, CMP #### [address] [address] MCH (RBC) [Entitic mass] 29.9 pg Normal 27.0-31.2 [facility] ([place] Comment on above: Performed By: #### A ESVIN, GFR, CBC, ADIFF, CMP #### [address] [address] MCHC 33.8 G/dL Normal 31.8-35.4 [facility] ([place] Comment on above: Performed By: #### A ESVIN, GFR, CBC, ADIFF, CMP #### [address] [address] MCV (RBC) [Entitic vol] 88.4 fL Normal 80.0-94.0 [facility] ([place] Comment on above: Performed By: #### A ESVIN, GFR, CBC, ADIFF, CMP #### [address] [address] Platelet 163 10 3/mcL Normal 130-400 [facility] ([place] Comment on above: Performed By: #### A ESVIN, GFR, CBC, ADIFF, CMP #### [address] [address] Platelet mean volume (Bld) [Entitic vol] 8.6 fL Normal 7.4-10.4 [facility] ([place] Comment on above: Performed By: #### A ESVIN, GFR, CBC, ADIFF, CMP #### [address] [address] RBC 4.28 10 6/mcL Normal 4.04-6.13 [facility] ([place] Comment on above: Performed By: #### A ESVIN, GFR, CBC, ADIFF, CMP #### [address] [address] WBC 5.2 10 3/mcL Normal 4.6-10.8 [facility] ([place] Comment on above: Performed By: #### A ESVIN, GFR, CBC, ADIFF, CMP #### [address] [address] CMPon 01-07-2023 Albumin Level 2.9 G/dL Low 3.4-4.8 [facility] ([place] Comment on above: Performed By: #### A ESVIN, GFR, CBC, ADIFF, CMP #### [address] [address] Albumin/Globulin [Mass ratio] 0.9 {ratio} Low 1.1-2.5 [facility] ([place] Comment on above: Performed By: #### A ESVIN, GFR, CBC, ADIFF, CMP #### [address] [address] ALP [Catalytic activity/Vol] 68 U/L Normal 40-135 [facility] ([place] Comment on above: Performed By: #### A ESVIN, GFR, CBC, ADIFF, CMP #### [address] [address] ALT [Catalytic activity/Vol] 18 U/L Normal 16-63 [facility] ([place] Comment on above: Performed By: #### A ESVIN, GFR, CBC, ADIFF, CMP #### [address] [address] AST [Catalytic activity/Vol] 19 U/L Normal 10-40 [facility] ([place] Comment on above: Performed By: #### A ESVIN, GFR, CBC, ADIFF, CMP #### [address] [address] Bili Total 0.7 mg/dL Normal 0.2-1.0 [facility] ([place] Comment on above: Result Comment: Use of this assay is not recommended for patients undergoing treatment with eltrombopag due to the potential for falsely elevated results. Performed By: #### A ESVIN, GFR, CBC, ADIFF, CMP #### [address] [address] BUN/Creatinine Ratio 14 ratio Normal 7-27 [facility] ([place]) Comment on above: Performed By: #### A ESVNI, GFR, CBC, ADIFF, CMP #### [address] [address] Calcium [Mass/Vol] 8.7 mg/dL Normal 8.4-10.2 [facility] ([place]) Comment on above: Performed By: #### A ESVIN, GFR, CBC, ADIFF, CMP #### [address] [address] Chloride [Moles/Vol] 107 mmol/L Normal 98-107 [facility] ([place]) Comment on above: Performed By: #### A ESVIN, GFR, CBC, ADIFF, CMP #### [place] [address] CO2 [Moles/Vol] 25 mmol/L Normal 23-31 [facility] ([place] Comment on above: Performed By: #### A ESVIN, GFR, CBC, ADIFF, CMP #### [place] [address] Creatinine [Mass/Vol] 1.46 mg/dL High 0.70-1.30 [facility] ([place]) Comment on above: Performed By: #### A ESVIN, GFR, CBC, ADIFF, CMP #### [place] [id number] Electrolyte Balance 8.0 mEq/L Normal 4.0-15.0 [facility] ([place]) Comment on above: Performed By: #### A ESVIN, GFR, CBC, ADIFF, CMP #### [address] [address] Globulin 3.2 G/dL Normal [facility] ([place] Comment on above: Performed By: #### A ESVIN, GFR, CBC, ADIFF, CMP #### [address] [address] Glucose [Mass/Vol] 123 mg/dL High 83-110 [facility] ([place] Comment on above: Performed By: #### A ESVIN, GFR, CBC, ADIFF, CMP #### [place] [address] Potassium [Moles/Vol] 4.1 mmol/L Normal 3.5-5.1 [facility] ([place]) Comment on above: Performed By: #### A ESVIN, GFR, CBC, ADIFF, CMP #### [address] [place] [address] [place], [place] [address] Sodium [Moles/Vol] 140 mmol/L Normal 136-145 [facility] ([place] Comment on above: Performed By: #### A ESVIN, GFR, CBC, ADIFF, CMP #### [address] [address] Total Protein 6.1 G/dL Low 6.4-8.2 [facility] ([place] Comment on above: Performed By: #### A ESVIN, GFR, CBC, ADIFF, CMP #### [address] [address] Urea nitrogen [Mass/Vol] 20 mg/dL High 7-18 [facility] ([place] Comment on above: Performed By: #### A ESVIN, GFR, CBC, ADIFF, CMP #### [address] [address] LABORATORYOrdered By: SYSTEM SYSTEM on 01-07-2023 Albumin [...] 01-07-2023 Magnesium [Mass/Vol] 2.2 mg/dL Normal 1.8-2.4 [facility] ([place]) Comment on above: Performed By: #### M G #### [address] [address] .Auto Diffon 01-06-2023 Basophil, Absolute 0.0 10 3/mcL Normal 0.0-0.2 [facility] ([place]) Comment on above: Performed By: #### A ESVIN, GFR, CBC, ADIFF, CMP #### [address] [address] Basophils/100 WBC (Bld) 0.4 % Normal 0.0-2.5 [facility] ([place] Comment on above: Performed By: #### A ESVIN, GFR, CBC, ADIFF, CMP #### [address] [address] Eosinophil, Absolute 0.2 10 3/mcL Normal 0.0-0.4 [facility] ([place]) Comment on above: Performed By: #### A ESVIN, GFR, CBC, ADIFF, CMP #### [address] [address] Eosinophils/100 WBC (Bld) 3.4 % Normal 0.0-7.0 [facility] ([place] Comment on above: Performed By: #### A ESVIN, GFR, CBC, ADIFF, CMP #### [address] [address] Lymphocyte, Absolute 0.3 10 3/mcL Low 0.8-3.9 [facility] ([place]) Comment on above: Performed By: #### A ESVIN, GFR, CBC, ADIFF, CMP #### [address] [address] Lymphocytes/100 WBC (Bld) 5.0 % Low 10.0-50.0 [facility] ([place] Comment on above: Performed By: #### A ESVIN, GFR, CBC, ADIFF, CMP #### [address] [address] Monocyte, Absolute 0.6 10 3/mcL Normal 0.2-1.0 [facility] ([place] Comment on above: Performed By: #### A ESVIN, GFR, CBC, ADIFF, CMP #### [address] [address] Monocytes/100 WBC (Bld) 9.4 % Normal 1.7-13.0 [facility] ([place] Comment on above: Performed By: #### A ESVIN, GFR, CBC, ADIFF, CMP #### [address] [address] Neutrophils/100 WBC (Bld) 81.8 % High 37.0-80.0 [facility] ([place] Comment on above: Performed By: #### A ESVIN, GFR, CBC, ADIFF, CMP #### [address] [address] .GFRon 01-06-2023 GFR 51 ml/min/1.73sqm Normal [facility] ([place] Comment on above: Result Comment: GFR Population [...] A ESVIN, GFR, CBC, ADIFF, CMP #### [address] [address] GFR Non- 42 ml/min/1.73sqm Normal [facility] ([place] Comment on above: Result Comment: GFR Population [...] A ESVIN, GFR, CBC, ADIFF, CMP #### [address] [address] .NEUABSon 01-06-2023 Neutrophil, Absolute 5.2 10 3/mcL Normal 2.9-6.2 [facility] ([place]) Comment on above: Performed By: #### A ESVIN, GFR, CBC, ADIFF, CMP #### [address] [address] CBCon 01-06-2023 Erythrocyte distribution width (RBC) [Ratio] 14.0 % Normal 11.5-14.5 [facility] ([place] Comment on above: Performed By: #### A ESVIN, GFR, CBC, ADIFF, CMP #### [place] [address] Hematocrit (Bld) [Volume fraction] 38.9 % Low 42.0-52.0 [facility] ([place] Comment on above: Performed By: #### A ESVIN, GFR, CBC, ADIFF, CMP #### [place] [address] Hgb 13.0 G/dL Low 14.0-18.0 [facility] ([place] Comment on above: Performed By: #### A ESVIN, GFR, CBC, ADIFF, CMP #### [place] [phone] MCH (RBC) [Entitic mass] 29.8 pg Normal 27.0-31.2 [facility] ([place] Comment on above: Performed By: #### A ESVIN, GFR, CBC, ADIFF, CMP #### [place] [address] MCHC 33.3 G/dL Normal 31.8-35.4 [facility] ([place] Comment on above: Performed By: #### A ESVIN, GFR, CBC, ADIFF, CMP #### [place] [address] MCV (RBC) [Entitic vol] 89.4 fL Normal 80.0-94.0 [facility] ([place] Comment on above: Performed By: #### A ESVIN, GFR, CBC, ADIFF, CMP #### [address] [address] Platelet 134 10 3/mcL Normal 130-400 [facility] ([place] Comment on above: Performed By: #### A ESVIN, GFR, CBC, ADIFF, CMP #### [address] [address] Platelet mean volume (Bld) [Entitic vol] 8.6 fL Normal 7.4-10.4 [facility] ([place] Comment on above: Performed By: #### A ESVIN, GFR, CBC, ADIFF, CMP #### [address] [address] RBC 4.35 10 6/mcL Normal 4.04-6.13 [facility] ([place] Comment on above: Performed By: #### A ESVIN, GFR, CBC, ADIFF, CMP #### [address] [address] WBC 6.4 10 3/mcL Normal 4.6-10.8 [facility] ([place] Comment on above: Performed By: #### A ESVIN, GFR, CBC, ADIFF, CMP #### [address] [address] CMPon 01-06-2023 Albumin Level 3.0 G/dL Low 3.4-4.8 [facility] ([place] Comment on above: Performed By: #### A ESVIN, GFR, CBC, ADIFF, CMP #### [address] [address] Albumin/Globulin [Mass ratio] 1.0 {ratio} Low 1.1-2.5 [facility] ([place] Comment on above: Performed By: #### A ESVIN, GFR, CBC, ADIFF, CMP #### [address] [address] ALP [Catalytic activity/Vol] 68 U/L Normal 40-135 [facility] ([place] Comment on above: Performed By: #### A ESVIN, GFR, CBC, ADIFF, CMP #### [address] [address] ALT [Catalytic activity/Vol] 16 U/L Normal 16-63 [facility] ([place] Comment on above: Performed By: #### A ESVIN, GFR, CBC, ADIFF, CMP #### [address] [address] AST [Catalytic activity/Vol] 15 U/L Normal 10-40 [facility] ([place] Comment on above: Performed By: #### A ESVIN, GFR, CBC, ADIFF, CMP #### [address] [address] Bili Total 1.5 mg/dL High 0.2-1.0 [facility] ([place] Comment on above: Result Comment: Use of this assay is not recommended for patients undergoing treatment with eltrombopag due to the potential for falsely elevated results. Performed By: #### A ESVIN, GFR, CBC, ADIFF, CMP #### [address] [address] BUN/Creatinine Ratio 14 ratio Normal 7-27 [facility] ([place]) Comment on above: Performed By: #### A ESVIN, GFR, CBC, ADIFF, CMP #### [address] [address] Calcium [Mass/Vol] 8.7 mg/dL Normal 8.4-10.2 [facility] ([place]) Comment on above: Performed By: #### A ESVIN, GFR, CBC, ADIFF, CMP #### [address] [address] Chloride [Moles/Vol] 107 mmol/L Normal 98-107 [facility] ([place]) Comment on above: Performed By: #### A ESVIN, GFR, CBC, ADIFF, CMP #### [address] [address] CO2 [Moles/Vol] 24 mmol/L Normal 23-31 [facility] ([place] Comment on above: Performed By: #### A ESVIN, GFR, CBC, ADIFF, CMP #### [address] [address] Creatinine [Mass/Vol] 1.60 mg/dL High 0.70-1.30 [facility] ([place]) Comment on above: Performed By: #### A ESVIN, GFR, CBC, ADIFF, CMP #### [address] [address] Electrolyte Balance 7.0 mEq/L Normal 4.0-15.0 [facility] ([place]) Comment on above: Performed By: #### A ESVIN, GFR, CBC, ADIFF, CMP #### [address] [address] Globulin 2.9 G/dL Normal [facility] ([place] Comment on above: Performed By: #### A ESVIN, GFR, CBC, ADIFF, CMP #### [address] [address] Glucose [Mass/Vol] 106 mg/dL Normal 83-110 [facility] ([place]) Comment on above: Performed By: #### A ESVIN, GFR, CBC, ADIFF, CMP #### [address] [address] Potassium [Moles/Vol] 4.3 mmol/L Normal 3.5-5.1 [facility] ([place]) Comment on above: Performed By: #### A ESVIN, GFR, CBC, ADIFF, CMP #### [address] [address] Sodium [Moles/Vol] 138 mmol/L Normal 136-145 [facility] ([place]) Comment on above: Performed By: #### A ESVIN, GFR, CBC, ADIFF, CMP #### [address] [address] Total Protein 5.9 G/dL Low 6.4-8.2 [facility] ([place] Comment on above: Performed By: #### A ESVIN, GFR, CBC, ADIFF, CMP #### [address] [address] Urea nitrogen [Mass/Vol] 22 mg/dL High 7-18 [facility] ([place] Comment on above: Performed By: #### A ESVIN, GFR, CBC, ADIFF, CMP #### [place] [id number] [place], [place] [address] LABORATORYOrdered By: SYSTEM SYSTEM on 01-06-2023 Albumin [...] 10.8 10^3/mcL AO Workflow SS LITHon 01-06-2023 [place] Level See comment Normal 0.40-1.30 [facility] ([place]) Comment on above: Order Comment: Vahid gayle called & faxed [place]=0.9 (kenna) Result called to MSurg by ESF Result Comment: Comp lete reference lab report scanned to EMR. Performed By: #### A ESVIN, GFR, CBC, ADIFF, CMP #### [address] [address] MGon 01-06-2023 Magnesium [Mass/Vol] 2.2 mg/dL Normal 1.8-2.4 [facility] ([place]) Comment on above: Performed By: #### A ESVIN, GFR, CBC, ADIFF, CMP #### [address] [address] MRI BRAIN W/O CONTRASTon MRI BRAIN W/O [...] 01/06/2023 1:01:07 PM Ordering Provider: TARI [facility] ([place]) No Panel Informationon 01-06 Culture Urine >100,000 cfu/ml Enterococcus faecalis JUVENTINO to follow [facility] Enterococcus faecalis Enterococcus faecalis [facility] XR CHEST 2 VIEWSon 3 XR [...] 01/06/2023 1:00:21 PM Ordering Provider: TARI [facility]) .Auto Diffon 01-05-2023 Basophil, Absolute 0.0 10 3/mcL Normal 0.0-0.2 [facility]) Comment on above: Performed By: #### A ESVIN, CMP, ADIFF, MG, LAC, CBC, GFR #### [address] [address] Basophils/100 WBC (Bld) 0.3 % Normal 0.0-2.5 [facility]) Comment on above: Performed By: #### A ESVIN, CMP, ADIFF, MG, LAC, CBC, GFR #### [address] [address] Eosinophil, Absolute 0.0 10 3/mcL Normal 0.0-0.4 [facility] ([place]) Comment on above: Performed By: #### A ESVIN, CMP, ADIFF, MG, LAC, CBC, GFR #### [address] [address] Eosinophils/100 WBC (Bld) 0.1 % Normal 0.0-7.0 [facility] ([place] Comment on above: Performed By: #### A ESVIN, CMP, ADIFF, MG, LAC, CBC, GFR #### [address] [address] Lymphocyte, Absolute 0.5 10 3/mcL Low 0.8-3.9 [facility]) Comment on above: Performed By: #### A ESVIN, CMP, ADIFF, MG, LAC, CBC, GFR #### [address] [address] Lymphocytes/100 WBC (Bld) 5.0 % Low 10.0-50.0 [facility] ([place] Comment on above: Performed By: #### A ESVIN, CMP, ADIFF, MG, LAC, CBC, GFR #### [address] [address] Monocyte, Absolute 1.0 10 3/mcL Normal 0.2-1.0 [facility] ([place]) Comment on above: Performed By: #### A ESVIN, CMP, ADIFF, MG, LAC, CBC, GFR #### [address] [address] Monocytes/100 WBC (Bld) 9.9 % Normal 1.7-13.0 [facility] ([place] Comment on above: Performed By: #### A ESVIN, CMP, ADIFF, MG, LAC, CBC, GFR #### [address] [address] Neutrophils/100 WBC (Bld) 84.7 % High 37.0-80.0 [facility] ([place] Comment on above: Performed By: #### A ESVIN, CMP, ADIFF, MG, LAC, CBC, GFR #### [address] [address] .GFRon 01-05-2023 GFR 44 ml/min/1.73sqm Normal [facility] ([place] Comment on above: Result Comment: GFR Population [...] A ESVIN, GFR, CBC, ADIFF, CMP #### [address] [address] GFR Non- 36 ml/min/1.73sqm Normal [facility] ([place] Comment on above: Result Comment: GFR Population [...] A ESVIN, GFR, CBC, ADIFF, CMP #### [address] [address] .NEUABSon 01-05-2023 Neutrophil, Absolute 8.8 10 3/mcL High 2.9-6.2 [facility] ([place]) Comment on above: Performed By: #### A ESVIN, CMP, ADIFF, MG, LAC, CBC, GFR #### [address] [address] CBCon 01-05-2023 Erythrocyte distribution width (RBC) [Ratio] 14.0 % Normal 11.5-14.5 [facility] ([place] Comment on above: Performed By: #### A ESVIN, CMP, ADIFF, MG, LAC, CBC, GFR #### [address] [address] Hematocrit (Bld) [Volume fraction] 36.9 % Low 42.0-52.0 [facility] ([place] Comment on above: Performed By: #### A ESVIN, CMP, ADIFF, MG, LAC, CBC, GFR #### [address] [address] Hgb 12.5 G/dL Low 14.0-18.0 [facility] ([place] Comment on above: Performed By: #### A ESVIN, CMP, ADIFF, MG, LAC, CBC, GFR #### [address] [address] MCH (RBC) [Entitic mass] 30.2 pg Normal 27.0-31.2 [facility] ([place] Comment on above: Performed By: #### A ESVIN, CMP, ADIFF, MG, LAC, CBC, GFR #### [place] [id number] MCHC 33.9 G/dL Normal 31.8-35.4 [facility] ([place] Comment on above: Performed By: #### A ESVIN, CMP, ADIFF, MG, LAC, CBC, GFR #### [place] [id number] MCV (RBC) [Entitic vol] 89.0 fL Normal 80.0-94.0 [facility] ([place]) Comment on above: Performed By: #### A ESVIN, CMP, ADIFF, MG, LAC, CBC, GFR #### [place] [address] Platelet 174 10 3/mcL Normal 130-400 [facility] ([place]) Comment on above: Performed By: #### A ESVIN, CMP, ADIFF, MG, LAC, CBC, GFR #### [place] [address] Platelet mean volume (Bld) [Entitic vol] 7.8 fL Normal 7.4-10.4 [facility] ([place] Comment on above: Performed By: #### A ESVIN, CMP, ADIFF, MG, LAC, CBC, GFR #### [place] [address] RBC 4.14 10 6/mcL Normal 4.04-6.13 [facility] ([place] Comment on above: Performed By: #### A ESVIN, CMP, ADIFF, MG, LAC, CBC, GFR #### [place] [address] WBC 10.4 10 3/mcL Normal 4.6-10.8 [facility] ([place] Comment on above: Performed By: #### A ESVIN, CMP, ADIFF, MG, LAC, CBC, GFR #### [place] [address] CMPon 01-05-2023 Albumin Level 3.2 G/dL Low 3.4-4.8 [facility] ([place] Comment on above: Performed By: #### A ESVIN, GFR, CBC, ADIFF, CMP #### [address] [address] Albumin/Globulin [Mass ratio] 1.2 {ratio} Normal 1.1-2.5 [facility] ([place] Comment on above: Performed By: #### A ESVIN, GFR, CBC, ADIFF, CMP #### [address] [address] ALP [Catalytic activity/Vol] 63 U/L Normal 40-135 [facility] ([place] Comment on above: Performed By: #### A ESVIN, GFR, CBC, ADIFF, CMP #### [address] [address] ALT [Catalytic activity/Vol] 17 U/L Normal 16-63 [facility] ([place] Comment on above: Performed By: #### A ESVIN, GFR, CBC, ADIFF, CMP #### [address] [address] AST [Catalytic activity/Vol] 16 U/L Normal 10-40 [facility] ([place] Comment on above: Performed By: #### A ESVIN, GFR, CBC, ADIFF, CMP #### [address] [address] Bili Total 2.5 mg/dL High 0.2-1.0 [facility] ([place] Comment on above: Result Comment: Use of this assay is not recommended for patients undergoing treatment with eltrombopag due to the potential for falsely elevated results. Performed By: #### A ESVIN, GFR, CBC, ADIFF, CMP #### [address] [address] BUN/Creatinine Ratio 14 ratio Normal 7-27 [facility] ([place]) Comment on above: Performed By: #### A ESVIN, GFR, CBC, ADIFF, CMP #### [address] [address] Calcium [Mass/Vol] 8.6 mg/dL Normal 8.4-10.2 [facility] ([place]) Comment on above: Performed By: #### A ESVIN, GFR, CBC, ADIFF, CMP #### [address] [address] Chloride [Moles/Vol] 104 mmol/L Normal 98-107 [facility] ([place]) Comment on above: Performed By: #### A ESVIN, GFR, CBC, ADIFF, CMP #### [address] [address] CO2 [Moles/Vol] 25 mmol/L Normal 23-31 [facility] ([place] Comment on above: Performed By: #### A ESVIN, GFR, CBC, ADIFF, CMP #### [address] [address] Creatinine [Mass/Vol] 1.80 mg/dL High 0.70-1.30 [facility] ([place]) Comment on above: Performed By: #### A ESVIN, GFR, CBC, ADIFF, CMP #### [address] [address] Electrolyte Balance 6.0 mEq/L Normal 4.0-15.0 [facility] ([place]) Comment on above: Performed By: #### A ESVIN, GFR, CBC, ADIFF, CMP #### [address] [address] Globulin 2.6 G/dL Normal [facility] ([place] Comment on above: Performed By: #### A ESVIN, GFR, CBC, ADIFF, CMP #### [address] [address] Glucose [Mass/Vol] 131 mg/dL High 83-110 [facility] ([place]) Comment on above: Performed By: #### A ESVIN, GFR, CBC, ADIFF, CMP #### [address] [address] Potassium [Moles/Vol] 3.9 mmol/L Normal 3.5-5.1 [facility] ([place]) Comment on above: Performed By: #### A ESVIN, GFR, CBC, ADIFF, CMP #### [address] [address] Sodium [Moles/Vol] 135 mmol/L Low 136-145 [facility] ([place]) Comment on above: Performed By: #### A ESVIN, GFR, CBC, ADIFF, CMP #### [address] [address] Total Protein 5.8 G/dL Low 6.4-8.2 [facility] ([place]) Comment on above: Performed By: #### A ESVIN, GFR, CBC, ADIFF, CMP #### [address] [address] Urea nitrogen [Mass/Vol] 26 mg/dL High 7-18 [facility] ([place] Comment on above: Performed By: #### A ESVIN, GFR, CBC, ADIFF, CMP #### [address] [address] LABORATORYOrdered By: SYSTEM SYSTEM on 01-05-2023 Albumin [...] Lactic Acid Lvl 1.4 mmol/L Normal 0.4-2.0 [facility] ([place]) Comment on above: Performed By: #### A ESVIN, GFR, CBC, ADIFF, CMP #### [address] [address] MGon 01-05-2023 Magnesium [Mass/Vol] 1.6 mg/dL Low 1.8-2.4 [facility] ([place]) Comment on above: Performed By: #### A ESVIN, GFR, CBC, ADIFF, CMP #### [address] [address] US RENALon 01-05-2023 US RENAL ORIGINAL HISTORY: [...] 01/05/2023 9:56:16 AM Ordering Provider: TARI St [facility] ([place]) .Auto Diffon 01-04-2023 Basophil, Absolute 0.1 10 3/mcL Normal 0.0-0.2 [facility] ([place]) Comment on above: Performed By: #### A ESVIN, GFR, CBC, ADIFF, CMP #### [address] [address] Basophils/100 WBC (Bld) 0.7 % Normal 0.0-2.5 [facility] ([place]) Comment on above: Performed By: #### A ESVIN, GFR, CBC, ADIFF, CMP #### [place] [id number] [place], [place] [address] Eosinophil, Absolute 0.1 10 3/mcL Normal 0.0-0.4 [facility] ([place]) Comment on above: Performed By: #### A ESVIN, GFR, CBC, ADIFF, CMP #### [address] [address] Eosinophils/100 WBC (Bld) 0.7 % Normal 0.0-7.0 [facility] ([place] Comment on above: Performed By: #### A ESVIN, GFR, CBC, ADIFF, CMP #### [address] [address] Lymphocyte, Absolute 0.2 10 3/mcL Low 0.8-3.9 [facility] ([place]) Comment on above: Performed By: #### A ESVIN, GFR, CBC, ADIFF, CMP #### [address] [address] Lymphocytes/100 WBC (Bld) 2.1 % Low 10.0-50.0 [facility] ([place] Comment on above: Performed By: #### A ESVIN, GFR, CBC, ADIFF, CMP #### [address] [address] Monocyte, Absolute 0.9 10 3/mcL Normal 0.2-1.0 [facility] ([place]) Comment on above: Performed By: #### A ESVIN, GFR, CBC, ADIFF, CMP #### [address] [address] Monocytes/100 WBC (Bld) 8.7 % Normal 1.7-13.0 [facility] ([place] Comment on above: Performed By: #### A ESVIN, GFR, CBC, ADIFF, CMP #### [address] [address] Neutrophils/100 WBC (Bld) 87.8 % High 37.0-80.0 [facility] ([place]) Comment on above: Performed By: #### A ESVIN, GFR, CBC, ADIFF, CMP #### [address] [address] .GFRon 01-04-2023 GFR 47 ml/min/1.73sqm Normal [facility] ([place]) Comment on above: Result Comment: GFR Population [...] A ESVIN, GFR, CBC, ADIFF, CMP #### [address] [address] GFR Non- 39 ml/min/1.73sqm Normal [facility] ([place]) Comment on above: Result Comment: GFR Population [...] A ESVIN, GFR, CBC, ADIFF, CMP #### [address] [address] .MDWon 01-04-2023 Monocyte Distribution Width 26.97 High 0.00-20.00 [facility] ([place]) Comment on above: Result Comment: For adults in ED, MDW>20.0 may be associated with a higher risk of sepsis during the first 12hrs of hospital admission Performed By: #### A ESVIN, GFR, CBC, ADIFF, CMP #### [address] [address] .NEUABSon 01-04-2023 Neutrophil, Absolute 9.1 10 3/mcL High 2.9-6.2 [facility] ([place]) Comment on above: Performed By: #### A ESVIN, GFR, CBC, ADIFF, CMP #### [address] [address] .Urinalysis Microscopic (AO) on 01-04-2023 UA Bacteria 4+ /hpf Abnormal [facility] ([place]) Comment on above: Performed By: #### A ESVIN, GFR, CBC, ADIFF, CMP #### [place] [address] UA RBC 5-10 Abnormal None Seen [facility] ([place]) Comment on above: Performed By: #### A ESVIN, GFR, CBC, ADIFF, CMP #### [address] [address] UA Squam Epithelial LOADED Abnormal None Seen [facility] ([place]) Comment on above: Performed By: #### A ESVIN, GFR, CBC, ADIFF, CMP #### [address] [address] UA WBC LOADED Abnormal None Seen [facility] ([place] Comment on above: Performed By: #### A ESVIN, GFR, CBC, ADIFF, CMP #### [address] [address] BMPon 01-04-2023 BUN/Creatinine Ratio 15 ratio Normal 7-27 [facility] ([place]) Comment on above: Performed By: #### A ESVIN, GFR, CBC, ADIFF, CMP #### [address] [address] Calcium [Mass/Vol] 8.7 mg/dL Normal 8.4-10.2 [facility] ([place]) Comment on above: Performed By: #### A ESVIN, GFR, CBC, ADIFF, CMP #### [address] [address] Chloride [Moles/Vol] 102 mmol/L Normal 98-107 [facility] ([place]) Comment on above: Performed By: #### A ESVIN, GFR, CBC, ADIFF, CMP #### [address] [address] CO2 [Moles/Vol] 26 mmol/L Normal 23-31 [facility] ([place]) Comment on above: Performed By: #### A ESVIN, GFR, CBC, ADIFF, CMP #### [address] [address] Creatinine [Mass/Vol] 1.69 mg/dL High 0.70-1.30 [facility] ([place]) Comment on above: Performed By: #### A ESVIN, GFR, CBC, ADIFF, CMP #### [address] [address] Electrolyte Balance 9.0 mEq/L Normal 4.0-15.0 [facility] ([place]) Comment on above: Performed By: #### A ESVIN, GFR, CBC, ADIFF, CMP #### [address] [address] Glucose [Mass/Vol] 166 mg/dL High 83-110 [facility] ([place]) Comment on above: Performed By: #### A ESVIN, GFR, CBC, ADIFF, CMP #### [address] [address] Potassium [Moles/Vol] 4.0 mmol/L Normal 3.5-5.1 [facility] ([place]) Comment on above: Performed By: #### A ESVIN, GFR, CBC, ADIFF, CMP #### [address] [address] Sodium [Moles/Vol] 137 mmol/L Normal 136-145 [facility] ([place]) Comment on above: Performed By: #### A ESVIN, GFR, CBC, ADIFF, CMP #### [address] [address] Urea nitrogen [Mass/Vol] 25 mg/dL High 7-18 [facility] ([place] Comment on above: Performed By: #### A ESVIN, GFR, CBC, ADIFF, CMP #### [address] [address] CBCon 01-04-2023 Erythrocyte distribution width (RBC) [Ratio] 14.1 % Normal 11.5-14.5 [facility] ([place] Comment on above: Performed By: #### A ESVIN, GFR, CBC, ADIFF, CMP #### [place] [address] Hematocrit (Bld) [Volume fraction] 38.0 % Low 42.0-52.0 [facility] ([place]) Comment on above: Performed By: #### A ESVIN, GFR, CBC, ADIFF, CMP #### [place] [address] Hgb 12.7 G/dL Low 14.0-18.0 [facility] ([place] Comment on above: Performed By: #### A ESVIN, GFR, CBC, ADIFF, CMP #### [address] [address] MCH (RBC) [Entitic mass] 29.4 pg Normal 27.0-31.2 [facility] ([place] Comment on above: Performed By: #### A ESVIN, GFR, CBC, ADIFF, CMP #### [address] [address] MCHC 33.3 G/dL Normal 31.8-35.4 [facility] ([place] Comment on above: Performed By: #### A ESVIN, GFR, CBC, ADIFF, CMP #### [address] [address] MCV (RBC) [Entitic vol] 88.2 fL Normal 80.0-94.0 [facility] ([place]) Comment on above: Performed By: #### A ESVIN, GFR, CBC, ADIFF, CMP #### [address] [address] Platelet 182 10 3/mcL Normal 130-400 [facility] ([place] Comment on above: Performed By: #### A ESVIN, GFR, CBC, ADIFF, CMP #### [address] [address] Platelet mean volume (Bld) [Entitic vol] 7.8 fL Normal 7.4-10.4 [facility] ([place]) Comment on above: Performed By: #### A ESVIN, GFR, CBC, ADIFF, CMP #### [address] [address] RBC 4.30 10 6/mcL Normal 4.04-6.13 [facility] ([place] Comment on above: Performed By: #### A ESVIN, GFR, CBC, ADIFF, CMP #### [address] [address] WBC 10.4 10 3/mcL Normal 4.6-10.8 [facility] ([place] Comment on above: Performed By: #### A ESVIN, GFR, CBC, ADIFF, CMP #### [address] [address] [address] HEAD OR BRAIN W/O CONTRAS Ton [...] 01/04/2023 9:27:31 PM Ordering Provider: DOUGLAS St [facility] ([place]) LABORATORYOrdered By: Bernadette Ordonez on 01-04-2023 Appearance [...] SS LABORATORYOrdered By: Bia Alejandro on 01-04-2023 [place] [Moles/Vol] See comment Invalid Interpretation Code 0.40 [...] Probable Contamination. Suggest recollection if clinically indicated. [facility] 01-04-2023 Troponin I High Sensitivity 12.1 ng/L Normal 0.0-76.2 [facility] ([place] Comment on above: Performed By: #### A ESVIN, GFR, CBC, ADIFF, CMP #### [address] [address] UAon 01-04-2023 Color (U) Yellow Normal [facility] ([place] Comment on above: Performed By: #### A ESVIN, GFR, CBC, ADIFF, CMP #### [address] [address] Glucose (U) [Mass/Vol] Negative Normal Negative [facility] ([place] Comment on above: Performed By: #### A ESVIN, GFR, CBC, ADIFF, CMP #### [address] [address] Ketones Ql (U) Negative Normal Negative [facility] ([place] Comment on above: Performed By: #### A ESVIN, GFR, CBC, ADIFF, CMP #### [address] [address] UA Appear Slightly Cloudy Abnormal Clear [facility] ([place] Comment on above: Performed By: #### A ESVIN, GFR, CBC, ADIFF, CMP #### [address] [address] UA Blood Moderate Abnormal Negative [facility] ([place] Comment on above: Performed By: #### A ESVIN, GFR, CBC, ADIFF, CMP #### [address] [address] UA Leuk Est Large Abnormal Negative [facility] ([place] Comment on above: Performed By: #### A ESVIN, GFR, CBC, ADIFF, CMP #### [address] [address] UA Nitrite Positive Abnormal Negative [facility] ([place] Comment on above: Performed By: #### A ESVIN, GFR, CBC, ADIFF, CMP #### [address] [address] UA pH 6.0 Normal 5.0 - 8.0 [facility] ([place] Comment on above: Performed By: #### A ESVIN, GFR, CBC, ADIFF, CMP #### [address] [address] UA Protein 100 mg/dL Abnormal Negative [facility] ([place] Comment on above: Performed By: #### A ESVIN, GFR, CBC, ADIFF, CMP #### [address] [address] UA Spec Grav 1.020 Normal 1.015-1.025 [facility] ([place] Comment on above: Performed By: #### A ESVIN, GFR, CBC, ADIFF, CMP #### [address] [address] UA Specimen Type Clean Catch Normal [facility] ([place] Comment on above: Performed By: #### A ESVIN, GFR, CBC, ADIFF, CMP #### [place] [address] UA Urobilinogen 1.0 E.U./dL Normal 0.2-1.0 [facility] ([place] Comment on above: Performed By: #### A ESVIN, GFR, CBC, ADIFF, CMP #### [place] [address] [place], [place] [address] Urobilinogen (U) [Mass/Vol] Negative Normal Negative [facility] ([place] Comment on above: Performed By: #### A ESVIN, GFR, CBC, ADIFF, CMP #### [place] [address] [place], [place] [address] XR CHEST 1 VIEWon 01-04-2023 XR CHEST [...] 9:23:07 PM Ordering Provider: DOUGLAS BERMUDEZ Normal [facility] ([place]) Basophil percentageon 2021 Bilirubin [Mass/Vol] 1.10 mg/dL 0.20-1.00 [facility] Work Phone: Comment on above: For patients on eltr ombopag therapy, use of Dimension [place] TBIL is not recommended. Chloride [Moles/Vol] 108 mmol/L 98-107 [facility] Work Phone: Glucose [Mass/Vol] 117 mg/dL 74-106 [facility] Work Phone: Comment on above: Fasting Glucose resu lt from 100 to 125 mg/dL suggests IMPAIRED HOMEOSTASIS per A.D.A. criteria. Potassium [Moles/Vol] 4.2 mmol/L 3.5-5.1 [facility] Work Phone: Protein [Mass/Vol] 7.4 g/dL 6.4-8.2 [facility] Work Phone: Sodium [Moles/Vol] 138 mmol/L 136-145 [facility] Work Phone: Laboratory - Chemistry and C hemistry - challengeon 11-06-2021 ALP [Catalytic activity/Vol] 69 U/L 45-117 [facility] Work Phone: ALT [Catalytic activity/Vol] 17 U/L 16-61 [facility] Work Phone: CO2 [Moles/Vol] 26.0 mmol/L 21.0-32.0 [facility] Work Phone: Globulin (S) [Mass/Vol] 3.8 g/dL 2.2-4.2 [facility] Work Phone: Urea nitrogen/Creatinine [Mass ratio] 13.1 mg/mg 10-20 [facility] Work Phone: No Panel Informationon 11-06 Estimated GFR (MDRD) Amer 64 mL/min >60 [facility] Work Phone: Comment on above: GFR Calc Estimated GFR (MDRD) Non-Af Amer 53 mL/min >60 [facility] Work Phone: Comment on above: Non- GFR Calc [place] Level 0.80 mmol/L 0.60-1.20 [facility] Work Phone: Thyroid Stimulating Hormone (TSH) 4.01 uIU/mL 0.358-3.74 [facility] Work Phone: Serum or plasma albumin phillip urement (mass/volume)on 11-06-2021 Albumin [Mass/Vol] 3.6 g/dL 3.2-5.0 [facility] Work Phone: Serum or plasma albumin/glob ulin mass ratioon 11-06-2021 Albumin/Globulin [Mass ratio] 0.9 {ratio} 0.9-2.4 [facility] Work Phone: Serum or plasma calcium phillip urement (mass/volume)on 11-06-2021 Calcium [Mass/Vol] 9.3 mg/dL 8.5-10.1 [facility] Work Phone: Serum or plasma creatinine m easurement (mass/volume)on 11-06-2021 Creatinine [Mass/Vol] 1.37 mg/dL 0.70-1.30 [facility] Work Phone: Comment on above: The validity of the calculated GFR & GFRAA in patients over 70 years has not been determined. Clinical correlation is essential. Serum or plasma urea nitroge n measurement (mass/volume)on 11-06-2021 Urea nitrogen [Mass/Vol] 18 mg/dL 7-18 [facility] Work Phone: Thin prep Papanicolaou smear with manual screeningon 11-06-2021 Thin prep Papanicolaou smear with manual screening 16 U/L 15-37 [facility] Work Phone: Thin prep Papanicolaou smear with manual screening 4 5-15 [facility] Work Phone: Basophil percentageon 2021 Creatinine [Mass/Vol] 1.2 mg/dL 0.70-1.30 [facility] Work Phone: No Panel Informationon 08-13 Bedside Estimated GFR (eGFR) > 60.0000 mL/min >60 [facility] Work Phone: BMPon 03-27-2021 Anion gap [Moles/Vol] 5 mmol/L Normal 5-16 [facility] [place] Comment on above: Order Comment: Brittany s: M Minimal Draw: Y : Minimal draw Performed By: #### L 500.52340, L500.32604, L500.14021, L500.95198 #### [facility] [place] [address] Calcium [Mass/Vol] 8.9 mg/dL Normal 8.5-10.5 [facility] Comment on above: Order Comment: Brittany albrecht: M Minimal Draw: Y : Minimal draw Result Comment: NOTE NEW NORMAL RANGE DUE TO REAGENT CHANGE Performed By: #### L 500.73422, L500.50949, L500.62343, L500.62275 #### [facility] [address] [place] [address] Chloride [Moles/Vol] 106 mmol/L Normal 98-107 [facility] Comment on above: Order Comment: Brittany albrecht: Rosenda Minimal Draw: Y : Minimal draw Performed By: #### L 500.25174, L500.09687, L500.90852, L500.74844 #### [facility] [address] [place] [address] CO2 [Moles/Vol] 28.0 mmol/L Normal 21-32 [facility] Comment on above: Order Comment: Brittany albrecht: Rosenda Minimal Draw: Y : Minimal draw Performed By: #### L 500.76736, L500.59773, L500.59514, L500.22108 #### [facility] [address] [place] [address] Creatinine [Mass/Vol] 1.36 mg/dL Normal 0.5-1.4 [facility] Comment on above: Order Comment: Brittany albrecht: Rosenda Minimal Draw: Y : Minimal draw Result Comment: NOTE NEW NORMAL RANGE DUE TO REAGENT CHANGE Patients receiving either N-Acetylcysteine (NAC) or Metamizole prior to venipuncture, may have falsely depressed results. Performed By: #### L 500.93808, L500.34604, L500.91401, L500.95485 #### [facility] [address] [place] [address] Glucose [Mass/Vol] 122 mg/dL High 70-100 [facility] Comment on above: Order Comment: Brittany Herzog Minimal Draw: Y : Minimal draw Result Comment: 70-1 00- Normal Fasting; 100-125 Impaired Fasting; greater than 126 on more than one result- Diabetes. ADA guidelines. Results may be falsely elevated after the administration of Sulfapyridine. Results may be falsely depressed after the administration of Sulfasalazine. Performed By: #### L 500.45716, L500.40335, L500.34407, L500.08359 #### [facility] [address] [place] [address] Potassium [Moles/Vol] 4.4 mmol/L Normal 3.5-5.1 [facility] Comment on above: Order Comment: Brittany albrecht: Rosenda Minimal Draw: Y : Minimal draw Performed By: #### L 500.14540, L500.69474, L500.95324, L500.08054 #### [facility] [address] [place], [place] [id number] Sodium [Moles/Vol] 139 mmol/L Normal 136-145 [facility] Comment on above: Order Comment: Brittany Herzog Minimal Draw: Y : Minimal draw Performed By: #### L 500.49632, L500.25621, L500.52209, L500.16644 #### [facility] [address] [place], [place] [id number] Urea nitrogen [Mass/Vol] 25 mg/dL Normal 7-26 [facility] Comment on above: Order Comment: Brittany albrecht: Rosenda Minimal Draw: Y : Minimal draw Performed By: #### L 500.76450, L500.16507, L500.51043, L500.81453 #### [facility] [address] [place] [address] Urea nitrogen/Creatinine [Mass ratio] 18 mg/mg Normal 15-24 [facility] Comment on above: Order Comment: Campu s: M Minimal Draw: Y : Minimal draw Performed By: #### L 500.60195, L500.64775, L500.94600, L500.41138 #### [facility] [address] [place], [place] [id number] CBCon 03-27-2021 Erythrocyte distribution width (RBC) [Ratio] 13.3 % Normal 11-14.5 [facility] Comment on above: Order Comment: Brittany s: M Minimal Draw: Y Performed By: #### L 200.24345 #### [facility] [address] [place] [address] Hematocrit (Bld) [Volume fraction] 34.5 % Low 41.0-53.0 [facility] Comment on above: Order Comment: Brittany s: M Minimal Draw: Y Performed By: #### L 200.80592 #### [facility] [address] [place] [address] Hemoglobin (Bld) [Mass/Vol] 11.2 g/dL Low 13.5-17.5 [facility] Comment on above: Order Comment: Brittany albrecht: M Minimal Draw: Y Performed By: #### L 200.75680 #### [facility] [address] [place] [address] MCHC (RBC) [Mass/Vol] 32.5 g/dL Normal 32.0-36.0 [facility] Comment on above: Order Comment: Brittany s: M Minimal Draw: Y Performed By: #### L 200.79493 #### [facility] [address] [place], [place] [id number] MCV (RBC) [Entitic vol] 91.8 fL Normal 80.0-99.0 [facility] Comment on above: Order Comment: Brittany s: M Minimal Draw: Y Performed By: #### L 200.87370 #### [facility] [address] [place], [place] [id number] Nucleated RBC/100 WBC (Bld) [Ratio] 0.0 % Normal Less than 1 [facility] Comment on above: Order Comment: Cristoferu s: M Minimal Draw: Y Performed By: #### L 200.07756 #### [facility] [place] [address] Platelet mean volume (Bld) [Entitic vol] 9.7 fL Normal 9.4-12.4 [facility] Comment on above: Order Comment: Campu s: M Minimal Draw: Y Performed By: #### L 200.27104 #### [facility] [address] [place] [address] PLT 203 K/CU MM Normal 150-450 [facility] Comment on above: Order Comment: Campu s: M Minimal Draw: Y Performed By: #### L 200.19703 #### [facility] [address] [place] [address] RBC 3.76 M/CU MM Low 4.50-6.00 [facility] Comment on above: Order Comment: Cristoferu s: M Minimal Draw: Y Performed By: #### L [id number] #### [facility] [address] [place], [place] [address] WBC 9.5 K/CUMM Normal 4.5-11.0 [facility] Comment on above: Order Comment: Cristoferu s: M Minimal Draw: Y Performed By: #### L 200.84827 #### [facility] [address] [place], [place] [address] Maricel 03-27-2021 FERR 112.1 NG/ML Normal 24.0-388.0 [facility] Comment on above: Order Comment: Cristoferu s: M Minimal Draw: Y Performed By: #### L 200.47910 #### [facility] [address] [place], [place] [address] GFR ESTon 03-27-2021 IF AMER Greater than 60 Normal [facility] Comment on above: Order Comment: Brittany Herzog Minimal Draw: Y : Minimal draw Performed By: #### L 500.43211, L500.25801, L500.67280, L500.76952 #### [facility] [place] [address] IF non-AFR AMER 51 Normal [facility] Comment on above: Order Comment: Brittany Herzog Minimal Draw: Y : Minimal draw Performed By: #### L 500.22915, L500.58754, L500.40278, L500.57377 #### [facility] [address] [place] [address] IRON PANELon 03-27-2021 Iron [Mass/Vol] 40 ug/dL Low 65-175 [facility] Comment on above: Order Comment: Brittany Herzog Minimal Draw: Y : Minimal draw Result Comment: Daly ents treated with metal-binding drugs (e.g.deferoxamine) may have depressed iron values, as chelated iron may not properly react in the Siemens iron assay. Performed By: #### L 500.65372, L500.98948, L500.56120, L500.70504 #### [facility] [address] [place] [address] IRON SAT 15 % Low 30-44 [facility] Comment on above: Order Comment: Brittany Herzog Minimal Draw: Y : Minimal draw Performed By: #### L 500.21951, L500.64549, L500.72359, L500.73956 #### [facility] [place] [address] TIBC 276 UG/DL Normal 221-481 [facility] Comment on above: Order Comment: Brittany Herzog Minimal Draw: Y : Minimal draw Performed By: #### L 500.70432, L500.18477, L500.05007, L500.78461 #### [facility] [address] [place], [place] [address] # [phone] OTARon 03-27-2021 OT Assessment Report Normal [facility] PROG IMSon 03-27-2021 PROG [facility] Date of : [address] [address] Unit Number: [id number] Progress Note-Hospitalist Patient Status: DEP [facility] Attending Doctor: Keron Alejo DO Service Date: 03/27/21 1214 Disclaimer This dictation was created using voice recognition software. Phonetic and/or minor grammatical errors may exist. eSign Date and Time Sharad Blackburn DO Normal [facility] Progress Note-Hospitalist Normal [facility] PROG.ORTHOon 03-27-2021 PROG.ORTHO [facility] [place] Date of : [address] [address] Unit Number: [id number] Progress Note-Ortho Patient Status: REG [facility] Attending Doctor: Keron Alejo DO Service Date: [...] Keron Alejo DO Verified/Reviewed by 03/27/21 0741 [facility] Progress Note-Ortho [facility] PTDSon 03-27-2021 PTDS Physical Therapy Inpatient Last Visit Note The inpatient Physical Therapy services are discontinued at this time for the following reasons: Goals Met. AUTO FLEET MAINTENANCE MANAGER has assisted with documenting discharge plan and [...] 2. Perform transfers with supervision - Met [facility] PATIENT NAME: LACI ANDERSEN0 [facility] [address]. Deshpande MEDICAL REC #: [id number] [place] [address] ADMIT DATE: SERVICE DATE: 03/27/21 Physical Therapy [...] minutes (Timed: 39, Untimed: 0) 39.00 Timed: [11744] GAIT TRAIN EA 15 MIN 0.00 Untimed: [] PT Treatment- General ORDER Signed by: Anna San, AUTO FLEET MAINTENANCE MANAGER 03/27/2021 13:28:28 - CoSigned By: Luz Tavarez PT, DPT 03/27/2021 3:10:59 PM [facility] PATIENT NAME: LACI ANDERSEN [facility] [address] MEDICAL REC #: [id number] [place] [address] ADMIT DATE: SERVICE DATE: 03/27/21 Physical Therapy Discharge Summary ATTENDING PHY: Keron Alejo DO [facility] ACP.NOTE.[facility] 03-26-2021 ACP.NOTE.U [facility] Patient Name: LACI ANDERSEN [employer] [address] Date of : [address] [address] Unit Number: [id number] Advance Care Planning Note Patient Status: [facility] Attending Doctor: Keron Alejo DO Service Date: 03/26/21 1200 Disclaimer This dictation was created using voice recognition software. Phonetic and/or minor grammatical errors may exist. eSign Date and Time Sharad Blackburn DO [facility] 03-26-2021 CONSULTATION-H&P [facility] Patient Name: LACI ANDERSEN [employer] [place] Date of : [address] [address] Unit Number: [id number] CONSULTATION-HandP Patient Status: [facility] Attending Doctor: Keron Alejo DO Service Date: 03/26/21 143 NETTA RIVAS 03/26/21 1436: History of Present Illness Referring Physician Keron Alejo DO Consulted Provider Sharad Blackburn DO Reason for Consult MED MGT. HX OF BIPOLAR History of Present Illness This is a pleasant 80-year-old male patient of Dr. Luke Rosenthal from [place], who presented to [facility] for right knee replacement Dr. Alejo. We [...] / Plan Conclusion 1. Bipolar 1 disorder [place] resume from home 2. Osteoarthritis of right [...] 03/27/21 1212 Last Action: No Recorded Action [place] Carbonate* (Eskalith Cr 450MG Tab.sa*) 450 MG [...] have evaluated (more content not included)... Normal [facility] HP.IMS.CON [facility] Patient Name: LACI ANDRESEN [address] [employer] Date of : [address] [address] Unit Number: [id number] CONSULTATION-HandP Patient Status: [facility] Attending Doctor: Keron Alejo DO Service Date: [...] 03/27/21 1212 Last Action: No Recorded Action [place] Carbonate* (Eskalith Cr 450MG Tab.sa*) 450 MG [...] Date and Time Sharad Blackburn DO Normal [facility] OR.OPRPTon 03-26-2021 Operative Report Normal [facility] OR.OPRPT [facility] Patient Name: LACI ANDERSEN [address] [employer] [address] Date of : [address] [place], [place] [address] Unit Number: [id number] Operative Report Patient Status: REG [facility] Attending Doctor: Keron Alejo DO Service Date: [...] Right knee. SURGEON: Keron Alejo DO SALES OPERATIONS: Sachin Acosta PGY 5, DANE Treviño ANESTHESIA: [...] everted. The knee (more content not included)... [facility] PTARon 03-26-[address] [facility] SURGon 03-26-2021 SURG - -------- Patient: NICKLACI [...] and/or minor grammatical errors may exist. -------- [facility] NAME: NICKLACI [facility] UNIT#: [id number] LOC: [facility] Leadership Intern: More Smith M.D. ROOM/BED: [employer] : [address] AGE/SEX: 80/M ORD.Keron Erazo DO END OF REPORT [facility] [id number] 03-24-2021 SARS-CoV-2 (COVID-19) RNA TRUPTI+probe Ql (Unsp spec) Negative Invalid Interpretation Code Negative [facility] Comment on above: Result Comment: Nega tive results do not preclude SARS-CoV-2 infection and should not be used as the sole basis for treatment or other patient management decisions. Negative results must be combined with clinical observation, patient history, and epidemiological information. This test was performed by PCR. Performed By: #### L 770.24569 #### [facility] [address] [place] [address] URINE CULTUREon 03-05-2021 Bacteria identified Cx Nom (U) URINE RESULT 40-50,000 COL/ML MIXED ALIRIO-PLEASE REPEAT-POSSIBLE CONTAMIN Normal [facility] Comment on above: Order Comment: Brittany s: Rosenda Minimal Draw: Y Performed By: #### L 200.15593 #### [facility] [address] [place] [address] BMPon 03-04-2021 Anion gap [Moles/Vol] 7 mmol/L Normal 5-16 [facility] Comment on above: Order Comment: Campu s: M Minimal Draw: Y Performed By: #### L 200.00427 #### [facility] [address] [place] [address] Calcium [Mass/Vol] 9.7 mg/dL Normal 8.5-10.5 [facility] Comment on above: Order Comment: Campu s: M Minimal Draw: Y Result Comment: NOTE NEW NORMAL RANGE DUE TO REAGENT CHANGE Performed By: #### L 200.87566 #### [facility] [place] [address] Chloride [Moles/Vol] 108 mmol/L High 98-107 [facility] Comment on above: Order Comment: Campu s: M Minimal Draw: Y Performed By: #### L 200.73319 #### [facility] [address] [place] [address] CO2 [Moles/Vol] 25.0 mmol/L Normal 21-32 [facility] Comment on above: Order Comment: Campu s: M Minimal Draw: Y Performed By: #### L 200.53066 #### [facility] [address] [place], [place] [address] Creatinine [Mass/Vol] 1.20 mg/dL Normal 0.5-1.4 [facility] Comment on above: Order Comment: Campu s: M Minimal Draw: Y Result Comment: NOTE NEW NORMAL RANGE DUE TO REAGENT CHANGE Patients receiving either N-Acetylcysteine (NAC) or Metamizole prior to venipuncture, may have falsely depressed results. Performed By: #### L 200.65418 #### [facility] [address] [place] [address] Glucose [Mass/Vol] 206 mg/dL High 70-100 [facility] Comment on above: Order Comment: Campu s: M Minimal Draw: Y Result Comment: 70-1 00- Normal Fasting; 100-125 Impaired Fasting; greater than 126 on more than one result- Diabetes. ADA guidelines. Results may be falsely elevated after the administration of Sulfapyridine. Results may be falsely depressed after the administration of Sulfasalazine. Performed By: #### L 200.78114 #### [facility] [address] [place] [address] Potassium [Moles/Vol] 4.3 mmol/L Normal 3.5-5.1 [facility] Comment on above: Order Comment: Campu s: M Minimal Draw: Y Result Comment: Slig ht Hemolysis, Result may be affected. Performed By: #### L 200.96405 #### [facility] [address] [place] [address] Sodium [Moles/Vol] 140 mmol/L Normal 136-145 [facility] Comment on above: Order Comment: Campu s: M Minimal Draw: Y Performed By: #### L 200.78143 #### [facility] [address] [place] [address] Urea nitrogen [Mass/Vol] 22 mg/dL Normal 7-26 [facility] Comment on above: Order Comment: Campu s: M Minimal Draw: Y Performed By: #### L 200.58288 #### [facility] [address] [place] [address] Urea nitrogen/Creatinine [Mass ratio] 18 mg/mg Normal 15-24 [facility] Comment on above: Order Comment: Campu s: M Minimal Draw: Y Performed By: #### L 200.32887 #### [facility] [address] [place] [address] CBC W/DIFFon 03-04-2021 BASO ABS 0.10 K/CU MM Normal 0-0.2 [facility] Comment on above: Order Comment: Campu s: M Performed By: #### L 200.78628 #### [facility] [address] [place] [address] Basophils/100 WBC (Bld) 1.6 % Normal 0-2 [facility] Comment on above: Order Comment: Campu s: M Performed By: #### L 200.46984 #### [facility] [address] [place] [address] EOS ABS 0.40 K/CU MM Normal 0-0.5 [facility] Comment on above: Order Comment: Campu s: M Performed By: #### L 200.70756 #### [facility] [address] [place] [address] Eosinophils/100 WBC (Bld) 8.3 % High 0-5 [facility] Comment on above: Order Comment: Campu s: M Performed By: #### L 200.46517 #### [facility] [address] [place] [address] Erythrocyte distribution width (RBC) [Ratio] 13.3 % Normal 11-14.5 [facility] Comment on above: Order Comment: Campu s: M Performed By: #### L 200.09685 #### [facility] [address] [place] [address] Hematocrit (Bld) [Volume fraction] 44.3 % Normal 41.0-53.0 [facility] Comment on above: Order Comment: Campu s: M Performed By: #### L 200.81729 #### [facility] [address] [place] [address] Hemoglobin (Bld) [Mass/Vol] 14.3 g/dL Normal 13.5-17.5 [facility] Comment on above: Order Comment: Campu s: M Performed By: #### L 200.39929 #### [facility] [address] [place] [address] IMMATR GRAN ABS 0.00 K/CU MM Normal Less than 2 [facility] Comment on above: Order Comment: Campu s: M Performed By: #### L 200.61208 #### [facility] [address] [place] [address] IMMATURE GRAN % 0.2 % Normal Less than 2 [facility] Comment on above: Order Comment: Campu s: M Performed By: #### L 200.20040 #### [facility] [address] [place] [address] LYMPH ABS 0.90 K/CU MM Normal 0.9-4.4 [facility] Comment on above: Order Comment: Campu s: M Performed By: #### L 200.64667 #### [facility] [address] [place] [address] Lymphocytes/100 WBC (Bld) 17.4 % Low 20-40 [facility] Comment on above: Order Comment: Campu s: M Performed By: #### L 200.86863 #### [facility] [address] [place] [address] MCHC (RBC) [Mass/Vol] 32.3 g/dL Normal 32.0-36.0 [facility] Comment on above: Order Comment: Campu s: M Performed By: #### L 200.70686 #### [facility] [address] [place] [address] MCV (RBC) [Entitic vol] 93.3 fL Normal 80.0-99.0 [facility] Comment on above: Order Comment: Campu s: M Performed By: #### L 200.38407 #### [facility] [address] [place] [address] MONO ABS 0.50 K/CU MM Normal 0.1-1.1 [facility] Comment on above: Order Comment: Campu s: M Performed By: #### L 200.49007 #### [facility] [address] [place] [address] Monocytes/100 WBC (Bld) 9.7 % Normal 2-10 [facility] Comment on above: Order Comment: Campu s: M Performed By: #### L 200.79107 #### [facility] [address] [place] [address] NEUTROPHIL ABS 3.20 K/CU MM Normal 2.0-8.3 [facility] Comment on above: Order Comment: Campu s: M Performed By: #### L 200.17375 #### [facility] [address] [place] [address] Neutrophils/100 WBC (Bld) 62.8 % Normal 45-75 [facility] Comment on above: Order Comment: Campu s: M Performed By: #### L 200.10133 #### [facility] [address] [place] [address] Nucleated RBC/100 WBC (Bld) [Ratio] 0.0 % Normal Less than 1 [facility] Comment on above: Order Comment: Campu s: M Performed By: #### L 200.38404 #### [facility] [address] [place] [address] Platelet mean volume (Bld) [Entitic vol] 10.0 fL Normal 9.4-12.4 [facility] Comment on above: Order Comment: Campu s: M Performed By: #### L 200.68808 #### [facility] [address] [place], [place] [address] PLT 212 K/CU MM Normal 150-450 [facility] Comment on above: Order Comment: Campu s: M Performed By: #### L 200.88744 #### [facility] [address] [place] [address] RBC 4.75 M/CU MM Normal 4.50-6.00 [facility] Comment on above: Order Comment: Campu s: M Performed By: #### L 200.35123 #### [facility] [address] [place] [address] WBC 5.1 K/CUMM Normal 4.5-11.0 [facility] Comment on above: Order Comment: Campu s: M Performed By: #### L 200.36018 #### [facility] [address] [place] [address] GFR ESTon 03-04-2021 IF AMER Greater than 60 Normal [facility] Comment on above: Order Comment: Campu s: M Minimal Draw: Y Performed By: #### L 200.52634 #### [facility] [address] [place] [address] IF non-AFR AMER 58 Normal [facility] Comment on above: Order Comment: Campu s: M Minimal Draw: Y Performed By: #### L 200.67461 #### [facility] [address] [place] [address] HGB A1C GLYCOHBon 03-04-2021 HbA1c (Bld) [Mass fraction] 6.0 % Normal 4.3-6.0 [facility] Comment on above: Order Comment: Campu s: M Performed By: #### L 550.76039 #### [facility] [address] [place] [address] MRSA PCRon 03-04-2021 MRSA PCR Negative Normal NEGATIVE [facility] Comment on above: Order Comment: Campu s: M Minimal Draw: Y Result Comment: PRADEEP GANDARA NOTE: TESTING DONE BY PCR TECHNOLOGY. Performed By: #### L 200.36337 #### [facility] [address] [place] [address] SA PCR Positive High NEGATIVE [facility] Comment on above: Order Comment: Brittany albrecht: Rosenda Minimal Draw: Y Result Comment: PRADEEP GANDARA NOTE: TESTING DONE BY PCR TECHNOLOGY. Performed By: #### L 200.62500 #### [facility] [address] [place] [address] PTon 03-04-2021 INR Coag (PPP) [Relative time] 0.96 {INR} Normal 0.9-1.1 [facility] Comment on above: Order Comment: Brittany albrecht: Rosenda Result Comment: Emigdio mmended PT INR therapeutic range for supervisor intermediates and prophylactic therapy is 2.0 - 3.0. For heart valve and shunt patients the range is 2.5 - 3.5. Performed By: #### L 300.95088, L300.51497 #### [facility] [address] [place] [address] PTS 10.3 SECONDS Normal 9.5-12.0 [facility] Comment on above: Order Comment: Brittany Herzog Performed By: #### L 300.44483, L300.51411 #### [facility] [address] [place] [address] PTTon 03-04-2021 aPTT Coag (Bld) [Time] 24.9 s Normal 22.0-31.5 [facility] Comment on above: Order [...] using the PTT. Performed By: #### L 300.86214, L300.27855 #### [facility] [address] [place], [place] [address] Vital Signs Date Time Vital Sign Value Performing Clinician Facility 07-20-2024 13:24-0500 Body temperature 98.71 [degF] Krislyn Aberegg PA Work Phone: [facility] 07-20-2024 13:24-0500 Body weight 105 kg Krislyn Aberegg PA Work Phone: [facility] 07-20-2024 13:24-0500 Diastolic blood pressure 56 mm[Hg] Krislyn Aberegg PA Work Phone: [facility] 07-20-2024 13:24-0500 Heart rate 74 /min Krislyn Aberegg PA Work Phone: [facility] 07-20-2024 13:24-0500 Respiratory rate 16 /min Krislyn Aberegg PA Work Phone: [facility] 07-20-2024 13:24-0500 SaO2% (BldA) [Mass fraction] 96 % Krislyn Aberegg PA Work Phone: [facility] 07-20-2024 13:24-0500 Systolic blood pressure 110 mm[Hg] Krislyn Aberegg PA Work Phone: [facility] 03-22-2024 10:21-0400 Body temperature 97.11 [degF] Carina Irby FAMILY SUPPORT WORKER.ROCKET ENGINE MECHANIC Work Phone: [facility] 03-22-2024 10:21-0400 Body weight 104.9 kg Carina Irby FAMILY SUPPORT WORKER.ROCKET ENGINE MECHANIC Work Phone: [facility] 03-22-2024 10:21-0400 Diastolic blood pressure 68 mm[Hg] Carina Irby FAMILY SUPPORT WORKER.ROCKET ENGINE MECHANIC Work Phone: [facility] 03-22-2024 10:21-0400 Heart rate 75 /min Carina Irby FAMILY SUPPORT WORKER.ROCKET ENGINE MECHANIC Work Phone: [facility] 03-22-2024 10:21-0400 Respiratory rate 18 /min Carina Irby FAMILY SUPPORT WORKER.ROCKET ENGINE MECHANIC Work Phone: [facility] 03-22-2024 10:21-0400 SaO2% (BldA) [Mass fraction] 96 % Carina Irby FAMILY SUPPORT WORKER.ROCKET ENGINE MECHANIC Work Phone: [facility] 03-22-2024 10:21-0400 Systolic blood pressure 107 mm[Hg] Carina Irby FAMILY SUPPORT WORKER.ROCKET ENGINE MECHANIC Work Phone: [facility] 03-18-2024 10:39-0400 Body temperature 98.29 [degF] Krislyn Aberegg PA Work Phone: [facility] 03-18-2024 10:39-0400 Body weight 104.2 kg Krislyn Aberegg PA Work Phone: [facility] 03-18-2024 10:39-0400 Diastolic blood pressure 80 mm[Hg] Krislyn Aberegg PA Work Phone: [facility] 03-18-2024 10:39-0400 Heart rate 84 /min Krislyn Aberegg PA Work Phone: [facility] 03-18-2024 10:39-0400 Respiratory rate 16 /min Krislyn Aberegg PA Work Phone: [facility] 03-18-2024 10:39-0400 SaO2% (BldA) [Mass fraction] 95 % Krislyn Aberegg PA Work Phone: [facility] 03-18-2024 10:39-0400 Systolic blood pressure 128 mm[Hg] Krislyn Aberegg PA Work Phone: [facility] 07-03-2023 14:44-0500 Body temperature 99.9 [degF] Josefina Athy PA-C Work Phone: [facility] 07-03-2023 14:44-0500 Body weight 107.5 kg Josefina Athy PA-C Work Phone: [facility] 07-03-2023 14:44-0500 Diastolic blood pressure 73 mm[Hg] Josefina Athy PA-C Work Phone: [facility] 07-03-2023 14:44-0500 Heart rate 79 /min Josefina Watersy PA-C Work Phone: [facility] 07-03-2023 14:44-0500 Respiratory rate 22 /min Josefina Watersy PA-C Work Phone: [facility] 07-03-2023 14:44-0500 SaO2% (BldA) [Mass fraction] 95 % Josefina Watersy PA-C Work Phone: [facility] 07-03-2023 14:44-0500 Systolic blood pressure 108 mm[Hg] Josefina Watersy PA-C Work Phone: [facility] 01-07-2023 11:56-0400 Body temperature 98.06 [degF] TARI KAPPER FAMILY SUPPORT WORKER-ROCKET ENGINE MECHANIC [facility] 01-07-2023 11:56-0400 Diastolic Blood Pressure Non-Invasive 72 1 TARI AMANER FAMILY SUPPORT WORKER-ROCKET ENGINE MECHANIC [facility] 01-07-2023 11:56-0400 Heart rate 70 /min TARI AMANER FAMILY SUPPORT WORKER-ROCKET ENGINE MECHANIC [facility] 01-07-2023 11:56-0400 Reason For Taking VItal Signs TARI ROBLES FAMILY SUPPORT WORKER-ROCKET ENGINE MECHANIC [facility] 01-07-2023 11:56-0400 Respiratory rate 18 /min TARI NEWTONER FAMILY SUPPORT WORKER-ROCKET ENGINE MECHANIC [facility] 01-07-2023 11:56-0400 Systolic Blood Pressure Non-Invasive 101 1 TARI AMANER FAMILY SUPPORT WORKER-ROCKET ENGINE MECHANIC [facility] 01-07-2023 03:20-0400 Body temperature 98.24 [degF] TARI AMANER FAMILY SUPPORT WORKER-ROCKET ENGINE MECHANIC [facility] 01-07-2023 03:20-0400 Diastolic Blood Pressure Non-Invasive 70 1 TARI AMANER FAMILY SUPPORT WORKER-ROCKET ENGINE MECHANIC [facility] 01-07-2023 03:20-0400 Heart rate 64 /min TARI AMANER FAMILY SUPPORT WORKER-ROCKET ENGINE MECHANIC [facility] 01-07-2023 03:20-0400 Reason For Taking VItal Signs TARI AMANER FAMILY SUPPORT WORKER-ROCKET ENGINE MECHANIC [facility] 01-07-2023 03:20-0400 Respiratory rate 18 /min TARI AMANER FAMILY SUPPORT WORKER-ROCKET ENGINE MECHANIC [facility] 01-07-2023 03:20-0400 Systolic Blood Pressure Non-Invasive 112 1 TARI AMANER FAMILY SUPPORT WORKER-ROCKET ENGINE MECHANIC [facility] 01-07-2023 00:00-0400 Body temperature 98.6 [degF] TARI NEWTONER FAMILY SUPPORT WORKER-ROCKET ENGINE MECHANIC [facility] 01-07-2023 00:00-0400 Diastolic Blood Pressure Non-Invasive 53 1 TARI AMANER FAMILY SUPPORT WORKER-ROCKET ENGINE MECHANIC [facility] 01-07-2023 00:00-0400 Heart rate 70 /min TARI AMANER FAMILY SUPPORT WORKER-ROCKET ENGINE MECHANIC [facility] 01-07-2023 00:00-0400 Reason For Taking VItal Signs TARI AMANER FAMILY SUPPORT WORKER-ROCKET ENGINE MECHANIC [facility] 01-07-2023 00:00-0400 Respiratory rate 20 /min TARI AMANER FAMILY SUPPORT WORKER-ROCKET ENGINE MECHANIC [facility] 01-07-2023 00:00-0400 Systolic Blood Pressure Non-Invasive 92 1 TARI AMANER FAMILY SUPPORT WORKER-ROCKET ENGINE MECHANIC [facility] 01-06-2023 15:50-0400 Heart rate 75 /min TARI KAPPER FAMILY SUPPORT WORKER-ROCKET ENGINE MECHANIC [facility] 01-06-2023 11:25-0400 Heart rate 74 /min TARI KAPPER FAMILY SUPPORT WORKER-ROCKET ENGINE MECHANIC [facility] 01-06-2023 10:58-0400 Heart rate 86 /min TARI KAPPER FAMILY SUPPORT WORKER-ROCKET ENGINE MECHANIC [facility] 01-06-2023 06:10-0400 Heart rate 73 /min TARI KAPPER FAMILY SUPPORT WORKER-ROCKET ENGINE MECHANIC [facility] 01-05-2023 10:43-0400 Heart rate 73 /min TARI KAPPER FAMILY SUPPORT WORKER-ROCKET ENGINE MECHANIC [facility] 01-05-2023 07:29-0400 Heart rate 77 /min TARI KAPPER FAMILY SUPPORT WORKER-ROCKET ENGINE MECHANIC [facility] 01-05-2023 01:03-0400 Body height 185.4 cm TARI KAPPER FAMILY SUPPORT WORKER-ROCKET ENGINE MECHANIC [facility] 01-05-2023 01:03-0400 Body weight 109.1 kg TARI KAPPER FAMILY SUPPORT WORKER-ROCKET ENGINE MECHANIC [facility] 01-05-2023 01:03-0400 Body weight 31.74 kg/m2 TARI KAPPER FAMILY SUPPORT WORKER-ROCKET ENGINE MECHANIC [facility] 01-04-2023 19:10-0400 Blood Pressure Cuff Size TARI KAPPER FAMILY SUPPORT WORKER-ROCKET ENGINE MECHANIC [facility] 01-04-2023 19:10-0400 Blood Pressure Location TARI KAPPER FAMILY SUPPORT WORKER-ROCKET ENGINE MECHANIC [facility] 06-20-2023 19:10-0400 Blood Pressure Method TARI ROBLES FAMILY SUPPORT WORKER-ROCKET ENGINE MECHANIC [facility] 01-04-2023 19:10-0400 Body height 185.4 cm TARI ROBLES FAMILY SUPPORT WORKER-ROCKET ENGINE MECHANIC [facility] 01-04-2023 19:10-0400 Body weight 109.1 kg TARI ROBLES FAMILY SUPPORT WORKER-ROCKET ENGINE MECHANIC [facility] 06-24-2021 13:07-0500 Body temperature 98.24 [degF] DR FERN GREEN DO [facility] 06-24-2021 13:07-0500 Body weight [address] FERN GREEN DO [facility] 06-24-2021 13:07-0500 Diastolic blood pressure 68 mm[Hg] DR FERN GREEN DO [facility] 06-24-2021 13:07-0500 Heart rate 83 /min DR FERN GREEN DO [facility] 06-24-2021 13:07-0500 Respiratory rate 16 /min DR FERN GREEN DO [facility] 06-24-2021 13:07-0500 Systolic blood pressure 135 mm[Hg] DR FERN GREEN DO [facility] Encounters Encounter Date Encounter Type Care Provider Facility Start: 11-17-2024 End: 11-17-2024 Patient encounter procedure Renetta VELA Work Phone: [facility] Comment on above: Acute constipation ( Primary Dx); Abdominal pain, unspecified abdominal location Start: 11-17-2024 End: 11-17-2024 [facility] Facility[facility] Start: 11-17-2024 End: 11-17-2024 ambulatory RENETTA SIBLEY Facility:[facility] Start: 11-05-2024 End: 11-05-2024 ambulatory SMITHA BURRELL APRN-JOHNNA Facility:[facility] Start: 07-20-2024 End: 07-20-2024 Patient encounter procedure Renetta VELA Work Phone: [facility] Comment on above: Pneumonia of both billy ngs due to infectious organism, unspecified part of lung (Primary Dx); Acute cough; Mouth pain; Itching Start: 07-20-2024 End: 07-20-2024 ambulatory [facility] Facility[facility] Start: 07-20-2024 End: 07-20-2024 Subsequent hospital visit by physician Xr [facility] Work Phone: Radiology Comment on above: Acute cough [R05.1] Start: 03-25-2024 End: 03-25-2024 Telephone encounter Fiona Ge APRN.CNP Work Phone: [facility] Comment on above: Results Start: 03-23-2024 End: 03-23-2024 Telephone encounter Alexa Suárez APRN.CNP Work Phone: [facility] Comment on above: Results Start: 03-22-2024 End: 03-22-2024 ambulatory [facility] Facility[facility] Start: 03-22-2024 End: 03-22-2024 Patient encounter procedure Carina Irby APRN.ROCKET ENGINE MECHANIC Work Phone: [facility] Comment on above: Mouth pain (Primary Dx) Start: 03-18-2024 End: 03-18-2024 ambulatory [facility] Facility:[facility] Start: 03-18-2024 End: 03-18-2024 Patient encounter procedure Renetta VELA Work Phone: [facility] Comment on above: Mouth sore (Primary Dx) Start: 07-04-2023 Telephone encounter Merlin Watt MD Work Phone: [facility] Comment on above: Results Start: 07-03-2023 End: 07-03-2023 Patient encounter procedure Josefina Page PA-C Work Phone: [facility] Comment on above: Viral URI (Primary D x) Start: 02-21-2023 End: 02-22-2023 ambulatory [facility] SUPPORT WORKER-ROCKET ENGINE MECHANIC Facility:A Start: 01-22-2023 End: 01-22-2023 Emergency department patient visit [facility] Start: 01-04-2023 End: 01-07-2023 Evaluation and management of inpatient LUKE SYLVESTER DO Facility:B Start: 01-04-2023 End: 01-07-2023 Evaluation and management of inpatient TARI Rosenda ROBLES FAMILY SUPPORT WORKER-ROCKET ENGINE MECHANIC [facility] Start: 11-06-2021 End: 11-06-[address] Luke Sylvester Work Phone: [facility] Start: 09-01-2021 End: 09-01-2021 Patient encounter procedure DORIAN AQUINO FAMILY SUPPORT WORKER - ROCKET ENGINE MECHANIC [facility] Start: 2021 End: [address] Luek Sylvester Work Phone: [facility] Start: 2021 Non-patient / Non-visit Dr. Shonna Sylvester Work Phone: [facility] Start: 06-24-2021 End: 06-24-2021 Emergency department patient visit DR FERN GREEN DO [facility] Procedures Date Procedure Procedure Detail Performing Clinician Start: 07-20-2024 Radiologic exam ches t 2 views Renetta VELA Work Phone: Start: 07-03-2023 STREP A MOLECULAR (POC) Josefina Page PA-C Work Phone: Start: 2021 CT angiography of ch est with contrast Dr. Luke Sylvester Work Phone: Start: 03-18-2021 Arthroplasty of knee RI JENIFER AQUINO FAMILY SUPPORT WORKER - ROCKET ENGINE MECHANIC Appendectomy DR FERN Lanier O Cholecystectomy DR FERN Fitzpatrick DO Extraction of wisdom tooth Yannick GREEN DO Tonsillectomy DR FERN GREEN DO Plan of Treatment Date Care Activity Detail Author Start: 07-04-2026 Diabetes Screening Diabetes Screenin [facility] Start: 03-18-2025 Influenza vaccination Influenz a Vaccine (Season Ended) [facility] Start: 07-18-2024 Advance Directive Discussion Advance Directive Discussion [facility] Start: 03-27-2024 Diabetes Screening Diabetes Screenfay [facility] Start: 03-22-2024 End: 06-21-2024 Fungus identified in Unspecified specimen by Culture [facility] Work Phone: Comment on above: Expected: 03/22/2024 , Expires: 06/21/2024 Start: 03-18-2024 Covid-19 Vaccine ( season) Covid-19 Vaccine ( season) [facility] Start: 03-18-2024 Covid-19 Vaccine ( season) Covid-19 Vaccine ( season) [facility] Start: 03-18-2024 Influenza vaccination Influenza Vacc ine (#1) [facility] Start: 07-18-2023 Advance Directive Discussion Advance Directive Discussion [facility] Start: 03-18-2023 Covid-19 Vaccine ( season) Covid-19 Vaccine ( season) [facility] Start: 03-18-2023 Influenza vaccination Influenza Vacc ine (#1) [facility] Start: 07-18-2022 Advance Directive Discussion Advance Directive Discussion [facility] Start: 07-18-2022 Depression Assessment Depression Ass essment [facility] Start: 2016 RSV Vaccine (1 - 1-d ose 75+ series) RSV Vaccine (1 - 1-dose 75+ series) [facility] Start: 10-19-2011 Urine microalbumin profile DTaP,Tdap,Td Vaccine (1 - Tdap) [facility] Start: 2006 Pneumococcal Vaccine : 65+ (1 of 1 - PCV) Pneumococcal Vaccine: 65+ (1 of 1 - PCV) [facility] Start: 2001 RSV Vaccine (1 - 1-d ose 60+ series) RSV Vaccine (1 - 1-dose 60+ series) [facility] Start: 1991 Pneumococcal Vaccine : 50+ (1 of 1 - PCV) Pneumococcal Vaccine: 50+ (1 of 1 - PCV) [facility] Start: 1991 Shingrix Vaccine (1 of 2) Shingrix Vaccine (1 of 2) [facility] Start: 1959 Anxiety Screening Anxiety Screening [facility] Start: 1959 Depression Screening Depression Scre ening [facility] COVID & INFLUENZA A/ B & RSV NAAT, ROUTINE COVID & INFLUENZA A/B & RSV NAAT, ROUTINE Microbiology Routine Viral URI 07/03/2023 3:38 PM EST [facility] Work Phone: Immunizations Immunization Date Immunization Notes Care Provider García orlando 02-22-2021 SARS-CoV-2 mRNA (tozinameran) vaccine DORIAN AQUINO FAMILY SUPPORT WORKER - ROCKET ENGINE MECHANIC [facility] Comment on above: Result Comment: 2020: [id number] 10-18-2011 TD(adult) unspecifie d formulation Renetta VELA Work Phone: [facility] Payers Date Payer Category Payer Self-pay [id number] 2023 Medicare [id number] 2022 Medicare [employer] [place] [id number] 2022-Present [phone] [address] [place] [address] [facility] [id number] 2022 Medicare (Managed Care) [place] [employer] [place] [id number] 2016 Medicare [id number] 1941 Unknown [id number] 1941 Unknown [id number] 1941 Unknown [id number] 1941 Unknown [id number] 1941 Unknown [id number] Unknown [id number] Social History Date Type Detail Facility Start: 01-12-2021 End: 06-14-2023 Never smoked tobacco (finding) [facility] Start: 1940 Sex Assigned At Male A [facility] Start: 06-09-2021 Tobacco smoking stat [facility] Unknown if ever smoked [facility] Work Phone: Start: 08-17-2015 None [facility] Work Phone: Start: 08-17-2015 Non-smoker [facility] Work Phone: Start: 06-14-2023 Tobacco use and exposure Smokeless tobacco non-user [facility] Start: 07-03-2023 End: 07-20-2024 History of Social function [facility] Start: 07-03-2023 End: 07-20-2024 Tobacco use panel [facility] Start: 1940 Sex Assigned At Not on file C [facility] Functional Status Date Assessment Result Facility 01-07-2023 Functional Status Room check performed [facility] 01-07-2023 Functional Status [facility] 01-07-2023 Functional Status bilateral knee high [facility] 01-07-2023 Functional Status Independent [facility] 01-07-2023 Functional Status [facility] 01-06-2023 Functional Status [facility] 01-06-2023 Functional Status [facility] 01-06-2023 Functional Status Supervised [facility] 01-05-2023 Functional Status Dinner Percent 10 [facility] 01-05-2023 Functional Status Lunch Percent 50 [facility] 01-05-2023 Functional Status [facility] 01-05-2023 Functional Status Single level home [facility] 01-05-2023 Functional Status [facility] 01-05-2023 Functional Status Sensory Defici ts Hearing deficit, left ear, Hearing deficit, right ear [facility] 01-04-2023 Functional Status Assistive Device None A [facility] Mental Status Date Assessment Result Facility 01-07-2023 Mental Status Oriented x 4 [facility] 01-07-2023 Mental Status [facility] 01-06-2023 Mental Status [facility] Clinical Notes 03-26-2021 to 11-17-2024 Renetta Sibley PA - 11/17/2024 11:09 AM EDTPatient InstructionsDaMarina emery, RT(R) - 07/20/2024 1:40 PM Renetta Ramirez PA - 07/20/2024 1:32 PM EST Note Date & Type Note Facility 11-17-2024 Note HNO ID: [id number] Author: RENETTA SIBLEY PA Service: ? Author Type: Physician Interior Specialist Type: Progress Notes Filed: 11/17/2024 11:12 Note [...] this time, discussed limited diagnostic capability through [facility] care, patient will need workup in the emergency room. Patient agreeable. He will go to [facility]. [facility] 11-17-2024 History of Present illness Narrative 84-year-old [...] room. Patient agreeable. He will go to [facility]. documented in this encounter [facility] 07-20-2024 Instructions Renetta Sibley PA - 07/20/2024 2:13 PM EST Take antibiotics as prescribed. Continue nystatin mouthwash Follow-up closely with PCP in 4 weeks to ensure resolution of pneumonia. documented in this encounter [facility] 07-20-2024 History of Present illness Narrative Radiology [...] PATIENT PRESENTS WITH AN IMPLANTABLE OR ATTACHED DEPUTY ADMINISTRATOR: No RADIOLOGY DEPARTMENT: General X-ray: Exam(s) Completed: Chest X-Ray PERIPHERAL IV DATA: Not applicable SIGNED BY: RT Estevan(R) July 20, 2024 1:33 PM documented in this encounter [facility] 07-20-2024 Note HNO ID: [id number] Author: MARINA YOUNG RT(Amari) Service: Radiology Author [...] PATIENT PRESENTS WITH AN IMPLANTABLE OR ATTACHED DEPUTY ADMINISTRATOR: No RADIOLOGY DEPARTMENT: General X-ray: Exam(s) Completed: Chest X-Ray PERIPHERAL IV DATA: Not applicable SIGNED BY: Marina Young, RT(R) July 20, 2024 1:33 PM [facility] 07-20-2024 Note HNO ID: [id number] Author: RENETTA SIBLEY PA Service: ? Author Type: Physician Interior Specialist Type: Progress Notes Filed: 07/20/2024 14:17 Note Text: This note was created using Friendseeriter. Subjective Laci Andersen is a 83 year [...] Date LAPAROSCOPIC APPENDECTOMY 08/04/15 normal appendix in [facility] LAPS SURG CHOLECYSTECTOMY W/CHOLANGIOGRAPHY 08/04/15 normal IOC, [...] detail warranting prompt ER evaluation. DANE Olivo [facility] 07-20-2024 History of Present illness Narrative This note was created using Friendseer[employer]. Subjective Laci Andersen is a 83 year [...] Date LAPAROSCOPIC APPENDECTOMY 08/04/15 normal appendix in [facility] LAPS SURG CHOLECYSTECTOMY W/CHOLANGIOGRAPHY 08/04/15 normal IOC, [...] evaluation. DANE Olivo documented in this encounter [facility] 03-25-2024 Telephone encounter Note Patient notified of results, has been using Nystatin since with improvement in symptoms. Roxanna Salas MA [facility] 03-25-2024 Miscellaneous Notes Patient notified of results, has been using Nystatin since with improvement in symptoms. Roxanna Salas MA Yeast as grown on culture, would recommend patient start nystatin as ordered. Follow up with PCP as needed. Fiona Ge APRN.JOHNNA documented in this encounter [facility] 03-25-2024 Telephone encounter Note Yeast as grown on culture, would recommend patient start nystatin as ordered. Follow up with PCP as needed. Fiona Ge APRN.JOHNNA [facility] Work Phone: 03-23-2024 Telephone encounter Note Pt was notified of the results. Pt verbalized understanding. Sonia Parker MA [facility] 03-23-2024 Miscellaneous Notes Pt was notified of the results. Pt verbalized understanding. Sonia Parker MA ----- Message from Alexa Suárez APRN.CNP sent at 03/23/2024 7:17 PM EDT ----- Please advise patient the test for yeast is negative after one day. This test will continue to process and if there is any change, he will be contacted. Alexa Suárez APRN.CNP documented in this encounter [facility] 03-23-2024 Telephone encounter Note ----- Message from Aleax Suárez APRN.CNP sent at 03/23/2024 7:17 PM EDT ----- Please advise patient the test for yeast is negative after one day. This test will continue to process and if there is any change, he will be contacted. Alexa Suárez APRN.CNP [facility] 03-22-2024 Note HNO ID: [id number] Author: CARINA IRBY APRN.[facility] Service: ? Author Type: Nurse Practitioner Type: [...] salt water gargles Wears dentures Goes to [facility] Last cleaning was a month ago. Presents today citing that the mouth pain is not improving. The history is provided by the patient. No high school foreign language tutor was used. Mouth/Lip Problem This is a [...] 08/04/15: LAPAROSCOPIC APPENDECTOMY Comment: normal appendix in [facility] 08/04/15: LAPS SURG CHOLECYSTECTOMY W/CHOLANGIOGRAPHY Comment: normal [...] present. Musculoskeletal: Gen (more content not included)... [facility] 03-22-2024 History of Present illness Narrative This note was created using Friendseeriter. Subjective Laci Andersen is a 83 year [...] salt water gargles Wears dentures Goes to [facility] Last cleaning was a month ago. Presents today citing that the mouth pain is not improving. The history is provided by the patient. No high school foreign language tutor was used. Mouth/Lip Problem This is a [...] 08/04/15: LAPAROSCOPIC APPENDECTOMY Comment: normal appendix in [facility] 08/04/15: LAPS SURG CHOLECYSTECTOMY W/CHOLANGIOGRAPHY Comment: normal [...] to follow up with dentist Carina Irby APRN.ROCKET ENGINE MECHANIC documented in this encounter [facility] 03-18-2024 Note HNO ID: [id number] Author: RENETTA SIBLEY PA Service: ? Author Type: Physician Interior Specialist Type: Progress Notes Filed: 03/18/2024 10:55 Note [...] detail warranting prompt ER evaluation. DANE Olivo [facility] 03-18-2024 History of Present illness Narrative This note was created using Friendseeriter. Subjective Laci Andersen is a 83 year [...] evaluation. DANE Olivo documented in this encounter [facility] 07-04-2023 Miscellaneous Notes Patient calling to check on lab results, went over results, notes below from express care provider with understanding. ----- Message from Merlin Barbosa MD sent at 07/04/2023 10:30 AM EST ----- Kidney function is adequate to take Paxlovid as prescribed. documented in this encounter [facility] 07-03-2023 History of Present illness Narrative This note was created using Friendseeriter. Subjective Laci Andersen is a 82 year [...] Date LAPAROSCOPIC APPENDECTOMY 08/04/15 normal appendix in [facility] LAPS SURG CHOLECYSTECTOMY W/CHOLANGIOGRAPHY 08/04/15 normal IOC, [...] Josefina Page PA-C documented in this encounter [facility] 02-22-2023 Note . MICRO - Microbiology PROCEDURE: [...] Locations *1: This test was performed at: [facility], [address] [place] [address], [id number]- , [facility]) 01-08-2023 Note . MICRO - Microbiology PROCEDURE: [...] Locations *1: This test was performed at: [facility], [address] [place] [address], [id number]- , [facility] ([place]) 01-07-2023 Hospital Discharge instructions Patient Education 01/07/2023 12:12:40 Acute Urinary Retention, Male, Okls-fk-Thvj Acute Urinary Retention, Male Acute urinary retention means that you cannot pee (urinate) at all, or that you pee too little and your bladder is not emptied completely. If it is not treated, it can lead to kidney damage or other serious problems. Follow these instructions at home: Take xazr-ehh-jetkzgr and prescription medicines only as told by [...] 12/20/2008 Document Revised: 09/20/2019 Document Reviewed: 08/05/2017 [employer] Patient Education 2020 [employer]. 01/07/2023 11:53:30 Acute Kidney Injury, Adult Acute [...] Follow these instructions at home: Medicines Take gycv-lkg-fljihon and prescription medicines only as told by [...] is important. Where to find more information [employer] Patients: www.aakp.org National Kidney Foundation: www.kidney.org [employer]: www.akfinc.org [facility] Program: [...] 01/17/2012 Document Revised: 06/16/2018 Document Reviewed: 06/24/2017 [employer] Patient Education 2020 [employer]. 01/07/2023 11:53:26 Urinary Tract Infection, Adult, Pikd-it-Eirn Urinary Tract Infection, Adult A urinary tract [...] Follow these instructions at home: Medicines Take abyi-zmb-wfjtyyl and prescription medicines only as told by [...] 12/20/2008 Document Revised: 06/21/2019 Document Reviewed: 01/11/2019 [employer] Patient Education 2020 [employer]. Follow Up Care 01/04/2023 19:05:48 With:LUKE SYLVESTER DO Address: [address] [place] [address] [place] [address]- [phone] When: Unknown [facility] 01-07-2023 Note Discharge Instructions Thank you for allowing [facility] to assist you with your healthcare needs. The following is important discharge information regarding your hospital visit. Your Care Team [facility] Your Diagnosis Urinary tract [...] your table for Dr. Balaji Matthews in [place] and for [facility] in [place]. You have an appointment next week with [...] 01/13/2023 08:30 AM EDT REBECCA VERMA DO [facility] [address] [place] [address] Follow Up Appointments Follow Up with LUKE SYLVESTER DO When Where: [address] [place] [address]- [phone] The Following Activity and Diet Have Been [...] 12 hours Duration: 4 Days Pickup at [facility] 01/07/23 @ 0845 New tamsulosin (Flomax 0.4 mg oral capsule) 1 cap by mouth Once a day after a meal Pickup at [facility] 01/07/23 @ 0845 Unchanged lithium (lithium 450 mg oral tablet, extended release) TAKE 1 TABLET TWICE DAILY 01/07/23 @0845 Pharmacy Information [facility]: [address] [place] [phone] What How Much When Why Comments Stop [...] may report side effects to FDA at 5-418-IHT-9708. What other drugs will affect cefdinir? Tell your doctor about all your other medicines, especially: probenecid; or vitamin or mineral supplements that contain iron. This list is not complete. Other drugs may affect cefdinir, including prescription and smdn-gsu-edzpyxp medicines, vitamins, and herbal products. Not all [...] to ensure that the information provided by [employer]. ('[employer]') is accurate, up-to-date, and complete, but no guarantee is made to that effect. Drug information contained herein may be time sensitive. [employer] information has been compiled for use by healthcare practitioners and consumers in the [place] and therefore [employer] does not warrant that uses outside of the [place] are appropriate, unless specifically indicated otherwise. [employer] drug information does not endorse drugs, diagnose patients or recommend therapy. [employer] drug information is an informational resource designed [...] effective or appropriate for any given patient. [employer] does not assume any responsibility for any aspect of healthcare administered with the aid of information [employer] provides. The information contained herein is not intended to cover all possible uses, directions, precautions, warnings, drug interactions, allergic reactions, or adverse effects. If you have questions about the drugs you are taking, check with your doctor, nurse or pharmacist. Copyright 0624-4029 [employer]. Version: 7.03. Revision Date: 07/21/2020. tamsulosin (rojas [...] may report side effects to FDA at 6-688-JFX-9015. What other drugs will affect tamsulosin? Sometimes [...] may affect tamsulosin. This includes prescription and txco-msp-uefciyu medicines, vitamins, and herbal products. Not all [...] to ensure that the information provided by [employer]. ('[employer]') is accurate, up-to-date, and complete, but no guarantee is made to that effect. Drug information contained herein may be time sensitive. [employer] information has been compiled for use by healthcare practitioners and consumers in the [place] and therefore [employer] does not warrant that uses outside of the [place] are appropriate, unless specifically indicated otherwise. [employer]'s drug information does not endorse drugs, diagnose patients or recommend therapy. [employer] drug information is an informational resource designed [...] effective or appropriate for any given patient. [facility] does not assume any responsibility for any aspect of healthcare administered with the aid of information [facility] provides. The information contained herein is not intended to cover all possible uses, directions, precautions, warnings, drug interactions, allergic reactions, or adverse effects. If you have questions about the drugs you are taking, check with your doctor, nurse or pharmacist. Copyright 2248-0582 [employer]. Version: 05.18. Revision Date: 10/08/2022. Education Materials Acute Urinary Retention, Male Acute urinary retention means that you cannot pee (urinate) at all, or that you pee too little and your bladder is not emptied completely. If it is not treated, it can lead to kidney damage or other serious problems. Follow these instructions at home: Take rvzw-hay-wiupxte and prescription medicines only as told by [...] 12/20/2008 Document Revised: 09/20/2019 Document Reviewed: 08/05/2017 [employer] Patient Education 2020 [employer]. Acute Kidney Injury, Adult Acute kidney injury [...] Follow these instructions at home: Medicines Take raxo-kla-pitfary and prescription medicines only as told by [...] is important. Where to find more information [employer] Association of Kidney Patients: www.aakp.org National Kidney Foundation: www.kidney.org Swiss Kidney Fund: www.akfinc.org Life [facility] Rehabilitation Program: [...] 01/17/2012 Document Revised: 06/16/2018 Document Reviewed: 06/24/2017 [employer] Patient Education 2020 [employer]. Urinary Tract Infection, Adult A urinary tract [...] Follow these instructions at home: Medicines Take wjft-ofk-fheqxvw and prescription medicines only as told by [...] 12/20/2008 Document Revised: 06/21/2019 Document Reviewed: 01/11/2019 [employer]Apps Patient Education 2020 [employer]. Additional Information VACCINATE! IT SAVES LIVES! Members of the community who have not yet received the COVID-19 vaccine and would like to receive it can visit one of [facility] vaccine clinics. There are many vaccine clinic locations within the [facility]. For locations and available times, please visit https://gettheshot.coronavirus.o cto.gov/. It is important to note that some COVID mobile vaccine clinics are held outdoors and may be canceled in rainy or stormy conditions. To learn more about pediatric vaccinations (ages 5-11), we invite you to visit the [facility] webpage. https://www.[facility].org/p ages/2059-Rsxvc-Gdnzkxiwjca-Freq hrycgp-Acfml-Hfppcdnci.html To learn more about the COVID-19 vaccine, we invite you to visit the CDC website for a list of frequently asked questions.https://www.cdc.gov/co ronavirus/2019-ncov/vaccines/faq .html [employer] Patient Portal Access Instructions: Stay connected with your healthcare team and access your personal medical information anytime with the [employer] Patient Portal. Please follow the directions below to create your [employer] account: 1.Access the email account you provided upon registration to the hospital/physician office.2.Look for an invitation email from [facility].3.Open the email and access the invitation link: Accept Invitation to [employer].4.Fill in the required montalvo to create your account. To access your account, visit [email or web address]. Click the blue button labeled Access Patient [...] you will allow to register on the [facility] Patient Portal for access to your information. You can also access the [facility] Patient Portal on the [employer] akanksha. Simply click on Patient Portal and then log into your account. If you would like to receive a full copy of your medical records, please contact the [facility] Medical Records Department by calling [phone], Tuesday through Tuesday between 8 a.m. and [...] Call your local pharmacy or go to [email or web address] to find one close to you.3.Make use of household items: Use cat litter or old coffee grounds to dispose medications if other options are not available. Mix your drugs with these household products, seal them in an airtight container and throw it into the garbage. Call [facility]: [phone] to be sure your drugs can be [...] Patient Education Materials Acute Urinary Retention, Male, Pltd-tp-Qhtc Acute Kidney Injury, Adult Urinary Tract Infection, Adult, Vrmc-nt-Gjqx Medication Leaflets cefdinir, tamsulosin My discharge plan and instructions have been reviewed and explained to me and I,LACI ANDERSEN M understand my current condition and have read and understand these discharge instructions. I have received a written copy of the plan/instructions. If I have questions, I am aware that I should contact my doctor. Patient/Stencil Printer Signature: Date/Time: Relationship to Patient: Witness Name/Signature: Date/Time: [facility] 01-06-2023 Note ORIGINAL EXAMINATION: MRI OF [...] 01/06/2023 1:01:07 PM Ordering Provider: TARI ROBLES [facility] 01-06-2023 Note ORIGINAL EXAMINATION: TWO XRAY [...] 01/06/2023 1:00:21 PM [facility]ing [facility] Note Date of Service [...] at all times. 5. Depression Chronic *Continue Bonsall at current dose. 6. BPH with obstruction/lower [...] by TARI ROBLES on 01/06/2023 12:54 PM [facility] 01-06-2023 Note ORIGINAL EXAMINATION: MRI OF [...] 01/06/2023 1:01:07 PM Ordering Provider: TARI ROBLES [facility] 01-06-2023 Note ORIGINAL EXAMINATION: TWO XRAY [...] 01/06/2023 1:00:21 PM Ordering Provider: TARI ROBLES [facility] 01-06-2023 Note . MICRO - Microbiology [...] Locations *1: This test was performed at: [facility], [address] [place] [address], [phone] , [facility] ([place]) 01-05-2023 Evaluation + Plan note Extrac bull from: Title:History and Physical Author:TARI ROBLES FAMILY SUPPORT WORKER-ROCKET ENGINE MECHANIC Date:01/05/23 1. Urinary tract infection Acute, new [...] Date:01/13/2023 08:30:00 AM Scheduled Provider:REBECCA VERMA DO Location:[facility] Appointment Type:PC OV ED Follow Up [facility] 06-21-2023 Note ORIGINAL HISTORY: Obstructive uropathy [...] 01/05/2023 9:56:16 AM Ordering Provider: TARI ROBLES [facility]06-21-2023 Note ORIGINAL HISTORY: Obstructive uropathy COMPARISON: [...] Sign Date: 01/05/2023 9:56:16 AM Ordering Provider: [facility]06-21-2023 Note Date of Service 01/05/2023 Chief Complaint [...] for BPH, depression and COPD, presented to [facility] emergency department with the chief complaint of [...] Domestic Concerns: None. Living situation: Home/Independent. Primary Home Appraiser: Self., 01/12/2021 Nutrition/Health Type of diet: Regular. [...] by TARI ROBLES on 01/05/2023 11:39 AM [facility]06-20-2023 Note ORIGINAL EXAMINATION: CT OF THE [...] Sign Date: 01/04/2023 9:27:31 PM Ordering Provider: [facility]06-20-2023 Note ORIGINAL EXAMINATION: ONE XRAY VIEW OF [...] Sign Date: 01/04/2023 9:23:07 PM Ordering Provider: [facility]06-20-2023 Note ORIGINAL EXAMINATION: CT OF THE HEAD [...] Sign Date: 01/04/2023 9:27:31 PM Ordering Provider: [facility]06-20-2023 Note ORIGINAL EXAMINATION: ONE XRAY VIEW OF [...] Date: 01/04/2023 9:23:07 PM Ordering Provider: DOUGLAS [facility]12-08-2021 Hospital Discharge instructions Patient Education 06/24/2021 13:17:21 [...] be told to take ibuprofen or other just-mmp-hjaskfl medicines. These help relieve inflammation in your [...] or within 3 days of taking antibiotics 4421-6264 [employer]. [address] [place] [address]. All rights reserved. This information is not intended as a substitute for professional medical care. Always follow yourhealthcare professional's instructions. Follow Up Care 06/24/2021 12:55:16 With:LUKE SYLVESTER DO Address: [address] [place] [phone] When:2-4 days [facility] 09-10-2021 [facility]09-10-2021 NoteOccupational Therapy Inpatient Evaluation Medical Diagnosis: (R) knee OA s/p (R) TKA performed by Dr Alejo on 03/26/21 OCCUPATIONAL PROFILE AND HISTORY Therapy Diagnosis: Rank Code Description 1 Z74.1 Need for assistance with personal care Demographics: Age: 80Y Gender: Male Primary Language: Marshallese Preferred Language: Marshallese Referring Service/Team: Orthopedics Past Medical History: Bipolar, [...] pain meds Pain is exacerbated by: movement [facility] PATIENT NAME: LACI ANDERSEN [address] [facility] [address] MEDICAL REC #: [id number] [place] [address] ADMIT DATE: SERVICE DATE: 03/27/21 Occupational Therapy [...] walker. slowed pacing, no LOB, denied dizziness [facility] PATIENT NAME: LACI ANDERSEN [address] [facility] [address] MEDICAL REC #: [id number] [place] [address] ADMIT DATE: SERVICE DATE: 03/27/21 Occupational Therapy [...] Interventions: Evaluation LOW Complexity (more content not included)...[facility]09-09-2021 NotePhysical Therapy Inpatient Evaluation Medical Diagnosis: (R) knee OA s/p (R) TKA performed by Dr Alejo on 03/26/21 Therapy Diagnosis: Rank Code Description 1 R26.2 Difficulty in walking, not elsewhere classified 2 R26.81 Unsteadiness on feet Demographics: Age: 80Y Gender: Male Primary Language: Marshallese Preferred Language: Marshallese Referring Service/Team: Orthopedics Past Medical History: Bipolar, [...] within the home. First floor full bathroom [facility] PATIENT NAME: LACI ANDERSEN [facility] [address]hpande MEDICAL REC #: [id number] [place] [address] ADMIT DATE: SERVICE DATE: 03/26/21 Physical Therapy [...] Turning Over in Bed: A little difficulty [facility] PATIENT NAME: LACI ANDERSEN0 [facility] [address]hpande MEDICAL REC #: [id number] [place] [address] ADMIT DATE: SERVICE DATE: 03/26/21 Physical Therapy [...] of care. Bed mo (more content not included)...[facility] Future Appointments Appointment Date:07/14/2021 09:00:00 AM Scheduled Provider:LUKE SYLVESTER DO Location:[facility] Appointment Type:PC OV Follow Up [facility] Evaluation + Plan note Future Appointments Appointment Date:09/15/2021 11:00:00 AM Scheduled Provider:LUKE SYLVESTER DO Location:[facility] Appointment Type:PC OV Future Scheduled Tests Laboratory* C-Reactive Protein 08/11/21 * D-Dimer 08/11/21 * Complete Blood Count 08/11/21 * Complete Metabolic Panel 08/11/21 Radiology* XR Chest 2 Views (PA & Lateral) 08/18/21 * XR Chest 2 Views (PA & Lateral) 09/01/21 [facility] Evaluation noteNo assessment information available [facility] Work Phone: Evaluation note* Diagnosis Viral URI- Primary Acute upper respiratory infections of unspecified site [facility] Mouth sore- Primary Other and unspecified diseases of the oral soft tissues [facility] Mouth pain- Primary Other and unspecified diseases of the oral soft tissues [facility] Diagnosis Pneumonia of both lungs due to infectious organism, unspecified part of lung- Primary Acute cough Mouth pain Other and unspecified diseases of the oral soft tissues Itching Unspecified pruritic disorder Acute cough [facility] Diagnosis Acute cough documented in this encounter [facility] note* Diagnosis Acute constipation- Primary Unspecified constipation Abdominal pain, unspecified abdominal location [facility] Narrative No data available for this section [facility] Hospital Discharge instructions No data available for this section [facility] Summary Purpose Family History No Family History Records Found Relationship Condition Age at Onset Recorded Date/T rebecca Unknown Family History?- Unknown July 10:30pm Family History?- Unknown July 10:30pm Advance Directives No Advanced Directives Records Found Advance Directive Response Recorded Date/ Time Advance Directives No August 02, 2015 1:34am Living Will No June 09 10:51pm Power of Copper Miner No June 09, 2021 10:51pm Chief Complaint [...] section and content) DATE CREATED AUTHOR 09/07/2021 [facility] Lashae bacon Hollister DATE CREATED AUTHOR AUTHOR'S ORGANIZ ATION 02/17/2023 [facility] DATE CREATED AUTHOR AUTHOR'S ORGANIZ ATION 02/23/2023 [facility] ([place]) DATE CREATED AUTHOR AUTHOR'S ORGANIZ ATION 11/06/2024 [facility] DATE CREATED AUTHOR AUTHOR'S ORGANIZ ATION 11/22/2024 [facility] DATE CREATED AUTHOR AUTHOR'S ORGANIZ ATION 11/22/2024 S[facility] Goals (unrecognized section and content) Goals may be documented in a n alternate section Patient Care team informatio n (unrecognized section and content) Imaging Manager Relationship Specialty Start Date End Date Luke Sylvester DO PCP - General Family Medicine 08/04/15 Imaging Manager Relationship Specialty Start Date End Date Luke Sylvester DO PCP - General Family Medicine 08/04/15 Imaging Manager Relationship Specialty Start Date End Date Luke Sylvester DO PCP - General Family Medicine 08/04/15 Imaging Manager Relationship Specialty Start Date End Date Luke Sylvester DO PCP - General Family Medicine 08/04/15 Imaging Manager Relationship Specialty Start Date End Date Luke Sylvester DO PCP - General Family Medicine 08/04/15 Imaging Manager Relationship Specialty Start Date End Date Luke Sylvester DO PCP - General Family Medicine 08/04/15 Source Comments (unrecognize d section and content) In the event this informatio n is protected by the Federal Confidentiality of Alcohol and Drug Abuse Patient Records regulations: The Federal rules restrict any use of the information to criminally investigate or prosecute any alcohol or drug abuse patient.[facility] the event this information is protected by the Federal Confidentiality of Alcohol and Drug Abuse Patient Records regulations: The Federal rules restrict any use of the information to criminally investigate or prosecute any alcohol or drug abuse patient.[facility] Hospital[facility] the event this information is protected by the Federal Confidentiality of Alcohol and Drug Abuse Patient Records regulations: The Federal rules restrict any use of the information to criminally investigate or prosecute any alcohol or drug abuse patient.[facility] Hospital[facility] the event this information is protected by the Federal Confidentiality of Alcohol and Drug Abuse Patient Records regulations: The Federal rules restrict any use of the information to criminally investigate or prosecute any alcohol or drug abuse patient.[facility] HospitalIn the event this information is protected by the Federal Confidentiality of Alcohol and Drug Abuse Patient Records regulations: The Federal rules restrict any use of the information to criminally investigate or prosecute any alcohol or drug abuse patient.[facility] Hospital[facility] the event this information is protected by the Federal Confidentiality of Alcohol and Drug Abuse Patient Records regulations: The Federal rules restrict any use of the information to criminally investigate or prosecute any alcohol or drug abuse patient.[facility] HospitalIn the event this information is protected by the Federal Confidentiality of Alcohol and Drug Abuse Patient Records regulations: The Federal rules restrict any use of the information to criminally investigate or prosecute any alcohol or drug abuse patient.[facility] HospitalIn the event this information is protected by the Federal Confidentiality of Alcohol and Drug Abuse Patient Records regulations: The Federal rules restrict any use of the information to criminally investigate or prosecute any alcohol or drug abuse patient.[facility] HospitalIn the event this information is protected by [...] BE BASED ON THE PRIMARY CLINICAL RECORDS. [facility] [employer] [facility]. provides no warranty or guarantee of the accuracy or completeness of information in this document.
[2025-03-09 18:15] LABS: Troponin T High Sens 4 HR 24 ng/L (<=22)
[2025-03-09 18:25] LABS: Prothrombin Time (Protime)PT. 13.1 SECONDS (11.7-14.9)
[2025-03-09 18:26] LABS: Partial Thromboplast Time 25.4 Seconds (24.1-36.2)
[2025-03-09] MEDS: HEPARIN/D5w 25,000 UNITS 25,000 UNITS/250 ML IV.SOLN. 16.9 UNITS CONT INF (18:32)
[2025-03-09 19:16] LABS: Magnesium 2.2 mg/dL (1.5-2.2)
[2025-03-10 01:03] LABS: Partial Thromboplast Time 90.9 Seconds (24.1-36.2)
[2025-03-10 03:30] VITALS: BP 112/54; PULSE 55; RESP 18; TEMP 36.5; O2SAT 94
[2025-03-10] MEDS: 0.9% Saline Lock 10 ML Syringe IV (05:20)
[2025-03-10 06:00] VITALS: BMI 35.4
--- NOTE | 2025-03-10 06:49 | PCM.CONS.C ---
Assessment & Plan Assessment/Plan (1) Acute CHF (congestive heart failure): QUALIFIERS: Heart failure type: unspecified Qualified Code(s): I50.9 - Heart failure, unspecified PLAN: Reasonable to switch Lasix to 40 mg p.o. daily. Check 2D echo. (2) New onset a-fib: PLAN: Rate is controlled. No long pauses noted on telemetry. Reasonable to continue heparin for now. If the EF is normal and continued telemonitoring reveals no indication for pacemaker then he could be started on Eliquis. (3) Bradycardia: PLAN: Continue telemonitoring HPI Consult Data Date of Consult: 03/10/25 HPI Narrative Reason for Consultation: CHF, bradycardia, A-fib HPI Narrative: LACI ROMERO, is a 84 M who presents with shortness of breath and 12 pound weight gain. He also had an episode of dizziness/loss of balance. Patient states that yesterday when he got up he had a hard time staying upright. He says that he felt that he was upright but actually he was leaning forward. When he started walking this caused some loss of balance. No syncope, falls. In the ER patient was found to have elevated BNP and was in A-fib which appears to be a new diagnosis. Patient was treated with IV Lasix overnight. He feels that his shortness of breath is improved. He apparently got up to use the urinal in the hospital and did not feel lightheaded or have balance issues. [facility] Medical History Macular degeneration Chest pain Bipolar disorder Medical History no medical history Home Medications ?Medication ?Instructions ?Recorded ?Last Taken ?Type lithium carbonate 450 mg 450 mg PO BID mood stabilizer 08/01/15 09/18/16 History tablet,extended release tamsulosin 0.4 mg capsule 0.8 mg PO DAILY prostate 03/09/25 Unknown History Allergy/AdvReac Type Severity Reaction Status Date / Time No Known Allergies Allergy Verified 03/09/25 13:26 Family History no significant family his Surgical History History of hernia repair Hx of appendectomy History of cholecystectomy Surgical History no surgical history Social History Smoking Status: Unknown if ever smoked Physical Exam Const alert HEENT normocephalic Resp normal respiratory effort Resp Narrative: Right basal crackles Cardio Cardio Narrative: Irregular rhythm Extremity no pedal edema Charges/Coding Visit Charges Inpatient E&M: 59216 Init Hosp L2 Objective Data Vital Signs: Vital Signs Temp Pulse Resp BP Pulse Ox O2 Del Method 97.7 F L 55 L 18 112/54 L 94 Room Air 03/10/25 03:30 03/10/25 03:30 03/10/25 03:30 03/10/25 03:30 03/10/25 03:30 03/10/25 03:30 Oxygen Delivery Method Room Air Weight: 242 lb Body Mass Index (BMI) 36.8 Intake & Output: Intake and Output for Last 24 Hours 03/08/25 03/09/25 03/10/25 23:59 23:59 23:59 Intake Total 350.41 / 350.41 Output Total 2450 / 2450 Balance -2099.59 / -2099.59 Lab / Micro Data 03/09/25 13:45 03/09/25 13:45 Labs: Laboratory Results - last 24 hr 03/09/25 13:45: WBC 7.2, RBC 4.54 L, Hgb 13.8, Hct 42.9, MCV 94.5 H, MCH 30.4, MCHC 32.2, RDW Std Deviation 45.5 H, RDW Coeff of Inder 13.2, Plt Count 259, MPV 9.5, Immature Gran % (Auto) 0.300, Neut % (Auto) 65.7, Lymph % (Auto) 17.2 L, Ada % (Auto) 10.2 H, Eos % (Auto) 5.6 H, Baso % (Auto) 1.0, Absolute Neuts (auto) 4.7, Absolute Lymphs (auto) 1.23, Nucleated RBC % 0, Sodium 138, Potassium 4.0, Chloride 104, Carbon Dioxide 24.0, Anion Gap 11, BUN 22 H, Creatinine 1.41 H, Estim Creat Clear Calc 52.17, Est GFR (MDRD) Non-Af 49 L, BUN/Creatinine Ratio 15.7, Glucose 100 H, Calcium 9.5, Troponin T High Sens 21, NT pro BNP II 3066 H 03/09/25 15:20: [place] 1.16 03/09/25 16:01: Troponin T Hi Sens 2 Hr 21 03/09/25 17:44: PT 13.1, INR 1.0, APTT 25.4, Phosphorus 3.5, Magnesium 2.2, Troponin T Hi Sens 4Hr 24 H 03/10/25 00:44: APTT 90.9 H* Micro: Microbiology 03/09/25 14:16 Mucosa - Nose SARS-CoV-2, Influenza & RSV (PCR) - Final Rhythm Strip Rhythm Strip: A-fib Rate: 57 Ectopy: None Cardiology Labs/Tests 03/09/25 13:45: WBC 7.2, RBC 4.54 L, Hgb 13.8, Hct 42.9, MCV 94.5 H, MCH 30.4, MCHC 32.2, Plt Count 259, MPV 9.5, Immature Gran % (Auto) 0.300, Neut % (Auto) 65.7, Lymph % (Auto) 17.2 L, Ada % (Auto) 10.2 H, Eos % (Auto) 5.6 H, Baso % (Auto) 1.0, Absolute Neuts (auto) 4.7, Nucleated RBC % 0, Sodium 138, Potassium 4.0, Chloride 104, Carbon Dioxide 24.0, Anion Gap 11, BUN 22 H, Creatinine 1.41 H, Est GFR (MDRD) Non-Af 49 L, BUN/Creatinine Ratio 15.7, Glucose 100 H, Calcium 9.5 03/09/25 17:44: PT 13.1, INR 1.0, APTT 25.4, Phosphorus 3.5, Magnesium 2.2 03/10/25 00:44: APTT 90.9 H* Rhythm: EKG: ECHO: Stress Test: Cardiac Cath: PCI: CT Surgery: Holter monitor: EPS: PPM: CXR: Chest CT Scan: Radiography Diagnostic Testing: Radiology Impression Chest X-Ray 03/09/25 14:46 IMPRESSION: Ground-glass airspace disease, scattered, also similar to prior CT exam of 02/10/2022 Reading [facility] Risk Score for UA/STEMI Assesmment (YES = 1) Risk Stratification Applicable: No
[2025-03-10 07:43] LABS: Hematocrit 47.0 % (40-54); Hemoglobin 15.8 g/dL (13.0-16.5); Mean Corp Hgb Conc 33.6 g/dL (32-36); Mean Corpuscular Volume 92.2 fL (80-94); Mean Platelet Vol. 9.7 fl (6.2-12.0); Platelet Count 261 K/mm3 (150-450); RBC Distribution Width CV 13.2 % (11.6-14.6); RBC Distribution Width SD 45.0 fl (35.1-43.9); Red Blood Count 5.10 M/mm3 (4.6-6.2); White Blood Count 7.5 K/mm3 (4.4-11.0)
[2025-03-10 08:23] LABS: Anion Gap 13 (5-15); BUN 23 mg/dL (4-19); BUN/Creat Ratio 16.3 RATIO (10-20); Calcium,Total 9.9 mg/dL (7.6-11.0); Carbon Dioxide 24.7 mmol/L (21.0-32.0); Chloride 102 mmol/L (98-108); Estimated Creatinine Clearance 48.38 ml/min (50-250); Glucose 136 mg/dL (70-99); Partial Thromboplast Time 99.7 Seconds (24.1-36.2); Potassium 3.7 mmol/L (3.3-5.1)
[2025-03-10 08:51] VITALS: BP 120/75; PULSE 86; RESP 18; TEMP 36.3; O2SAT 97
--- NOTE | 2025-03-10 10:58 | PN.HOSP_ITS ---
Reason for Visit Chief Complaint: Shortness of breath, weight gain and lightheadedness/dizziness Subjective Subjective Patient was seen and examined today, he remains in atrial fibrillation with a controlled rate. Cardiology recommended that the patient remain on heparin and be switched over to oral Lasix. They recommended an echocardiogram which will be done tomorrow. Objective Data Objective Data Vital Signs: Vital Signs Temp Pulse Resp BP Pulse Ox O2 Del Method 97.3 F L 86 18 120/75 97 Room Air 03/10/25 08:51 03/10/25 08:51 03/10/25 08:51 03/10/25 08:51 03/10/25 08:51 03/10/25 08:51 Oxygen Delivery Method Room Air Weight: 105.9 kg Body Mass Index (BMI) 35.4 Intake & Output: Intake and Output for Last 24 Hours 03/08/25 03/09/25 03/10/25 23:59 23:59 23:59 Intake Total 686.02 / 686.02 Output Total 3575 / 3575 Balance -2888.98 / -2888.98 Lab / Micro Data 03/10/25 07:37 03/10/25 07:37 Labs: Laboratory Results - last 24 hr 03/09/25 13:45: WBC 7.2, RBC 4.54 L, Hgb 13.8, Hct 42.9, MCV 94.5 H, MCH 30.4, MCHC 32.2, RDW Std Deviation 45.5 H, RDW Coeff of Inder 13.2, Plt Count 259, MPV 9.5, Immature Gran % (Auto) 0.300, Neut % (Auto) 65.7, Lymph % (Auto) 17.2 L, M cecile % (Auto) 10.2 H, Eos % (Auto) 5.6 H, Baso % (Auto) 1.0, Absolute Neuts (auto) 4.7, Absolute Lymphs (auto) 1.23, Nucleated RBC % 0, Sodium 138, Potassium 4.0, Chloride 104, Carbon Dioxide 24.0, Anion Gap 11, BUN 22 H, C reatinine 1.41 H, Estim Creat Clear Calc 52.17, Est GFR (MDRD) Non-Af 49 L, BUN/Creatinine Ratio 15.7, Glucose 100 H, Calcium 9.5, Troponin T High Sens 21, NT pro BNP II 3066 H 03/09/25 15:20: [place] 1.16 03/09/25 16:01: Troponin T Hi Sens 2 Hr 21 03/09/25 17:44: PT 13.1, INR 1.0, APTT 25.4, Phosphorus 3.5, Magnesium 2.2, T roponin T Hi Sens 4Hr 24 H 03/10/25 00:44: APTT 90.9 H* 03/10/25 07:37: WBC 7.5, RBC 5.10, Hgb 15.8, Hct 47.0, MCV 92.2, MCH 31.0, MCHC 33.6, RDW Std Deviation 45.0 H, RDW Coeff of Inder 13.2, Plt Count 261, MPV 9.7, A PTT 99.7 H*, Sodium 140, Potassium 3.7, Chloride 102, Carbon Dioxide 24.7, Anion Gap 13, BUN 23 H, Creatinine 1.39 H, Estim Creat Clear Calc 48.38 L, Est GFR (MDRD) Non-Af 50 L, BUN/Creatinine Ratio 16.3, Glucose 136 H, Calcium 9.9 Micro: Microbiology 03/09/25 14:16 Mucosa - Nose SARS-CoV-2, Influenza & RSV (PCR) - Final Radiography Diagnostic Testing: Radiology Impression Chest X-Ray 03/09/25 14:46 IMPRESSION: Ground-glass airspace disease, scattered, also similar to prior CT exam of 02/10/2022 Reading Location: [facility] Rhythm Strip Rhythm Strip: A-fib Rate: 57 Ectopy: None Physical Exam Const alert, oriented x3, no apparent distress and healthy appearing General Appearance: cooperative, well kempt and well developed Orientation / Consciousness: awake, oriented to person, oriented to place and oriented to time HEENT normocephalic, head/scalp atraumatic and moist oral mucous membranes Eyes PERRL, EOMs intact bilaterally and conjunctivae normal Neck supple, no JVD, thyroid normal and no carotid bruits General: trachea midline Resp normal respiratory effort, no retractions, no use of accessory muscles and clear to auscultation bilaterally Auscultation: Negative for rales, rhonchi or wheezes Cardio regular rate, regular rhythm, S1 normal heart sound, S2 normal heart sound, no murmurs, no rub and no gallops GI normal to inspection, nondistended, normoactive bowel sounds, soft to palpation, non-tender and non-distended Extremity no clubbing, cyanosis or edema Skin no rashes or lesions noted General Skin Exam: no breakdown Neuro oriented x3, CN's II-XII intact bilaterally, moves all extremities, no focal motor deficits and no sensory deficits noted Sensorium / Orientation: awake and alert Speech: speech normal Psych affect normal Assessment & Plan Assessment/Plan (1) New onset a-fib: PLAN: Plan 1. Acute CHF-type unknown at this time, patient will have an echocardiogram tomorrow, I will switch his Lasix to oral Lasix #2 new onset I-vfp-yufuues's rate is controlled at this time, patient will have an echocardiogram tomorrow, if the echocardiogram is unremarkable he can be started on Eliquis. #3 bipolar disorder-patient will remain on lithium Total clinical time spent by myself addressing the patient medical issues, reviewing all of his data, and collaborating with patient's care team: 35-minute Charges/Coding Visit Charges Inpatient E&M: 14720 Subs Hosp L2
[2025-03-10] MEDS: HEPARIN/D5w 25,000 UNITS 25,000 UNITS/250 ML IV.SOLN. 11.5 UNITS CONT INF (11:41)
[2025-03-10 15:00] VITALS: BP 111/61; PULSE 77; RESP 18; TEMP 36.2; O2SAT 98
[2025-03-10 17:05] LABS: Partial Thromboplast Time 56.7 Seconds (24.1-36.2)
[2025-03-10 20:25] VITALS: BP 136/97; PULSE 63; RESP 18; TEMP 36.3; O2SAT 92
[2025-03-10 22:54] LABS: Partial Thromboplast Time 58.7 Seconds (24.1-36.2)
[2025-03-11 03:00] VITALS: BP 91/55; PULSE 83; RESP 16; TEMP 36.2; O2SAT 94
[2025-03-11 05:03] VITALS: BMI 35.5
[2025-03-11 06:13] LABS: Partial Thromboplast Time 64.8 Seconds (24.1-36.2)
[2025-03-11 08:09] VITALS: O2SAT 91
[2025-03-11 09:06] VITALS: BP 120/86; PULSE 70; RESP 16; TEMP 36.4; O2SAT 96
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
[2025-03-11] MEDS: HEPARIN/D5w 25,000 UNITS 25,000 UNITS/250 ML IV.SOLN. 11.5 UNITS CONT INF (10:32)
--- NOTE | 2025-03-11 11:23 | CASEMGMT ---
Discharge Planning A list of?HH providers including quality and resource use data and consistent with the patient's preferred geographic region, medical needs, and insurance network was created in [employer] Guide.? This list was provided to the RN VALENTINA. Gricel Barr, Discharge Planning Asst.
--- NOTE | 2025-03-11 12:10 | CASEMGMT ---
RN CM in to discuss HHC at discharge. HHC list provided to patient, patient prefers [facility]. Patient denies further needs at discharge. CM to send referral to [facility]. CM will continue to follow this patient and plan for a safe discharge.
[2025-03-11 14:40] VITALS: BP 119/84; PULSE 57; RESP 18; TEMP 36.5; O2SAT 94
--- NOTE | 2025-03-11 15:35 | PCM.DC ---
Discharge Instructions DC O2, CPAP, BIPAP needs Home O2 Discharge instructions: No Dressing / Incision Discharge Activity: Return to Normal Activity Weight Bearing Status: Full weight bearing Follow Up Care Test Results: Test results from this visit will be discussed in further detail at your follow-up appointment, if applicable. Discharge Plan Admission Admit Date/Time: 03/09/25 16:19 Primary Reason for Your Visit: a-fib Attending Provider: Kareem Smith Primary Care Provider: SMITHA BURRELL Consulting Providers: Tonie Ozuna; Soren Vasquez Instructions Additional Instructions / Restrictions: Do not take aspirin, Aleve, or ibuprofen for pain, take only Tylenol If you see any abnormal bleeding, please contact your PCP Discharge Orders/Prescriptions Prescriptions: New furosemide 40 mg Tablet 40 mg PO DAILY Qty: 30 0RF Eliquis 5 mg tablet 5 mg PO BID Qty: 60 0RF metoprolol tartrate 25 mg tablet 12.5 mg PO BID Qty: 30 0RF Continued lithium carbonate 450 MG tablet extended release 450 mg PO DAILY Patient Comments: bipolar tamsulosin 0.4 mg capsule 0.8 mg PO DAILY Referrals / Follow Up: SMITHA BURRELL, RESEARCH [employer]LECTRICIAN-C [Primary Care Provider] - In 1 Week Disposition Disposition (needs filled in before D/C Order can be placed): Home, Self Care
--- NOTE | 2025-03-11 15:48 | DS.PCM_ITS ---
Providers Date of Admission: 03/09/25 Date of Discharge: 03/11/25 Primary Care Physician: EMILE FRANKS Consultations 03/09/25 17:52 Consult: Cardiology Routine Consulting Provider: Tonie Ozuna Reason for Consult: new onset slow Afib w/ CHF exacerbation EMERGENT Consult: No MD Notified: Yes Date Notified: 03/09/25 Time Notified: 18:14 Method of Notification: Text Reason For Visit: CHF EXACERBATION, NEW ONSET AFIB Diagnosis Discharge Diagnosis (1) New onset a-fib: Status: Acute Code(s): I48.91 - Unspecified atrial fibrillation Plan 1. Acute CHF-with normal ejection fraction #2 new onset O-elm-fvsswms's rate is controlled at this time, patient will have an echocardiogram tomorrow, if the echocardiogram is unremarkable he can be started on Eliquis. #3 bipolar disorder-patient will remain on lithium #4 chronic kidney disease stage IIIa Total clinical time spent by myself addressing the patient medical issues, reviewing all of his data, and collaborating with patient's care team: 35-minute Medications at Discharge Home Medications lithium carbonate 450 mg tablet,extended release 450 mg PO DAILY mood stabilizer 08/01/15 tamsulosin 0.4 mg capsule 0.8 mg PO DAILY prostate 03/09/25 apixaban 5 mg tablet (Eliquis) 5 mg PO BID #60 tabs 03/11/25 furosemide 40 mg tablet 40 mg PO DAILY #30 tabs 03/11/25 metoprolol tartrate 25 mg tablet 12.5 mg (1/2 x 25 mg) PO BID #30 tabs 03/11/25 Hospital Course Operations None Procedures 2-D Echocardiogram Summary of Care Provided Minutes Spent on Discharge: 31 Hospital Course: This 84-year-old white male was seen in the emergency room at [facility] with complaints of 2 to 3 days of dyspnea on exertion with occasional chest tightness and generalized weakness. Workup in the ER showed a normal CBC,, patient's CHEM panel was abnormal for a creatinine of 1.41, patient's lithium level was therapeutic. Patient's beta natruretic peptide was elevated at 3066. Chest x-ray was performed which showed groundglass airspace disease scattered, EKG showed atrial fibrillation with a right bundle branch block, left anterior fascicular block. Patient's previous EKG had showed a normal sinus rhythm. The patient's rate was 57. Patient was admitted to PCU and treated for congestive heart failure with diuretics, his rate was controlled without use of beta-theresa, patient was placed on a heparin drip. On 03/11/2025, patient underwent an echocardiogram which showed a normal EF, it was felt he was stable for discharge home, it was recommended by cardiology that the patient be discharged on a small amount of a beta-theresa he was discharged on metoprolol tartrate 12-1/2 mg twice daily, Eliquis 5 mg twice a day, and Lasix 40 mg once a day. He was instructed to follow-up with his PCP in 1 week. On 03/11/2025, patient was seen and examined: On examination he appeared in good health and spirits. Vital signs as documented. Skin warm and dry and without overt rashes. Neck without JVD, neck was supple, trachea midline, thyroid was normal. Lungs clear bilaterally, normal air movement was noted. Heart exam notable for irregular rhythm, normal sounds and absence of murmurs, rubs or gallops. Abdomen unremarkable and without evidence of organomegaly, masses, or abdominal aortic enlargement. Bowel sounds are present, abdomen is not distended. Extremities nonedematous, no cyanosis was noted, no clubbing was noted. Neuro: Cranial nerves II through XII are grossly intact, no focal motor deficits were noted, sensation to light touch and pinprick intact, motor exam 5/5 throughout. Psych: Patient is alert and oriented x3, he does not appear anxious or depressed, he does not appear agitated. Patient appears to be stable for discharge home on 03/11/2025. Weight / BMI Weight Weight: 106.1 kg Body Mass Index (BMI) 35.5 ABG / Lab / Microbiology Data 03/10/25 07:37 03/10/25 07:37 Laboratory: Laboratory Results - last 24 hr 03/10/25 16:35: APTT 56.7 H 03/10/25 22:34: APTT 58.7 H 03/11/25 05:29: APTT 64.8 H Microbiology: Microbiology 03/09/25 14:16 Mucosa - Nose SARS-CoV-2, Influenza & RSV (PCR) - Final D/C Instructions Weight Bearing Status: Full weight bearing DC O2, CPAP, BIPAP Needs Home O2 Discharge instructions: No Meaningful Use Info Meaningful Use Meaningful Use Diagnoses (Choose all that apply): CHF CHF KEVEN/ARB ordered at discharge?: No Reason KEVEN/ARB not ordered?: Not indicated Documented LVEF (%): 52 Discharge Plan Admission Admit Date/Time: 03/09/25 16:19 Primary Reason for Your Visit: violet-brett Attending Provider: Kareem Smith Primary Care Provider: SMITHA BURRELL Consulting Providers: Tonie Ozuna; Soren Vasquez Instructions Additional Instructions / Restrictions: Do not take aspirin, Aleve, or ibuprofen for pain, take only Tylenol If you see any abnormal bleeding, please contact your PCP Discharge Orders/Prescriptions Prescriptions: New furosemide 40 mg Tablet 40 mg PO DAILY Qty: 30 0RF Eliquis 5 mg tablet 5 mg PO BID Qty: 60 0RF metoprolol tartrate 25 mg tablet 12.5 mg PO BID Qty: 30 0RF Continued lithium carbonate 450 MG tablet extended release 450 mg PO DAILY Patient Comments: bipolar tamsulosin 0.4 mg capsule 0.8 mg PO DAILY Referrals / Follow Up: SMITHA BURRELL, SUPERVISOR [employer]ETS-C [Primary Care Provider] - In 1 Week Disposition Disposition (needs filled in before D/C Order can be placed): Home, Self Care Charges/Coding Visit Charges Inpatient E&M: 54786 Disch Hosp >30min
--- NOTE | 2025-03-11 16:08 | CASEMGMT ---
JUNIOR MONTGOMERY made referral to [facility], patient accepted with start of care planned for Tuesday. Patient has order for discharge. Patient discharging on Eliquis, JUNIOR MONTGOMERY called [facility], copay is $60. JUNIOR MONTGOMERY in to update patient that [facility] accepted patient and planned start of care, family at bedside. JUNIOR MONTGOMERY updated patient regarding Eliquis copay and day free trial savings card provided to patient. Patient and family had no further questions or concerns. JUNIOR MONTGOMERY updated discharge plan.
--- NOTE | 2025-03-11 16:25 | PHA.DC_ITS ---
Pharmacy [facility] Counseling Pharmacy Service has performed discharge medication reconciliation and counseling for this patient. 1. APIXABAN 5MG PO BID 2. FUROSEMIDE 40MG PO DAILY 3. METOPROLOL TARTRATE 12.5MG PO BID The patient's discharge medication list was reviewed for discrepancies and discrepancies were resolved. The patient was counseled on the following discharge medications and changes in medications for homegoing were reviewed. The Reason for Use, instructions for use, and potential side effects were reviewed for all new medications. The patient's questions regarding all of their medications were answered. The patient was able to verbally demonstrate an understanding of their discharge medications. Medications at Discharge Home Medications lithium carbonate 450 mg tablet,extended release 450 mg PO DAILY mood stabilizer 08/01/15 tamsulosin 0.4 mg capsule 0.8 mg PO DAILY prostate 03/09/25 apixaban 5 mg tablet (Eliquis) 5 mg PO BID #60 tabs 03/11/25 furosemide 40 mg tablet 40 mg PO DAILY #30 tabs 03/11/25 metoprolol tartrate 25 mg tablet 12.5 mg (1/2 x 25 mg) PO BID #30 tabs 03/11/25
== END 2025-03-11 17:11 | disposition home or self-care (01) | DRG 308 ==
LOC: ED 16:19 → PCU 16:44
PROVIDERS: Family Medicine; Admitting Provider Hospitalist; Emergency Provider Emergency Medicine; PCP Nurse Practitioner Family; Visit Provider Internal Medicine
DX: I48.91 Unspecified atrial fibrillation (principal); I50.31 Acute diastolic (congestive) heart failure; N18.31 Chronic kidney disease, stage 3a; F31.9 Bipolar disorder, unspecified; Z68.36 Body mass index [BMI] 36.0-36.9, adult; R00.1 Bradycardia, unspecified; R53.81 Other malaise; E66.812 Obesity, class 2; Z79.899 Other long term (current) drug therapy; Z90.49 Acquired absence of other specified parts of digestive tract
CPT/HCPCS: 36415; 71045; 80048; 80178; 83735; 83880; 84100; 84484; 85025; 85027; 85610; 85730; 87631; 93005; 93306; 94668; 94760; 97161; 97165; 97530; 99284; Q9957; A4216; J1938